=== PATIENT | male | born 1935 | race Caucasian/White ===

== ENCOUNTER 2017-02-21 19:39 | Inpatient (IN) ==
--- NOTE | 2017-02-22 01:28 | Internal Med History&Physical ---
Date of Encounter: 02/22/17 Time of Encounter: 01:26 Assessment and Plan (1) UTI (urinary tract infection) Current visit: No Status: Acute urine cx pend. Continue empiric rocephin for UTI therapy. Dtr in ED reported mental status baseline Qualifiers: Urinary tract infection type: acute cystitis Hematuria presence: without hematuria Qualified Code(s): N30.00 - Acute cystitis without hematuria (2) Afib Current visit: Yes Status: Acute increase metoprolol (decrease lisinopril) for better rate control. On ASA. Not on AC due to risk of fall Qualifiers: Atrial fibrillation type: chronic Qualified Code(s): I48.2 - Chronic atrial fibrillation (3) Acute kidney injury superimposed on CKD Current visit: Yes Status: Acute IVF Suspect pre-renal (4) HTN (hypertension), benign Current visit: Yes Status: Acute adjust metoprolol upwards, decrease dose of lisinopril Orthostat PT (5) DMII (diabetes mellitus, type 2) Current visit: Yes Status: Acute hold metformin, ISS for now Qualifiers: Diabetes mellitus complication status: without complication Diabetes mellitus rat exterminator insulin use: without senior care use Qualified Code(s): E11.9 - Type 2 diabetes mellitus without complications Internal Medicine - H&P: HPI Chief complaint: Suspect AMS ? Found sleeping outside his house on the ground History of present illness: Mr Khan is an 81 yo male who presents with AMS. Possible 2/2 UTI. He reports living alone at home and is extremely hard of hearing. He reports frequently sleeping on the ground outside his house. He reported another routine nap since yesterday evening and woke up today. His neigbor alerted his dtr who advised him to present for evaluation. He feel normal and w/o acute deficits. On review, he notes of a long-standing history of right upper extremity weakness due to history of right wrist fracture prior On review, a bruise was noted on his forehead- however, he had little recollection of how it happened Objectively, WBC 17.7, trop leak 0.07, Cr 1.76 (baseline 1-1.2), UA with pyuria. Urine cx pend. Received empiric UTI therapy in the ED. EKG reviewed personally with rate 104, AFib CT/CT head/brain wo con IMPRESSION: No acute intracranial abnormality. Past Med Surg Social Fam HX - Past Medical History Medical history: arthritis, atrial fibrillation, CHF, diabetes, hyperlipidemia, hypertension, other Psychiatric history: no psych history - Past Surgical History Surgical History: orthopedic, other, other - Social History Smoking Status: Former smoker Smokeless Tobacco Status: No Alcohol use: none Drug use: none - Family History Mother Hx Family Cancer: Yes (brain) Internal Medicine - H&P: Meds Furosemide [Lasix] 40 mg PO BID 03/03/16 [History] Lisinopril [Zestril] 40 mg PO DAILY 03/03/16 [History] Metoprolol [Lopressor] 50 mg PO BID 03/03/16 [History] Pravastatin Sodium [Pravachol] 40 mg PO HS 03/03/16 [History] metFORMIN [Glucophage] 500 mg PO BID 03/03/16 [History] Aspirin [Ecotrin] 325 mg PO DAILY 02/21/17 [History] Gabapentin [Neurontin] 300 mg PO TID 02/21/17 [History] Magnesium Oxide [Mag-Ox] 400 mg PO BID 02/21/17 [History] Potassium Chloride 20 meq PO DAILY 02/21/17 [History] 3 Allergy/AdvReac Type Severity Reaction Status Date / Time No Known Allergies Allergy Verified 03/03/16 14:13 All Systems PM: A 10-system review of systems was performed and is negative for pertinent findings except as documented above in the HPI. Review of systems: ROS 14 point review of systems reviewed as best as possible given presentation. Pertinent positive or negative as per HPI or otherwise reviewed as negative - Constitutional Vitals: Temp Pulse Resp BP Pulse Ox 98.1 F 111 16 143/90 98 02/21/17 22:01 02/21/17 22:01 02/21/17 22:01 02/21/17 22:01 02/21/17 22:01 Exam: General - AAO x 3 Psych - Appropriate affect/speech. No agitation Eyes - ZEHRA. Eye lids intact. No scleral icterus Neuro - decreased hearing otherwise no central neuro deficits with intact CN 2- 12 exam. Right upper extremity 4/5 power Heart - irregular. S1 and S2 present. No added HS/murmurs appreciated. No elevated JVD appreciated. Lung - Adequate air entry b/l, No crackles/wheezes appreciated GI - Soft, non-tender. No hepatosplenomegaly/ascites. BS+ - No CVA/suprapubic tenderness or palpable bladder distension Skin - Intact. No rash/petechiae/ecchymosis. Warm extremities MSK - Joints with normal ROM. No joint swellings
[2017-02-22] MEDS ORDERED: *HR* Dextrose 50 % in Water (Syg) 50 ML SYRINGE IVP PRN (01:30)
[2017-02-22] MEDS ORDERED: Naloxone 0.4 MG/ML INJ IVP PRN (01:30)
[2017-02-22] MEDS ORDERED: D5% in Water 1,000 ML IVC PRN (01:30)
[2017-02-22] MEDS ORDERED: Dextrose Gel 15 GM PO PRN ×2 (01:30)
[2017-02-22] MEDS: 0.9 % Sodium Chloride 1,000 ML IVC SCH (02:22)
[2017-02-22 03:28] LABS: Basophils % 0.1 %; Eosinophils % 0.2 %; Hematocrit 35.6 % (37.5-50.1); Hemoglobin 11.2 g/dL (12.9-16.9); Immature Granulocytes % 0.6 % (0-4); Lymphocytes # 1.1 K/mcL (0.6-4.6); Lymphocytes % 7.1 %; Mean Corpuscular HGB Conc 31.5 g/dL (31.6-35.5); Mean Corpuscular Hemoglobin 30.1 pg (28.0-33.3); Mean Corpuscular Volume 95.7 fL (83.0-100.0); Mean Platelet Volume 10.9 fL (9.4-12.4); Monocytes # 1.9 K/mcL (0.0-1.3); Monocytes % 11.7 %; Neutrophils # 12.7 K/mcL (1.6-8.9); Platelet Count 201 K/mcL (140-400); Red Blood Count 3.72 M/mcL (4.19-5.50); Red Cell Distribution Width 14.4 % (11.5-14.5); Segmented Neutrophils % 80.3 %
[2017-02-22 03:46] LABS: Albumin 3.3 g/dL (3.5-5.0); Albumin/Globulin Ratio 0.8 (1.1-2.2); Bilirubin,Direct 1.1 mg/dL (0.0-0.5); Bilirubin,Indirect 1.6 mg/dL (0.0-1.2); Bilirubin,Total 2.7 mg/dL (0.2-1.2); Globulin 4.2 g/dL (2.4-3.5); Magnesium 1.7 mg/dL (1.6-2.6); Potassium 4.6 mEq/L (3.5-4.5); Total Protein 7.5 g/dL (6.0-8.3)
[2017-02-22] MEDS: Magnesium Oxide 400 MG TABLET PO SCH ×2 (08:35→20:40)
[2017-02-22] MEDS: Gabapentin 300 MG CAPSULE PO SCH ×3 (08:35→20:40)
[2017-02-22] MEDS: Aspirin Enteric Coated 325 MG Tablet PO SCH (08:36)
[2017-02-22] MEDS: Lisinopril 20 MG TABLET PO SCH (08:36)
[2017-02-22] MEDS: Insulin LISPRO 300 UNITS/3 ML VIAL SQ SCH ×4 (08:37→21:55)
[2017-02-22] MEDS ORDERED: Acetaminophen 325 MG TABLET PO PRN (09:16)
--- NOTE | 2017-02-22 18:21 | Event Note ---
Date of Encounter: 02/22/17 Time of Encounter: 14:35 Pt was seen and assessed at 1435 today. He is alert, oriented, very hard of hearing. He is sitting up at bedside and states that he was lying down in his front yard which he does sometimes and is unsure how he got abrasions to his head, right elbow, bilateral feet. He reports right wrist pain and right knee pain, x-rays up in ordered. He also has an abrasion to his right forehead, head CT has been ordered. He is insistent that he did not fall and he was just Carlos is unsure how he received all the abrasions. He denies any pain, he denies wearing oxygen at home, he does not smoke, and he does not use any alcohol. He has multiple family members who are in the medical field and are requesting podiatry, trim his toenails and that he have a sleep study while he is here. Both of these will be done outpatient. Patient is currently being treated for urinary tract infection, there is trace of sinusitis to raise, moderate bacteria, many casts, culture is pending at this time. He will be treated with Rocephin until final culture and sensitivity are available. Patient's beta yolis was increased to 2 uncontrolled rate with A. fib, rate has slowed into the 80s, blood pressure has tolerated it well. We will continue his aspirin. He is not on anticoagulation due to increased risk of falls at home. Patient with mild AK I, being treated with gentle IV hydration will continue to monitor labs and avoid nephrotoxins. Pt denies headache, n/v/d, SOB, diaphoresis, abd pain, dizziness, chest pain, or presyncope. He reports right wrist and right knee pain and denies fall or known injury. Physical exam is unremarkable other than patient is hard of hearing and abrasion to right forehead, right elbow, right knee. S!S2 with RRR, no gallops, clicks, or murmurs. Lungs are clear, no wheezing, rales, ronchi, or respiratory distress. Abd is distended, soft, obese with BS present. Pt with mild peripheral edema to avery ankles. We will continue treating pt for UTI and wait on results of xrays and head CT. PT has recommended continued therapy in SNF, patient is agreeable. Continue fall precautions and maintain bed alarm. Payroll Supervisor consult pending.
[2017-02-23 04:16] LABS: Basophils % 0.1 %; Eosinophils # 0.2 K/mcL (0.0-0.6); Eosinophils % 1.4 %; Hematocrit 30.5 % (37.5-50.1); Hemoglobin 9.7 g/dL (12.9-16.9); Immature Granulocytes % 0.7 % (0-4); Lymphocytes # 1.2 K/mcL (0.6-4.6); Lymphocytes % 8.6 %; Mean Corpuscular HGB Conc 31.8 g/dL (31.6-35.5); Mean Corpuscular Hemoglobin 30.4 pg (28.0-33.3); Mean Corpuscular Volume 95.6 fL (83.0-100.0); Monocytes # 1.6 K/mcL (0.0-1.3); Monocytes % 12.2 %; Neutrophils # 10.3 K/mcL (1.6-8.9); Platelet Count 183 K/mcL (140-400); Red Blood Count 3.19 M/mcL (4.19-5.50); Red Cell Distribution Width 14.3 % (11.5-14.5)
[2017-02-23 04:28] LABS: Alanine Aminotransferase 11 Units/L (0-55); Albumin 2.7 g/dL (3.5-5.0); Albumin/Globulin Ratio 0.7 (1.1-2.2); Alkaline Phosphatase 100 Units/L (38-126); Aspartate Amino Transferase 40 Units/L (5-34); BUN/Creatinine Ratio 31 (6-26); Bilirubin,Direct 0.4 mg/dL (0.0-0.5); Bilirubin,Indirect 0.3 mg/dL (0.0-1.2); Bilirubin,Total 0.7 mg/dL (0.2-1.2); Blood Urea Nitrogen 34 mg/dL (8-26); Calcium 8.5 mg/dL (8.6-10.8); Carbon Dioxide 26 mEq/L (19-29); Chloride 106 mEq/L (98-109); Globulin 3.7 g/dL (2.4-3.5); Glucose 113 mg/dL (70-99); Magnesium 1.8 mg/dL (1.6-2.6); Osmolality,Calculated 294 (280-300); Potassium 4.4 mEq/L (3.5-4.5); Sodium 138 mEq/L (136-145); Total Protein 6.4 g/dL (6.0-8.3); eGFR For African Americans > 60 (> 60); eGFR For Non-African Americans > 60 (> 60)
[2017-02-23] MEDS: Lisinopril 20 MG TABLET PO SCH (08:53)
[2017-02-23] MEDS: Gabapentin 300 MG CAPSULE PO SCH ×3 (08:53→19:41)
[2017-02-23] MEDS: Magnesium Oxide 400 MG TABLET PO SCH ×2 (08:53→19:41)
[2017-02-23] MEDS: Aspirin Enteric Coated 325 MG Tablet PO SCH (08:53)
[2017-02-23] MEDS: Insulin LISPRO 300 UNITS/3 ML VIAL SQ SCH ×4 (08:55→23:33)
--- NOTE | 2017-02-23 09:51 | Internal Med Progress Note ---
Date of Encounter: 02/23/17 Time of Encounter: 08:40 - Assessment and plan (1) UTI (urinary tract infection) Current Visit: Yes Status: Acute Assessment and plan: Pt being treated for UTI, culture is still pending. + leukocyte esterase, blood. He is being treated with Rocephin 1gram daily, initial culture still pending. Qualifiers: Urinary tract infection type: acute cystitis Hematuria presence: without hematuria Qualified Code(s): N30.00 - Acute cystitis without hematuria (2) Rhabdomyolysis Current Visit: Yes Status: Acute Assessment and plan: Pt denies fall, however he has abrasions on elbow, forehead, and reports new pain to right elbow and right foot. He was found in his yard by a neighbor. Pt states that sometimes he sleeps in his yard and has for years. Pt with elevated CK, wrist and foot pain, non-tender to palpation. Urine collected on admission with casts and protein. Continue IVF and hydration. Qualifiers: Rhabdomyolysis type: non-traumatic Qualified Code(s): M62.82 - Rhabdomyolysis (3) Leukocytosis Current Visit: No Status: Acute Assessment and plan: Pt with mild leukocytosis, 13.4 today, improving. Pt is being treated for UTI, most likely source of infection. Continue IV antibiotics. Urine culture pending. Chest xray with left basilar atelectasis, otherwise no acute process. Continue to monitor labs and vital signs. Qualifiers: Leukocytosis type: unspecified Qualified Code(s): D72.829 - Elevated white blood cell count, unspecified (4) Acute kidney injury superimposed on CKD Current Visit: Yes Status: Acute Assessment and plan: Renal function has returned to WNL, Sr Cr 1.08 and GFR >60. Continue to monitor labs and avoid nephrotoxins. (5) HTN (hypertension), benign Current Visit: Yes Status: Acute Assessment and plan: Well controlled in inpt setting. Continue home medications. (6) DMII (diabetes mellitus, type 2) Current Visit: Yes Status: Acute Assessment and plan: Well controlled in inpt setting. A1c ordered for a.m. Last in June 6.8%. Continue SSI, accuchecks, and diabetic diet. Qualifiers: Diabetes mellitus complication status: without complication Diabetes mellitus terminologist insulin use: without terminologist use Qualified Code(s): E11.9 - Type 2 diabetes mellitus without complications (7) DVT prophylaxis Current Visit: Yes Status: Acute Assessment and plan: Activity up to chair, SCD's, and Heparin SQ - Time Spent With Patient less than 15 minutes - Subjective Interval history: Pr was seen and assessed at 0840. He is alert and awake, pleasant, [place]. He is agreeable to going to rehab and would like to go to [place]. - Constitutional Vitals: Temp Pulse Resp BP Pulse Ox 98.5 F 104 17 138/79 98 02/23/17 07:27 02/23/17 07:27 02/23/17 07:27 02/23/17 07:27 02/23/17 07:27 Internal Medicine: Result - Labs CBC & Chem 7: 02/23/17 04:05 02/23/17 04:05 Labs: Short CBC 02/23/17 Range/Units 04:05 WBC 13.4 H (4.3-11.1) K/mcL Hgb 9.7 L D (12.9-16.9) g/dL Hct 30.5 L (37.5-50.1) % Plt Count 183 (140-400) K/mcL Neutrophils # 10.3 H (1.6-8.9) K/mcL BMP 02/23/17 04:05 Sodium 138 Potassium 4.4 Chloride 106 Carbon Dioxide 26 BUN 34 H Creatinine 1.08 Glucose 113 H Calcium 8.5 L Cardiac Enzymes 02/22/17 Range/Units 13:38 Troponin I 0.03 (0-0.03) ng/mL Liver Function 02/23/17 Range/Units 04:05 Total Bilirubin 0.7 (0.2-1.2) mg/dL Direct Bilirubin 0.4 (0.0-0.5) mg/dL AST 40 H (5-34) Units/L ALT 11 (0-55) Units/L Alkaline Phosphatase 100 (38-126) Units/L Albumin 2.7 L (3.5-5.0) g/dL - Impressions Impressions Head CT 02/22/17 17:38 IMPRESSION: No acute intracranial abnormality. D/ / 02/23/2017 07:17:15 Murray Rosales MD / [facility] Interpreting Provider: Murray Rosales MD Hand X-Ray 02/22/17 17:40 IMPRESSION: No definite acute radiographic bony abnormality. D/ / Malorie Mendez Cha, MD / Malorie Mendez Cha, MD Interpreting Provider: Malorie Mendez Cha, MD Knee X-Ray 02/22/17 17:40 IMPRESSION: No acute bony abnormality. D/ / Malorie Mendez Cha, MD / Malorie Mendez Cha, MD Interpreting Provider: Malorie Mendez Cha, MD Consult Discharge Plan - Plan Referrals: Camron Allen MD [Primary Care Provider] -
[2017-02-23] MEDS: *HR* Heparin 5,000 UNIT/ML VIAL SQ SCH (17:13)
[2017-02-23] MEDS: 0.9 % Sodium Chloride 1,000 ML IVC SCH (19:42)
[2017-02-23 23:39] LABS: Bilirubin,Urine Negative (Negative); Blood,Urine Negative (Negative); Clarity,Urine Clear (Clear); Color,Urine Yellow (Yellow); Glucose,Urine (UA) Normal (Normal); Ketones,Urine Negative (Negative); Leukocyte Esterase,Urine Negative (Negative); Nitrite,Urine Negative (Negative); PH,Urine 5.5 pH Units (5.0-8.0); Protein,Urine Negative (Neg-Trace); Specific Gravity,Urine 1.024 (1.010-1.025); Urobilinogen,Urine Normal (Normal)
[2017-02-24 05:22] LABS: Basophils % 0.3 %; Eosinophils # 0.3 K/mcL (0.0-0.6); Eosinophils % 2.5 %; Hematocrit 30.2 % (37.5-50.1); Hemoglobin 9.3 g/dL (12.9-16.9); Immature Granulocytes % 0.6 % (0-4); Immature Platelets 5.6 % (1.1-6.1); Lymphocytes # 1.2 K/mcL (0.6-4.6); Lymphocytes % 10.8 %; Mean Corpuscular HGB Conc 30.8 g/dL (31.6-35.5); Mean Corpuscular Hemoglobin 29.7 pg (28.0-33.3); Mean Corpuscular Volume 96.5 fL (83.0-100.0); Mean Platelet Volume 10.8 fL (9.4-12.4); Monocytes # 1.4 K/mcL (0.0-1.3); Neutrophils # 8.4 K/mcL (1.6-8.9); Platelet Count 199 K/mcL (140-400); Red Blood Count 3.13 M/mcL (4.19-5.50); Red Cell Distribution Width 14.4 % (11.5-14.5); Segmented Neutrophils % 73.8 %
[2017-02-24] MEDS: *HR* Heparin 5,000 UNIT/ML VIAL SQ SCH ×2 (05:41→16:32)
[2017-02-24 07:04] LABS: Alanine Aminotransferase 14 Units/L (0-55); Albumin 2.7 g/dL (3.5-5.0); Albumin/Globulin Ratio 0.7 (1.1-2.2); Alkaline Phosphatase 104 Units/L (38-126); Aspartate Amino Transferase 32 Units/L (5-34); BUN/Creatinine Ratio 28 (6-26); Bilirubin,Direct 0.3 mg/dL (0.0-0.5); Bilirubin,Indirect 0.1 mg/dL (0.0-1.2); Bilirubin,Total 0.4 mg/dL (0.2-1.2); Blood Urea Nitrogen 30 mg/dL (8-26); Calcium 8.7 mg/dL (8.6-10.8); Carbon Dioxide 24 mEq/L (19-29); Chloride 109 mEq/L (98-109); Globulin 3.8 g/dL (2.4-3.5); Glucose 129 mg/dL (70-99); Magnesium 1.9 mg/dL (1.6-2.6); Osmolality,Calculated 298 (280-300); Potassium 4.5 mEq/L (3.5-4.5); Sodium 140 mEq/L (136-145); Total Protein 6.5 g/dL (6.0-8.3); eGFR For African Americans > 60 (> 60); eGFR For Non-African Americans > 60 (> 60)
[2017-02-24] MEDS: Insulin LISPRO 300 UNITS/3 ML VIAL SQ SCH ×4 (07:24→23:09)
--- NOTE | 2017-02-24 08:43 | Internal Med Progress Note ---
<Sanchez Vargas - Last Filed: 02/24/17 16:10> Date of Encounter: 02/24/17 Time of Encounter: 08:42 - Assessment and plan (1) Intractable pain Current Visit: Yes Status: Acute Assessment and plan: Patient complains of uncontrolled pain in his right upper extremity secondary to fall, imaging does not show any acute fracture. Plan: - Continue current pain control - Add tramadol 25 mg by mouth when necessary every 8 hours (2) History of fall Current Visit: No Status: Acute Assessment and plan: Patient has a history of falls. Patient's chart is recommended to use assistive devices while ambulating. - Given his current admission is highly recommend that he has physical therapy discharge - Physical therapy recommending ECF placement - Family agrees ECF placement (3) Leukocytosis Current Visit: No Status: Acute Assessment and plan: Patient presented with leukocytosis, reviewed with patient history demonstrates a chronic leukocytosis. Slight elevation likely due to presenting rhabdomyolysis. Plan: - We will continue to monitor with am labs, do not suspect due to infectious etiology Qualifiers: Leukocytosis type: unspecified Qualified Code(s): D72.829 - Elevated white blood cell count, unspecified (4) Acute kidney injury superimposed on CKD Current Visit: Yes Status: Acute Assessment and plan: Renal function has returned to WNL, Sr Cr 1.08 and GFR >60. Continue to monitor labs and avoid nephrotoxins. (5) Afib Current Visit: Yes Status: Acute Assessment and plan: Patient is a known history of HIV fibrillation, on anti-coagulation as he is a high fall risk as demonstrated by his falling at home resulting in right upper extremity injury and forehead lesion. - Currently rate controlled with Lopressor 100 mg twice a day -Continue cardiac monitoring - Continue aspirin Qualifiers: Atrial fibrillation type: chronic Qualified Code(s): I48.2 - Chronic atrial fibrillation (6) HTN (hypertension), benign Current Visit: Yes Status: Acute Assessment and plan: Well controlled in inpt setting. Continue home medications. (7) DMII (diabetes mellitus, type 2) Current Visit: Yes Status: Acute Assessment and plan: Well controlled in inpt setting. A1c ordered for a.m. Last in June 6.8%. Continue SSI, accuchecks, and diabetic diet. Qualifiers: Diabetes mellitus complication status: without complication Diabetes mellitus technician terminal and repeater insulin use: without technician terminal and repeater use Qualified Code(s): E11.9 - Type 2 diabetes mellitus without complications (8) Rhabdomyolysis Current Visit: Yes Status: Acute Assessment and plan: Rhabdomyolysis has resolved with inpatient intervention. - Continue to monitor CBC and CMP during inpatient stay. Qualifiers: Rhabdomyolysis type: non-traumatic Qualified Code(s): M62.82 - Rhabdomyolysis (9) DVT prophylaxis Current Visit: Yes Status: Acute Assessment and plan: Activity up to chair, SCD's, and Heparin SQ - Subjective Interval history: Mr. Khan 81-year-old Luis seen and evaluated the patient bedside this morning. He is alert awake interactive and complains of pain that is uncontrolled in his right upper extremity. When asked why he was sleeping on his porch she says that he used to do a lot of camping and sleeping outside his natural for him. He does mention that his daughter is picking up a ramp so that he can get into the house. When asked about the scrape on his forehead he said that he sat down on his driveway and rolled down his driveway. He denies any headaches, change in vision, lightheadedness, chest pain, palpitations, abdominal pain, nausea vomiting diarrhea constipation. When asked about the swelling in his legs he said that is the same as it always is. 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 Chest symmetric bilateral correlate respiratory effort Respiratory: Clear to auscultation bilaterally Cardiac: Irregularly irregular heart rate and rhythm, radial pulses were 2+ bilateral Abdomen: Obese, soft, nontender to palpation, positive bowel sounds Extremities: Patient has bilateral lower extremity edema 1+, venous stasis changes, tenderness to palpation of the right upper extremity Internal Medicine: Result - Labs CBC & Chem 7: 02/24/17 05:12 02/24/17 05:12 Labs: Short CBC 02/24/17 Range/Units 05:12 WBC 11.4 H (4.3-11.1) K/mcL Hgb 9.3 L (12.9-16.9) g/dL Hct 30.2 L (37.5-50.1) % Plt Count 199 (140-400) K/mcL Neutrophils # 8.4 (1.6-8.9) K/mcL BMP 02/24/17 05:12 Sodium 140 Potassium 4.5 Chloride 109 Carbon Dioxide 24 BUN 30 H Creatinine 1.09 Glucose 129 H Calcium 8.7 Cardiac Enzymes 02/23/17 Range/Units 00:00 Troponin I 0.02 (0-0.03) ng/mL Liver Function 02/24/17 Range/Units 05:12 Total Bilirubin 0.4 (0.2-1.2) mg/dL Direct Bilirubin 0.3 (0.0-0.5) mg/dL AST 32 (5-34) Units/L ALT 14 (0-55) Units/L Alkaline Phosphatase 104 (38-126) Units/L Albumin 2.7 L (3.5-5.0) g/dL Urine 02/23/17 Range/Units 23:30 Urine Color Yellow (Yellow) Urine Clarity Clear (Clear) Urine pH 5.5 (5.0-8.0) pH Units Ur Specific [place] 1.024 (1.010-1.025) Urine Protein Negative (Neg-Trace) mg/dL Urine Glucose (UA) Normal (Normal) mg/dL - Impressions Impressions Head CT 02/22/17 17:38 IMPRESSION: No acute intracranial abnormality. D/ / 02/23/2017 07:17:15 [facility] Inter[facility]ting Provider: Murray Rosales MD - VTE Documentation of Mechanical Device: Intermittent pneumatic compression device Consult Discharge Plan - Plan Referrals: Camron Allen MD [Primary Care Provider] - <Damian Travis - Last Filed: 02/24/17 17:22> Date of Encounter: 02/24/17 - Constitutional Vitals: Temp Pulse Resp BP Pulse Ox 98.4 F 97 18 134/83 97 02/24/17 15:02/24/17 15:02/24/17 15:02/24/17 15:02/24/17 15:09 Internal Medicine: Result - Labs CBC & Chem 7: 02/24/17 05:12 02/24/17 05:12 Labs: Short CBC 02/24/17 Range/Units 05:12 WBC 11.4 H (4.3-11.1) K/mcL Hgb 9.3 L (12.9-16.9) g/dL Hct 30.2 L (37.5-50.1) % Plt Count 199 (140-400) K/mcL Neutrophils # 8.4 (1.6-8.9) K/mcL BMP 02/24/17 05:12 Sodium 140 Potassium 4.5 Chloride 109 Carbon Dioxide 24 BUN 30 H Creatinine 1.09 Glucose 129 H Calcium 8.7 Cardiac Enzymes 02/23/17 Range/Units 00:00 Troponin I 0.02 (0-0.03) ng/mL Liver Function 02/24/17 Range/Units 05:12 Total Bilirubin 0.4 (0.2-1.2) mg/dL Direct Bilirubin 0.3 (0.0-0.5) mg/dL AST 32 (5-34) Units/L ALT 14 (0-55) Units/L Alkaline Phosphatase 104 (38-126) Units/L Albumin 2.7 L (3.5-5.0) g/dL Urine 02/23/17 Range/Units 23:30 Urine Color Yellow (Yellow) Urine Clarity Clear (Clear) Urine pH 5.5 (5.0-8.0) pH Units Ur Specific [place] 1.024 (1.010-1.025) Urine Protein Negative (Neg-Trace) mg/dL Urine Glucose (UA) Normal (Normal) mg/dL - Impressions Impressions Head CT 02/22/17 17:38 IMPRESSION: No acute intracranial abnormality. D/ / 02/23/2017 07:17:15 [facility] Inter[facility] Provider: Murray Rosales MD - Attending Attestation start tramadol, consider dilaudid IV fall precautions I examined this patient and my medical decision-making was reviewed with the Resident Physician. I agree with the documented findings, disposition and treatment plan as described except to the extent set forth below.
[2017-02-24] MEDS: Aspirin Enteric Coated 325 MG Tablet PO SCH (08:45)
[2017-02-24] MEDS: Lisinopril 20 MG TABLET PO SCH (08:45)
[2017-02-24] MEDS: Magnesium Oxide 400 MG TABLET PO SCH ×2 (08:45→21:14)
[2017-02-24] MEDS: Gabapentin 300 MG CAPSULE PO SCH ×3 (08:45→21:15)
[2017-02-24 09:03] LABS: Hemoglobin A1C 6.3 %
[2017-02-24] MEDS: Silvasorb 44.4 ML TUBE TP SCH (12:27)
[2017-02-24] MEDS ORDERED: traMADol 50 MG TABLET PO PRN (13:49)
[2017-02-25 05:18] LABS: Basophils % 0.1 %; Eosinophils # 0.3 K/mcL (0.0-0.6); Eosinophils % 3.1 %; Hematocrit 31.1 % (37.5-50.1); Hemoglobin 9.7 g/dL (12.9-16.9); Immature Granulocytes % 0.5 % (0-4); Lymphocytes # 1.2 K/mcL (0.6-4.6); Lymphocytes % 12.1 %; Mean Corpuscular HGB Conc 31.2 g/dL (31.6-35.5); Mean Corpuscular Hemoglobin 30.5 pg (28.0-33.3); Mean Corpuscular Volume 97.8 fL (83.0-100.0); Mean Platelet Volume 11.1 fL (9.4-12.4); Monocytes # 1.4 K/mcL (0.0-1.3); Monocytes % 14.5 %; Neutrophils # 6.9 K/mcL (1.6-8.9); Platelet Count 200 K/mcL (140-400); Red Blood Count 3.18 M/mcL (4.19-5.50); Red Cell Distribution Width 14.5 % (11.5-14.5); Segmented Neutrophils % 69.7 %
[2017-02-25 05:30] LABS: Alanine Aminotransferase 13 Units/L (0-55); Albumin 2.5 g/dL (3.5-5.0); Albumin/Globulin Ratio 0.6 (1.1-2.2); Alkaline Phosphatase 106 Units/L (38-126); Aspartate Amino Transferase 25 Units/L (5-34); BUN/Creatinine Ratio 39 (6-26); Bilirubin,Total 0.5 mg/dL (0.2-1.2); Blood Urea Nitrogen 27 mg/dL (8-26); Calcium 8.8 mg/dL (8.6-10.8); Carbon Dioxide 26 mEq/L (19-29); Chloride 107 mEq/L (98-109); Glucose 118 mg/dL (70-99); Osmolality,Calculated 294 (280-300); Potassium 4.5 mEq/L (3.5-4.5); Sodium 139 mEq/L (136-145); Total Protein 6.5 g/dL (6.0-8.3); eGFR For African Americans > 60 (> 60); eGFR For Non-African Americans > 60 (> 60)
[2017-02-25] MEDS: *HR* Heparin 5,000 UNIT/ML VIAL SQ SCH ×2 (07:24→17:33)
[2017-02-25] MEDS: Aspirin Enteric Coated 325 MG Tablet PO SCH (08:11)
[2017-02-25] MEDS: Lisinopril 20 MG TABLET PO SCH (08:12)
[2017-02-25] MEDS: Gabapentin 300 MG CAPSULE PO SCH ×3 (08:12→21:56)
[2017-02-25] MEDS: Magnesium Oxide 400 MG TABLET PO SCH ×2 (08:12→21:56)
[2017-02-25] MEDS: Insulin LISPRO 300 UNITS/3 ML VIAL SQ SCH ×3 (08:19→21:56)
--- NOTE | 2017-02-25 11:21 | Internal Med Progress Note ---
<Sanchez Vargas - Last Filed: 02/25/17 12:59> Date of Encounter: 02/25/17 Time of Encounter: 11:19 - Assessment and plan (1) Intractable pain Current Visit: Yes Status: Acute Assessment and plan: Patient complains of uncontrolled pain in his right upper extremity secondary to fall, imaging does not show any acute fracture. - more improved today Plan: - Continue current pain control - Continue tramadol 25 mg by mouth when necessary every 8 hours (2) History of fall Current Visit: No Status: Acute Assessment and plan: Patient has a history of falls. Patient's chart is recommended to use assistive devices while ambulating. - Given his current admission is highly recommend that he has physical therapy discharge - Physical therapy recommending ECF placement - Family agrees ECF placement (3) Leukocytosis Current Visit: No Status: Acute Assessment and plan: Patient presented with leukocytosis, reviewed with patient history demonstrates a chronic leukocytosis. Slight elevation likely due to presenting rhabdomyolysis. Plan: - We will continue to monitor with am labs, do not suspect due to infectious etiology Qualifiers: Leukocytosis type: unspecified Qualified Code(s): D72.829 - Elevated white blood cell count, unspecified (4) Acute kidney injury superimposed on CKD Current Visit: Yes Status: Acute Assessment and plan: Renal function has returned to WNL, Sr Cr 1.08 and GFR >60. Continue to monitor labs and avoid nephrotoxins. (5) Afib Current Visit: Yes Status: Acute Assessment and plan: Patient is a known history of HIV fibrillation, on anti-coagulation as he is a high fall risk as demonstrated by his falling at home resulting in right upper extremity injury and forehead lesion. - Currently rate controlled with Lopressor 100 mg twice a day -Continue cardiac monitoring - Continue aspirin Qualifiers: Atrial fibrillation type: chronic Qualified Code(s): I48.2 - Chronic atrial fibrillation (6) HTN (hypertension), benign Current Visit: Yes Status: Acute Assessment and plan: Well controlled in inpatient setting. Continue home medications. (7) DMII (diabetes mellitus, type 2) Current Visit: Yes Status: Acute Assessment and plan: Well controlled in inpt setting. A1c ordered for a.m. Last in June 6.8%. Continue SSI, accuchecks, and diabetic diet. Qualifiers: Diabetes mellitus complication status: without complication Diabetes mellitus rn long term care insulin use: without rn long term care use Qualified Code(s): E11.9 - Type 2 diabetes mellitus without complications (8) Rhabdomyolysis Current Visit: Yes Status: Acute Assessment and plan: Rhabdomyolysis has resolved with inpatient intervention. - Continue to monitor CBC and CMP during inpatient stay. Qualifiers: Rhabdomyolysis type: non-traumatic Qualified Code(s): M62.82 - Rhabdomyolysis (9) DVT prophylaxis Current Visit: Yes Status: Acute Assessment and plan: Activity up to chair, SCD's, and Heparin SQ - Subjective Interval history: Mr. Khan 81-year-old Luis seen and evaluated the patient bedside this morning. He is alert awake interactive and complains of pain that is more controlled in his right upper extremity. He denies any other pains, concern or complaints at this time. He is eating, drinking and voiding appropriately. - Constitutional Vitals: Temp Pulse Resp BP Pulse Ox 97.9 F 86 16 121/77 95 02/25/17 07:54 02/25/17 07:54 02/25/17 07:54 02/25/17 07:54 02/25/17 07:54 Exam: General alert awake oriented and interactive no acute distress HEENT normocephalic, healing scrape on his forehead, psoriasis plaque on his posterior occiput, neck supple trachea midline no palpable lymphadenopathy oral mucosa is moist. Chest symmetric bilateral correlate respiratory effort Respiratory: Clear to auscultation bilaterally Cardiac: Irregularly irregular heart rate and rhythm, radial pulses were 2+ bilateral Abdomen: Obese, soft, nontender to palpation, positive bowel sounds Extremities: Patient has bilateral lower extremity edema 1+, venous stasis changes, tenderness to palpation of the right upper extremity Internal Medicine: Result - Labs CBC & Chem 7: 02/25/17 04:39 02/25/17 04:39 Labs: Short CBC 02/25/17 Range/Units 04:39 WBC 9.9 (4.3-11.1) K/mcL Hgb 9.7 L (12.9-16.9) g/dL Hct 31.1 L (37.5-50.1) % Plt Count 200 (140-400) K/mcL Neutrophils # 6.9 (1.6-8.9) K/mcL BMP 02/25/17 04:39 Sodium 139 Potassium 4.5 Chloride 107 Carbon Dioxide 26 BUN 27 H Creatinine 0.70 L Glucose 118 H Calcium 8.8 Liver Function 02/25/17 Range/Units 04:39 Total Bilirubin 0.5 (0.2-1.2) mg/dL AST 25 (5-34) Units/L ALT 13 (0-55) Units/L Alkaline Phosphatase 106 (38-126) Units/L Albumin 2.5 L (3.5-5.0) g/dL - VTE Documentation of Mechanical Device: Intermittent pneumatic compression device Consult Discharge Plan - Plan Referrals: Camron Allen MD [Primary Care Provider] - <Damian Travis - Last Filed: 02/25/17 16:05> Date of Encounter: 02/25/17 - Constitutional Vitals: Temp Pulse Resp BP Pulse Ox 97.7 F 76 16 116/80 98 02/25/17 15:30 02/25/17 15:30 02/25/17 15:30 02/25/17 15:30 02/25/17 15:30 Internal Medicine: Result - Labs CBC & Chem 7: 02/25/17 04:39 02/25/17 04:39 Labs: Short CBC 02/25/17 Range/Units 04:39 WBC 9.9 (4.3-11.1) K/mcL Hgb 9.7 L (12.9-16.9) g/dL Hct 31.1 L (37.5-50.1) % Plt Count 200 (140-400) K/mcL Neutrophils # 6.9 (1.6-8.9) K/mcL BMP 02/25/17 04:39 Sodium 139 Potassium 4.5 Chloride 107 Carbon Dioxide 26 BUN 27 H Creatinine 0.70 L Glucose 118 H Calcium 8.8 Liver Function 02/25/17 Range/Units 04:39 Total Bilirubin 0.5 (0.2-1.2) mg/dL AST 25 (5-34) Units/L ALT 13 (0-55) Units/L Alkaline Phosphatase 106 (38-126) Units/L Albumin 2.5 L (3.5-5.0) g/dL - Attending Attestation may discharge in the morning if stable I examined this patient and my medical decision-making was reviewed with the Resident Physician. I agree with the documented findings, disposition and treatment plan as described except to the extent set forth below.
[2017-02-25] MEDS: Silvasorb 44.4 ML TUBE TP SCH (12:13)
--- NOTE | 2017-02-25 15:45 | Venous Imaging Report ---
LE Venous Duplex Patient Name:Raj Khan Order Number:[id number] Procedure Date:02/24/2017 Date:1935ge:81 yrs Gender:Male Location:[facility] Room #: 3B21 Technical Operations Specialist:Gabriella Lin RVT Referring MD:Sanchez Vargas DO pattern fitter:Camron Allen MD Reading MD:Sekou Mcdaniel MD , FACS Secondary Indications: Risk Factors Yes/No Anticoagulants Yes Impressions: Bilateral lower extremity: normal superficial and deep exam. Findings Venous Duplex Results: Right: Venous imaging of the lower extremity reveals full patency and normal vessel compressibility of the right distal iliac, right common femoral, right superficial femoral, right popliteal, right posterior tibial, right peroneal, right great saphenous and right lesser saphenous. Doppler signals in the evaluated veins were normal. Left: Venous imaging of the lower extremity reveals full patency and normal vessel compressibility of the left distal iliac, left common femoral, left superficial femoral, left popliteal, left posterior tibial, left peroneal, left great saphenous and left lesser saphenous. Doppler signals in the evaluated veins were normal. Prior Study: No prior study available for comparison. Updated by Sekou Mcdaniel MD, FACS on 02/25/2017 3:38:46 PM Sekou Mcdaniel MD electronically signed on 02/25/2017 3:39:04 PM with status of Final
[2017-02-25] MEDS: 0.9 % Sodium Chloride 1,000 ML IVC SCH (21:55)
[2017-02-26] MEDS: Insulin LISPRO 300 UNITS/3 ML VIAL SQ SCH ×5 (05:26→20:40)
[2017-02-26] MEDS: *HR* Heparin 5,000 UNIT/ML VIAL SQ SCH ×2 (05:27→17:57)
[2017-02-26] MEDS ORDERED: Furosemide 20 MG/2 ML VIAL IVP ONE (08:10)
[2017-02-26] MEDS: Aspirin Enteric Coated 325 MG Tablet PO SCH (08:55)
[2017-02-26] MEDS: Lisinopril 20 MG TABLET PO SCH (08:55)
[2017-02-26] MEDS: Magnesium Oxide 400 MG TABLET PO SCH ×2 (08:55→20:38)
[2017-02-26] MEDS: Gabapentin 300 MG CAPSULE PO SCH ×3 (08:56→20:38)
--- NOTE | 2017-02-26 13:05 | Internal Med Progress Note ---
<Sanchez Vargas - Last Filed: 02/26/17 13:02> Date of Encounter: 02/26/17 Time of Encounter: 08:00 - Assessment and plan (1) Intractable pain Current Visit: Yes Status: Acute Assessment and plan: Patient complains of uncontrolled pain in his right upper extremity secondary to fall, imaging does not show any acute fracture. - Significantly improved. Plan: - Continue current pain control - Continue tramadol 25 mg by mouth when necessary every 8 hours (2) History of fall Current Visit: No Status: Acute Assessment and plan: Patient has a history of falls. Patient's chart is recommended to use assistive devices while ambulating. - Given his current admission is highly recommend that he has physical therapy discharge - Physical therapy recommending ECF placement - Family agrees ECF placement (3) Leukocytosis Current Visit: No Status: Acute Assessment and plan: Patient presented with leukocytosis, reviewed with patient history demonstrates a chronic leukocytosis. -Resolved. Plan: - We will continue to monitor with am labs, do not suspect due to infectious etiology Qualifiers: Leukocytosis type: unspecified Qualified Code(s): D72.829 - Elevated white blood cell count, unspecified (4) Acute kidney injury superimposed on CKD Current Visit: Yes Status: Acute Assessment and plan: Renal function has returned to WNL, Sr Cr 0.70 and GFR >60. Continue to monitor labs and avoid nephrotoxins. (5) Afib Current Visit: Yes Status: Acute Assessment and plan: Patient is a known history of atrial fibrillation, on anti-coagulation as he is a high fall risk as demonstrated by his falling at home resulting in right upper extremity injury and forehead lesion. - Currently rate controlled with Lopressor 100 mg twice a day -Continue cardiac monitoring - Continue aspirin Qualifiers: Atrial fibrillation type: chronic Qualified Code(s): I48.2 - Chronic atrial fibrillation (6) HTN (hypertension), benign Current Visit: Yes Status: Acute Assessment and plan: Well controlled in inpatient setting. Continue home medications. (7) DMII (diabetes mellitus, type 2) Current Visit: Yes Status: Acute Assessment and plan: Well controlled in inpt setting. A1c ordered for a.m. Last in June 6.8%. Continue SSI, accuchecks, and diabetic diet. Qualifiers: Diabetes mellitus complication status: without complication Diabetes mellitus prison insulin use: without petroleum terminal plant operator use Qualified Code(s): E11.9 - Type 2 diabetes mellitus without complications (8) Rhabdomyolysis Current Visit: Yes Status: Acute Assessment and plan: Rhabdomyolysis has resolved with inpatient intervention. - Continue to monitor CBC and CMP during inpatient stay. Qualifiers: Rhabdomyolysis type: non-traumatic Qualified Code(s): M62.82 - Rhabdomyolysis (9) DVT prophylaxis Current Visit: Yes Status: Acute Assessment and plan: Activity up to chair, SCD's, and Heparin SQ - Subjective Interval history: Mr. Khan 81-year-old male has been seen and evaluated the patient bedside. He is alert awake interactive denies any discomforts or pains. He feels that he has improving and so that his right hand is feeling much better today. He denies any chest pains, palpitations, abdominal pains, shortness of breath, nausea vomiting diarrhea constipation. He feels that his lower extremity is slightly worse than yesterday. He is eating and passing gas. - Constitutional Vitals: Temp Pulse Resp BP Pulse Ox 98.0 F 95 16 111/72 93 02/26/17 10:58 02/26/17 10:58 02/26/17 10:58 02/26/17 10:58 02/26/17 10:58 Exam: General alert awake oriented and interactive no acute distress HEENT normocephalic, healing scrape on his forehead, psoriasis plaque on his posterior occiput, neck supple trachea midline no palpable lymphadenopathy oral mucosa is moist. Chest symmetric bilateral correlate respiratory effort Respiratory: Clear to auscultation bilaterally Cardiac: Irregularly irregular heart rate and rhythm, radial pulses were 2+ bilateral Abdomen: Obese, soft, nontender to palpation, positive bowel sounds Extremities: Patient has bilateral lower extremity edema 1+, venous stasis changes, mild tenderness to palpation of the right upper extremity Internal Medicine: Result - Labs CBC & Chem 7: 02/25/17 04:39 02/25/17 04:39 - VTE Documentation of Mechanical Device: Intermittent pneumatic compression device Consult Discharge Plan - Plan Referrals: Camron Allen MD [Primary Care Provider] - <Dioni Arevalo - Last Filed: 02/26/17 18:05> Date of Encounter: 02/26/17 - Assessment and plan (1) Rhabdomyolysis Current Visit: Yes Status: Acute Qualifiers: Rhabdomyolysis type: non-traumatic Qualified Code(s): M62.82 - Rhabdomyolysis (2) Intractable pain Current Visit: Yes Status: Acute (3) DMII (diabetes mellitus, type 2) Current Visit: Yes Status: Acute Qualifiers: Diabetes mellitus complication status: without complication Diabetes mellitus prison insulin use: without petroleum terminal plant operator use Qualified Code(s): E11.9 - Type 2 diabetes mellitus without complications (4) Afib Current Visit: Yes Status: Acute Qualifiers: Atrial fibrillation type: chronic Qualified Code(s): I48.2 - Chronic atrial fibrillation (5) HTN (hypertension), benign Current Visit: Yes Status: Acute - Constitutional Vitals: Temp Pulse Resp BP Pulse Ox 98.2 F 78 16 165/99 95 02/26/17 16:12 02/26/17 16:12 02/26/17 16:12 02/26/17 16:12 02/26/17 16:12 Internal Medicine: Result - Labs CBC & Chem 7: 02/25/17 04:39 02/25/17 04:39 - Attending Attestation I examined this patient and my medical decision-making was reviewed with the Resident Physician on 02/26/17. I agree with the documented findings, disposition and treatment plan as described except to the extent set forth below. Mr. Khan is currently admitted for recurrent falls and BENJAMÍN. He is currently moderate risk due to potential for worsening clinical status. He is to be discharged to SNF tomorrow. Mr. Khan is readiing and says he feels OK. No new issues overnight. Has some pain in shoulder but meds help. No fever or chills. No CP or SOB. Exam Alert. Comfortable Mucus membranes dry Heart irreg Lungs clear Abd soft I/P 1. Falls 2. BENJAMÍN Further diagnoses and plan as above.
[2017-02-26] MEDS: Silvasorb 44.4 ML TUBE TP SCH (20:39)
[2017-02-27] MEDS: *HR* Heparin 5,000 UNIT/ML VIAL SQ SCH (05:14)
[2017-02-27] MEDS: Gabapentin 300 MG CAPSULE PO SCH (08:34)
[2017-02-27] MEDS: Magnesium Oxide 400 MG TABLET PO SCH (08:34)
[2017-02-27] MEDS: Aspirin Enteric Coated 325 MG Tablet PO SCH (08:34)
[2017-02-27] MEDS: Lisinopril 20 MG TABLET PO SCH (08:34)
[2017-02-27] MEDS: Insulin LISPRO 300 UNITS/3 ML VIAL SQ SCH ×2 (08:35→12:04)
[2017-02-27 11:09] VITALS: BP 133/90
--- NOTE | 2017-02-27 13:31 | Discharge Summary ---
<Sanchez Vargas Bunny - Last Filed: 02/27/17 13:41> Date of Encounter: 02/27/17 Time of Encounter: 13:29 - Discharge Diagnosis (1) Intractable pain Priority: Primary Status: Acute (2) History of fall Priority: Secondary Status: Acute (3) Leukocytosis Priority: Primary Status: Acute Qualifiers: Leukocytosis type: unspecified Qualified Code(s): D72.829 - Elevated white blood cell count, unspecified (4) Acute kidney injury superimposed on CKD Priority: Primary Status: Acute (5) Afib Priority: Secondary Status: Acute Qualifiers: Atrial fibrillation type: chronic Qualified Code(s): I48.2 - Chronic atrial fibrillation (6) HTN (hypertension), benign Priority: Secondary Status: Acute (7) DMII (diabetes mellitus, type 2) Priority: Secondary Status: Acute Qualifiers: Diabetes mellitus complication status: without complication Diabetes mellitus fpc insulin use: without adjunct faculty for medical terminology use Qualified Code(s): E11.9 - Type 2 diabetes mellitus without complications (8) Rhabdomyolysis Priority: Primary Status: Acute Qualifiers: Rhabdomyolysis type: non-traumatic Qualified Code(s): M62.82 - Rhabdomyolysis (9) DVT prophylaxis Priority: Secondary Status: Acute - Discharge Medications Prescriptions: Tramadol HCl [Ultram] 50 mg PO TID PRN #9 tab PRN Reason: Pain Home Medications: Furosemide [Lasix] 40 mg PO BID 03/03/16 [History] Lisinopril [Zestril] 40 mg PO DAILY 03/03/16 [History] Metoprolol [Lopressor] 50 mg PO BID 03/03/16 [History] metFORMIN [Glucophage] 500 mg PO BID 03/03/16 [History] Aspirin [Ecotrin] 325 mg PO DAILY 02/21/17 [History] Gabapentin [Neurontin] 300 mg PO TID 02/21/17 [History] Magnesium Oxide [Mag-Ox] 400 mg PO BID 02/21/17 [History] Potassium Chloride 20 meq PO DAILY 02/21/17 [History] Tramadol HCl [Ultram] 50 mg PO TID PRN #9 tab 02/27/17 [Rx] Allergies/Adverse Reactions: 3 Allergy/AdvReac Type Severity Reaction Status Date / Time No Known Allergies Allergy Verified 03/03/16 14:13 Procedures/tests Complete & Pending: Procedures Performed prior 72 hours Category Date Time Status Venous Doppler [EV venous imaging LE BI] Stat Y 02/24/17 13:50 Completed Date of admission: 02/24/17 08:32 Primary care physician: Camron Allen MD Consults: 02/22/17 01:32 Consult to Physical Therapy [CONS] Routine Comment: Evaluate, develop and implement POC Reason for Consult: ambulate assess for placement need 02/22/17 12:22 Consult to Occupational Therapy [CONS] Routine Comment: Evaluate, develop and implement POC Reason for Consult: fall 02/22/17 18:41 Consult to Analog Ic Design Engineer [CONS] Routine Reason for SW Consult: discharge planning 02/22/17 18:49 Consult to Wound Care [CONS] Routine Reason for Consult: wounds to feet. Pt Diabetic Call Completed: No Discharging clinician: Sanchez Vargas Anticipated date of discharge: 02/27/17 - Patient Status Disposition: Transfer Inpatient Rehab Fac Condition: Good Functional capacity at discharge: uses cane/walker Overall status at discharge: patient is progressing back to baseline - Discharge Instructions Instructions: Atrial Fibrillation (DC), Rhabdomyolysis (DC) Follow Up With: Camron Allen MD [Primary Care Provider] - Additional Instructions: Follow-up Dr. primary care provider in the next 3-5 days. - Participate in physical therapy - Diet and Activity Activity: as per physical therapy, increase activity as tolerated Diet: diabetic diet, low fat, low cholesterol Interval History: Mr. Khan 81-year-old male with known history of arthritis, H fibrillation, heart failure, type 2 diabetes, hyperlipidemia, hypertension and falls was brought to the emergency department after he reportedly had been sleeping on the ground outside his house. Upon evaluation he had a creatinine kinase of 1739, elevated bilirubin, acute on chronic kidney disease, leukocytosis. Physical exam findings he had scrapes on his forehead and pain in his right wrist for which he had imaging did not show any acute fractures. He is admitted to general medical floor and started on IV fluids and his electrolytes were monitored throughout his inpatient stay. While receiving IV fluids the patient clinically improved with resolution of his acute kidney injury, elevated CK and leukocytosis. He was evaluated by physical therapy and occupational therapy and ECF was recommended. He had difficulty controlling his pain with his right hand for which is likely a strain and he received pain control prior to discharge. He was seen and evaluated on 02/27/2017 and deemed stable for discharge to an ECF for further physical therapy. Hospital course: Mr. Khan is a 81 year old male - Time Spent with Patient Total time spent providing and/or coordinating discharge services: - Constitutional Vitals: Temp Pulse Resp BP Pulse Ox 97.7 F 88 15 133/90 92 02/27/17 11:06 02/27/17 11:06 02/27/17 11:06 02/27/17 11:06 02/27/17 11:06 Exam: General alert awake oriented and interactive no acute distress HEENT normocephalic, healing scrape on his forehead, psoriasis plaque on his posterior occiput, neck supple trachea midline no palpable lymphadenopathy oral mucosa is moist. Chest symmetric bilateral correlate respiratory effort Respiratory: Clear to auscultation bilaterally Cardiac: Irregularly irregular heart rate and rhythm, radial pulses were 2+ bilateral Abdomen: Obese, soft, nontender to palpation, positive bowel sounds Extremities: Patient has bilateral lower extremity edema 1+, venous stasis changes, mild tenderness to palpation of the right upper extremity - VTE Documentation of Mechanical Device: Intermittent pneumatic compression device <Dioni Arevalo - Last Filed: 02/27/17 18:00> Date of Encounter: 02/27/17 - Discharge Diagnosis (1) Rhabdomyolysis Status: Acute Qualifiers: Rhabdomyolysis type: non-traumatic Qualified Code(s): M62.82 - Rhabdomyolysis (2) Intractable pain Status: Acute (3) DMII (diabetes mellitus, type 2) Status: Acute Qualifiers: Diabetes mellitus complication status: without complication Diabetes mellitus adjunct faculty for medical terminology insulin use: without fpc use Qualified Code(s): E11.9 - Type 2 diabetes mellitus without complications (4) Afib Status: Acute Qualifiers: Atrial fibrillation type: chronic Qualified Code(s): I48.2 - Chronic atrial fibrillation (5) HTN (hypertension), benign Status: Acute Date of admission: 02/24/17 08:32 Primary care physician: Camron Allen MD Consults: 02/22/17 01:32 Consult to Physical Therapy [CONS] Routine Comment: Evaluate, develop and implement POC Reason for Consult: ambulate assess for placement need 02/22/17 12:22 Consult to Occupational Therapy [CONS] Routine Comment: Evaluate, develop and implement POC Reason for Consult: fall 02/22/17 18:41 Consult to Analog Ic Design Engineer [CONS] Routine Reason for SW Consult: discharge planning 02/22/17 18:49 Consult to Wound Care [CONS] Routine Reason for Consult: wounds to feet. Pt Diabetic Call Completed: No Hospital course: Mr. Khan is a 81 year old male - Time Spent with Patient Total time spent providing and/or coordinating discharge services: 39min - Constitutional Vitals: Temp Pulse Resp BP Pulse Ox 97.7 F 88 15 133/90 92 02/27/17 11:06 02/27/17 11:06 02/27/17 11:06 02/27/17 11:06 02/27/17 11:06 - Attending Attestation I examined this patient and my medical decision-making was reviewed with the Resident Physician on 02/27/17. I agree with the documented findings, disposition and treatment plan as described except to the extent set forth below. Mr Khan has been admitted for recurrent falls with associated pain. He is afebrile with stable vitals. He is ready to go to [facility] today. Exam Alert. Comfortable Heart reg No wheeze Abd soft No edema Plan D/C to [facility] today.
--- NOTE | 2017-02-27 13:41 | Physician Discharge Referral ---
ExtendedCare Referral Info Transfer To: ECF Provider in Charge after Transfer: PCP Institutional Level of Care: Skilled - Diagnosis (1) Intractable pain Priority: Primary Status: Acute (2) History of fall Priority: Primary Status: Acute (3) Leukocytosis Priority: Primary Status: Acute (4) Acute kidney injury superimposed on CKD Priority: Primary Status: Acute (5) Afib Priority: Primary Status: Acute (6) HTN (hypertension), benign Priority: Secondary Status: Acute (7) DMII (diabetes mellitus, type 2) Priority: Secondary Status: Acute (8) Rhabdomyolysis Priority: Primary Status: Acute (9) DVT prophylaxis Priority: Secondary Status: Acute - Transfer Medications Prescriptions: Tramadol HCl [Ultram] 50 mg PO TID PRN #9 tab PRN Reason: Pain Home Medications: Furosemide [Lasix] 40 mg PO BID 03/03/16 [History] Lisinopril [Zestril] 40 mg PO DAILY 03/03/16 [History] Metoprolol [Lopressor] 50 mg PO BID 03/03/16 [History] metFORMIN [Glucophage] 500 mg PO BID 03/03/16 [History] Aspirin [Ecotrin] 325 mg PO DAILY 02/21/17 [History] Gabapentin [Neurontin] 300 mg PO TID 02/21/17 [History] Magnesium Oxide [Mag-Ox] 400 mg PO BID 02/21/17 [History] Potassium Chloride 20 meq PO DAILY 02/21/17 [History] Tramadol HCl [Ultram] 50 mg PO TID PRN #9 tab 02/27/17 [Rx] Allergies/Adverse Reactions: 3 Allergy/AdvReac Type Severity Reaction Status Date / Time No Known Allergies Allergy Verified 03/03/16 14:13 - Respiratory Orders Smoking Cessation: Smoking cessation has been advised. For more information, call the [place] Tobacco Quit Line at 8-666-RGSN-NOW. - Ancillary Orders May use pressure relief devices daily prn, May consult with Dentist, Access Services Representative, Service Assistant PRN - Advance Directives Living Will: No Power of Soup Mixer: No Code Status: Full Code - Mobility Orders Ambulate - Rehabiliation Orders Rehab Potential: Good Rehab Orders: ROM Exercises, Evaluation for Physical Therapy, Evaluation for Occupational Therapy - Treatments Skin tear care topically daily PRN per policy, Fleet enema rectally every other day PRN cleansing purposes - Diet Orders Regular, Cardiac CERTIFICATION: I certify that the transfer of the above named patient to an Extended Care Facility is necessary for the continuing treatment of the diagnosis listed. The above information is true and accurate reflection of patient's current condition. Confidential - Redisclosure prohibited without a patient's written consent.
== END 2017-02-27 15:05 | DRG 690 ==
LOC: 3BNU → SUATTDRO 21:18
PROVIDERS: ADMIT Nurse Practitioner Family; ATTEND Internal Medicine

== ENCOUNTER 2018-10-04 21:04 | Inpatient (IN) ==
[2018-10-04] MEDS ORDERED: 0.9 % Sodium Chloride 1,000 ML IVC ONE (21:07)
--- NOTE | 2018-10-04 21:16 | Emergency Department Note ---
Disposition Clinical Impression: Acute sepsis Altered mental status Qualifiers: Altered mental status type: delirium Qualified Code(s): R41.0 - Disorientation, unspecified Catheter-associated urinary tract infection Qualifiers: Indwelling urinary catheter type: indwelling urethral catheter Encounter type: initial encounter Qualified Code(s): T83.511A - Infection and inflammatory reaction due to indwelling urethral catheter, initial encounter; N39.0 - Urinary tract infection, site not specified Disposition: Admitted As Inpatient Condition: Fair Referrals: Camron Allen MD [Primary Care Provider] - Forms: ED Satisfaction Letter Time of Disposition: 23:30 Fever HPI - General Stated Complaint: MELO Time Seen by Provider: 10/04/18 21:07 Source: family, EMS Mode of arrival: EMS Limitations: altered mental status Nursing Notes Reviewed: Yes Vital Signs Reviewed: Yes - History of Present Illness HPI Narrative: 83-year-old male with past medical history of multiple CVAs at [facility], CODE STATUS DNR CCA, family at bedside reports that they visited with him tonight at 1730 and he was doing fine, but then when they returned at 2030 he felt warm and had a temperature. He was just released from [facility] yesterday, he had been admitted to this facility on September 14. He was admitted for pneumonia during that visit. Patient is normally much more awake and alert, but family reports that when he gets a fever he becomes altered. EMS reported that when they arrived the patient had an oxygen saturation of 86% on room air, which improved to 100% with a facemask. Patient was given a rectal suppository of [facility] and then transferred to this facility for further workup. Patient has a new decubitus ulcer stage II on the right side of his gluteal cleft, 2 cm x 2 cm. Family states patient normally does not tolerate BiPAP. - Related Data Home Medications Medication Instructions Recorded Confirmed Ferrous Sulfate 325 mg PO BID 03/27/18 10/04/18 Bumetanide [Bumex] 1 mg PO DAILY 09/07/18 10/04/18 Ascorbate Calcium [Vitamin C] 500 mg PO DAILY 09/08/18 10/04/18 Metoprolol Tartrate [Lopressor] 75 mg PO BID 09/08/18 10/04/18 Acetaminophen [Tylenol] 650 mg PO Q4H PRN 10/04/18 10/04/18 Apixaban [Eliquis] 5 mg PO BID 10/04/18 10/04/18 Atorvastatin [Lipitor] 40 mg PO HS 10/04/18 10/04/18 Docusate [Colace] 100 mg PO BID PRN 10/04/18 10/04/18 Insulin LISPRO [HumaLOG] 5 units SQ TIDAC 10/04/18 10/04/18 Ipratropium Neb [Atrovent Neb] 0.5 mg IH Q4H PRN 10/04/18 10/04/18 Levalbuterol HCl [Xopenex Neb] 1.25 mg IH Q4H PRN 10/04/18 10/04/18 Multivitamin [Daily Multiple 1 each PO DAILY 10/04/18 10/04/18 Vitamin] Nitroglycerin [Nitrostat] 0.4 mg SL AD PRN 10/04/18 10/04/18 Polyethylene Glycol 3350 [MiraLAX] 17 gm PO DAILY PRN 10/04/18 10/04/18 traZODone [TraZODone] 50 mg PO HS PRN 10/04/18 10/04/18 Allergies Allergy/AdvReac Type Severity Reaction Status Date / Time No Known Allergies Allergy Verified 08/31/18 14:26 Limitations: ROS unobtainable due to patients medical condition Fever PMH - Past Medical History Medical history: Reports: arthritis, atrial fibrillation, CHF, diabetes, hyperlipidemia, hypertension Surgical history: Reports: cataract, hip replacement, knee replacement, other Psychiatric history: Reports: no psych history - Social History Smoking Status: Never smoker Alcohol use: Reports: none Drug use: Reports: none Physical Exam General: Not alert or oriented. Moans when touched. Well developed, well nourished. Obese male. Head: atraumatic, normocephalic. ENT: No conjunctival injection, no scleral icterus. mucous membranes tacky. Neuro: GCS 9, opens eyes to voice, incomprehensible sounds, withdraws to pain. Pulm: Decreased lung sounds in all [place], no wheezes appreciated. Cardio: Irregular heart rate. Abd: Soft, non-distended. Normoactive bowel sounds. No guarding. Non rigid. Extremities: Radial pulses 2+ avery, dorsalis pedis/posterior tibialis 2+ avery. No LE edema. No cyanosis, clubbing. Skin: Warm to touch, stage 2 decubitus ulcer on right side of gluteal cleft, 2cm x 2cm. Course Course Narrative: Ddx includes urosepsis, PNA. Suspect admission. Vital Signs Temperature 99.1 F 10/04/18 21:06 Pulse Rate 65 10/04/18 21:06 Respiratory Rate 26 10/04/18 21:06 Blood Pressure 137/104 10/04/18 21:06 O2 Sat by Pulse Oximetry 99 10/04/18 21:06 Temperature 99.1 F 10/04/18 21:06 Pulse Rate 120 10/04/18 21:24 Respiratory Rate 40 10/04/18 22:17 Blood Pressure 131/95 10/04/18 21:24 O2 Sat by Pulse Oximetry 99 10/04/18 22:17 Oxygen Delivery Oxygen Delivery Nasal Cannula Fever - MDM Narrative Medical decision making narrative: Pts UA was concerning for UTI and with pre-existing catheter, this is a catheter-associated UTI. Vitals were concerning for sepsis, so he was given fluids, antibiotics, placed on biPAP. He was admitted to hospitalist, Dr. Trinh, who agreed to accept him to their service. Imaging and lab results were shared with family at bedside. Family was given an opportunity to ask questions at bedside and all of their concerns were addressed. Family verbalized u nderstanding and agreement with plan of care. Pt remained stable while in the department. - Medical Records Medical records reviewed: Yes I reviewed the patient's medical records. - Lab Data Lab results reviewed: Yes I reviewed the patient's lab results. Result diagrams: 10/04/18 21:19 10/04/18 21:19 Lab Results 10/04/18 10/04/18 10/04/18 Range/Units 21:19 21:19 21:19 WBC 19.1 H (4.3-11.1) K/mcL RBC 3.22 L (4.19-5.50) M/mcL Hgb 9.5 L (12.9-16.9) g/dL Hct 30.6 L (37.5-50.1) % MCV 95.0 (83.0-100.0) fL MCH 29.5 (28.0-33.3) pg MCHC 31.0 L (31.6-35.5) g/dL RDW 15.5 H (11.5-14.5) % Plt Count 460 H D (140-400) K/mcL MPV 10.6 (9.4-12.4) fL Immature Gran % 1.6 (0-4) % Seg Neutrophils % 79.2 % Lymphocytes % 9.7 % Monocytes % 8.7 % Eosinophils % 0.5 % Basophils % 0.3 % Neutrophils # 15.2 H (1.6-8.9) K/mcL Lymphocytes # 1.9 (0.6-4.6) K/mcL Monocytes # 1.7 H (0.0-1.3) K/mcL Eosinophils # 0.1 (0.0-0.6) K/mcL Basophils # 0.1 (0.0-0.2) K/mcL PT 24.8 H (9.4-12.1) Seconds INR 2.2 APTT 37.4 H (26.0-36.0) Seconds Sample Site ABG pH (7.32-7.45) pH Units ABG pCO2 (35-45) mmHg ABG pO2 (85-104) mmHg ABG HCO3 (21-27) mEq/L ABG Total CO2 (20-26) mEq/L ABG O2 Saturation (95-98) % ABG Base Excess (-2 to 3) mEq/L Mg Test O2 Delivery Device Inspired O2 (1-15=lpm [id number]=%) Sodium 140 (136-145) mEq/L Potassium 4.2 (3.5-5.1) mEq/L Chloride 102 (98-107) mEq/L Carbon Dioxide 31 H (23-29) mEq/L BUN 30 H (8-23) mg/dL Creatinine 1.09 (0.70-1.30) mg/dL Est GFR ( Amer) > 60 (> 60) Est GFR (Non-Af Amer) > 60 (> 60) BUN/Creatinine Ratio 28 H (6-26) Glucose 108 H (70-105) mg/dL Calculated Osmolality 297 (280-300) Lactic Acid (0.5-2.2) mmol/L Calcium 8.2 L (8.6-10.3) mg/dL Phosphorus 2.9 (2.7-4.5) mg/dL Magnesium 1.7 (1.6-2.6) mg/dL Total Bilirubin 0.5 (0.3-1.0) mg/dL Direct Bilirubin 0.3 H (0.0-0.2) mg/dL Indirect Bilirubin 0.2 (0.0-1.2) mg/dL AST 62 H (13-39) Units/L ALT 36 (7-52) Units/L Alkaline Phosphatase 351 H (34-104) Units/L Troponin I 0.04 H* (< 0.04) ng/mL Serum Total Protein 6.7 (6.4-8.9) g/dL Albumin 2.6 L (3.5-5.7) g/dL Globulin 4.1 H (2.4-3.5) g/dL Albumin/Globulin Ratio 0.6 L (1.1-2.2) Urine Color (Yellow) Urine Clarity (Clear) Urine pH (5.0-8.0) pH Units Ur Specific [place] (1.010-1.025) Urine Protein (Neg-Trace) mg/dL Urine Glucose (UA) (Normal) mg/dL Urine Ketones (Negative) mg/dL Urine Blood (Negative) Urine Nitrite (Negative) Urine Bilirubin (Negative) Urine Urobilinogen (Normal) mg/dL Ur Leukocyte Esterase (Negative) Urine Microscopic RBC (0-3) per hpf Urine Microscopic WBC (0-3) per hpf Ur Squamous Epith Cells (None-Few) per lpf Urine Bacteria (None-Few) per hpf Hyaline Casts (None-Few) per lpf Ur Culture Indicated? (NO) 10/04/18 10/04/18 10/04/18 Range/Units 21:19 21:55 22:53 WBC (4.3-11.1) K/mcL RBC (4.19-5.50) M/mcL Hgb (12.9-16.9) g/dL Hct (37.5-50.1) % MCV (83.0-100.0) fL MCH (28.0-33.3) pg MCHC (31.6-35.5) g/dL RDW (11.5-14.5) % Plt Count (140-400) K/mcL MPV (9.4-12.4) fL Immature Gran % (0-4) % Seg Neutrophils % % Lymphocytes % % Monocytes % % Eosinophils % % Basophils % % Neutrophils # (1.6-8.9) K/mcL Lymphocytes # (0.6-4.6) K/mcL Monocytes # (0.0-1.3) K/mcL Eosinophils # (0.0-0.6) K/mcL Basophils # (0.0-0.2) K/mcL PT (9.4-12.1) Seconds INR APTT (26.0-36.0) Seconds Sample Site L Radial ABG pH 7.43 (7.32-7.45) pH Units ABG pCO2 55 H (35-45) mmHg ABG pO2 63 L (85-104) mmHg ABG HCO3 37 H (21-27) mEq/L ABG Total CO2 38 H (20-26) mEq/L ABG O2 Saturation 92 L (95-98) % ABG Base Excess 11 H (-2 to 3) mEq/L Mg Test N/A O2 Delivery Device Cannula Inspired O2 2.0 (1-15=lpm [id number]=%) Sodium (136-145) mEq/L Potassium (3.5-5.1) mEq/L Chloride (98-107) mEq/L Carbon Dioxide (23-29) mEq/L BUN (8-23) mg/dL Creatinine (0.70-1.30) mg/dL Est GFR ( Amer) (> 60) Est GFR (Non-Af Amer) (> 60) BUN/Creatinine Ratio (6-26) Glucose (70-105) mg/dL Calculated Osmolality (280-300) Lactic Acid 1.4 (0.5-2.2) mmol/L Calcium (8.6-10.3) mg/dL Phosphorus (2.7-4.5) mg/dL Magnesium (1.6-2.6) mg/dL Total Bilirubin (0.3-1.0) mg/dL Direct Bilirubin (0.0-0.2) mg/dL Indirect Bilirubin (0.0-1.2) mg/dL AST (13-39) Units/L ALT (7-52) Units/L Alkaline Phosphatase (34-104) Units/L Troponin I (< 0.04) ng/mL Serum Total Protein (6.4-8.9) g/dL Albumin (3.5-5.7) g/dL Globulin (2.4-3.5) g/dL Albumin/Globulin Ratio (1.1-2.2) Urine Color Yellow (Yellow) Urine Clarity Turbid A (Clear) Urine pH 5.0 (5.0-8.0) pH Units Ur Specific [place] 1.026 H (1.010-1.025) Urine Protein 30 H (Neg-Trace) mg/dL Urine Glucose (UA) Normal (Normal) mg/dL Urine Ketones Negative (Negative) mg/dL Urine Blood Large H (Negative) Urine Nitrite Negative (Negative) Urine Bilirubin Negative (Negative) Urine Urobilinogen Normal (Normal) mg/dL Ur Leukocyte Esterase Large H (Negative) Urine Microscopic RBC 50-100 H (0-3) per hpf Urine Microscopic WBC 50-100 H (0-3) per hpf Ur Squamous Epith Cells Many H (None-Few) per lpf Urine Bacteria Few (None-Few) per hpf Hyaline Casts Moderate H (None-Few) per lpf Ur Culture Indicated? NO. A (NO) - Radiology Data Radiology results reviewed: Yes I reviewed the patient's radiology results. Chest X-Ray 10/04/18 21:07 IMPRESSION: Stable portable study. D/ / Malorie Mendez Cha, MD / Malorie Mendez Cha, MD Interpreting Provider: Malorie Mendez Cha, MD - EKG Data EKG attestation: Yes I reviewed and interpreted this EKG. EKG results narrative: HR 142, rhythm tachycardia, axis left. QRS 160 and prolonged, QTc 549 and prolonged. Study largely unchanged from previous 09/14/18. No evidence of ST elevation or depression.
--- NOTE | 2018-10-04 21:25 | Emergency Department Note ---
Disposition Clinical Impression: Acute sepsis Altered mental status Qualifiers: Altered mental status type: delirium Qualified Code(s): R41.0 - Disorientation, unspecified Disposition: Still a Patient Referrals: Camron Allen MD [Primary Care Provider] - General Adult HPI - General Chief complaint: ED Shortness of Breath/Dyspnea Stated complaint: MELO Time Seen by Provider: 10/04/18 21:07 Source: family, EMS Mode of arrival: EMS Limitations: altered mental status Nursing Notes Reviewed: Yes Vital Signs Reviewed: Yes - History of Present Illness HPI Narrative: ED attending attestation note: I examined this patient and my medical decision-making was reviewed with the emergency medicine resident Betty Ortiz. I agree with the documented findings, disposition and treatment plan as described except to the extent set forth below. Briefly: A 3-year-old male recently status post CVA was released from [place] and sent patient half-way facility patient developed a fever for the past day and a half altered mental status today he was hypoxic 86% on room air went up to 99 2000 on nonrebreather facemask. Patient is altered and obtunded he is able to still to maintain his airway and open eyes, withdraws to pain. GCS 9. Patient appears to be septic sepsis protocol is initiated with the sepsis set orders placed. Patient had a twelve-lead EKG wide complex tachycardia at 142 bpm patient's had wide-complex QRSs in the past. No signs of acute ischemic change otherwise. Providing one hour of critical care service for this patient. Admission disposition pending Pain Scale: 0 - Related Data Home Medications Medication Instructions Recorded Confirmed Ferrous Sulfate 325 mg PO BID 03/27/18 09/08/18 Bumetanide [Bumex] 1 mg PO DAILY 09/07/18 09/08/18 Gabapentin [Neurontin] 300 mg PO TID 09/07/18 09/08/18 metFORMIN [Glucophage] 500 mg PO BID 09/07/18 09/08/18 Ascorbate Calcium [Vitamin C] 500 mg PO DAILY 09/08/18 09/08/18 Aspirin 81 mg PO DAILY 09/08/18 09/08/18 Cyanocobalamin (Vitamin B-12) 1,000 mcg PO DAILY 09/08/18 09/08/18 [Vitamin B-12] Ketoconazole Shampoo [Nizoral 120 ml TP DAILY PRN 09/08/18 09/08/18 Shampoo] Metoprolol Tartrate [Lopressor] 50 mg PO BID 09/08/18 09/08/18 Nystatin POWDER [Nystop] 1 appl TP BID 09/08/18 09/08/18 Nystatin POWDER [Nystop] 1 appl TP TID 09/08/18 09/08/18 Previous Rx's Medication Instructions Recorded Isosorbide MONOnitrate (24 HR) 60 mg PO DAILY #30 tab.er.24h 02/26/18 [Imdur] Fluconazole [Diflucan] 150 mg PO QWEEK tablet 09/04/18 Insulin DETEMIR [Levemir] 10 unit SQ BID [id number] 09/04/18 Insulin LISPRO [HumaLOG] 0 units SQ HS vial 09/04/18 Insulin LISPRO [HumaLOG] 0 units SQ TIDAC vial 09/04/18 Allergies Allergy/AdvReac Type Severity Reaction Status Date / Time No Known Allergies Allergy Verified 08/31/18 14:26 Past Medical History - Past Medical History Medical history: Reports: arthritis, atrial fibrillation, CHF, diabetes, hyperlipidemia, hypertension Surgical history: Reports: cataract, hip replacement, knee replacement, other Psychiatric history: Reports: no psych history - Social History Smoking Status: Never smoker Smokeless Tobacco Status: No Alcohol use: Reports: none Drug use: Reports: none Physical Exam - General Limitations: altered mental status General appearance: lethargic Course Vital Signs Temperature 99.1 F 10/04/18 21:06 Pulse Rate 65 10/04/18 21:06 Respiratory Rate 26 10/04/18 21:06 Blood Pressure 137/104 10/04/18 21:06 O2 Sat by Pulse Oximetry 99 10/04/18 21:06 Temperature 99.1 F 10/04/18 21:06 Pulse Rate 65 10/04/18 21:06 Respiratory Rate 26 10/04/18 21:06 Blood Pressure 137/104 10/04/18 21:06 O2 Sat by Pulse Oximetry 99 10/04/18 21:06 Oxygen Delivery Oxygen Delivery Nasal Cannula
[2018-10-04 21:35] LABS: Basophils # 0.1 K/mcL (0.0-0.2); Basophils % 0.3 %; Eosinophils # 0.1 K/mcL (0.0-0.6); Eosinophils % 0.5 %; Hematocrit 30.6 % (37.5-50.1); Hemoglobin 9.5 g/dL (12.9-16.9); Immature Granulocytes % 1.6 % (0-4); Lymphocytes # 1.9 K/mcL (0.6-4.6); Lymphocytes % 9.7 %; Mean Corpuscular Hemoglobin 29.5 pg (28.0-33.3); Mean Platelet Volume 10.6 fL (9.4-12.4); Monocytes # 1.7 K/mcL (0.0-1.3); Monocytes % 8.7 %; Neutrophils # 15.2 K/mcL (1.6-8.9); Platelet Count 460 K/mcL (140-400); Red Blood Count 3.22 M/mcL (4.19-5.50); Red Cell Distribution Width 15.5 % (11.5-14.5); Segmented Neutrophils % 79.2 %
[2018-10-04 21:43] LABS: INR 2.2; Prothrombin Time 24.8 Seconds (9.4-12.1)
[2018-10-04 21:45] LABS: Activated Partial Thrombo Time 37.4 Seconds (26.0-36.0)
[2018-10-04 21:59] LABS: ABG Base Excess 11 mEq/L (-2 to 3); ABG HCO3 37 mEq/L (21-27); ABG Oxygen Saturation 92 % (95-98); ABG PCO2 55 mmHg (35-45); ABG PH 7.43 pH Units (7.32-7.45); ABG PO2 63 mmHg (85-104); ABG TCO2 38 mEq/L (20-26)
[2018-10-04 22:08] LABS: Alanine Aminotransferase 36 Units/L (7-52); Albumin 2.6 g/dL (3.5-5.7); Albumin/Globulin Ratio 0.6 (1.1-2.2); Alkaline Phosphatase 351 Units/L (34-104); Aspartate Amino Transferase 62 Units/L (13-39); BUN/Creatinine Ratio 28 (6-26); Bilirubin,Direct 0.3 mg/dL (0.0-0.2); Bilirubin,Indirect 0.2 mg/dL (0.0-1.2); Bilirubin,Total 0.5 mg/dL (0.3-1.0); Blood Urea Nitrogen 30 mg/dL (8-23); Calcium 8.2 mg/dL (8.6-10.3); Carbon Dioxide 31 mEq/L (23-29); Chloride 102 mEq/L (98-107); Globulin 4.1 g/dL (2.4-3.5); Glucose 108 mg/dL (70-105); Magnesium 1.7 mg/dL (1.6-2.6); Osmolality,Calculated 297 (280-300); Phosphorous 2.9 mg/dL (2.7-4.5); Potassium 4.2 mEq/L (3.5-5.1); Sodium 140 mEq/L (136-145); Total Protein 6.7 g/dL (6.4-8.9); Troponin I 0.04 ng/mL (< 0.04); eGFR For Non-African Americans > 60 (> 60)
[2018-10-04 23:04] LABS: Bilirubin,Urine Negative (Negative); Blood,Urine Large (Negative); Clarity,Urine Turbid (Clear); Color,Urine Yellow (Yellow); Glucose,Urine (UA) Normal (Normal); Ketones,Urine Negative (Negative); Leukocyte Esterase,Urine Large (Negative); Nitrite,Urine Negative (Negative); Protein,Urine 30 mg/dL (Neg-Trace); Specific Gravity,Urine 1.026 (1.010-1.025); Urobilinogen,Urine Normal (Normal)
[2018-10-04 23:07] LABS: Bacteria,Urine Few per hpf (None-Few); Hyaline Casts,Urine Moderate per lpf (None-Few); RBC,Urine 50-100 per hpf (0-3); Squamous Epithelial Cell,Urine Many per lpf (None-Few); WBC,Urine 50-100 per hpf (0-3)
[2018-10-04] MEDS ORDERED: Cefepime HCl 2,000 MG in 0.9 % Sodium Chloride Mini Bag 100 ML IVPB STA (23:28)
[2018-10-05] MEDS ORDERED: Naloxone 0.4 MG/ML INJ IVP PRN (02:41)
[2018-10-05] MEDS ORDERED: Acetaminophen IV 1,000 MG/100 ML INFUS..BTL IVPB ONE (02:52)
[2018-10-05] MEDS ORDERED: traZODone 50 MG TABLET PO PRN (02:59)
[2018-10-05] MEDS ORDERED: Nitroglycerin 0.4 MG TAB.SUBL SL PRN (02:59)
[2018-10-05] MEDS ORDERED: Dextrose Gel 15 GM/37.5 ML TUBE PO PRN ×2 (03:01)
[2018-10-05] MEDS ORDERED: D5% in Water 1,000 ML IVC PRN (03:01)
[2018-10-05] MEDS ORDERED: *HR* Dextrose 50 % in Water (Syg) 50 ML SYRINGE IVP PRN (03:01)
[2018-10-05] MEDS ORDERED: Ipratropium Neb 0.5 MG NEBULIZER IH PRN (04:00)
[2018-10-05] MEDS ORDERED: Levalbuterol Neb 1.25 MG/3 ML IH PRN (04:00)
--- NOTE | 2018-10-05 05:02 | Internal Med History&Physical ---
Date of Encounter: 10/06/18 Time of Encounter: 04:25 Internal Medicine - H&P: HPI Chief complaint: Altered mental status History of present illness: Mr. Khan is a 83 year old male with a past medical history of COPD, heart failure, each of fibrillation, diabetes, hyperlipidemia, hypertension and a recent CVA recently treated at [facility] and released to long-term facility yesterday who presents with one-day history of altered mental status and fever. History is obtained from the family at bedside as patient is unable to provide history. At baseline patient appears to be alert oriented 1, is at times difficult to arouse. Per family members, patient developed a fever of 102.4 at his care home. Patient was also noted to be hypoxemic with an O2 saturation of 86% on room air. Patient is typically not on oxygen but has been on and off since he has been in the hospital. On arrival patient was noted to be afebrile, hemodynamically stable, though tachycardic in the 115's to 120s. Labs notable for a leukocytosis of 19.1, normal lactic acid and a mildly elevated troponin of 0.04. Patient had Garcia in place from previous hospitalization at [place]. Garcia was removed and straight catheter urine sample was obtained which is strongly suggestive of urinary tract infection. Fluid bolus was given and patient was started on cefepime for possible UTI. On my assessment patient was noted to have intermittent episodes of apnea whereby the patient appears to struggle to breathe. Per family, patient has had this intermittently but reports that it seems to be worse lately. O2 saturations were noted to drop during these apneic episodes but returned to normal upon normal respiration. No other reports of productive cough, chest pain, nausea, vomiting or diarrhea. Past Med Surg Social Fam HX - Past Medical History Medical history: arthritis, atrial fibrillation, CHF, diabetes, hyperlipidemia, hypertension Additional medical history: irregular heartbeat, [place] Psychiatric history: no psych history - Past Surgical History Surgical History: cataract, hip replacement, knee replacement, other Additional surgical history: ablation. left and right knee replacement. hip replacement - Social History Smoking Status: Never smoker Smokeless Tobacco Status: No Alcohol use: none Drug use: none - Family History Mother Living Status: Age at : 72 Cause of : Cardiac Arrest Hx Family Cancer: Yes (Brain CA) Father Living Status: Age at : 82 Cause of : Natural Causes Hx Family Neuromuscular Disorders: Yes (Parkinson's) Internal Medicine - H&P: Meds Ferrous Sulfate 325 mg PO BID 03/27/18 [History] Bumetanide [Bumex] 1 mg PO DAILY 09/07/18 [History] Ascorbate Calcium [Vitamin C] 500 mg PO DAILY 09/08/18 [History] Metoprolol Tartrate [Lopressor] 75 mg PO BID 09/08/18 [History] Acetaminophen [Tylenol] 650 mg PO Q4H PRN 10/04/18 [History] Apixaban [Eliquis] 5 mg PO BID 10/04/18 [History] Atorvastatin [Lipitor] 40 mg PO HS 10/04/18 [History] Docusate [Colace] 100 mg PO BID PRN 10/04/18 [History] Insulin LISPRO [HumaLOG] 5 units SQ TIDAC 10/04/18 [History] Ipratropium Neb [Atrovent Neb] 0.5 mg IH Q4H PRN 10/04/18 [History] Levalbuterol HCl [Xopenex Neb] 1.25 mg IH Q4H PRN 10/04/18 [History] Multivitamin [Daily Multiple Vitamin] 1 each PO DAILY 10/04/18 [History] Nitroglycerin [Nitrostat] 0.4 mg SL AD PRN 10/04/18 [History] Polyethylene Glycol 3350 [MiraLAX] 17 gm PO DAILY PRN 10/04/18 [History] traZODone [TraZODone] 50 mg PO HS PRN 10/04/18 [History] Allergy/AdvReac Type Severity Reaction Status Date / Time No Known Allergies Allergy Verified 08/31/18 14:26 All Systems PM: A 10-system review of systems was performed and is negative for pertinent findings except as documented above in the HPI. - Constitutional Constitutional: no chills, no fever(s), no night sweats - EENT Eyes: no change in vision, no discharge, no pain, no photophobia Ears: no ear discharge, no ear pain, no tinnitus Nose, mouth and throat: no dysphagia, no nasal discharge, no neck pain, no sore throat - Cardiovascular Cardiovascular ROS IM: no chest pain, no diaphoresis, no dyspnea, no lightheadedness, no palpitations, no syncope - Respiratory Respiratory: no cough, no dyspnea, no wheezing, no excessive phlegm production - Gastrointestinal Gastrointestinal: no abdominal pain, no diarrhea, no hematemesis, no hematochezia, no melena, no nausea, no vomiting - Musculoskeletal Musculoskeletal ROS IM: no numbness, no tingling - Integumentary Integumentary IM: no rash, no unusual bruising - Neurological Neurological ROS: no confusion, no convulsions, no focal weakness, no numbness, no tingling, no tremor(s) - Hematologic/Lymphatic Hematologic/Lymphatic: no easy bruising - Constitutional Vitals: Temp Pulse Resp BP Pulse Ox 99.4 F 98 24 138/89 95 10/05/18 04:21 10/05/18 04:21 10/05/18 04:21 10/05/18 04:21 10/05/18 04:21 Exam: General: Alert and oriented 1 opening his eyes briefly to verbal stimulation Skin:Normal color, no rash, no lesions. HEENT:EOM, pupils equal, round and reactive. Cardiovascular:Normal S1 & S2, no rubs, murmurs or gallops. No JVD. Pulse regular. Lungs:Normal breath sounds, no wheezes or crackles. Abdomen:Soft, non-tender, no rigidity. Extremities:No deformity, no edema or tenderness, no joint swelling or clubbing. Neurological: Patient lethargic waking up to both verbal and physical stimulation. Appears to be moving all 4 extremities. Pulses:Carotid and radial pulses normal +2. Rest of the physical exam is non contributory Internal Med - H&P Results - Labs CBC & Chem 7: 10/05/18 07:03 10/05/18 07:03 Labs: Short CBC 10/04/18 Range/Units 21:19 WBC 19.1 H (4.3-11.1) K/mcL Hgb 9.5 L (12.9-16.9) g/dL Hct 30.6 L (37.5-50.1) % Plt Count 460 H D (140-400) K/mcL Neutrophils # 15.2 H (1.6-8.9) K/mcL BMP 10/04/18 21:19 Sodium 140 Potassium 4.2 Chloride 102 Carbon Dioxide 31 H BUN 30 H Creatinine 1.09 Glucose 108 H Calcium 8.2 L Cardiac Enzymes 10/04/18 Range/Units 21:19 Troponin I 0.04 H* (< 0.04) ng/mL Liver Function 10/04/18 Range/Units 21:19 Total Bilirubin 0.5 (0.3-1.0) mg/dL Direct Bilirubin 0.3 H (0.0-0.2) mg/dL AST 62 H (13-39) Units/L ALT 36 (7-52) Units/L Alkaline Phosphatase 351 H (34-104) Units/L Albumin 2.6 L (3.5-5.7) g/dL Urine 10/04/18 Range/Units 22:53 Urine Color Yellow (Yellow) Urine Clarity Turbid A (Clear) Urine pH 5.0 (5.0-8.0) pH Units Ur Specific [place] 1.026 H (1.010-1.025) Urine Protein 30 H (Neg-Trace) mg/dL Urine Glucose (UA) Normal (Normal) mg/dL - ABG Interpretation ABG results: 10/04/18 21:55 ABG pH 7.43 ABG pCO2 55 H ABG pO2 63 L ABG HCO3 37 H ABG Total CO2 38 H ABG O2 Saturation 92 L ABG Base Excess 11 H - Impressions ITS Impressions Chest X-Ray 10/04/18 21:07 IMPRESSION: Stable portable study. D/ / Malorie Mendez Cha, MD / Malorie Mendez Cha, MD Interpreting Provider: Malorie Mendez Cha, MD - Assessment and Plan (1) Altered mental status Current Visit: Yes Status: Acute Assessment and plan: Altered mental status likely secondary to UTI associated with sepsis. -Continue antibiotics. -Follow-up blood cultures Qualifiers: Altered mental status type: unspecified Qualified Code(s): R41.82 - Altered mental status, unspecified (2) Acute respiratory failure with hypoxia Current Visit: Yes Status: Acute Assessment and plan: Patient reported to have desaturated to the mid 80s on room air at nursing facility. Was noted to be tachypneic on arrival. Was placed on nonrebreather with improvement in oxygenation. Chest x-ray shows no acute abnormality. No reports of increased productive cough. Low suspicion for pneumonia or COPD exacerbation at this time. Furthermore does not appear to be volume overloaded. A trial of BiPAP was attempted in the ED but patient did not tolerate. Patient does have a history of COPD and ABG was obtained in the ED which showed a pH of 7.43, PCO2 55, PO2 63 and bicarbonate of 37. Patient was noted to desaturate with apneic episodes on my assessment and suspect this to be the etiology of his desaturations at this time. Per family members, patient has had apnea for some time now and previous attempts to work him up for HAILEE. Currently 99% on 2 L. -We will attempt a trial of BiPAP for aid with apnea. -Continue home breathing treatments. -Resume home diuretics (3) Acute sepsis Current Visit: Yes Status: Acute Assessment and plan: Patient presents with 3 of 4 sirs criteria with urinary tract infection is likely source. Normal lactic acid. She received fluid bolus in the ED -Continue with fluid support. Monitor for signs of fluid overload given patient's history of heart failure -Continue antibiotics -Follow-up blood cultures (4) Afib Current Visit: No Status: Chronic Assessment and plan: Patient presents with atrial fibrillation with RVR with heart rate fluctuating between 130s and 170s. Likely in the setting of sepsis of urologic origin. -We will start patient on Cardizem drip and monitor on telemetry -Continue with anticoagulation with Apixiban Qualifiers: Atrial fibrillation type: chronic Qualified Code(s): I48.2 - Chronic atrial fibrillation (5) DMII (diabetes mellitus, type 2) Current Visit: No Status: Chronic Assessment and plan: Sliding scale insulin. Blood glucose checks. Qualifiers: Diabetes mellitus penitentiary insulin use: with ginner use Diabetes mellitus complication status: with hyperglycemia Qualified Code(s): E11.65 - Type 2 diabetes mellitus with hyperglycemia; Z79.4 - movement education specialist (current) use of insulin (6) Anemia Current Visit: No Status: Acute Assessment and plan: Chronic and at baseline. We will monitor Qualifiers: Anemia type: iron deficiency Qualified Code(s): D50.9 - Iron deficiency anemia, unspecified (7) COPD exacerbation Current Visit: No Status: Acute Assessment and plan: No evidence of an acute exacerbation. We will resume home inhalers (8) Elevated troponin Current Visit: Yes Status: Acute - Summary of Assessment and Plan Summary of Assessment and Plan: Elevated troponin of 0.04. Last troponin was 0.06 on September 14. EKG shows no new ischemic changes. Possibly demand ischemia in the setting of patient's sepsis and intermittent apneic episodes. -Telemetry -Trend troponin - Time Spent With Patient Total time spent is greater than 50% in coordination of care (as documented) at patient's floor/unit and/or counseling patient:
[2018-10-05] MEDS ORDERED: 0.9 % Sodium Chloride 1,000 ML IVC SCH (05:15)
[2018-10-05 07:30] LABS: Basophils # 0.1 K/mcL (0.0-0.2); Basophils % 0.2 %; Eosinophils # 0.1 K/mcL (0.0-0.6); Eosinophils % 0.3 %; Hematocrit 29.7 % (37.5-50.1); Immature Granulocytes % 1.8 % (0-4); Lymphocytes # 1.3 K/mcL (0.6-4.6); Lymphocytes % 6.2 %; Mean Corpuscular HGB Conc 30.3 g/dL (31.6-35.5); Mean Corpuscular Hemoglobin 29.1 pg (28.0-33.3); Mean Corpuscular Volume 96.1 fL (83.0-100.0); Mean Platelet Volume 10.5 fL (9.4-12.4); Monocytes # 1.7 K/mcL (0.0-1.3); Monocytes % 8.1 %; Neutrophils # 17.8 K/mcL (1.6-8.9); Platelet Count 423 K/mcL (140-400); Red Blood Count 3.09 M/mcL (4.19-5.50); Red Cell Distribution Width 15.8 % (11.5-14.5); Segmented Neutrophils % 83.4 %
[2018-10-05 07:40] LABS: INR 2.3; Prothrombin Time 26.3 Seconds (9.4-12.1)
[2018-10-05 07:43] LABS: Activated Partial Thrombo Time 39.6 Seconds (26.0-36.0)
[2018-10-05 07:51] LABS: Alanine Aminotransferase 31 Units/L (7-52); Albumin 2.7 g/dL (3.5-5.7); Albumin/Globulin Ratio 0.7 (1.1-2.2); Alkaline Phosphatase 312 Units/L (34-104); Aspartate Amino Transferase 42 Units/L (13-39); BUN/Creatinine Ratio 29 (6-26); Bilirubin,Total 0.8 mg/dL (0.3-1.0); Blood Urea Nitrogen 31 mg/dL (8-23); Calcium 8.6 mg/dL (8.6-10.3); Carbon Dioxide 30 mEq/L (23-29); Chloride 101 mEq/L (98-107); Globulin 3.8 g/dL (2.4-3.5); Glucose 169 mg/dL (70-105); Magnesium 1.8 mg/dL (1.6-2.6); Osmolality,Calculated 300 (280-300); Potassium 4.6 mEq/L (3.5-5.1); Sodium 140 mEq/L (136-145); Total Protein 6.5 g/dL (6.4-8.9); eGFR For Non-African Americans > 60 (> 60)
[2018-10-05] MEDS: Bumetanide 1 MG TABLET PO SCH (10:09)
[2018-10-05] MEDS: Apixaban 5 MG TABLET PO SCH ×2 (10:09→20:53)
[2018-10-05] MEDS: Insulin LISPRO 300 UNITS/3 ML VIAL SQ SCH ×3 (10:10→16:39)
[2018-10-05] MEDS ORDERED: Cefepime HCl 2,000 MG in 0.9 % Sodium Chloride Mini Bag 100 ML IVPB SCH (12:00)
[2018-10-05] MEDS: 0.9 % Sodium Chloride 1,000 ML IVC SCH (20:53)
--- NOTE | 2018-10-05 23:30 | Electrocardiograph Report ---
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
[2018-10-06] MEDS: Cefepime HCl 2,000 MG in 0.9 % Sodium Chloride Mini Bag 100 ML IVPB SCH ×2 (03:04→14:26)
[2018-10-06] MEDS: Apixaban 5 MG TABLET PO SCH ×2 (07:48→21:40)
[2018-10-06] MEDS: Bumetanide 1 MG TABLET PO SCH (07:48)
[2018-10-06] MEDS: Insulin LISPRO 300 UNITS/3 ML VIAL SQ SCH ×3 (07:48→16:40)
[2018-10-06 10:40] LABS: Basophils % 0.2 %; Eosinophils # 0.2 K/mcL (0.0-0.6); Eosinophils % 0.9 %; Hematocrit 24.9 % (37.5-50.1); Hemoglobin 7.8 g/dL (12.9-16.9); Immature Granulocytes % 1.2 % (0-4); Lymphocytes # 1.3 K/mcL (0.6-4.6); Lymphocytes % 7.6 %; Mean Corpuscular HGB Conc 31.3 g/dL (31.6-35.5); Mean Corpuscular Hemoglobin 29.8 pg (28.0-33.3); Mean Platelet Volume 10.6 fL (9.4-12.4); Monocytes # 1.3 K/mcL (0.0-1.3); Monocytes % 7.6 %; Neutrophils # 14.5 K/mcL (1.6-8.9); Platelet Count 361 K/mcL (140-400); Red Blood Count 2.62 M/mcL (4.19-5.50); Red Cell Distribution Width 15.5 % (11.5-14.5); Segmented Neutrophils % 82.5 %
[2018-10-06 10:47] LABS: BUN/Creatinine Ratio 32 (6-26); Blood Urea Nitrogen 32 mg/dL (8-23); Calcium 8.2 mg/dL (8.6-10.3); Carbon Dioxide 27 mEq/L (23-29); Chloride 102 mEq/L (98-107); Glucose 219 mg/dL (70-105); Osmolality,Calculated 298 (280-300); Potassium 4.6 mEq/L (3.5-5.1); Sodium 137 mEq/L (136-145); eGFR For Non-African Americans > 60 (> 60)
[2018-10-06] MEDS: 0.9 % Sodium Chloride 1,000 ML IVC SCH (21:26)
--- NOTE | 2018-10-06 21:40 | Internal Med Progress Note ---
Hospitalist Progress Note - Encounter Date of Encounter: 10/06/18 Time of Encounter: 19:00 - Subjective Interval History: SUBJECTIVE: The patient seems to be doing progressively better. He is more alert. He knows his name. Otherwise, he is disoriented. He eats small amounts of food and drink small amounts of fluid, when fed. No distress is seen. OBJECTIVE: Skin: Free of rash and discoloration. ENMT: Oral/pharyngeal mucosa is normal in appearance. Eyes: Sclera is white. There is no discharge from eyes. Respiratory: Normal breath sounds. I cannot hear any rhonchi or wheezes. CV: Heart is irregularly irregular with no audible murmur. GI: Abdomen is soft and not tender. There is no palpable mass or visceromegaly. : The patient has inserted for a factor (about a week ago). Neuro: There is no focal deficits. ADDITIONAL DATA: His blood work from yesterday revealed hemoglobin of 9.0 (9.5 on the day before) with a WBC of 21.3 thousand (19.1 thousand on the day before) and normal platelet count. It showed a creatinine of 1.07 with normal electrolytes. Urine culture is pending. ASSESSMENT AND PLAN: Altered mental status, likely secondary to UTI/sepsis. To continue cefepime. To continue IV fluids at 50 cc/h. Atrial fibrillation. Rate controlled. I will switch him from IV Cardizem drip to oral Lopressor. He is on Eliquis. Type 2 diabetes mellitus. Under fair control. To continue when necessary Humalog. Chronic hypoxic respiratory failure. Likely secondary to COPD. To continue supplemental oxygen. He gets when necessary Xopenex. Inserted Garcia catheter. Likely secondary to BPH. I will give him Flomax. Will get a voiding trial in a couple days. - Exam Vitals: Temp Pulse Resp BP Pulse Ox 98.1 F 96 17 115/79 100 10/06/18 20:20 10/06/18 20:20 10/06/18 20:20 10/06/18 20:20 10/06/18 20:20 Exam: xx - Assessment and Plan (1) Altered mental status Current Visit: Yes Status: Acute (2) Acute sepsis Current Visit: Yes Status: Acute (3) UTI (urinary tract infection) Current Visit: Yes Status: Acute (4) Afib Current Visit: No Status: Chronic (5) DMII (diabetes mellitus, type 2) Current Visit: No Status: Chronic (6) COPD (chronic obstructive pulmonary disease) Current Visit: Yes Status: Acute (7) Chronic respiratory failure with hypoxia Current Visit: Yes Status: Acute (8) Anemia Current Visit: No Status: Acute - Time Spent with Patient Total time spent is greater than 50% in coordination of care (as documented) at patient's floor/unit and/or counseling patient: 25 - 35 minutes Plan of Care Discussed with: patient Internal Medicine: Result - Labs CBC & Chem 7: 10/06/18 10:12 10/06/18 10:12 Labs: Short CBC 10/06/18 Range/Units 10:12 WBC 17.6 H (4.3-11.1) K/mcL Hgb 7.8 L (12.9-16.9) g/dL Hct 24.9 L (37.5-50.1) % Plt Count 361 (140-400) K/mcL Neutrophils # 14.5 H (1.6-8.9) K/mcL BMP 10/06/18 10:12 Sodium 137 Potassium 4.6 Chloride 102 Carbon Dioxide 27 BUN 32 H Creatinine 1.00 Glucose 219 H Calcium 8.2 L - ABG Interpretation ABG results: ABG ABG pH 7.43 pH Units (7.32-7.45) 10/04/18 21:55 ABG pCO2 55 mmHg (35-45) H 10/04/18 21:55 ABG pO2 63 mmHg (85-104) L 10/04/18 21:55 ABG O2 Saturation 92 % (95-98) L 10/04/18 21:55 PT/INR, D-dimer PT 26.3 Seconds (9.4-12.1) H 10/05/18 07:03 Consult Discharge Plan - Plan Referrals: Camron Allen MD [Primary Care Provider] - (1) Altered mental status Qualifiers: Altered mental status type: unspecified Qualified Code(s): R41.82 - Altered mental status, unspecified (4) Afib Qualifiers: Atrial fibrillation type: chronic Qualified Code(s): I48.2 - Chronic atrial fibrillation (5) DMII (diabetes mellitus, type 2) Qualifiers: Diabetes mellitus snf insulin use: with snf use Diabetes mellitus complication status: with hyperglycemia Qualified Code(s): E11.65 - Type 2 diabetes mellitus with hyperglycemia; Z79.4 - snf (current) use of insulin (8) Anemia Qualifiers: Anemia type: iron deficiency Qualified Code(s): D50.9 - Iron deficiency anemia, unspecified
[2018-10-07] MEDS: Cefepime HCl 2,000 MG in 0.9 % Sodium Chloride Mini Bag 100 ML IVPB SCH ×2 (01:42→12:59)
[2018-10-07 08:12] LABS: BUN/Creatinine Ratio 35 (6-26); Blood Urea Nitrogen 29 mg/dL (8-23); Calcium 8.5 mg/dL (8.6-10.3); Carbon Dioxide 30 mEq/L (23-29); Chloride 101 mEq/L (98-107); Glucose 142 mg/dL (70-105); Osmolality,Calculated 296 (280-300); Potassium 4.2 mEq/L (3.5-5.1); Sodium 139 mEq/L (136-145); eGFR For Non-African Americans > 60 (> 60)
[2018-10-07 08:13] LABS: Basophils % 0.1 %; Eosinophils # 0.2 K/mcL (0.0-0.6); Eosinophils % 1.1 %; Hematocrit 25.3 % (37.5-50.1); Hemoglobin 7.8 g/dL (12.9-16.9); Lymphocytes # 1.1 K/mcL (0.6-4.6); Lymphocytes % 8.1 %; Mean Corpuscular HGB Conc 30.8 g/dL (31.6-35.5); Mean Corpuscular Hemoglobin 29.7 pg (28.0-33.3); Mean Corpuscular Volume 96.2 fL (83.0-100.0); Mean Platelet Volume 10.6 fL (9.4-12.4); Monocytes % 7.5 %; Neutrophils # 11.1 K/mcL (1.6-8.9); Platelet Count 370 K/mcL (140-400); Red Blood Count 2.63 M/mcL (4.19-5.50); Red Cell Distribution Width 15.4 % (11.5-14.5); Segmented Neutrophils % 82.2 %
[2018-10-07] MEDS: Bumetanide 1 MG TABLET PO SCH (10:08)
[2018-10-07] MEDS: Apixaban 5 MG TABLET PO SCH ×2 (10:08→20:58)
[2018-10-07] MEDS: Insulin LISPRO 300 UNITS/3 ML VIAL SQ SCH ×3 (10:09→17:55)
--- NOTE | 2018-10-07 21:24 | Internal Med Progress Note ---
Hospitalist Progress Note - Encounter Date of Encounter: 10/07/18 Time of Encounter: 19:00 - Subjective Interval History: SUBJECTIVE: The patient knows his name. He knows the name of her close family member visiting him today. He is very weak. He eats small amounts of food and drink small amounts of fluid, when fed. No distress is seen. OBJECTIVE: Skin: Free of rash and discoloration. ENMT: Oral/pharyngeal mucosa is normal in appearance. Eyes: Sclera is white. There is no discharge from eyes. Respiratory: Normal breath sounds. I cannot hear any rhonchi or wheezes. CV: Heart is irregularly irregular with no audible murmur. GI: Abdomen is soft and not tender. There is no palpable mass or visceromegaly. : The patient has inserted for a factor (about a week ago). Neuro: There is no focal deficits. ADDITIONAL DATA: His blood work from yesterday revealed hemoglobin of only 7.8; 9.0 on the day before. With WBC of 17.6 thousand; 21.3 thousand on the day before. With normal BMP; glucose of 177. Urine culture is pending. Blood cultures are pending. ASSESSMENT AND PLAN: Altered mental status, likely secondary to UTI/sepsis. To continue cefepime. To continue IV fluids at 50 cc/h to help his hydration. Anemia. We cannot see any blood coming from his mouth or rectum. I will repeat his CBC in the morning. Atrial fibrillation. Rate controlled. I switched him from IV Cardizem to oral Lopressor. He is on Eliquis. Type 2 diabetes mellitus. Under fair control. To continue when necessary Humalog. Chronic hypoxic respiratory failure. Likely secondary to COPD. To continue supplemental oxygen. He gets when necessary Xopenex. Inserted Garcia catheter. Likely secondary to BPH. I will give him Flomax. He will have a voiding trial in a few days. - Exam Vitals: Temp Pulse Resp BP Pulse Ox 99.5 F 107 18 120/79 99 10/07/18 19:13 10/07/18 19:13 10/07/18 19:13 10/07/18 19:13 10/07/18 19:13 Exam: xx - Assessment and Plan (1) Altered mental status Current Visit: Yes Status: Acute (2) Acute sepsis Current Visit: Yes Status: Acute (3) UTI (urinary tract infection) Current Visit: Yes Status: Acute (4) Anemia Current Visit: No Status: Acute (5) Afib Current Visit: No Status: Chronic (6) DMII (diabetes mellitus, type 2) Current Visit: No Status: Chronic (7) COPD (chronic obstructive pulmonary disease) Current Visit: Yes Status: Acute (8) Chronic respiratory failure with hypoxia Current Visit: Yes Status: Acute - Time Spent with Patient Total time spent is greater than 50% in coordination of care (as documented) at patient's floor/unit and/or counseling patient: Internal Medicine: Result - Labs CBC & Chem 7: 10/07/18 07:16 10/07/18 07:16 Labs: Short CBC 10/07/18 Range/Units 07:16 WBC 13.5 H (4.3-11.1) K/mcL Hgb 7.8 L (12.9-16.9) g/dL Hct 25.3 L (37.5-50.1) % Plt Count 370 (140-400) K/mcL Neutrophils # 11.1 H (1.6-8.9) K/mcL BMP 10/07/18 07:16 Sodium 139 Potassium 4.2 Chloride 101 Carbon Dioxide 30 H BUN 29 H Creatinine 0.82 Glucose 142 H Calcium 8.5 L - ABG Interpretation ABG results: ABG ABG pH 7.43 pH Units (7.32-7.45) 10/04/18 21:55 ABG pCO2 55 mmHg (35-45) H 10/04/18 21:55 ABG pO2 63 mmHg (85-104) L 10/04/18 21:55 ABG O2 Saturation 92 % (95-98) L 10/04/18 21:55 PT/INR, D-dimer PT 26.3 Seconds (9.4-12.1) H 10/05/18 07:03 Consult Discharge Plan - Plan Referrals: Camron Allen MD [Primary Care Provider] - (1) Altered mental status Qualifiers: Altered mental status type: unspecified Qualified Code(s): R41.82 - Altered mental status, unspecified (4) Anemia Qualifiers: Anemia type: iron deficiency Qualified Code(s): D50.9 - Iron deficiency anemia, unspecified (5) Afib Qualifiers: Atrial fibrillation type: chronic Qualified Code(s): I48.2 - Chronic atrial fibrillation (6) DMII (diabetes mellitus, type 2) Qualifiers: Diabetes mellitus manager terminal insulin use: with retirement use Diabetes mellitus complication status: with hyperglycemia Qualified Code(s): E11.65 - Type 2 diabetes mellitus with hyperglycemia; Z79.4 - care home (current) use of insulin
[2018-10-07 21:46] LABS: Bilirubin,Urine Negative (Negative); Blood,Urine Trace (Negative); Clarity,Urine Clear (Clear); Color,Urine Yellow (Yellow); Glucose,Urine (UA) Normal (Normal); Ketones,Urine Trace mg/dL (Negative); Leukocyte Esterase,Urine Moderate (Negative); Nitrite,Urine Negative (Negative); PH,Urine 5.5 pH Units (5.0-8.0); Protein,Urine 30 mg/dL (Neg-Trace); Specific Gravity,Urine 1.025 (1.010-1.025); Urobilinogen,Urine Normal (Normal)
[2018-10-07 21:50] LABS: Bacteria,Urine None Seen per hpf (None-Few); Hyaline Casts,Urine None Seen per lpf (None-Few); Squamous Epithelial Cell,Urine Many per lpf (None-Few); WBC,Urine 15-30 per hpf (0-3)
[2018-10-07] MEDS: 0.9 % Sodium Chloride 1,000 ML IVC SCH (23:18)
[2018-10-07] MEDS ORDERED: Acetaminophen IV 500 MG/50 ML INFUS..BTL IVPB ONE (23:24)
[2018-10-08] MEDS: Cefepime HCl 2,000 MG in 0.9 % Sodium Chloride Mini Bag 100 ML IVPB SCH ×2 (01:23→17:47)
[2018-10-08 09:03] LABS: Basophils # 0.1 K/mcL (0.0-0.2); Basophils % 0.3 %; Eosinophils # 0.2 K/mcL (0.0-0.6); Eosinophils % 1.2 %; Hematocrit 25.2 % (37.5-50.1); Hemoglobin 7.9 g/dL (12.9-16.9); Immature Granulocytes % 1.5 % (0-4); Lymphocytes # 1.9 K/mcL (0.6-4.6); Lymphocytes % 12.5 %; Mean Corpuscular HGB Conc 31.3 g/dL (31.6-35.5); Mean Corpuscular Hemoglobin 29.6 pg (28.0-33.3); Mean Corpuscular Volume 94.4 fL (83.0-100.0); Monocytes # 1.5 K/mcL (0.0-1.3); Neutrophils # 11.3 K/mcL (1.6-8.9); Platelet Count 332 K/mcL (140-400); Red Blood Count 2.67 M/mcL (4.19-5.50); Red Cell Distribution Width 15.3 % (11.5-14.5); Segmented Neutrophils % 74.5 %
[2018-10-08] MEDS: Apixaban 5 MG TABLET PO SCH ×2 (11:05→20:45)
[2018-10-08] MEDS: Bumetanide 1 MG TABLET PO SCH (11:05)
[2018-10-08] MEDS ORDERED: Bisacodyl 10 MG RECTAL SUPPOSITORY RC PRN (13:28)
--- NOTE | 2018-10-08 16:29 | Internal Med Progress Note ---
Hospitalist Progress Note - Encounter Date of Encounter: 10/08/18 Time of Encounter: 16:28 - Subjective Interval History: SUBJECTIVE: He is more confused today. He cannot tell us his name. He does not follow simple commands. No distress is seen. OBJECTIVE: Skin: Free of rash and discoloration. ENMT: Oral/pharyngeal mucosa is normal in appearance. Eyes: Sclera is white. There is no discharge from eyes. Respiratory: Normal breath sounds. I cannot hear any rhonchi or wheezes. CV: Heart is irregularly irregular with no audible murmur. GI: Abdomen is soft and not tender. There is no palpable mass or visceromegaly. : The patient has inserted for a factor (about a week ago). Neuro: There is no focal deficits. ADDITIONAL DATA: Hemoglobin is 7.9; 7.8 yesterday. He had hemoglobin of 9.5 at admission. With WBC of 15.2 thousand; 13.5 thousand yesterday and 17.6 thousand 2 days ago. He had WBC of 19.1 thousand at admission. His BMP was checked yesterday. He had normal electrolytes. Creatinine was 0.82. He is here today from yesterday showed less leukocyte esterase and less urine WBCs. Urine culture is pending. Blood cultures are negative. ASSESSMENT AND PLAN: Altered mental status, likely secondary to UTI/sepsis. To continue cefepime. I will stop his IV fluids, as he maintains a good level of hydration at this time. Anemia. There is no evidence for significant GI bleeding currently. I would transfuse him with 1 unit of red blood cells. I will repeat his CBC in the morning. We may need to stop Eliquis for a couple days Atrial fibrillation. Rate controlled. I switched him from IV Cardizem to oral Lopressor. I will keep his Eliquis from home, due to decreasing hemoglobin. Type 2 diabetes mellitus. Under fair control. To continue when necessary Humalog. Chronic hypoxic respiratory failure. Likely secondary to COPD. To continue supplemental oxygen. He gets when necessary Xopenex. Inserted Garcia catheter. Likely secondary to BPH. He is on Flomax. Will discontinue Garcia catheter, offering him voiding trial. Possible constipation. He has not had any bowel movements since admission to the hospital. He will get a rectal bisacodyl. - Exam Vitals: Temp Pulse Resp BP Pulse Ox 98.2 F 99 24 99/79 99 10/08/18 04:33 10/08/18 07:11 10/08/18 07:11 10/08/18 07:11 10/08/18 07:11 Exam: xx - Assessment and Plan (1) Altered mental status Current Visit: Yes Status: Acute (2) Acute sepsis Current Visit: Yes Status: Acute (3) UTI (urinary tract infection) Current Visit: Yes Status: Acute (4) Anemia Current Visit: No Status: Acute (5) Afib Current Visit: No Status: Chronic (6) DMII (diabetes mellitus, type 2) Current Visit: No Status: Chronic (7) COPD (chronic obstructive pulmonary disease) Current Visit: Yes Status: Acute (8) Chronic respiratory failure with hypoxia Current Visit: Yes Status: Acute - Time Spent with Patient Total time spent is greater than 50% in coordination of care (as documented) at patient's floor/unit and/or counseling patient: 25 - 35 minutes Plan of Care Discussed with: patient Internal Medicine: Result - Labs CBC & Chem 7: 10/08/18 08:33 10/07/18 07:16 Labs: Short CBC 10/08/18 Range/Units 08:33 WBC 15.2 H (4.3-11.1) K/mcL Hgb 7.9 L (12.9-16.9) g/dL Hct 25.2 L (37.5-50.1) % Plt Count 332 (140-400) K/mcL Neutrophils # 11.3 H (1.6-8.9) K/mcL Urine 10/07/18 Range/Units 21:35 Urine Color Yellow (Yellow) Urine Clarity Clear (Clear) Urine pH 5.5 (5.0-8.0) pH Units Ur Specific [place] 1.025 (1.010-1.025) Urine Protein 30 H (Neg-Trace) mg/dL Urine Glucose (UA) Normal (Normal) mg/dL - ABG Interpretation ABG results: ABG ABG pH 7.43 pH Units (7.32-7.45) 10/04/18 21:55 ABG pCO2 55 mmHg (35-45) H 10/04/18 21:55 ABG pO2 63 mmHg (85-104) L 10/04/18 21:55 ABG O2 Saturation 92 % (95-98) L 10/04/18 21:55 PT/INR, D-dimer PT 26.3 Seconds (9.4-12.1) H 10/05/18 07:03 Consult Discharge Plan - Plan Referrals: Camron Allen MD [Primary Care Provider] - (1) Altered mental status Qualifiers: Altered mental status type: unspecified Qualified Code(s): R41.82 - Altered mental status, unspecified (4) Anemia Qualifiers: Anemia type: iron deficiency Qualified Code(s): D50.9 - Iron deficiency anemia, unspecified (5) Afib Qualifiers: Atrial fibrillation type: chronic Qualified Code(s): I48.2 - Chronic atrial fibrillation (6) DMII (diabetes mellitus, type 2) Qualifiers: Diabetes mellitus mcc insulin use: with mcc use Diabetes mellitus complication status: with hyperglycemia Qualified Code(s): E11.65 - Type 2 diabetes mellitus with hyperglycemia; Z79.4 - shelter (current) use of insulin
[2018-10-08] MEDS: Insulin LISPRO 300 UNITS/3 ML VIAL SQ SCH ×3 (17:57→17:58)
[2018-10-08] MEDS ORDERED: 0.9 % Sodium Chloride 250 ML ONE (20:05)
[2018-10-09] MEDS: Cefepime HCl 2,000 MG in 0.9 % Sodium Chloride Mini Bag 100 ML IVPB SCH ×2 (03:49→14:43)
[2018-10-09 06:49] LABS: Basophils % 0.3 %; Eosinophils # 0.1 K/mcL (0.0-0.6); Hematocrit 27.9 % (37.5-50.1); Hemoglobin 8.6 g/dL (12.9-16.9); Immature Granulocytes % 1.6 % (0-4); Lymphocytes # 1.4 K/mcL (0.6-4.6); Lymphocytes % 9.6 %; Mean Corpuscular HGB Conc 30.8 g/dL (31.6-35.5); Mean Corpuscular Hemoglobin 29.9 pg (28.0-33.3); Mean Corpuscular Volume 96.9 fL (83.0-100.0); Mean Platelet Volume 10.7 fL (9.4-12.4); Monocytes # 1.5 K/mcL (0.0-1.3); Neutrophils # 11.2 K/mcL (1.6-8.9); Platelet Count 381 K/mcL (140-400); Red Blood Count 2.88 M/mcL (4.19-5.50); Red Cell Distribution Width 15.2 % (11.5-14.5); Segmented Neutrophils % 77.5 %
[2018-10-09 07:08] LABS: BUN/Creatinine Ratio 41 (6-26); Blood Urea Nitrogen 35 mg/dL (8-23); Calcium 8.6 mg/dL (8.6-10.3); Carbon Dioxide 32 mEq/L (23-29); Chloride 98 mEq/L (98-107); Glucose 142 mg/dL (70-105); Osmolality,Calculated 292 (280-300); Potassium 4.7 mEq/L (3.5-5.1); Sodium 136 mEq/L (136-145); eGFR For Non-African Americans > 60 (> 60)
[2018-10-09] MEDS: Insulin LISPRO 300 UNITS/3 ML VIAL SQ SCH ×3 (10:19→18:46)
[2018-10-09] MEDS: Bumetanide 1 MG TABLET PO SCH (10:29)
[2018-10-09] MEDS ORDERED: traMADol 50 MG TABLET PO PRN (13:04)
[2018-10-09] MEDS ORDERED: *HR* LORazepam 2 MG/ML VIAL IVP STA (15:22)
[2018-10-09] MEDS ORDERED: *HR* LORazepam 2 MG/ML VIAL ONE (15:23)
[2018-10-09] MEDS ORDERED: *HR* LORazepam 2 MG/ML VIAL IVP ONE (15:34)
[2018-10-09] MEDS ORDERED: *HR* FentaNYL (PF) 100 MCG/2 ML VIAL IVP STA (15:43)
--- NOTE | 2018-10-09 15:53 | Infectious Disease Consult ---
Infectious Disease-Consult - Encounter Date/Time Date of Encounter: 10/09/18 Time of Encounter: 15:47 - Data of Consult Patient: new to practice Reason for consult: "AMS LIKLEY DUE TO UTI. LEUKOCYTOSIS" Consult date: 10/09/18 Requesting Physician: Zhao Russell Primary Care Provider: Camron Allen MD - HPI HPI: Patient is an 83-year-old gentleman who presented to [facility] on 10/04/2018 fever and altered mental status. We are consult on 10/09/2018 for UTI with altered mental status and leukocytosis. Patient is unable to give me any history due to his mentation and no family around. Most of the information was taken from medical records and from nursing and hospitalist at bedside. Patient is an 83 year old male with a past medical history of COPD, heart failure, each of fibrillation, diabetes, hyperlipidemia, hypertension and a recent CVA recently treated at [facility] and released to residential facility one day prior to admission who presents with one-day history of altered mental status and fever. Apparently patient a month ago was fully functional and was driving and he had a stroke ansd since then he has been having confusion and AMS and waxes and wanes. Since admission, Patient has been afebrile with a MAXIMUM TEMPERATURE of 99.7 Fahrenheit, tachycardic and intermittent tachypnea. Presenting WBC was 19,000 with 79% neutrophils, BUN 30, creatinine and lactic acid 1.4 a urinalysis was obtained which revealed large leukocyte esterase and RBCs 19114, WBC 15647 but many epithelial cells so no culture was obtained. Blood cultures 2 were also obtained on 10/04/2018 both of which were negative. Chest x-ray was obtained which read right basilar atelectasis versus scarring. Patient was started on cefepime. Since then WBC decreased from 21,000-14,000. He has normal differential no bands. A repeat urinalysis obtained on 10/07/2018 revealed moderate leukocyte esterase and pyuria 15 2:30 and many epithelial cells so also no culture was indicated. Currently patient lethargic. He's rigid and does not open eyes or follows commands. vital signs show tachycardia and hypertenion but not sure if they are accurate since patient is spasming his extremities and not holding still. Patient's pupils are equal and PE is only remarkable for lethargy and spas ticity. He just received two doses of ativan and was about to get one does of pain med. On further questions, patient apparently was eating earlier. nursing states someone has to feed him but denies chocking or coughing with food. - ROS Review of Systems: unable to obtain due to mentation - Results CBC & Chem 7: 10/10/18 06:05 10/09/18 20:36 - Exam Vitals: Temp Pulse Resp BP Pulse Ox 98.5 F 80 16 138/96 95 10/09/18 06:52 10/09/18 11:00 10/09/18 11:00 10/09/18 11:00 10/09/18 11:00 Exam: HEAD: Normocephalic atraumatic EYES: PERRLA, EOMI, no conjunctival hemorrhage, sclera anicteric ENT: Mucous membranes moist, no oral thrush NECK: Supple. No meningeal signs. No masses LUNGS: Chest expanding symmetrically. Lungs sounds audible both lung quiroga. No wheezing, no rhonchi CV: RRR, S1S2, tachycardic ABDOMEN: Soft, nontender, nondistended. Hypoactive bowel sounds. No guarding EXTREMITY: Adequate perfusion. No joint effusion. Normal capillary refill SKIN: Normal color. No rash. NEURO: Did not awake, does not answer questions or follow commands, has rigidity in all 4 extremities PSYCH: Was very agitated, just received Ativan 2 Ferrous Sulfate 325 mg PO BID 03/27/18 [History] Bumetanide [Bumex] 1 mg PO DAILY 09/07/18 [History] Ascorbate Calcium [Vitamin C] 500 mg PO DAILY 09/08/18 [History] Metoprolol Tartrate [Lopressor] 75 mg PO BID 09/08/18 [History] Acetaminophen [Tylenol] 650 mg PO Q4H PRN 10/04/18 [History] Apixaban [Eliquis] 5 mg PO BID 10/04/18 [History] Atorvastatin [Lipitor] 40 mg PO HS 10/04/18 [History] Docusate [Colace] 100 mg PO BID PRN 10/04/18 [History] Insulin LISPRO [HumaLOG] 5 units SQ TIDAC 10/04/18 [History] Ipratropium Neb [Atrovent Neb] 0.5 mg IH Q4H PRN 10/04/18 [History] Levalbuterol HCl [Xopenex Neb] 1.25 mg IH Q4H PRN 10/04/18 [History] Multivitamin [Daily Multiple Vitamin] 1 each PO DAILY 10/04/18 [History] Nitroglycerin [Nitrostat] 0.4 mg SL AD PRN 10/04/18 [History] Polyethylene Glycol 3350 [MiraLAX] 17 gm PO DAILY PRN 10/04/18 [History] traZODone [TraZODone] 50 mg PO HS PRN 10/04/18 [History] Allergy/AdvReac Type Severity Reaction Status Date / Time No Known Allergies Allergy Verified 08/31/18 14:26 - Assessment and Plan (1) Altered mental status Current Visit: Yes Status: Acute etiology not clear hospitalist tells me that patient is waxing and waning over the last few days ROS and PE is limited and does not provide any further info consider neurology eval and CT head once stable aspiration pneumonia? CXR yesterday negative currently patient on cefepime if patietn spikes fever, becomes hemodynamically unstable or shows signs of sepsis I would broaden the antibiotics and get CT chest and abdoemn/pelvis and repeat cultures Qualifiers: Altered mental status type: unspecified Qualified Code(s): R41.82 - Altered mental status, unspecified SNOMED Code(s): 682521755 (2) Decubitus ulcer, stage 2 Current Visit: Yes Status: Acute Qualifiers: Pressure injury location: unspecified location Qualified Code(s): L89.92 - Pressure ulcer of unspecified site, stage 2 SNOMED Code(s): 710300998 (3) CVA (cerebral vascular accident) Current Visit: No Status: Acute Qualifiers: CVA mechanism: unspecified Qualified Code(s): I63.9 - Cerebral infarction, unspecified SNOMED Code(s): 391262522 (4) DMII (diabetes mellitus, type 2) Current Visit: No Status: Chronic Qualifiers: Diabetes mellitus 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 use: with marine oil terminal superintendent use Diabetes mellitus complication status: with hyperglycemia Qualified Code(s): E11.65 - Type 2 diabetes mellitus with hyperglycemia; Z79.4 - superintendent container terminal (current) use of insulin SNOMED Code(s): 49926001 (5) Tachycardia Current Visit: Yes Status: Acute SNOMED Code(s): 1401717 (6) UTI (urinary tract infection) Current Visit: Yes Status: Acute Causative organism not clear Repeat urinalysis improved significantly on cefepime We will continue cefepime for now Qualifiers: Urinary tract infection type: site unspecified Hematuria presence: without hematuria Qualified Code(s): N39.0 - Urinary tract infection, site not specified SNOMED Code(s): 55418259 Past Med Surg Social Fam HX - Past Medical History Medical history: arthritis, atrial fibrillation, CHF, diabetes, hyperlipidemia, hypertension Additional medical history: irregular heartbeat, [place] Psychiatric history: no psych history - Past Surgical History Surgical History: cataract, hip replacement, knee replacement, other Additional surgical history: ablation. left and right knee replacement. hip replacement - Social History Smoking Status: Never smoker Smokeless Tobacco Status: No Alcohol use: none Drug use: none - Family History Mother Living Status: Age at : 72 Cause of : Cardiac Arrest Hx Family Cancer: Yes (Brain CA) Father Living Status: Age at : 82 Cause of : Natural Causes Hx Family Neuromuscular Disorders: Yes (Parkinson's) Consult Discharge Plan - Plan Referrals: Camron Allen MD [Primary Care Provider] -
[2018-10-09] MEDS ORDERED: *HR* Metoprolol 5 MG/5 ML VIAL IVP ONE ×4 (16:12→21:26)
[2018-10-09] MEDS ORDERED: Isovue-370 500 ML BOTTLE IVP ONE (16:32)
[2018-10-09 20:58] LABS: Hematocrit 29.7 % (37.5-50.1); Hemoglobin 9.2 g/dL (12.9-16.9)
[2018-10-09] MEDS: Apixaban 5 MG TABLET PO SCH (21:17)
[2018-10-09 21:18] LABS: ABG Base Excess 8 mEq/L (-2 to 3); ABG HCO3 32 mEq/L (21-27); ABG Oxygen Saturation 98 % (95-98); ABG PCO2 42 mmHg (35-45); ABG PH 7.49 pH Units (7.32-7.45); ABG PO2 90 mmHg (85-104); ABG TCO2 33 mEq/L (20-26)
--- NOTE | 2018-10-09 22:26 | Internal Med Progress Note ---
Hospitalist Progress Note - Encounter Date of Encounter: 10/09/18 Time of Encounter: 19:00 - Subjective Interval History: SUBJECTIVE: It was today afternoon, when this patient suddenly became unresponsive, showing some respiratory and pain distress. Associated with flexion and extension in his elbows and some jitteriness on 4 extremities. The upper extremities seem to be tender to palpation. He was tachypneic. Together with tachycardia; atrial fibrillation with ventricular rate around 120-130. Associated with good oxygen saturation and good blood pressure. We gave him 1.5 mg of IV Ativan, followed by 25 mg of IV fentanyl. We gave him 2.5 mg of IV Lopressor. After about 1 hour, he continued to have some jitteriness in the upper extremities. We switched him to oxygen mask at 50% FiO2. We got a ventricular rate around 100-110; with good blood pressure. I talked to Dr. Jimenez, neurology. He advised me to order EEG and CT of brain. We decided to start him on Keppra. OBJECTIVE: Skin: Free of rash and discoloration. ENMT: Oral/pharyngeal mucosa is normal in appearance. Eyes: Sclera is white. There is no discharge from eyes. Respiratory: Normal breath sounds. I cannot hear any rhonchi or wheezes. CV: Heart is irregularly irregular with no audible murmur. GI: Abdomen is soft and not tender. There is no palpable mass or visceromegaly. : The patient has inserted for a factor (about a week ago). Neuro: There is no focal deficits. See above. ADDITIONAL DATA: Hemoglobin is 9.2; 7.9 yesterday. With a WBC of 14.4 thousand and platelet count of 381,000. BMP is normal except of slightly elevated BUN. Blood cultures are negative. Urine culture is pending. ASSESSMENT AND PLAN: Possible atypical seizure. EEG and CT of the brain have been ordered. We will keep him on IV Keppra. Neurology consult has been requested. Admitted with altered mental status, likely secondary to UTI/sepsis. On IV cefepime. I requested Anemia. There is no evidence for significant GI bleeding currently. I would transfuse him with 1 unit of red blood cells. I will repeat his CBC in the morning. We may need to stop Eliquis for a couple days Atrial fibrillation. Rate controlled. I switched him from IV Cardizem to oral Lopressor. I will keep his Eliquis from home, due to decreasing hemoglobin. Type 2 diabetes mellitus. Under fair control. To continue when necessary Humalog. Chronic hypoxic respiratory failure. Likely secondary to COPD. To continue supplemental oxygen. He gets when necessary Xopenex. Inserted Garcia catheter. Likely secondary to BPH. He is on Flomax. Will discontinue Garcia catheter, offering him voiding trial. Possible constipation. He has not had any bowel movements since admission to the hospital. He will get a rectal bisacodyl. - Exam Vitals: Temp Pulse Resp BP Pulse Ox 100.9 F H 110 30 125/101 100 10/09/18 21:39 10/09/18 22:00 10/09/18 22:00 10/09/18 22:00 10/09/18 22:00 Exam: xx - Assessment and Plan (1) Seizure Current Visit: Yes Status: Suspected (2) Altered mental status Current Visit: Yes Status: Acute (3) Acute sepsis Current Visit: Yes Status: Acute (4) UTI (urinary tract infection) Current Visit: Yes Status: Acute (5) Anemia Current Visit: No Status: Acute (6) Afib Current Visit: No Status: Chronic (7) DMII (diabetes mellitus, type 2) Current Visit: No Status: Chronic (8) COPD (chronic obstructive pulmonary disease) Current Visit: Yes Status: Acute (9) Chronic respiratory failure with hypoxia Current Visit: Yes Status: Acute - Time Spent with Patient Total time spent is greater than 50% in coordination of care (as documented) at patient's floor/unit and/or counseling patient: 25 - 35 minutes Plan of Care Discussed with: patient Internal Medicine: Result - Labs CBC & Chem 7: 10/09/18 20:39 10/09/18 05:44 Labs: Short CBC 10/09/18 10/09/18 Range/Units 05:44 20:39 WBC 14.4 H (4.3-11.1) K/mcL Hgb 8.6 L 9.2 L (12.9-16.9) g/dL Hct 27.9 L 29.7 L (37.5-50.1) % Plt Count 381 (140-400) K/mcL Neutrophils # 11.2 H (1.6-8.9) K/mcL BMP 10/09/18 05:44 Sodium 136 Potassium 4.7 Chloride 98 Carbon Dioxide 32 H BUN 35 H Creatinine 0.85 Glucose 142 H Calcium 8.6 - ABG Interpretation ABG results: ABG ABG pH 7.49 pH Units (7.32-7.45) H 10/09/18 21:14 ABG pCO2 42 mmHg (35-45) 10/09/18 21:14 ABG pO2 90 mmHg (85-104) 10/09/18 21:14 ABG O2 Saturation 98 % (95-98) 10/09/18 21:14 PT/INR, D-dimer PT 26.3 Seconds (9.4-12.1) H 10/05/18 07:03 - Impressions Impressions Head CT 10/09/18 16:32 IMPRESSION: Stable left frontal, posterior parietal, and posterior occipital subacute-remote infarcts. Stable global atrophy with no acute intracranial hemorrhage or global mass effect. D/ / 10/09/2018 18:53:21 Neeraj Rojas MD / [facility] Interpreting Provider: Neeraj Rojas MD Chest CT 10/09/18 18:33 IMPRESSION: Extensive respiratory motion artifact degrades exam. Right basilar atelectasis. No definite evidence of pneumonia. Cardiomegaly without pulmonary edema. D/ /09/2018 19:06:22 Josue Bravo MD / [facility] Interpreting Provider: Josue Bravo MD Consult Discharge Plan - Plan Referrals: Camron Allen MD [Primary Care Provider] - (2) Altered mental status Qualifiers: Altered mental status type: unspecified Qualified Code(s): R41.82 - Altered mental status, unspecified (5) Anemia Qualifiers: Anemia type: iron deficiency Qualified Code(s): D50.9 - Iron deficiency anemia, unspecified (6) Afib Qualifiers: Atrial fibrillation type: chronic Qualified Code(s): I48.2 - Chronic atrial fibrillation (7) DMII (diabetes mellitus, type 2) Qualifiers: Diabetes mellitus nursing home insulin use: with 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
[2018-10-09] MEDS ORDERED: Vancomycin 1,750 MG in 0.9 % Sodium Chloride 250 ML IVPB SCH (23:00)
--- NOTE | 2018-10-10 01:00 | Pulmonology Consult Note ---
Date of Encounter: 10/10/18 Time of Encounter: 00:05 Assessment and Plan (1) Altered mental status Current Visit: Yes Status: Acute Qualifiers: Altered mental status type: unspecified Qualified Code(s): R41.82 - Altered mental status, unspecified (2) Acute respiratory failure with hypoxia Current Visit: Yes Status: Acute (3) Decubitus ulcer, stage 2 Current Visit: Yes Status: Acute (4) Leukocytosis Current Visit: No Status: Acute Qualifiers: Qualified Code(s): D72.829 - Elevated white blood cell count, unspecified (5) Anemia Current Visit: No Status: Acute Qualifiers: Anemia type: iron deficiency Qualified Code(s): D50.9 - Iron deficiency anemia, unspecified (6) Afib Current Visit: No Status: Chronic Qualifiers: Atrial fibrillation type: chronic Qualified Code(s): I48.2 - Chronic atrial fibrillation (7) CVA (cerebral vascular accident) Current Visit: No Status: Acute Qualifiers: CVA mechanism: unspecified Qualified Code(s): I63.9 - Cerebral infarction, unspecified (8) DVT prophylaxis Current Visit: Yes Status: Acute History of Present Illness Consult date: 10/10/18 Past Med Surg Social Fam HX - Past Medical History Medical history: arthritis, atrial fibrillation, CHF, diabetes, hyperlipidemia, hypertension Additional medical history: irregular heartbeat, [place] Psychiatric history: no psych history - Past Surgical History Surgical History: cataract, hip replacement, knee replacement, other Additional surgical history: ablation. left and right knee replacement. hip replacement - Social History Smoking Status: Never smoker Smokeless Tobacco Status: No Alcohol use: none Drug use: none - Family History Mother Living Status: Age at : 72 Cause of : Cardiac Arrest Hx Family Cancer: Yes (Brain CA) Father Living Status: Age at : 82 Cause of : Natural Causes Hx Family Neuromuscular Disorders: Yes (Parkinson's) Medications and Allergies Ferrous Sulfate 325 mg PO BID 03/27/18 [History] Bumetanide [Bumex] 1 mg PO DAILY 09/07/18 [History] Ascorbate Calcium [Vitamin C] 500 mg PO DAILY 09/08/18 [History] Metoprolol Tartrate [Lopressor] 75 mg PO BID 09/08/18 [History] Acetaminophen [Tylenol] 650 mg PO Q4H PRN 10/04/18 [History] Apixaban [Eliquis] 5 mg PO BID 10/04/18 [History] Atorvastatin [Lipitor] 40 mg PO HS 10/04/18 [History] Docusate [Colace] 100 mg PO BID PRN 10/04/18 [History] Insulin LISPRO [HumaLOG] 5 units SQ TIDAC 10/04/18 [History] Ipratropium Neb [Atrovent Neb] 0.5 mg IH Q4H PRN 10/04/18 [History] Levalbuterol HCl [Xopenex Neb] 1.25 mg IH Q4H PRN 10/04/18 [History] Multivitamin [Daily Multiple Vitamin] 1 each PO DAILY 10/04/18 [History] Nitroglycerin [Nitrostat] 0.4 mg SL AD PRN 10/04/18 [History] Polyethylene Glycol 3350 [MiraLAX] 17 gm PO DAILY PRN 10/04/18 [History] traZODone [TraZODone] 50 mg PO HS PRN 10/04/18 [History] Allergy/AdvReac Type Severity Reaction Status Date / Time No Known Allergies Allergy Verified 08/31/18 14:26 ROS unobtainable: due to mental status All Systems: The remainder of the systems were reviewed and are negative Physical Examination Vital Signs: Vital Signs, Last 4 Hours Temp Pulse Resp BP Pulse Ox 10/10/18 00:27 29 100 10/10/18 00:00 104 27 111/86 100 10/09/18 23:30 113 10/09/18 23:22 100.1 F H 10/09/18 23:07 110 34 116/79 100 10/09/18 22:00 110 30 125/101 100 10/09/18 21:39 100.9 F H 105 36 119/105 100 General: appears uncomfortable, groaning HEENT: NCAT,PERRL, sclera anicteric, dry mucus membranes Cardio: Tachycardia, irregular rhythm, no murmurs, +S1/S2 Pulm: CTAB; no wheezing, rhonchi, rales; tachypnea and increased respiratory effort Abdomen: soft, nontender, no bowel sounds; no rigidity, guarding, distention Extremities: Trace BLE edema, no cyanosis or clubbing Neuro: Unable to assess mental status, nonverbal, not following commands, moves all extremities spontaneously, upper extremity tremors MSK: unable to test strength, left knee replacement scar Skin: no visible rashes, protective dressing over sacral decubitus ulcer Psych: unable to assess due to mental status Results - Laboratory Findings CBC and BMP: 10/09/18 20:39 10/09/18 05:44 ABG ABG pH 7.49 pH Units (7.32-7.45) H 10/09/18 21:14 ABG pCO2 42 mmHg (35-45) 10/09/18 21:14 ABG pO2 90 mmHg (85-104) 10/09/18 21:14 ABG O2 Saturation 98 % (95-98) 10/09/18 21:14 PT/INR, D-dimer PT 26.3 Seconds (9.4-12.1) H 10/05/18 07:03 Abnormal lab findings: Abnormal lab results WBC 14.4 K/mcL (4.3-11.1) H 10/09/18 05:44 RBC 2.88 M/mcL (4.19-5.50) L 10/09/18 05:44 Hgb 9.2 g/dL (12.9-16.9) L 10/09/18 20:39 Hct 29.7 % (37.5-50.1) L 10/09/18 20:39 MCHC 30.8 g/dL (31.6-35.5) L 10/09/18 05:44 RDW 15.2 % (11.5-14.5) H 10/09/18 05:44 Plt Count 423 K/mcL (140-400) H 10/05/18 07:03 11.2 K/mcL (1.6-8.9) H 10/09/18 05:44 1.5 K/mcL (0.0-1.3) H 10/09/18 05:44 PT 26.3 Seconds (9.4-12.1) H 10/05/18 07:03 APTT 39.6 Seconds (26.0-36.0) H 10/05/18 07:03 ABG pH 7.49 pH Units (7.32-7.45) H 10/09/18 21:14 ABG pCO2 55 mmHg (35-45) H 10/04/18 21:55 ABG pO2 63 mmHg (85-104) L 10/04/18 21:55 ABG HCO3 32 mEq/L (21-27) H 10/09/18 21:14 ABG Total CO2 33 mEq/L (20-26) H 10/09/18 21:14 ABG O2 Saturation 92 % (95-98) L 10/04/18 21:55 ABG Base Excess 8 mEq/L (-2 to 3) H 10/09/18 21:14 Carbon Dioxide 32 mEq/L (23-29) H 10/09/18 05:44 BUN 35 mg/dL (8-23) H 10/09/18 05:44 41 (6-26) H 10/09/18 05:44 Glucose 142 mg/dL (70-105) H 10/09/18 05:44 POC Glucose 150 mg/dL (70-99) H 10/09/18 21:10 Calcium 8.5 mg/dL (8.6-10.3) L 10/07/18 07:16 0.3 mg/dL (0.0-0.2) H 10/04/18 21:19 AST 42 Units/L (13-39) H 10/05/18 07:03 312 Units/L (34-104) H 10/05/18 07:03 0.04 ng/mL (< 0.04) H* 10/04/18 21:19 2.7 g/dL (3.5-5.7) L 10/05/18 07:03 3.8 g/dL (2.4-3.5) H 10/05/18 07:03 0.7 (1.1-2.2) L 10/05/18 07:03 Turbid (Clear) A 10/04/18 22:53 Ur Specific [place] 1.026 (1.010-1.025) H 10/04/18 22:53 30 mg/dL (Neg-Trace) H 10/07/18 21:35 Trace mg/dL (Negative) H 10/07/18 21:35 Trace (Negative) H 10/07/18 21:35 Ur Leukocyte Esterase Moderate (Negative) H 10/07/18 21:35 3-5 per hpf (0-3) H 10/07/18 21:35 15-30 per hpf (0-3) H 10/07/18 21:35 Ur Squamous Epith Cells Many per lpf (None-Few) H 10/07/18 21:35 Hyaline Casts Moderate per lpf (None-Few) H 10/04/18 22:53 Ur Culture Indicated? NO. (NO) A 10/07/18 21:35 Crossmatch See Detail 10/08/18 13:52 - Microbiology Findings Microbiology Findings: Microbiology, Last 48 Hours 10/09/18 22:41 Blood Culture - Preliminary Peripheral Venipuncture Culture is incubating and being continuously m onitored for growth. Final report to follow. 10/09/18 22:43 Blood Culture - Preliminary Peripheral Venipuncture Culture is incubating and being continuously monitored for growth. Final report to follow. 10/04/18 21:19 Blood Culture - Final Peripheral Venipuncture No growth. Final report. 10/04/18 21:26 Blood Culture - Final Peripheral Venipuncture No growth. Final report. - Clinical Findings Intake & Output: Intake & Output 10/09/18 10/09/18 10/10/18 15:59 23:59 07:59 Intake Total 480 / 785 205 / 785 605 / 605 Output Total 0 / 300 300 / 300 Balance 480 / 485 -95 / 485 605 / 605 Consult Discharge Plan - Plan Referrals: Camron Allen MD [Primary Care Provider] -
[2018-10-10] MEDS: Cefepime HCl 2,000 MG in 0.9 % Sodium Chloride Mini Bag 100 ML IVPB SCH ×3 (01:08→21:02)
[2018-10-10 01:46] LABS: Adenovirus Not Detected (Not Detect); Bordetella Pertussis Not Detected (Not Detect); Chlamydophila pneumoniae Not Detected (Not Detect); Coronavirus 229E Not Detected (Not Detect); Coronavirus HKU1 Not Detected (Not Detect); Coronavirus NL63 Not Detected (Not Detect); Coronavirus OC43 Not Detected (Not Detect); Human Metapneumovirus Not Detected (Not Detect); Human Rhinovirus/Enterovirus Not Detected (Not Detect); Influenza A Subtype 2009 H1 Not Detected (Not Detect); Influenza A Untypeable Not Detected (Not Detect); Influenza B Not Detected (Not Detect); Mycoplasma pneumoniae Not Detected (Not Detect); Parainfluenza Virus 1 Not Detected (Not Detect); Parainfluenza Virus 2 Not Detected (Not Detect); Parainfluenza Virus 3 Not Detected (Not Detect); Parainfluenza Virus 4 Not Detected (Not Detect); Respiratory Syncytial Virus Not Detected (Not Detect)
[2018-10-10 01:55] LABS: BUN/Creatinine Ratio 39 (6-26); Blood Urea Nitrogen 38 mg/dL (8-23); Calcium 8.6 mg/dL (8.6-10.3); Carbon Dioxide 30 mEq/L (23-29); Chloride 97 mEq/L (98-107); Glucose 145 mg/dL (70-105); Osmolality,Calculated 292 (280-300); Potassium 4.9 mEq/L (3.5-5.1); Sodium 135 mEq/L (136-145); eGFR For Non-African Americans > 60 (> 60)
[2018-10-10 06:18] LABS: Basophils # 0.1 K/mcL (0.0-0.2); Basophils % 0.3 %; Eosinophils # 0.1 K/mcL (0.0-0.6); Eosinophils % 0.4 %; Hematocrit 28.2 % (37.5-50.1); Hemoglobin 8.5 g/dL (12.9-16.9); Immature Granulocytes % 1.5 % (0-4); Lymphocytes # 1.6 K/mcL (0.6-4.6); Lymphocytes % 8.3 %; Mean Corpuscular HGB Conc 30.1 g/dL (31.6-35.5); Mean Corpuscular Hemoglobin 29.3 pg (28.0-33.3); Mean Corpuscular Volume 97.2 fL (83.0-100.0); Mean Platelet Volume 10.3 fL (9.4-12.4); Monocytes % 10.5 %; Neutrophils # 15.1 K/mcL (1.6-8.9); Platelet Count 382 K/mcL (140-400); Red Cell Distribution Width 15.5 % (11.5-14.5)
[2018-10-10 06:38] LABS: Alanine Aminotransferase 23 Units/L (7-52); Albumin 2.6 g/dL (3.5-5.7); Albumin/Globulin Ratio 0.7 (1.1-2.2); Alkaline Phosphatase 197 Units/L (34-104); Amylase 16 Units/L (29-103); Aspartate Amino Transferase 30 Units/L (13-39); Bilirubin,Direct 0.1 mg/dL (0.0-0.2); Bilirubin,Indirect 0.6 mg/dL (0.0-1.2); Bilirubin,Total 0.7 mg/dL (0.3-1.0); Globulin 3.7 g/dL (2.4-3.5); Lipase 4 Units/L (11-82); Total Protein 6.3 g/dL (6.4-8.9)
[2018-10-10] MEDS: 0.9 % Sodium Chloride 1,000 ML IVC SCH (07:14)
[2018-10-10] MEDS: Insulin LISPRO 300 UNITS/3 ML VIAL SQ SCH ×3 (07:20→16:42)
--- NOTE | 2018-10-10 07:21 | Event Note ---
Date of Encounter: 10/09/18 Time of Encounter: 19:00 Was paged by nursing as the patient had elevated heart rate in the 40 and was hypersensitive to pain. Nursing reported that he had seizure like activity during the afternoon and was given ativan, fentanyl and keppra. Per family whenever he received ativan he becomes unresponsive. He appeared uncomfortable. Stat lactic acid was ordered which was within normal limits. Due to concern for requiring intubation given his mental status changes he was transferred to ICU. In the ICU he received flumazenil.
--- NOTE | 2018-10-10 07:42 | EEG/EMG/Oth Biometrics Report ---
EEG Procedure Report Date of procedure: 10/09/18 Procedure Note: This is a STAT 21 channel digital EEG performed utilizing 10- 20 international electrode placement system. FINDINGS: Patient has a predominant waking background frequency that is average voltage 6/8 Hertz THETA activity in the posterior region, LARGE amplitude symmetrical over the both hemispheres reactive to eyes opening and closing record continued to show alpha activity intermixed with some theta off and on, mixed activity recorded, predominantly no evidence of any spike wave discharges or any lateralizing abnormalities, Photic stimulation did not produce any convulsive response. Intermittent EMG artifacts were noted. Stage II sleep was not achieved. Impression: Mild to moderate generalized slowing. No epileptiform discharges noted during this study though this is a nonspecific finding usually seen in patient with generalized cerebral dysfunction, could also be seen in the postictal state clinical correlation is recommended
--- NOTE | 2018-10-10 08:42 | Pulmonology Consult Note ---
<Gibran Sorensen - Last Filed: 10/10/18 17:57> Date of Encounter: 10/10/18 Time of Encounter: 08:41 Assessment and Plan (1) CVA (cerebral vascular accident) Current Visit: Yes Status: Acute Patient has recent history of CVA treated at [place] He also has remote history of previous CVAs He was admitted this hospitalization for altered mental status Altered mental status was suspected to be secondary to sepsis from UTI She has been treated for sepsis without improvement in altered mental status Neurology via the patient and ordered MRI today MRI showed involving subacute hemorrhagic stroke Repeat CT scheduled in the morning to monitor evolution Family discussing CODE STATUS and goals of care Other recommendations per neurology Qualifiers: CVA mechanism: unspecified Qualified Code(s): I63.9 - Cerebral infarction, unspecified (2) Altered mental status Current Visit: Yes Status: Acute Altered mental status related to sepsis and/or CVA Qualifiers: Altered mental status type: unspecified Qualified Code(s): R41.82 - Altered mental status, unspecified (3) UTI (urinary tract infection) Current Visit: Yes Status: Acute Treating with cefepime and vancomycin Qualifiers: Urinary tract infection type: site unspecified Hematuria presence: without hematuria Qualified Code(s): N39.0 - Urinary tract infection, site not specified (4) Decubitus ulcer, stage 2 Current Visit: Yes Status: Acute No signs of infection Infectious disease following Dressings per nursing protocol Qualifiers: Pressure injury location: unspecified location Qualified Code(s): L89.92 - Pressure ulcer of unspecified site, stage 2 (5) DMII (diabetes mellitus, type 2) Current Visit: No Status: Chronic Sliding scale insulin Qualifiers: Diabetes mellitus long term care social worker insulin use: with long term care social worker use Diabetes mellitus complication status: with hyperglycemia Qualified Code(s): E11.65 - Type 2 diabetes mellitus with hyperglycemia; Z79.4 - ocean transportation intermediary (current) use of insulin (6) COPD (chronic obstructive pulmonary disease) Current Visit: No Status: Chronic History of COPD Xopenex and Solu-Medrol as needed Qualifiers: COPD type: unspecified COPD Qualified Code(s): J44.9 - Chronic obstructive pulmonary disease, unspecified History of Present Illness Consult date: 10/10/18 Requesting physician: Zhao Russell Reason for consult: other (Encephalopathy secondary to suspected sepsis) Chief complaint: Altered mental status History of present illness: Patient is an 83-year-old male with a past medical history of COPD, heart failure, diabetes, atrial fibrillation and recent CVA for which she was treated at [facility] recently released to senior care facility. He presented to the [facility] with altered mental status and fever, this was attributed to sepsis secondary to UTI. During hospital course patient was noted to have seizure-like activity, neurology was consulted. Patient apparently began to have worsening encephalopathy and respiratory status leading to transfer to ICU. Past Med Surg Social Fam HX - Past Medical History Medical history: arthritis, atrial fibrillation, CHF, diabetes, hyperlipidemia, hypertension Additional medical history: irregular heartbeat, [place] Psychiatric history: no psych history - Past Surgical History Surgical History: cataract, hip replacement, knee replacement, other Additional surgical history: ablation. left and right knee replacement. hip replacement - Social History Smoking Status: Never smoker Smokeless Tobacco Status: No Alcohol use: none Drug use: none - Family History Mother Living Status: Age at : 72 Cause of : Cardiac Arrest Hx Family Cancer: Yes (Brain CA) Father Living Status: Age at : 82 Cause of : Natural Causes Hx Family Neuromuscular Disorders: Yes (Parkinson's) Medications and Allergies Ferrous Sulfate 325 mg PO BID 03/27/18 [History] Bumetanide [Bumex] 1 mg PO DAILY 09/07/18 [History] Ascorbate Calcium [Vitamin C] 500 mg PO DAILY 09/08/18 [History] Metoprolol Tartrate [Lopressor] 75 mg PO BID 09/08/18 [History] Acetaminophen [Tylenol] 650 mg PO Q4H PRN 10/04/18 [History] Apixaban [Eliquis] 5 mg PO BID 10/04/18 [History] Atorvastatin [Lipitor] 40 mg PO HS 10/04/18 [History] Docusate [Colace] 100 mg PO BID PRN 10/04/18 [History] Insulin LISPRO [HumaLOG] 5 units SQ TIDAC 10/04/18 [History] Ipratropium Neb [Atrovent Neb] 0.5 mg IH Q4H PRN 10/04/18 [History] Levalbuterol HCl [Xopenex Neb] 1.25 mg IH Q4H PRN 10/04/18 [History] Multivitamin [Daily Multiple Vitamin] 1 each PO DAILY 10/04/18 [History] Nitroglycerin [Nitrostat] 0.4 mg SL AD PRN 10/04/18 [History] Polyethylene Glycol 3350 [MiraLAX] 17 gm PO DAILY PRN 10/04/18 [History] traZODone [TraZODone] 50 mg PO HS PRN 10/04/18 [History] Allergy/AdvReac Type Severity Reaction Status Date / Time No Known Allergies Allergy Verified 08/31/18 14:26 ROS unobtainable: due to mental status All Systems: The remainder of the systems were reviewed and are negative Physical Examination Vital Signs: Vital Signs, Last 4 Hours Temp Pulse Resp BP Pulse Ox 10/10/18 08:00 92 26 116/75 98 10/10/18 07:55 97.9 F 10/10/18 07:22 98 10/10/18 07:00 113 24 105/86 100 10/10/18 06:06 95 30 140/80 100 10/10/18 05:00 104 30 118/77 100 General appearance: agitated, appears uncomfortable Eyes: nonicteric Effort: mildly labored Inspection: normal Auscultation: bilateral: diminished breath sounds Cardiovascular: other (Tachycardic rate and irregularly irregular rhythm) Gastrointestinal: absent bowel sounds, soft, non-distended Integumentary: normal Extremities: no cyanosis Musculoskeletal: no deformities unable to assess due to mental status Results - Laboratory Findings CBC and BMP: 10/10/18 06:05 10/10/18 06:05 ABG ABG pH 7.49 pH Units (7.32-7.45) H 10/09/18 21:14 ABG pCO2 42 mmHg (35-45) 10/09/18 21:14 ABG pO2 90 mmHg (85-104) 10/09/18 21:14 ABG O2 Saturation 98 % (95-98) 10/09/18 21:14 PT/INR, D-dimer PT 26.3 Seconds (9.4-12.1) H 10/05/18 07:03 Abnormal lab findings: Abnormal lab results WBC 19.1 K/mcL (4.3-11.1) H 10/10/18 06:05 RBC 2.90 M/mcL (4.19-5.50) L 10/10/18 06:05 Hgb 8.5 g/dL (12.9-16.9) L 10/10/18 06:05 Hct 28.2 % (37.5-50.1) L 10/10/18 06:05 MCHC 30.1 g/dL (31.6-35.5) L 10/10/18 06:05 RDW 15.5 % (11.5-14.5) H 10/10/18 06:05 Plt Count 423 K/mcL (140-400) H 10/05/18 07:03 15.1 K/mcL (1.6-8.9) H 10/10/18 06:05 2.0 K/mcL (0.0-1.3) H 10/10/18 06:05 ESR 116 mm/hr (0-10) H 10/10/18 06:05 PT 26.3 Seconds (9.4-12.1) H 10/05/18 07:03 APTT 39.6 Seconds (26.0-36.0) H 10/05/18 07:03 ABG pH 7.49 pH Units (7.32-7.45) H 10/09/18 21:14 ABG pCO2 55 mmHg (35-45) H 10/04/18 21:55 ABG pO2 63 mmHg (85-104) L 10/04/18 21:55 ABG HCO3 32 mEq/L (21-27) H 10/09/18 21:14 ABG Total CO2 33 mEq/L (20-26) H 10/09/18 21:14 ABG O2 Saturation 92 % (95-98) L 10/04/18 21:55 ABG Base Excess 8 mEq/L (-2 to 3) H 10/09/18 21:14 Sodium 135 mEq/L (136-145) L 10/09/18 20:36 Chloride 97 mEq/L (98-107) L 10/09/18 20:36 Carbon Dioxide 30 mEq/L (23-29) H 10/09/18 20:36 BUN 38 mg/dL (8-23) H 10/09/18 20:36 39 (6-26) H 10/09/18 20:36 Glucose 145 mg/dL (70-105) H 10/09/18 20:36 POC Glucose 139 mg/dL (70-99) H 10/10/18 07:18 Calcium 8.5 mg/dL (8.6-10.3) L 10/07/18 07:16 0.3 mg/dL (0.0-0.2) H 10/04/18 21:19 AST 42 Units/L (13-39) H 10/05/18 07:03 197 Units/L (34-104) H 10/10/18 06:05 0.04 ng/mL (< 0.04) H* 10/04/18 21:19 6.3 g/dL (6.4-8.9) L 10/10/18 06:05 2.6 g/dL (3.5-5.7) L 10/10/18 06:05 3.7 g/dL (2.4-3.5) H 10/10/18 06:05 0.7 (1.1-2.2) L 10/10/18 06:05 Amylase 16 Units/L (29-103) L 10/10/18 06:05 4 Units/L (11-82) L 10/10/18 06:05 Turbid (Clear) A 10/04/18 22:53 Ur Specific Ewing 1.026 (1.010-1.025) H 10/04/18 22:53 30 mg/dL (Neg-Trace) H 10/07/18 21:35 Trace mg/dL (Negative) H 10/07/18 21:35 Trace (Negative) H 10/07/18 21:35 Ur Leukocyte Esterase Moderate (Negative) H 10/07/18 21:35 3-5 per hpf (0-3) H 10/07/18 21:35 15-30 per hpf (0-3) H 10/07/18 21:35 Ur Squamous Epith Cells Many per lpf (None-Few) H 10/07/18 21:35 Hyaline Casts Moderate per lpf (None-Few) H 10/04/18 22:53 Ur Culture Indicated? NO. (NO) A 10/07/18 21:35 Crossmatch See Detail 10/08/18 13:52 - Microbiology Findings Microbiology Findings: Microbiology, Last 48 Hours 10/09/18 23:00 Urine Culture - Preliminary Urine,Catheterized (Straight) Culture is incubating. 10/09/18 22:41 Blood Culture - Preliminary Peripheral Venipuncture Culture is incubating and being continuously monitored for growth. Final report to follow. 10/09/18 22:43 Blood Culture - Preliminary Peripheral Venipuncture Culture is incubating and being continuously monitored for growth. Final report to follow. 10/04/18 21:19 Blood Culture - Final Peripheral Venipuncture No growth. Final report. 10/04/18 21:26 Blood Culture - Final Peripheral Venipuncture No growth. Final report. - Clinical Findings Intake & Output: Intake & Output 10/09/18 10/10/18 10/10/18 23:59 07:59 15:59 Intake Total 205 / 785 705 / 705 Output Total 300 / 300 Balance -95 / 485 705 / 705 Weight 108.6 kg Consult Discharge Plan - Plan Referrals: Camron Allen MD [Primary Care Provider] - <Mello Cortez - Last Filed: 10/11/18 07:02> Date of Encounter: 10/11/18 All Systems: The remainder of the systems were reviewed and are negative Physical Examination Vital Signs: Vital Signs, Last 4 Hours Temp Pulse Resp BP Pulse Ox 10/10/18 15:00 130 24 145/111 90 10/10/18 13:00 112 28 117/74 99 10/10/18 12:00 111 26 142/71 97 10/10/18 11:58 98.0 F Results - Laboratory Findings CBC and BMP: 10/11/18 03:54 10/11/18 03:54 ABG ABG pH 7.43 pH Units (7.32-7.45) 10/10/18 11:21 ABG pCO2 52 mmHg (35-45) H 10/10/18 11:21 ABG pO2 245 mmHg (85-104) H 10/10/18 11:21 ABG O2 Saturation 100 % (95-98) H 10/10/18 11:21 PT/INR, D-dimer PT 26.3 Seconds (9.4-12.1) H 10/05/18 07:03 Abnormal lab findings: Abnormal lab results WBC 19.1 K/mcL (4.3-11.1) H 10/10/18 06:05 RBC 2.90 M/mcL (4.19-5.50) L 10/10/18 06:05 Hgb 8.5 g/dL (12.9-16.9) L 10/10/18 06:05 Hct 28.2 % (37.5-50.1) L 10/10/18 06:05 MCHC 30.1 g/dL (31.6-35.5) L 10/10/18 06:05 RDW 15.5 % (11.5-14.5) H 10/10/18 06:05 Plt Count 423 K/mcL (140-400) H 10/05/18 07:03 15.1 K/mcL (1.6-8.9) H 10/10/18 06:05 2.0 K/mcL (0.0-1.3) H 10/10/18 06:05 ESR 116 mm/hr (0-10) H 10/10/18 06:05 PT 26.3 Seconds (9.4-12.1) H 10/05/18 07:03 APTT 39.6 Seconds (26.0-36.0) H 10/05/18 07:03 ABG pH 7.49 pH Units (7.32-7.45) H 10/09/18 21:14 ABG pCO2 52 mmHg (35-45) H 10/10/18 11:21 ABG pO2 245 mmHg (85-104) H 10/10/18 11:21 ABG HCO3 34 mEq/L (21-27) H 10/10/18 11:21 ABG Total CO2 36 mEq/L (20-26) H 10/10/18 11:21 ABG O2 Saturation 100 % (95-98) H 10/10/18 11:21 ABG Base Excess 9 mEq/L (-2 to 3) H 10/10/18 11:21 Sodium 135 mEq/L (136-145) L 10/09/18 20:36 Chloride 97 mEq/L (98-107) L 10/09/18 20:36 Carbon Dioxide 30 mEq/L (23-29) H 10/09/18 20:36 BUN 36 mg/dL (8-23) H 10/10/18 06:05 39 (6-26) H 10/10/18 06:05 Glucose 141 mg/dL (70-105) H 10/10/18 06:05 POC Glucose 122 mg/dL (70-99) H 10/10/18 11:37 Calcium 8.5 mg/dL (8.6-10.3) L 10/07/18 07:16 0.3 mg/dL (0.0-0.2) H 10/04/18 21:19 AST 42 Units/L (13-39) H 10/05/18 07:03 197 Units/L (34-104) H 10/10/18 06:05 0.04 ng/mL (< 0.04) H* 10/04/18 21:19 186 mg/L (Less than 10) H 10/10/18 06:05 6.3 g/dL (6.4-8.9) L 10/10/18 06:05 2.6 g/dL (3.5-5.7) L 10/10/18 06:05 3.7 g/dL (2.4-3.5) H 10/10/18 06:05 0.7 (1.1-2.2) L 10/10/18 06:05 Amylase 16 Units/L (29-103) L 10/10/18 06:05 4 Units/L (11-82) L 10/10/18 06:05 Turbid (Clear) A 10/04/18 22:53 Ur Specific Ewing 1.026 (1.010-1.025) H 10/04/18 22:53 30 mg/dL (Neg-Trace) H 10/07/18 21:35 Trace mg/dL (Negative) H 10/07/18 21:35 Trace (Negative) H 10/07/18 21:35 Ur Leukocyte Esterase Moderate (Negative) H 10/07/18 21:35 3-5 per hpf (0-3) H 10/07/18 21:35 15-30 per hpf (0-3) H 10/07/18 21:35 Ur Squamous Epith Cells Many per lpf (None-Few) H 10/07/18 21:35 Hyaline Casts Moderate per lpf (None-Few) H 10/04/18 22:53 Ur Culture Indicated? NO. (NO) A 10/07/18 21:35 Crossmatch See Detail 10/08/18 13:52 - Microbiology Findings Microbiology Findings: Microbiology, Last 48 Hours 10/09/18 23:00 Urine Culture - Preliminary Urine,Catheterized (Straight) Culture is incubating. 10/09/18 22:41 Blood Culture - Preliminary Peripheral Venipuncture Culture is incubating and being continuously monitored for growth. Final report to follow. 10/09/18 22:43 Blood Culture - Preliminary Peripheral Venipuncture Culture is incubating and being continuously monitored for growth. Final report to follow. 10/04/18 21:19 Blood Culture - Final Peripheral Venipuncture No growth. Final report. 10/04/18 21:26 Blood Culture - Final Peripheral Venipuncture No growth. Final report. - Clinical Findings Intake & Output: Intake & Output 10/09/18 10/10/18 10/10/18 23:59 07:59 15:59 Intake Total 205 / 785 705 / 2175 1470 / 2175 Output Total 300 / 300 Balance -95 / 485 705 / 2175 1470 / 2175 Weight 108.6 kg - Attending Attestation I examined this patient and my medical decision-making was reviewed with the Resident Physician. I agree with the documented findings, disposition and treatment plan as described except to the extent set forth below. Patient seen and examined. Labs, radiology, chart personally reviewed. Agree with resident's history and physical, assessment, plan with following comments: TENNIS DIRECTOR: Patient does not follows commands, I discussed with the neurology team and is very concerning his MRI finding and if family on to be aggressive then patient needs to be transferred to a facility with neuro ICU. Neurology is following Pulmonary: Acceptable oxygenation and ventilation at this time however his respiratory status could deteriorate mainly due to his mental status change as well as central reason and will keep close eye on him and we will treat him with noninvasive ventilation first and if no improvement shortly then he needs to be intubated and family increase or short-term intubation. Cardiovascular: stable and need to monitor blood pressure with systolic blood pressure around 160 mmHg because of the bleeding. GI: Nutrition per dietary and GI prophylaxis per routine. Heme: DVT prophylaxis per routine ID: Continue antibiotics and plan to de-escalation. Infectious disease is following Renal; urine out put and renal funtion reviewed Endorcine: blood glucose is monitored Lines: all lines checked and no evidence of infections Skin: skin care to prevent pressure ulcers per nursing routine care Overall this is very concerning and his condition could deteriorate
[2018-10-10] MEDS: Apixaban 5 MG TABLET PO SCH (09:06)
[2018-10-10] MEDS: Bumetanide 1 MG TABLET PO SCH (09:06)
[2018-10-10 09:25] LABS: C-Reactive Protein 186 mg/L (Less than 10)
[2018-10-10] MEDS ORDERED: Isovue-370 500 ML BOTTLE IVP ONE (09:37)
--- NOTE | 2018-10-10 09:51 | Neurology - Consult Note ---
<Myra Jimenez I - Last Filed: 10/10/18 15:12> Date of Encounter: 10/10/18 Assessment and Plan (1) Altered mental status Current Visit: Yes Status: Acute I have personally performed a face to face diagnostic evaluation, including HPI, EXAM, which is included in the Assesment and plan, which was discussed with Will Rader CNP, I agree with the above outlined documentation. 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 Also recommend MRI of the brain to look for any intracranial abnormality espec ially for any acute infarct or any abnormality in the temporal lobes. We will follow the patient with you Myra Jimenez MD. NeurologyI Qualifiers: Altered mental status type: unspecified Qualified Code(s): R41.82 - Altered mental status, unspecified (2) Seizure Current Visit: Yes Status: Suspected History of Present Illness HPI: Mr. Khan is a 83 year old male Medications and Allergies Ferrous Sulfate 325 mg PO BID 03/27/18 [History] Bumetanide [Bumex] 1 mg PO DAILY 09/07/18 [History] Ascorbate Calcium [Vitamin C] 500 mg PO DAILY 09/08/18 [History] Metoprolol Tartrate [Lopressor] 75 mg PO BID 09/08/18 [History] Acetaminophen [Tylenol] 650 mg PO Q4H PRN 10/04/18 [History] Apixaban [Eliquis] 5 mg PO BID 10/04/18 [History] Atorvastatin [Lipitor] 40 mg PO HS 10/04/18 [History] Docusate [Colace] 100 mg PO BID PRN 10/04/18 [History] Insulin LISPRO [HumaLOG] 5 units SQ TIDAC 10/04/18 [History] Ipratropium Neb [Atrovent Neb] 0.5 mg IH Q4H PRN 10/04/18 [History] Levalbuterol HCl [Xopenex Neb] 1.25 mg IH Q4H PRN 10/04/18 [History] Multivitamin [Daily Multiple Vitamin] 1 each PO DAILY 10/04/18 [History] Nitroglycerin [Nitrostat] 0.4 mg SL AD PRN 10/04/18 [History] Polyethylene Glycol 3350 [MiraLAX] 17 gm PO DAILY PRN 10/04/18 [History] traZODone [TraZODone] 50 mg PO HS PRN 10/04/18 [History] Allergy/AdvReac Type Severity Reaction Status Date / Time No Known Allergies Allergy Verified 08/31/18 14:26 All Systems: The remainder of the systems were reviewed and are negative Physical Examination - Vital Signs Vital Signs: Initial Vital Signs Temp Pulse Resp BP Pulse Ox 99.1 F 65 26 137/104 99 10/04/18 21:06 10/04/18 21:06 10/04/18 21:06 10/04/18 21:06 10/04/18 21:06 Results - Laboratory Findings CBC and BMP: 10/10/18 06:05 10/10/18 06:05 Abnormal lab findings: Abnormal lab results WBC 19.1 K/mcL (4.3-11.1) H 10/10/18 06:05 RBC 2.90 M/mcL (4.19-5.50) L 10/10/18 06:05 Hgb 8.5 g/dL (12.9-16.9) L 10/10/18 06:05 Hct 28.2 % (37.5-50.1) L 10/10/18 06:05 MCHC 30.1 g/dL (31.6-35.5) L 10/10/18 06:05 RDW 15.5 % (11.5-14.5) H 10/10/18 06:05 Plt Count 423 K/mcL (140-400) H 10/05/18 07:03 15.1 K/mcL (1.6-8.9) H 10/10/18 06:05 2.0 K/mcL (0.0-1.3) H 10/10/18 06:05 ESR 116 mm/hr (0-10) H 10/10/18 06:05 PT 26.3 Seconds (9.4-12.1) H 10/05/18 07:03 APTT 39.6 Seconds (26.0-36.0) H 10/05/18 07:03 ABG pH 7.49 pH Units (7.32-7.45) H 10/09/18 21:14 ABG pCO2 52 mmHg (35-45) H 10/10/18 11:21 ABG pO2 245 mmHg (85-104) H 10/10/18 11:21 ABG HCO3 34 mEq/L (21-27) H 10/10/18 11:21 ABG Total CO2 36 mEq/L (20-26) H 10/10/18 11:21 ABG O2 Saturation 100 % (95-98) H 10/10/18 11:21 ABG Base Excess 9 mEq/L (-2 to 3) H 10/10/18 11:21 Sodium 135 mEq/L (136-145) L 10/09/18 20:36 Chloride 97 mEq/L (98-107) L 10/09/18 20:36 Carbon Dioxide 30 mEq/L (23-29) H 10/09/18 20:36 BUN 36 mg/dL (8-23) H 10/10/18 06:05 39 (6-26) H 10/10/18 06:05 Glucose 141 mg/dL (70-105) H 10/10/18 06:05 POC Glucose 122 mg/dL (70-99) H 10/10/18 11:37 Calcium 8.5 mg/dL (8.6-10.3) L 10/07/18 07:16 0.3 mg/dL (0.0-0.2) H 10/04/18 21:19 AST 42 Units/L (13-39) H 10/05/18 07:03 197 Units/L (34-104) H 10/10/18 06:05 0.04 ng/mL (< 0.04) H* 10/04/18 21:19 186 mg/L (Less than 10) H 10/10/18 06:05 6.3 g/dL (6.4-8.9) L 10/10/18 06:05 2.6 g/dL (3.5-5.7) L 10/10/18 06:05 3.7 g/dL (2.4-3.5) H 10/10/18 06:05 0.7 (1.1-2.2) L 10/10/18 06:05 Amylase 16 Units/L (29-103) L 10/10/18 06:05 4 Units/L (11-82) L 10/10/18 06:05 Turbid (Clear) A 10/04/18 22:53 Ur Specific [place] 1.026 (1.010-1.025) H 10/04/18 22:53 30 mg/dL (Neg-Trace) H 10/07/18 21:35 Trace mg/dL (Negative) H 10/07/18 21:35 Trace (Negative) H 10/07/18 21:35 Ur Leukocyte Esterase Moderate (Negative) H 10/07/18 21:35 3-5 per hpf (0-3) H 10/07/18 21:35 15-30 per hpf (0-3) H 10/07/18 21:35 Ur Squamous Epith Cells Many per lpf (None-Few) H 10/07/18 21:35 Hyaline Casts Moderate per lpf (None-Few) H 10/04/18 22:53 Ur Culture Indicated? NO. (NO) A 10/07/18 21:35 Crossmatch See Detail 10/08/18 13:52 Consult Discharge Plan - Plan Referrals: Camron Allen MD [Primary Care Provider] - <Will Rader J - Last Filed: 10/10/18 15:24> Date of Encounter: 10/10/18 Time of Encounter: 09:46 Assessment and Plan (1) Altered mental status Current Visit: Yes Status: Acute Encephalopathy of unclear etiology. 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 Condition worsening yesterday. Has UTI and sepsis. Afebrile overnight but MAXIMUM TEMPERATURE 101.4 since admission, mildly tachycardic but BP stable. Leukocytosis persists with WBC of 19. Urinalysis with moderate leukocyte esterase and pyuria. However also has many squamous epithelial cells. Urine culture 10/09-pending; 10/04 blood culture x2 -no growth to date, 10/09 repeat blood culture x2 -pending. RIP negative EEG-reveals mild-moderate generalized slowing. No epileptiform discharges. ROS and neurological exam is limited 2/2 encephalopathic state. Having pain to b/L arms and legs with palpation, moves all 4 extremities to passive observation and will provide resistance when engaged. Swelling noted to bilateral trapezius and there is tenderness as well. Rigidity 4 extremities and found in neck as well. PLAN: Treat underlying cause of sepsis CT abdomen and pelvis to rule out infection-pending Continue medical and supportive care ID following, recommendations appreciated Millinery Salesperson following, recommendations appreciated Agree with ABX, Will add acyclovir prophylactically MR brain to evaluate for neurovascular etiology; especially given recent CVA hx. Qualifiers: Altered mental status type: unspecified Qualified Code(s): R41.82 - Altered mental status, unspecified (2) Seizure Current Visit: Yes Status: Suspected Noted yesterday to have abnormal flexion and extension of bilateral arms as well as shaking 4 extremities. Concerning for seizures. Has had recent CVA. EEG showed mild-moderate slowing but no epileptiform discharges. Patient started on IV levetiracetam, continue at this time. MRI brain pending. Continue with seizure precautions History of Present Illness Chief complaint: Concern for seizures and altered mental state HPI: Mr. Khan is a 83 year old male with a PMH of COPD, heart failure, HLD, DM, atrial fibrillation, HTN and recent CVA for which he was treated at [facility] and released to a senior living facility 1 day prior to admission at [facility]. Since admission he has been diagnosed with sepsis secondary to UTI. He presented to [facility] with altered mental status and fever and has been having waxing and waning mental state. Yesterday the Hospitalist noticed that the patient was having abnormal flexion and extension of bilateral upper extremities and some shaking in all 4 extremities which was concerning for seizures. Neurology was consulted for altered mental state and evaluation for seizures. Patient unable to provide history due to altered mental state. Information obtained from family and chart review. At the time of my evaluation this morning the patient continues to be encephalopathic. He is still having pain to palpation in all 4 extremities. Family at bedside and denies witnessing any seizure-like activity this morning. CT imaging of the head obtained showing stable left frontal, posterior parietal, and posterior occipital subacute remote infarcts. There is stable global atrophy with no acute intracranial hemorrhage or global mass effect seen. Continues to have leukocytosis with WBC of 19.1, anemia with H GB/H CT-8.5/28.2, lactic acid 1.1, BUN 38, CO2 30, alkaline phosphatase 197, CRP 186. Urinalysis with trace blood, moderate leukocyte esterase and pyuria. RIP negative. Past Med Surg Social Fam HX - Past Medical History Medical history: arthritis, atrial fibrillation, CHF, diabetes, hyperlipidemia, hypertension Additional medical history: irregular heartbeat, [place] Psychiatric history: no psych history - Past Surgical History Surgical History: cataract, hip replacement, knee replacement, other Additional surgical history: ablation. left and right knee replacement. hip replacement - Social History Smoking Status: Never smoker Smokeless Tobacco Status: No Alcohol use: none Drug use: none - Family History Mother Living Status: Age at : 72 Cause of : Cardiac Arrest Hx Family Cancer: Yes (Brain CA) Father Living Status: Age at : 82 Cause of : Natural Causes Hx Family Neuromuscular Disorders: Yes (Parkinson's) ROS unobtainable: due to mental status All Systems: The remainder of the systems were reviewed and are negative Physical Examination - Vital Signs Vital Signs: Initial Vital Signs Temp Pulse Resp BP Pulse Ox 99.1 F 65 26 137/104 99 10/04/18 21:06 10/04/18 21:06 10/04/18 21:06 10/04/18 21:06 10/04/18 21:06 - Exam Exam: Examination: General Examination: *CONSTITUTIONAL: Disoriented, and encephalopathic, appears to be in mild distress *GENERAL APPEARANCE OF PATIENT ill appearing elderly male *EYES: pupils equal, round, reactive to light and accommodation, conjunctiva clear *CARDIOVASCULAR RRR, S1, S2, no peripheral edema, distal temperature normal, dorsalis pedis pulses normal. See vital signs *PULMONARY scattered rhonchi throughout, patient is tachypneic Musculoskeletal: *GAIT AND STATION deferred due to altered mental state *ASSESSMENT OF MUSCLE STRENGTH IN THE UPPER AND LOWER EXTREMITIES bilateral deltoid, bicep, tricep, principal biostatistician strength, hip flexors ,anterior tibialis, dorsoflexion of the foot; moves all 4 extremity is against resistance *MUSCLE TONE IN THE UPPER AND LOWER EXTREMITIES rigid 4 extremities, rigidity noted and neck and bilateral trapezius with trapezius swelling Neurological: *ORIENTATION-patient is encephalopathic *CN II optic fundi were normal *CN III,IV, PERRLA *SENSORY EXAMINATION moves all 4 extremities to painful stimuli *CEREBELLAR TESTING deferred due to altered mental state *PAIN LEVEL unable to determine pain level however, there is tenderness to palpation of all 4 extremities Results - Laboratory Findings CBC and BMP: 10/10/18 06:05 10/10/18 06:05 Abnormal lab findings: Abnormal lab results WBC 19.1 K/mcL (4.3-11.1) H 10/10/18 06:05 RBC 2.90 M/mcL (4.19-5.50) L 10/10/18 06:05 Hgb 8.5 g/dL (12.9-16.9) L 10/10/18 06:05 Hct 28.2 % (37.5-50.1) L 10/10/18 06:05 MCHC 30.1 g/dL (31.6-35.5) L 10/10/18 06:05 RDW 15.5 % (11.5-14.5) H 10/10/18 06:05 Plt Count 423 K/mcL (140-400) H 10/05/18 07:03 15.1 K/mcL (1.6-8.9) H 10/10/18 06:05 2.0 K/mcL (0.0-1.3) H 10/10/18 06:05 ESR 116 mm/hr (0-10) H 10/10/18 06:05 PT 26.3 Seconds (9.4-12.1) H 10/05/18 07:03 APTT 39.6 Seconds (26.0-36.0) H 10/05/18 07:03 ABG pH 7.49 pH Units (7.32-7.45) H 10/09/18 21:14 ABG pCO2 55 mmHg (35-45) H 10/04/18 21:55 ABG pO2 63 mmHg (85-104) L 10/04/18 21:55 ABG HCO3 32 mEq/L (21-27) H 10/09/18 21:14 ABG Total CO2 33 mEq/L (20-26) H 10/09/18 21:14 ABG O2 Saturation 92 % (95-98) L 10/04/18 21:55 ABG Base Excess 8 mEq/L (-2 to 3) H 10/09/18 21:14 Sodium 135 mEq/L (136-145) L 10/09/18 20:36 Chloride 97 mEq/L (98-107) L 10/09/18 20:36 Carbon Dioxide 30 mEq/L (23-29) H 10/09/18 20:36 BUN 38 mg/dL (8-23) H 10/09/18 20:36 39 (6-26) H 10/09/18 20:36 Glucose 145 mg/dL (70-105) H 10/09/18 20:36 POC Glucose 139 mg/dL (70-99) H 10/10/18 07:18 Calcium 8.5 mg/dL (8.6-10.3) L 10/07/18 07:16 0.3 mg/dL (0.0-0.2) H 10/04/18 21:19 AST 42 Units/L (13-39) H 10/05/18 07:03 197 Units/L (34-104) H 10/10/18 06:05 0.04 ng/mL (< 0.04) H* 10/04/18 21:19 186 mg/L (Less than 10) H 10/10/18 06:05 6.3 g/dL (6.4-8.9) L 10/10/18 06:05 2.6 g/dL (3.5-5.7) L 10/10/18 06:05 3.7 g/dL (2.4-3.5) H 10/10/18 06:05 0.7 (1.1-2.2) L 10/10/18 06:05 Amylase 16 Units/L (29-103) L 10/10/18 06:05 4 Units/L (11-82) L 10/10/18 06:05 Turbid (Clear) A 10/04/18 22:53 Ur Specific [place] 1.026 (1.010-1.025) H 10/04/18 22:53 30 mg/dL (Neg-Trace) H 10/07/18 21:35 Trace mg/dL (Negative) H 10/07/18 21:35 Trace (Negative) H 10/07/18 21:35 Ur Leukocyte Esterase Moderate (Negative) H 10/07/18 21:35 3-5 per hpf (0-3) H 10/07/18 21:35 15-30 per hpf (0-3) H 10/07/18 21:35 Ur Squamous Epith Cells Many per lpf (None-Few) H 10/07/18 21:35 Hyaline Casts Moderate per lpf (None-Few) H 10/04/18 22:53 Ur Culture Indicated? NO. (NO) A 10/07/18 21:35 Crossmatch See Detail 10/08/18 13:52 - Diagnostic Findings Additional findings: CT/CT head/brain wo con IMPRESSION: Stable left frontal, posterior parietal, and posterior occipital subacute-remote infarcts. Stable global atrophy with no acute intracranial hemorrhage or global mass effect. This is a STAT 21 channel digital EEG performed utilizing 10- 20 international electrode placement system. FINDINGS: Patient has a predominant waking background frequency that is average voltage 6/8 Hertz THETA activity in the posterior region, LARGE amplitude symmetrical over the both hemispheres reactive to eyes opening and closing record continued to show alpha activity intermixed with some theta off and on, mixed activity recorded, predominantly no evidence of any spike wave dis charges or any lateralizing abnormalities, Photic stimulation did not produce any convulsive response. Intermittent EMG artifacts were noted. Stage II sleep was not achieved. Impression: Mild to moderate generalized slowing. No epileptiform discharges noted during this study though this is a nonspecific finding usually seen in patient with generalized cerebral dysfunction, could also be seen in the postictal state clinical correlation is recommended
[2018-10-10] MEDS ORDERED: MethylPREDNISolone 40 MG/ML VIAL IVP ONE (10:49)
--- NOTE | 2018-10-10 10:55 | Infectious Disease Progress No ---
ID Progress Note Date of Encounter: 10/10/18 Time of Encounter: 09:15 - Subjective Subjective: Patient seen and examined with family at the bedside. Overnight events noted. Patient is minimally responsive to verbal and painful stimuli. Does not offer review of systems information. Case discussed with the primary team. Awaiting neurology recommendations. - Objective CBC & Chem 7: 10/12/18 03:35 10/12/18 03:35 - Exam Vitals: Temp Pulse Resp BP Pulse Ox 97.9 F 102 26 142/88 100 10/10/18 07:55 10/10/18 10:00 10/10/18 10:00 10/10/18 10:00 10/10/18 10:00 Exam: Head: Atraumatic, normal inspection, normocephalic. Eye: PERRLA, no scleral icterus noted. ENT: Mucous membranes moist. No odontogenic infection noted. Neck: Normal inspection. Rigidity noted to the cervical spine. Respiratory: Clear to auscultation. No rales, respiratory distress, rhonchi, or wheezes noted. Cardiovascular: Regular rate, tachycardic, S1 and S2 audible. No murmurs, rubs, or gallops. GI: Soft, nondistended, normal bowel sounds. Extremities: No joint swelling, pedal edema, or tenderness noted. Scabbed lesion noted to the right upper extremity without surrounding erythema, warmth, drainage, or fluctuance noted. Neurological: Obtunded. Opens eyes to verbal stimuli. Does not follow commands or attempt to verbalize. Grimaces with palpation of the bilateral upper and bilateral lower extremities. Skin: Dry, intact, warm. Normal color. No rashes. - Assessment and Plan (1) Sepsis Current Visit: Yes Status: Acute The patient developed sepsis-like picture with fever, tachycardia, and tachypnea overnight. He remains encephalopathic. Etiology: Unclear. UTI versus MANAGER CARDIOVASCULAR infection versus other. White blood cell count 19,000 today. Blood cultures drawn 10/04/18 are no growth to date 2 sets. Repeat blood cultures drawn 10/09/18 are pending 2 sets. ESR elevated at 116. CRP is pending. LFTs are normal except for alkaline phosphatase is elevated at 197. Amylase and lipase are normal. Respiratory infectious panel is negative. Urine culture is pending. CT of the head negative for acute abnormality. CT of the chest showed cardiomegaly without overt edema and right basilar atelectasis. EEG showed mild to moderate slowing, but no epileptiform activity. Qualifiers: Sepsis type: sepsis due to unspecified organism Qualified Code(s): A41.9 - Sepsis, unspecified organism SNOMED Code(s): 33640003 (2) Altered mental status Current Visit: Yes Status: Acute etiology: Unclear. Sepsis versus other. Waxing and waning over the last few days per family report. Review of systems Limited due to patient's mental status. Neurology consult. Awaiting recommendations. CT of the head was negative. Aspiration is on the differential given the patient's altered mental status, but CT chest was negative. Qualifiers: Altered mental status type: unspecified Qualified Code(s): R41.82 - Altered mental status, unspecified SNOMED Code(s): 766700265 (3) UTI (urinary tract infection) Current Visit: Yes Status: Ruled-out Causative organism: Unclear. Urinalysis positive, but possibly contaminated so culture was not sent. Urine culture pending at this time. Currently on vancomycin and cefepime. Qualifiers: Urinary tract infection type: site unspecified Hematuria presence: without hematuria Qualified Code(s): N39.0 - Urinary tract infection, site not specified SNOMED Code(s): 19842615 (4) CVA (cerebral vascular accident) Current Visit: No Status: Acute Qualifiers: CVA mechanism: other Qualified Code(s): I63.89 - Other cerebral infarction SNOMED Code(s): 755547646 (5) Decubitus ulcer, stage 2 Current Visit: Yes Status: Acute Clinically does not appear infected. Dressing changes and offloading per nursing protocol. Qualifiers: Pressure injury location: unspecified location Qualified Code(s): L89.92 - Pressure ulcer of unspecified site, stage 2 SNOMED Code(s): 861912760 (6) DMII (diabetes mellitus, type 2) Current Visit: No Status: Chronic Recommend aggressive glucose monitoring and control to promote wound healing and prevent reinfection. Qualifiers: Diabetes mellitus parts inspector insulin use: with fdc use Diabetes mellitus complication status: with hyperglycemia Qualified Code(s): E11.65 - Type 2 diabetes mellitus with hyperglycemia; Z79.4 - forge tender (current) use of insulin SNOMED Code(s): 72601636 - Recommendations Recommendations: Await urine culture Await blood cultures to finalize. Await repeat blood cultures. Check CK level. Get CT of the abdomen and pelvis. Consider LP - please send fluid for cell count with differential, glucose, protein, HSV, VZV, and culture. Continue cefepime 2 Grams IV, but increase frequency to Q8H. Continue Vancomycin IV. Pharmacy to dose. Goal trough ~15. Continue acyclovir 8mg/kg Iv Q8H. Duration of treatment depends on the clinical picture. Monitor renal function and for drug toxicity and dose-adjust antibiotics. Consult Discharge Plan - Plan Referrals: Camron Allen MD [Primary Care Provider] - - Attending Attestation I have personally performed a face to face evaluation on this patient. I have reviewed and agree with the care plan. History and Exam by me shows: Assessment and plan: 1.Altered mental status 2.Decubitus ulcer stage II 3.CVA 4.Diabetes mellitus type 2 5.Intermittent fevers over the last 6 months Recommendations Await urine culture Await blood cultures to finalize. Await repeat blood cultures. Check CK level. Get CT of the abdomen and pelvis. Consider LP - please send fluid for cell count with differential, glucose, protein, HSV, VZV, and culture. Continue cefepime 2 Grams IV, but increase frequency to Q8H. Continue Vancomycin IV. Pharmacy to dose. Goal trough ~15. Continue acyclovir 8mg/kg Iv Q8H. Duration of treatment depends on the clinical picture. Monitor renal function and for drug toxicity and dose-adjust antibiotics.
[2018-10-10] MEDS ORDERED: Levalbuterol Neb 1.25 MG/3 ML ONE (11:07)
[2018-10-10] MEDS: Levalbuterol Neb 1.25 MG/3 ML IH SCH ×4 (11:18→23:06)
[2018-10-10 11:35] LABS: ABG Base Excess 9 mEq/L (-2 to 3); ABG HCO3 34 mEq/L (21-27); ABG Oxygen Saturation 100 % (95-98); ABG PCO2 52 mmHg (35-45); ABG PH 7.43 pH Units (7.32-7.45); ABG PO2 245 mmHg (85-104); ABG TCO2 36 mEq/L (20-26)
[2018-10-10] MEDS ORDERED: Acyclovir 750 MG in D5% in Water 250 ML IVPB SCH (12:00)
[2018-10-10 12:10] LABS: BUN/Creatinine Ratio 39 (6-26); Blood Urea Nitrogen 36 mg/dL (8-23); Calcium 8.7 mg/dL (8.6-10.3); Carbon Dioxide 28 mEq/L (23-29); Chloride 99 mEq/L (98-107); Glucose 141 mg/dL (70-105); Osmolality,Calculated 295 (280-300); Sodium 137 mEq/L (136-145); eGFR For Non-African Americans > 60 (> 60)
[2018-10-10] MEDS ORDERED: *HR* LORazepam 2 MG/ML VIAL IVP PRN (12:48)
[2018-10-10] MEDS ORDERED: *HR* FentaNYL (PF) 100 MCG/2 ML VIAL IVP ONE (12:49)
--- NOTE | 2018-10-10 13:54 | Electrocardiograph Report ---
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
[2018-10-10] MEDS ORDERED: *HR* Metoprolol 5 MG/5 ML VIAL IVP ONE ×2 (15:05→15:07)
[2018-10-10] MEDS ORDERED: *HR* Labetalol 20 MG/4 ML SYRINGE IVP PRN (15:29)
[2018-10-10] MEDS ORDERED: Acyclovir 500 MG in D5% in Water 100 ML IVPB SCH (16:00)
[2018-10-10] MEDS: *HR* Metoprolol 5 MG/5 ML VIAL IVP SCH ×2 (20:58→23:56)
[2018-10-10 22:38] LABS: ABG Base Excess 6 mEq/L (-2 to 3); ABG HCO3 32 mEq/L (21-27); ABG Oxygen Saturation 100 % (95-98); ABG PCO2 57 mmHg (35-45); ABG PH 7.36 pH Units (7.32-7.45); ABG PO2 200 mmHg (85-104); ABG TCO2 34 mEq/L (20-26); Blood Gas Modality BiLevel; Blood Gas PEEP 6 cm H2O; Blood Gas VT 400 cc
--- NOTE | 2018-10-11 00:05 | Event Note ---
Date of Encounter: 10/10/18 Time of Encounter: 23:15 Spoke with Tre Khan, patient's son and POA, over the phone ([phone]) regarding patient's tenuous respiratory status and potential need for intubation. POA gave consent for "short-term" endotracheal intubation if necessary. POA is aware of patient's hemorrhagic stroke which was confirmed by MRI this morning. POA verbalizes understanding that our facility is limited in abilities to intervene for hemorrhagic stroke. POA does not want to transfer patient to a center with Neuro ICU, which would have more options available for intervention and management. POA requests that questions pertaining to goals of care and overall plan be directed to him.
--- NOTE | 2018-10-11 00:54 | Internal Med Progress Note ---
Hospitalist Progress Note - Encounter Date of Encounter: 10/10/18 Time of Encounter: 19:00 - Subjective Interval History: SUBJECTIVE: The patient remains unresponsive. He is in ICU. No respiratory or pain distress is seen. OBJECTIVE: Skin: Free of rash and discoloration. ENMT: Oral/pharyngeal mucosa is normal in appearance. Eyes: Sclera is white. There is no discharge from eyes. Respiratory: Normal breath sounds. I cannot hear any rhonchi or wheezes. CV: Heart is irregularly irregular with no audible murmur. GI: Abdomen is soft and not tender. There is no palpable mass or visceromegaly. Neuro: See assessment by the neurologist. ADDITIONAL DATA: Hemoglobin is 8.5 with WBC of 19.1 thousand and normal platelet count. BMP is normal. Blood cultures are negative. Urine culture is pending. MRI of head/brain without contrast shows evolving subacute hemorrhagic left frontal and left occipital lobe infarcts with areas of acute/early subacute infarction along the margins. There are chronic infarcts in the left parietal lobe. 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 Admitted with altered mental status, likely secondary to UTI/sepsis. IV vanc omycin and IV Zovirax have been added to IV cefepime by infectious diseases. Anemia. There is no evidence for active/significant GI bleeding currently. Atrial fibrillation. Rate controlled. The patient is not taking oral medications. We will start him on IV Cardizem drip, if needed. Type 2 diabetes mellitus. Under fair control. To continue when necessary Humalog. Chronic hypoxic respiratory failure. Likely secondary to COPD. To continue supplemental oxygen. He gets when necessary Xopenex. Possible constipation. He has not had any bowel movements since admission to the hospital. He will get a rectal bisacodyl. xxx. The patients family met me, the neurologist and the infectious diseases specialist in ICU. They do not want transfer to tertiary center. The patient is allowed to use BiPAP, if needed. Otherwise, no intubation or electric shocks. - Exam Vitals: Temp Pulse Resp BP Pulse Ox 97.1 F L 86 23 131/77 100 10/10/18 23:59 10/11/18 00:00 10/11/18 00:00 10/11/18 00:00 10/11/18 00:00 Exam: xx - Assessment and Plan (1) CVA (cerebral vascular accident) Current Visit: Yes Status: Acute (2) Afib Current Visit: No Status: Chronic (3) Anemia Current Visit: No Status: Acute (4) Leukocytosis Current Visit: No Status: Acute (5) Acute respiratory failure with hypoxia Current Visit: Yes Status: Acute (6) Decubitus ulcer, stage 2 Current Visit: Yes Status: Acute - Time Spent with Patient Total time spent is greater than 50% in coordination of care (as documented) at patient's floor/unit and/or counseling patient: 25 - 35 minutes Plan of Care Discussed with: family Internal Medicine: Result - Labs CBC & Chem 7: 10/10/18 06:05 10/10/18 06:05 Labs: Short CBC 10/10/18 Range/Units 06:05 WBC 19.1 H (4.3-11.1) K/mcL Hgb 8.5 L (12.9-16.9) g/dL Hct 28.2 L (37.5-50.1) % Plt Count 382 (140-400) K/mcL Neutrophils # 15.1 H (1.6-8.9) K/mcL BMP 10/09/18 10/10/18 20:36 06:05 Sodium 135 L 137 Potassium 4.9 5.0 Chloride 97 L 99 Carbon Dioxide 30 H 28 BUN 38 H 36 H Creatinine 0.98 0.93 Glucose 145 H 141 H Calcium 8.6 8.7 Liver Function 10/10/18 Range/Units 06:05 Total Bilirubin 0.7 (0.3-1.0) mg/dL Direct Bilirubin 0.1 (0.0-0.2) mg/dL AST 30 (13-39) Units/L ALT 23 (7-52) Units/L Alkaline Phosphatase 197 H (34-104) Units/L Albumin 2.6 L (3.5-5.7) g/dL - ABG Interpretation ABG results: ABG ABG pH 7.36 pH Units (7.32-7.45) 10/10/18 22:34 ABG pCO2 57 mmHg (35-45) H 10/10/18 22:34 ABG pO2 200 mmHg (85-104) H 10/10/18 22:34 ABG O2 Saturation 100 % (95-98) H 10/10/18 22:34 PT/INR, D-dimer PT 26.3 Seconds (9.4-12.1) H 10/05/18 07:03 - Impressions Impressions Abdomen/Pelvis CT 10/10/18 09:37 IMPRESSION: 1. Gallstones and mild gallbladder distention. Consider right upper quadrant ultrasound if there is acute right upper quadrant pain. 2. The appendix is within normal limits. 3. Small urinary bladder calcifications. 4. Gastric fundal wall thickening versus nondistention. Consider gastritis. 5. Nonspecific presacral edema, new since the prior exam. 6. Moderate amount of rectal stool. D/ / 10/10/2018 14:46:02 Gibran Henley MD / zack Interpreting Provider: Gibran Henley MD Brain MRI 10/10/18 09:41 IMPRESSION: 1. Evolving subacute hemorrhagic left frontal and left occipital lobe infarcts with areas of acute/early subacute infarction along the margins. There are also 2 punctate acute infarcts in the deep white matter of the left frontoparietal region. 2. Chronic infarcts in the left parietal lobe. 3. Moderate chronic microvascular white matter ischemic disease noted both supra and infratentorially. D/ / 10/10/2018 14:28:43 Robbie Nguyễn MD / alfredo Interpreting Provider: Robbie Nguyễn MD Consult Discharge Plan - Plan Referrals: Camron Allen MD [Primary Care Provider] - (1) CVA (cerebral vascular accident) Qualifiers: CVA mechanism: unspecified Qualified Code(s): I63.9 - Cerebral infarction, unspecified (2) Afib Qualifiers: Atrial fibrillation type: chronic Qualified Code(s): I48.2 - Chronic atrial fibrillation (3) Anemia Qualifiers: Anemia type: iron deficiency Qualified Code(s): D50.9 - Iron deficiency anemia, unspecified (4) Leukocytosis Qualifiers: Qualified Code(s): D72.829 - Elevated white blood cell count, unspecified (6) Decubitus ulcer, stage 2 Qualifiers: Pressure injury location: unspecified location Qualified Code(s): L89.92 - Pressure ulcer of unspecified site, stage 2
[2018-10-11] MEDS: Levalbuterol Neb 1.25 MG/3 ML IH SCH ×6 (03:55→23:33)
[2018-10-11 04:10] LABS: Basophils % 0.1 %; Hemoglobin 8.6 g/dL (12.9-16.9); Immature Granulocytes % 1.2 % (0-4); Lymphocytes # 0.6 K/mcL (0.6-4.6); Lymphocytes % 2.8 %; Mean Corpuscular HGB Conc 29.7 g/dL (31.6-35.5); Mean Corpuscular Hemoglobin 29.3 pg (28.0-33.3); Mean Corpuscular Volume 98.6 fL (83.0-100.0); Mean Platelet Volume 10.4 fL (9.4-12.4); Monocytes # 0.9 K/mcL (0.0-1.3); Monocytes % 4.2 %; Neutrophils # 20.3 K/mcL (1.6-8.9); Platelet Count 373 K/mcL (140-400); Red Blood Count 2.94 M/mcL (4.19-5.50); Red Cell Distribution Width 15.5 % (11.5-14.5); Segmented Neutrophils % 91.7 %
[2018-10-11 04:24] LABS: BUN/Creatinine Ratio 43 (6-26); Blood Urea Nitrogen 38 mg/dL (8-23); Calcium 9.2 mg/dL (8.6-10.3); Carbon Dioxide 31 mEq/L (23-29); Chloride 100 mEq/L (98-107); Glucose 198 mg/dL (70-105); Osmolality,Calculated 303 (280-300); Sodium 139 mEq/L (136-145); eGFR For Non-African Americans > 60 (> 60)
[2018-10-11] MEDS: *HR* Labetalol 20 MG/4 ML SYRINGE IVP PRN ×3 (04:28→16:03)
[2018-10-11] MEDS: Cefepime HCl 2,000 MG in 0.9 % Sodium Chloride Mini Bag 100 ML IVPB SCH ×3 (04:32→21:19)
[2018-10-11] MEDS: *HR* Metoprolol 5 MG/5 ML VIAL IVP SCH ×4 (06:36→23:20)
[2018-10-11] MEDS: Bumetanide 1 MG TABLET PO SCH (06:58)
[2018-10-11] MEDS: Insulin LISPRO 300 UNITS/3 ML VIAL SQ SCH ×3 (08:09→15:15)
--- NOTE | 2018-10-11 09:11 | Pulmonology Progress Note ---
<Gibran Sorensen - Last Filed: 10/11/18 15:12> Date of Encounter: 10/11/18 Time of Encounter: 09:11 Assessment and Plan (1) CVA (cerebral vascular accident) Current Visit: Yes Status: Acute Patient has recent history of CVA treated at [facility] He also has remote history of previous CVAs He was admitted this hospitalization for altered mental status Altered mental status was suspected to be secondary to sepsis from UTI He has been treated for sepsis without improvement in altered mental status Neurology evaluated the patient and ordered MRI 10/10 MRI showed evolving subacute hemorrhagic stroke Repeat CT 10/11 showed consistent infarct without acute bleed Family discussing CODE STATUS and goals of care with palliative Other recommendations per neurology Qualifiers: CVA mechanism: unspecified Qualified Code(s): I63.9 - Cerebral infarction, unspecified (2) Altered mental status Current Visit: Yes Status: Acute Altered mental status related to sepsis and/or CVA Qualifiers: Altered mental status type: unspecified Qualified Code(s): R41.82 - Altered mental status, unspecified (3) UTI (urinary tract infection) Current Visit: Yes Status: Ruled-out Treating with cefepime and vancomycin Qualifiers: Urinary tract infection type: site unspecified Hematuria presence: without hematuria Qualified Code(s): N39.0 - Urinary tract infection, site not specified (4) Decubitus ulcer, stage 2 Current Visit: Yes Status: Acute No signs of infection Infectious disease following Dressings per nursing protocol Qualifiers: Pressure injury location: unspecified location Qualified Code(s): L89.92 - Pressure ulcer of unspecified site, stage 2 (5) DMII (diabetes mellitus, type 2) Current Visit: No Status: Chronic Sliding scale insulin Qualifiers: Diabetes mellitus emt intermediate insulin use: with emt intermediate use Diabetes mellitus complication status: with hyperglycemia Qualified Code(s): E11.65 - Type 2 diabetes mellitus with hyperglycemia; Z79.4 - manager intermediate (current) use of insulin (6) COPD (chronic obstructive pulmonary disease) Current Visit: No Status: Chronic History of COPD Xopenex and Solu-Medrol as needed Qualifiers: COPD type: unspecified COPD Qualified Code(s): J44.9 - Chronic obstructive pulmonary disease, unspecified Subjective Principal diagnosis: Altered mental status Interval history: No acute events overnight. Patient was found to have subacute hemorrhagic stroke yesterday. Repeat CBC this morning showed some ischemic evolution, no acute bleeding. Several discussions have been had with family, neurology, palliative, critical care team. Current plan per family is to continue to monitor for improvement. Objective PUL Vital signs: Last Vital Signs Temp 97.6 F 10/11/18 07:10 Pulse 102 10/11/18 09:00 Resp 12 10/11/18 09:00 BP 158/70 10/11/18 09:00 Pulse Ox 100 10/11/18 09:00 General appearance: appears uncomfortable Eyes: nonicteric Effort: mildly labored Auscultation: bilateral: wheezes, rhonchi Cardiovascular: irregular rhythm Gastrointestinal: absent bowel sounds, soft, non-distended Integumentary: normal Extremities: no cyanosis, no edema Musculoskeletal: no deformities pupils equal and round (Pupils pinpoint), other (Patient without purposeful movement or following commands, pinpoint pupils) Results - Laboratory Findings CBC and BMP: 10/11/18 03:54 10/11/18 03:54 ABG ABG pH 7.36 pH Units (7.32-7.45) 10/10/18 22:34 ABG pCO2 57 mmHg (35-45) H 10/10/18 22:34 ABG pO2 200 mmHg (85-104) H 10/10/18 22:34 ABG O2 Saturation 100 % (95-98) H 10/10/18 22:34 PT/INR, D-dimer PT 26.3 Seconds (9.4-12.1) H 10/05/18 07:03 Abnormal lab findings: Abnormal lab results WBC 22.1 K/mcL (4.3-11.1) H 10/11/18 03:54 RBC 2.94 M/mcL (4.19-5.50) L 10/11/18 03:54 Hgb 8.6 g/dL (12.9-16.9) L 10/11/18 03:54 Hct 29.0 % (37.5-50.1) L 10/11/18 03:54 MCHC 29.7 g/dL (31.6-35.5) L 10/11/18 03:54 RDW 15.5 % (11.5-14.5) H 10/11/18 03:54 Plt Count 423 K/mcL (140-400) H 10/05/18 07:03 20.3 K/mcL (1.6-8.9) H 10/11/18 03:54 2.0 K/mcL (0.0-1.3) H 10/10/18 06:05 ESR 116 mm/hr (0-10) H 10/10/18 06:05 PT 26.3 Seconds (9.4-12.1) H 10/05/18 07:03 APTT 39.6 Seconds (26.0-36.0) H 10/05/18 07:03 ABG pH 7.49 pH Units (7.32-7.45) H 10/09/18 21:14 ABG pCO2 57 mmHg (35-45) H 10/10/18 22:34 ABG pO2 200 mmHg (85-104) H 10/10/18 22:34 ABG HCO3 32 mEq/L (21-27) H 10/10/18 22:34 ABG Total CO2 34 mEq/L (20-26) H 10/10/18 22:34 ABG O2 Saturation 100 % (95-98) H 10/10/18 22:34 ABG Base Excess 6 mEq/L (-2 to 3) H 10/10/18 22:34 Sodium 135 mEq/L (136-145) L 10/09/18 20:36 Chloride 97 mEq/L (98-107) L 10/09/18 20:36 Carbon Dioxide 31 mEq/L (23-29) H 10/11/18 03:54 BUN 38 mg/dL (8-23) H 10/11/18 03:54 43 (6-26) H 10/11/18 03:54 Glucose 198 mg/dL (70-105) H 10/11/18 03:54 POC Glucose 184 mg/dL (70-99) H 10/11/18 07:14 303 (280-300) H 10/11/18 03:54 Calcium 8.5 mg/dL (8.6-10.3) L 10/07/18 07:16 0.3 mg/dL (0.0-0.2) H 10/04/18 21:19 AST 42 Units/L (13-39) H 10/05/18 07:03 197 Units/L (34-104) H 10/10/18 06:05 0.04 ng/mL (< 0.04) H* 10/04/18 21:19 186 mg/L (Less than 10) H 10/10/18 06:05 6.3 g/dL (6.4-8.9) L 10/10/18 06:05 2.6 g/dL (3.5-5.7) L 10/10/18 06:05 3.7 g/dL (2.4-3.5) H 10/10/18 06:05 0.7 (1.1-2.2) L 10/10/18 06:05 Amylase 16 Units/L (29-103) L 10/10/18 06:05 4 Units/L (11-82) L 10/10/18 06:05 Turbid (Clear) A 10/04/18 22:53 Ur Specific Zeigler 1.026 (1.010-1.025) H 10/04/18 22:53 30 mg/dL (Neg-Trace) H 10/07/18 21:35 Trace mg/dL (Negative) H 10/07/18 21:35 Trace (Negative) H 10/07/18 21:35 Ur Leukocyte Esterase Moderate (Negative) H 10/07/18 21:35 3-5 per hpf (0-3) H 10/07/18 21:35 15-30 per hpf (0-3) H 10/07/18 21:35 Ur Squamous Epith Cells Many per lpf (None-Few) H 10/07/18 21:35 Hyaline Casts Moderate per lpf (None-Few) H 10/04/18 22:53 Ur Culture Indicated? NO. (NO) A 10/07/18 21:35 Crossmatch See Detail 10/08/18 13:52 - Microbiology Findings Microbiology Findings: Microbiology, Last 48 Hours 10/09/18 23:00 Urine Culture - Final Urine,Catheterized (Straight) No growth. 10/09/18 22:41 Blood Culture - Preliminary Peripheral Venipuncture Culture is incubating and being continuously monitored for growth. Final report to follow. 10/09/18 22:43 Blood Culture - Preliminary Peripheral Venipuncture Culture is incubating and being continuously monitored for growth. Final report to follow. 10/04/18 21:19 Blood Culture - Final Peripheral Venipuncture No growth. Final report. 10/04/18 21:26 Blood Culture - Final Peripheral Venipuncture No growth. Final report. - Clinical Findings Intake & Output: Intake & Output 10/10/18 10/11/18 10/11/18 23:59 07:59 15:59 Intake Total 705 / 2880 100 / 205 105 / 205 Balance 705 / 2880 100 / 205 105 / 205 Weight 109.9 kg Consult Discharge Plan - Plan Referrals: Camron Allen MD [Primary Care Provider] - <Mello Cortez - Last Filed: 10/13/18 16:59> Date of Encounter: 10/13/18 Objective PUL Vital signs: Last Vital Signs Temp 97.6 F 10/11/18 07:10 Pulse 102 10/11/18 09:00 Resp 12 10/11/18 09:00 BP 158/70 10/11/18 09:00 Pulse Ox 100 10/11/18 09:00 Results - Laboratory Findings CBC and BMP: 10/13/18 01:43 10/13/18 01:43 ABG ABG pH 7.36 pH Units (7.32-7.45) 10/10/18 22:34 ABG pCO2 57 mmHg (35-45) H 10/10/18 22:34 ABG pO2 200 mmHg (85-104) H 10/10/18 22:34 ABG O2 Saturation 100 % (95-98) H 10/10/18 22:34 PT/INR, D-dimer PT 26.3 Seconds (9.4-12.1) H 10/05/18 07:03 Abnormal lab findings: Abnormal lab results WBC 22.1 K/mcL (4.3-11.1) H 10/11/18 03:54 RBC 2.94 M/mcL (4.19-5.50) L 10/11/18 03:54 Hgb 8.6 g/dL (12.9-16.9) L 10/11/18 03:54 Hct 29.0 % (37.5-50.1) L 10/11/18 03:54 MCHC 29.7 g/dL (31.6-35.5) L 10/11/18 03:54 RDW 15.5 % (11.5-14.5) H 10/11/18 03:54 Plt Count 423 K/mcL (140-400) H 10/05/18 07:03 20.3 K/mcL (1.6-8.9) H 10/11/18 03:54 2.0 K/mcL (0.0-1.3) H 10/10/18 06:05 ESR 116 mm/hr (0-10) H 10/10/18 06:05 PT 26.3 Seconds (9.4-12.1) H 10/05/18 07:03 APTT 39.6 Seconds (26.0-36.0) H 10/05/18 07:03 ABG pH 7.49 pH Units (7.32-7.45) H 10/09/18 21:14 ABG pCO2 57 mmHg (35-45) H 10/10/18 22:34 ABG pO2 200 mmHg (85-104) H 10/10/18 22:34 ABG HCO3 32 mEq/L (21-27) H 10/10/18 22:34 ABG Total CO2 34 mEq/L (20-26) H 10/10/18 22:34 ABG O2 Saturation 100 % (95-98) H 10/10/18 22:34 ABG Base Excess 6 mEq/L (-2 to 3) H 10/10/18 22:34 Sodium 135 mEq/L (136-145) L 10/09/18 20:36 Chloride 97 mEq/L (98-107) L 10/09/18 20:36 Carbon Dioxide 31 mEq/L (23-29) H 10/11/18 03:54 BUN 38 mg/dL (8-23) H 10/11/18 03:54 43 (6-26) H 10/11/18 03:54 Glucose 198 mg/dL (70-105) H 10/11/18 03:54 POC Glucose 184 mg/dL (70-99) H 10/11/18 07:14 303 (280-300) H 10/11/18 03:54 Calcium 8.5 mg/dL (8.6-10.3) L 10/07/18 07:16 0.3 mg/dL (0.0-0.2) H 10/04/18 21:19 AST 42 Units/L (13-39) H 10/05/18 07:03 197 Units/L (34-104) H 10/10/18 06:05 0.04 ng/mL (< 0.04) H* 10/04/18 21:19 186 mg/L (Less than 10) H 10/10/18 06:05 6.3 g/dL (6.4-8.9) L 10/10/18 06:05 2.6 g/dL (3.5-5.7) L 10/10/18 06:05 3.7 g/dL (2.4-3.5) H 10/10/18 06:05 0.7 (1.1-2.2) L 10/10/18 06:05 Amylase 16 Units/L (29-103) L 10/10/18 06:05 4 Units/L (11-82) L 10/10/18 06:05 0.41 ng/mL (0.00-0.15) H 10/11/18 03:54 Turbid (Clear) A 10/04/18 22:53 Ur Specific Zeigler 1.026 (1.010-1.025) H 10/04/18 22:53 30 mg/dL (Neg-Trace) H 10/07/18 21:35 Trace mg/dL (Negative) H 10/07/18 21:35 Trace (Negative) H 10/07/18 21:35 Ur Leukocyte Esterase Moderate (Negative) H 10/07/18 21:35 3-5 per hpf (0-3) H 10/07/18 21:35 15-30 per hpf (0-3) H 10/07/18 21:35 Ur Squamous Epith Cells Many per lpf (None-Few) H 10/07/18 21:35 Hyaline Casts Moderate per lpf (None-Few) H 10/04/18 22:53 Ur Culture Indicated? NO. (NO) A 10/07/18 21:35 Crossmatch See Detail 10/08/18 13:52 - Microbiology Findings Microbiology Findings: Microbiology, Last 48 Hours 10/09/18 23:00 Urine Culture - Final Urine,Catheterized (Straight) No growth. 10/09/18 22:41 Blood Culture - Preliminary Peripheral Venipuncture Culture is incubating and being continuously mon itored for growth. Final report to follow. 10/09/18 22:43 Blood Culture - Preliminary Peripheral Venipuncture Culture is incubating and being continuously monitored for growth. Final report to follow. 10/04/18 21:19 Blood Culture - Final Peripheral Venipuncture No growth. Final report. 10/04/18 21:26 Blood Culture - Final Peripheral Venipuncture No growth. Final report. - Clinical Findings Intake & Output: Intake & Output 10/10/18 10/11/18 10/11/18 23:59 07:59 15:59 Intake Total 705 / 2880 100 / 205 105 / 205 Balance 705 / 2880 100 / 205 105 / 205 Weight 109.9 kg - Attending Attestation I examined this patient and my medical decision-making was reviewed with the Resident Physician. I agree with the documented findings, disposition and treatment plan as described except to the extent set forth below. Patient seen and examined. Labs, radiology, chart personally reviewed. Agree with resident's history and physical, assessment, plan with following comments: MEDIA RECONCILIATION SPECIALIST: Patient doesn't follows commands, neurology is seeing patient and frequent neuro check Pulmonary: Acceptable oxygenation and ventilation, however there is risk of aspiration and needs close monitoring. Family stated that if he needs intubation and then it will be acceptable for short-term. Cardiovascular: Keep SBP less than 160 mmHg GI: Nutrition per dietary and GI prophylaxis per routine Heme: DVT prophylaxis per routine ID: Continue antibiotics and plan to de-escalation per ID, I think it can be de- escalated Renal; urine out put and renal funtion reviewed Endorcine: blood glucose is monitored Lines: all lines checked and no evidence of infections Skin: skin care to prevent pressure ulcers per nursing routine care Overall prognosis is poor and will continue monitoring him in ICU for next 24 hours or longer if needed.
--- NOTE | 2018-10-11 09:42 | Neurology Progress Note ---
<Will Rader - Last Filed: 10/11/18 09:39> Date of Encounter: 10/11/18 Time of Encounter: 09:40 Assessment and Plan (1) Altered mental status Current Visit: Yes Status: Acute Neurology seeing in follow-up for altered mental state. 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 MR imaging also revealed 2 punctate acute infarcts in the deep white matter of the left frontal parietal regions. Repeat CT imaging today showed continued evolution of left frontal lobe infarct without acute hemorrhagic products. Clinically, patient's condition has continued to deteriorate overnight and he is now on AVAPS BiPAP 50% FiO2. Neurological exam is complicated by patient's condition but no obvious new deficits were found today. The patient is DNR [facility] and his condition has been discussed with his medical power of corporate attorney and family. They do not wish to pursue aggressive measures. At this time we will continue to monitor. Continue to avoid antiplatelets. Anticoagulation was discontinued yesterday. Continue frequent neurological assessments Monitor BP closely with goal SBP between 140-160 Continue PRN labetalol 10 mg IV push for SBP greater than 160 Neurology will continue to follow Qualifiers: Altered mental status type: unspecified Qualified Code(s): R41.82 - Altered mental status, unspecified (2) CVA (cerebral vascular accident) Current Visit: Yes Status: Acute MR/MR head/brain wo con IMPRESSION: 1. Evolving subacute hemorrhagic left frontal and left occipital lobe infarcts with areas of acute/early subacute infarction along the margins. There are also 2 punctate acute infarcts in the deep white matter of the left frontoparietal region. 2. Chronic infarcts in the left parietal lobe. 3. Moderate chronic microvascular white matter ischemic disease noted both supra and infratentorially. CVA with hemorrhagic conversion-treat as stated above Qualifiers: CVA mechanism: unspecified Qualified Code(s): I63.9 - Cerebral infarction, unspecified (3) Seizure Current Visit: Yes Status: Suspected Noted yesterday to have abnormal flexion and extension of bilateral arms as well as shaking 4 extremities. EEG showed mild-moderate slowing but no epileptiform discharges. On levetiracetam, continue Continue with seizure precautions Subjective Principal diagnosis: Altered mental state, seizures, hemorrhagic conversion of CVA Interval history: Patient seen in follow-up for altered mental state, evaluation of seizures and hemorrhagic conversion of CVA. No family at the time of my assessment this morning. He continues to be encephalopathic, he is unable to communicate or follow commands. Overnight he developed hypoxia and is now on BiPAP 50% AVAPS. Clinically, his condition appears to be deteriorating. Objective - Constitutional Vitals: Temp Pulse Resp BP Pulse Ox 97.6 F 102 12 158/70 100 10/11/18 07:10 10/11/18 09:00 10/11/18 09:00 10/11/18 09:00 10/11/18 09:00 Exam: Examination: General Examination: *CONSTITUTIONAL: encephalopathic, appears to be in mild distress *GENERAL APPEARANCE OF PATIENT ill appearing elderly male *EYES: pupils equal, round, reactive to light and accommodation, conjunctiva clear *CARDIOVASCULAR RRR, S1, S2, no peripheral edema, distal temperature normal, dorsalis pedis pulses normal. See vital signs *PULMONARY scattered rhonchi throughout, patient is tachypneic Musculoskeletal: *GAIT AND STATION deferred due to altered mental state *ASSESSMENT OF MUSCLE STRENGTH IN THE UPPER AND LOWER EXTREMITIES bilateral deltoid, bicep, tricep, bacon stringer strength, hip flexors ,anterior tibialis, dorsoflexion of the foot; moves all 4 extremities passively *MUSCLE TONE IN THE UPPER AND LOWER EXTREMITIES rigid 4 extremities, rigidity noted and neck and bilateral trapezius with trapezius swelling Neurological: *ORIENTATION-patient is encephalopathic *CN II optic fundi were normal *CN III,IV, PERRLA *SENSORY EXAMINATION moves all 4 extremities to painful stimuli *CEREBELLAR TESTING deferred due to altered mental state *PAIN LEVEL unable to determine pain level however, there is tenderness to palpation of all 4 extremities Results - Laboratory Findings CBC and BMP: 10/11/18 03:54 10/11/18 03:54 Abnormal lab findings: Abnormal lab results WBC 22.1 K/mcL (4.3-11.1) H 10/11/18 03:54 RBC 2.94 M/mcL (4.19-5.50) L 10/11/18 03:54 Hgb 8.6 g/dL (12.9-16.9) L 10/11/18 03:54 Hct 29.0 % (37.5-50.1) L 10/11/18 03:54 MCHC 29.7 g/dL (31.6-35.5) L 10/11/18 03:54 RDW 15.5 % (11.5-14.5) H 10/11/18 03:54 Plt Count 423 K/mcL (140-400) H 10/05/18 07:03 20.3 K/mcL (1.6-8.9) H 10/11/18 03:54 2.0 K/mcL (0.0-1.3) H 10/10/18 06:05 ESR 116 mm/hr (0-10) H 10/10/18 06:05 PT 26.3 Seconds (9.4-12.1) H 10/05/18 07:03 APTT 39.6 Seconds (26.0-36.0) H 10/05/18 07:03 ABG pH 7.49 pH Units (7.32-7.45) H 10/09/18 21:14 ABG pCO2 57 mmHg (35-45) H 10/10/18 22:34 ABG pO2 200 mmHg (85-104) H 10/10/18 22:34 ABG HCO3 32 mEq/L (21-27) H 10/10/18 22:34 ABG Total CO2 34 mEq/L (20-26) H 10/10/18 22:34 ABG O2 Saturation 100 % (95-98) H 10/10/18 22:34 ABG Base Excess 6 mEq/L (-2 to 3) H 10/10/18 22:34 Sodium 135 mEq/L (136-145) L 10/09/18 20:36 Chloride 97 mEq/L (98-107) L 10/09/18 20:36 Carbon Dioxide 31 mEq/L (23-29) H 10/11/18 03:54 BUN 38 mg/dL (8-23) H 10/11/18 03:54 43 (6-26) H 10/11/18 03:54 Glucose 198 mg/dL (70-105) H 10/11/18 03:54 POC Glucose 184 mg/dL (70-99) H 10/11/18 07:14 303 (280-300) H 10/11/18 03:54 Calcium 8.5 mg/dL (8.6-10.3) L 10/07/18 07:16 0.3 mg/dL (0.0-0.2) H 10/04/18 21:19 AST 42 Units/L (13-39) H 10/05/18 07:03 197 Units/L (34-104) H 10/10/18 06:05 0.04 ng/mL (< 0.04) H* 10/04/18 21:19 186 mg/L (Less than 10) H 10/10/18 06:05 6.3 g/dL (6.4-8.9) L 10/10/18 06:05 2.6 g/dL (3.5-5.7) L 10/10/18 06:05 3.7 g/dL (2.4-3.5) H 10/10/18 06:05 0.7 (1.1-2.2) L 10/10/18 06:05 Amylase 16 Units/L (29-103) L 10/10/18 06:05 4 Units/L (11-82) L 10/10/18 06:05 0.41 ng/mL (0.00-0.15) H 10/11/18 03:54 Turbid (Clear) A 10/04/18 22:53 Ur Specific [place] 1.026 (1.010-1.025) H 10/04/18 22:53 30 mg/dL (Neg-Trace) H 10/07/18 21:35 Trace mg/dL (Negative) H 10/07/18 21:35 Trace (Negative) H 10/07/18 21:35 Ur Leukocyte Esterase Moderate (Negative) H 10/07/18 21:35 3-5 per hpf (0-3) H 10/07/18 21:35 15-30 per hpf (0-3) H 10/07/18 21:35 Ur Squamous Epith Cells Many per lpf (None-Few) H 10/07/18 21:35 Hyaline Casts Moderate per lpf (None-Few) H 10/04/18 22:53 Ur Culture Indicated? NO. (NO) A 10/07/18 21:35 Crossmatch See Detail 10/08/18 13:52 Consult Discharge Plan - Plan Referrals: Camron Allen MD [Primary Care Provider] - <Myra Jimenez I - Last Filed: 10/11/18 15:43> Date of Encounter: 10/11/18 Assessment and Plan (1) CVA (cerebral vascular accident) Current Visit: Yes Status: Acute I have personally performed a face to face diagnostic evaluation, including HPI, EXAM, which is included in the Assesment and plan, which was discussed with Will Rader CNP, I agree with the above outlined documentation. Clinically patient seems to be stable, Considering his overall conditions and is likely a combination of underlying infection metabolic changes as well as with this subacute hemorrhagic large infarct that is making his condition complicated. With his history of atrial fibrillation certainly he is at risk for an other risk came make event but at this time we need to stop all anticoagulation as well as antiplatelet therapy because of this hemorrhagic conversion Continue to monitor patient his prognosis remains guarded Myra Jimenez MD. NeurologyI Qualifiers: CVA mechanism: unspecified Qualified Code(s): I63.9 - Cerebral infarction, unspecified (2) Altered mental status Current Visit: Yes Status: Acute Qualifiers: Altered mental status type: unspecified Qualified Code(s): R41.82 - Altered mental status, unspecified (3) Seizure Current Visit: Yes Status: Suspected Objective - Constitutional Vitals: Temp Pulse Resp BP Pulse Ox 96.4 F L 94 30 155/127 100 10/11/18 11:12 10/11/18 15:00 10/11/18 15:00 10/11/18 15:00 10/11/18 15:00 Results - Laboratory Findings CBC and BMP: 10/11/18 03:54 10/11/18 03:54 Abnormal lab findings: Abnormal lab results WBC 22.1 K/mcL (4.3-11.1) H 10/11/18 03:54 RBC 2.94 M/mcL (4.19-5.50) L 10/11/18 03:54 Hgb 8.6 g/dL (12.9-16.9) L 10/11/18 03:54 Hct 29.0 % (37.5-50.1) L 10/11/18 03:54 MCHC 29.7 g/dL (31.6-35.5) L 10/11/18 03:54 RDW 15.5 % (11.5-14.5) H 10/11/18 03:54 Plt Count 423 K/mcL (140-400) H 10/05/18 07:03 20.3 K/mcL (1.6-8.9) H 10/11/18 03:54 2.0 K/mcL (0.0-1.3) H 10/10/18 06:05 ESR 116 mm/hr (0-10) H 10/10/18 06:05 PT 26.3 Seconds (9.4-12.1) H 10/05/18 07:03 APTT 39.6 Seconds (26.0-36.0) H 10/05/18 07:03 ABG pH 7.49 pH Units (7.32-7.45) H 10/09/18 21:14 ABG pCO2 57 mmHg (35-45) H 10/10/18 22:34 ABG pO2 200 mmHg (85-104) H 10/10/18 22:34 ABG HCO3 32 mEq/L (21-27) H 10/10/18 22:34 ABG Total CO2 34 mEq/L (20-26) H 10/10/18 22:34 ABG O2 Saturation 100 % (95-98) H 10/10/18 22:34 ABG Base Excess 6 mEq/L (-2 to 3) H 10/10/18 22:34 Sodium 135 mEq/L (136-145) L 10/09/18 20:36 Chloride 97 mEq/L (98-107) L 10/09/18 20:36 Carbon Dioxide 31 mEq/L (23-29) H 10/11/18 03:54 BUN 38 mg/dL (8-23) H 10/11/18 03:54 43 (6-26) H 10/11/18 03:54 Glucose 198 mg/dL (70-105) H 10/11/18 03:54 POC Glucose 184 mg/dL (70-99) H 10/11/18 07:14 303 (280-300) H 10/11/18 03:54 Calcium 8.5 mg/dL (8.6-10.3) L 10/07/18 07:16 0.3 mg/dL (0.0-0.2) H 10/04/18 21:19 AST 42 Units/L (13-39) H 10/05/18 07:03 197 Units/L (34-104) H 10/10/18 06:05 242 Units/L (30-223) H 10/10/18 06:05 0.04 ng/mL (< 0.04) H* 10/04/18 21:19 186 mg/L (Less than 10) H 10/10/18 06:05 6.3 g/dL (6.4-8.9) L 10/10/18 06:05 2.6 g/dL (3.5-5.7) L 10/10/18 06:05 3.7 g/dL (2.4-3.5) H 10/10/18 06:05 0.7 (1.1-2.2) L 10/10/18 06:05 Amylase 16 Units/L (29-103) L 10/10/18 06:05 4 Units/L (11-82) L 10/10/18 06:05 0.41 ng/mL (0.00-0.15) H 10/11/18 03:54 Turbid (Clear) A 10/04/18 22:53 Ur Specific [place] 1.026 (1.010-1.025) H 10/04/18 22:53 30 mg/dL (Neg-Trace) H 10/07/18 21:35 Trace mg/dL (Negative) H 10/07/18 21:35 Trace (Negative) H 10/07/18 21:35 Ur Leukocyte Esterase Moderate (Negative) H 10/07/18 21:35 3-5 per hpf (0-3) H 10/07/18 21:35 15-30 per hpf (0-3) H 10/07/18 21:35 Ur Squamous Epith Cells Many per lpf (None-Few) H 10/07/18 21:35 Hyaline Casts Moderate per lpf (None-Few) H 10/04/18 22:53 Ur Culture Indicated? NO. (NO) A 10/07/18 21:35 Crossmatch See Detail 10/08/18 13:52
[2018-10-11 10:23] LABS: Creatine Kinase 242 Units/L (30-223)
--- NOTE | 2018-10-11 12:40 | Infectious Disease Progress No ---
ID Progress Note Date of Encounter: 10/11/18 Time of Encounter: 09:05 - Subjective Subjective: Patient seen and examined with nursing. No family at the bedside. Overnight events noted. Patient remains minimally responsive to verbal and painful stimuli. Does not offer review of systems information. Case discussed with the primary team. Awaiting neurology recommendations and final decisions regarding GOC from the family. - Objective CBC & Chem 7: 10/12/18 03:35 10/12/18 03:35 - Exam Vitals: Temp Pulse Resp BP Pulse Ox 96.4 F L 98 15 122/103 100 10/11/18 11:12 10/11/18 12:00 10/11/18 12:07 10/11/18 12:00 10/11/18 12:07 Exam: Head: Atraumatic, normal inspection, normocephalic. Eye: PERRLA, no scleral icterus noted. ENT: Mucous membranes dry. No odontogenic infection noted. Neck: Normal inspection. Rigidity noted to the cervical spine. Respiratory: Clear to auscultation. No rales, respiratory distress, rhonchi, or wheezes noted. Tachypnea noted. on AVAPS BIPAP with FiO2 50%. Cardiovascular: Regular rate, tachycardic, S1 and S2 audible. No murmurs, rubs, or gallops. GI: Soft, nondistended, normal bowel sounds. Extremities: No joint swelling, pedal edema, or tenderness noted. Scabbed lesion noted to the right upper extremity without surrounding erythema, warmth, drainage, or fluctuance noted. Neurological: Obtunded. Does not open eyes today. Allows passive opening of the eyelids without resistance. Does not follow commands or attempt to verbalize. No response to painful stimuli. Skin: Dry, intact, warm. Normal color. No rashes. - Assessment and Plan (1) Sepsis Current Visit: Yes Status: Acute The patient developed sepsis-like picture with fever, tachycardia, and tachypnea overnight. He remains encephalopathic. Etiology: Unclear. Given the results of his MRI, I think his symptoms are more likely related to the hemorrhage CVA than an infectious etiology, although he is at risk for aspirating, but I think this is the least of his problems at this time. WBC worse today, but afebrile overnight. Continues to have tachycardia and Blood cultures drawn 10/04/18 are no growth to date 2 sets. Repeat blood cultures drawn 10/09/18 are pending 2 sets. Qualifiers: Sepsis type: sepsis due to unspecified organism Qualified Code(s): A41.9 - Sepsis, unspecified organism SNOMED Code(s): 11930668 (2) Altered mental status Current Visit: Yes Status: Acute etiology: Likely secondary to hemorrhage CVA. Review of systems Limited due to patient's mental status. Neurology consult. Appreciate recommendations. CT of the head was negative initially, but MRI 10/10/18 showed hemorrhage stroke. Aspiration is on the differential given the patient's altered mental status, but CT chest was negative. Qualifiers: Altered mental status type: unspecified Qualified Code(s): R41.82 - Altered mental status, unspecified SNOMED Code(s): 653495642 (3) UTI (urinary tract infection) Current Visit: Yes Status: Ruled-out Causative organism: Unclear. Urinalysis positive, but possibly contaminated so culture was not sent. Urine culture negative. Currently on vancomycin and cefepime. Qualifiers: Urinary tract infection type: site unspecified Hematuria presence: without hematuria Qualified Code(s): N39.0 - Urinary tract infection, site not s pecified SNOMED Code(s): 93575035 (4) CVA (cerebral vascular accident) Current Visit: No Status: Acute Known history of CVA a couple of months ago. She will CT of the head was negative. MRI of the brain 10/10/18 showed evolving subacute hemorrhagic left frontal and left occipital lobe infarcts with areas of acute/early subacute infarction along the margins. There are also 2 punctate acute infarcts in the deep white matter of the left frontoparietal region. Chronic infarcts in the left parietal lobe were noted. Moderate chronic microvascular white matter ischemic disease noted the supra and infratentorially. Neurology consulted and following. Repeat CT of the head 10/11/18 showed continued evolution of the recent left frontal lobe infarct without acute hemorrhagic products. The patient's family declined transfer to tertiary care center for evaluation by neurosurgery. As per the neurology team. Qualifiers: CVA mechanism: other Qualified Code(s): I63.89 - Other cerebral infarction SNOMED Code(s): 505344038 (5) Decubitus ulcer, stage 2 Current Visit: Yes Status: Acute Clinically does not appear infected. Dressing changes and offloading per nursing protocol. CT abdomen and pelvis did not show any abscess, gas, or osteomyelitis associated with the ulcer. Qualifiers: Pressure injury location: unspecified location Qualified Code(s): L89.92 - Pressure ulcer of unspecified site, stage 2 SNOMED Code(s): 731083058 (6) DMII (diabetes mellitus, type 2) Current Visit: No Status: Chronic Recommend aggressive glucose monitoring and control to promote wound healing and prevent reinfection. Qualifiers: Diabetes mellitus round boner insulin use: with round boner use Diabetes mellitus complication status: with hyperglycemia Qualified Code(s): E11.65 - Type 2 diabetes mellitus with hyperglycemia; Z79.4 - photoengraving helper (current) use of insulin SNOMED Code(s): 38312349 (7) Acute respiratory failure with hypoxia Current Visit: Yes Status: Acute Likely secondary to acute encephalopathy and possible aspiration. CT chest negative for PNA or pneumonitis. Currently AVAPS Bipap. Management per the pulmonary team. SNOMED Code(s): 10927179, 639822256 - Recommendations Recommendations: Await blood cultures to finalize. Continue cefepime 2 Grams IV, but increase frequency to Q8H. Continue Vancomycin IV. Pharmacy to dose. Goal trough ~15. Duration of treatment depends on the clinical picture. Monitor renal function and for drug toxicity and dose-adjust antibiotics. BIPAP/respiratory management per the pulmonary team. CVA management per the neurology team. GOC planning per the palliative care team. Consult Discharge Plan - Plan Referrals: Camron Allen MD [Primary Care Provider] - - Attending Attestation I have personally performed a face to face evaluation on this patient. I have reviewed and agree with the care plan. History and Exam by me shows: Assessment and plan: 1.Altered mental status 2.Decubitus ulcer stage II 3.CVA 4.Diabetes mellitus type 2 5.Intermittent fevers over the last 6 months Recommendations: MRI findings reviewed. Discussed with the neurology team. Daughter at bedside. Discussed the case answered her questions and addressed her concerns She wanted to put the patient on "prophylactic" antibiotics so he does not have recurrent fevers Still no obvious source of infection. Continue the current antibiotics until further workup has finalized
--- NOTE | 2018-10-11 16:50 | Event Note ---
Date of Encounter: 10/11/18 Time of Encounter: 16:50 Power of real estate attorney documentation found confirming that ty Khan is most current power of real estate attorney.
--- NOTE | 2018-10-11 17:11 | Palliative - Consult Note ---
Date of Encounter: 10/11/18 Time of Encounter: 10:00 - Assessment and Plan (1) Goals of care, counseling/discussion Current Visit: Yes Status: Acute Assessment and plan: 35 minutes Goals of care discussion with patient's daughter Glenna, she presented herself as the most current patient's POA, but she stated that patient has 5 children, and decisions will be made by the majority of children at least 3 out 5. Unfortunately the other children could not be present today as their mother had an injury and is now admitted in different hospital. Discussed current medical condition, trajectory of illness, overall poor prognos is, and treatment options. Glenna states that family have decided, that patient's altered mental status is more likely to be due to to sedation, and mind medication, then to be due to the stroke. They would like all sedating medication including Ativan and narcotics to be discontinued. So that patient's mental status can be evaluated off medication. Also she would like to discontinue fingersticks as she does not believe the patient needs that so often. Discussed CODE STATUS, patient is currently DNR CC arrest, family wants it to be continued as such. She states that they will be okay with short-term intubation up to 3 days, and then will discontinue intubation at that point if the patient does not improve. Palliative care will continue to follow. (2) Palliative care encounter Current Visit: Yes Status: Acute (3) CVA (cerebral vascular accident) Current Visit: Yes Status: Acute Assessment and plan: Neurology following. Qualifiers: CVA mechanism: unspecified Qualified Code(s): I63.9 - Cerebral infarction, unspecified (4) Altered mental status Current Visit: Yes Status: Acute Assessment and plan: likely multifactorial, CVA and sepsis. Qualifiers: Altered mental status type: unspecified Qualified Code(s): R41.82 - Altered mental status, unspecified (5) Acute respiratory failure with hypoxia Current Visit: Yes Status: Acute Assessment and plan: Per primary team Palliative-CN HPI - Data of Consult Patient: new to practice Consult date: 10/11/18 Requesting Physician: Zhao Russell Primary Care Provider: Camron Allen MD - Consult Narrative Palliative Care/Comfort Measures: Palliative care Reason for consult: Goals of care History of present illness: Mr. Khan is a 83 year old male with a past medical history of COPD, heart failure, each of fibrillation, diabetes, hyperlipidemia, hypertension and a recent CVA recently treated at [facility] and released to snf facility yesterday who presents with one-day history of altered mental status and fever. On arrival he was afebrile, but was having intermittent periods of apnea. He was admitted for sepsis secondary to UTI and respiratory failure, and put on BiPAP. During hospital course patient was noted to have seizure-like activity, neurology was consulted. Patient apparently began to have worsening encephalopathy and respiratory status leading to transfer to ICU. 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 Brain MRI showed subacute hemorrhagic stroke, 2 new punctate acute infarct, and several chronic infarct. Patient is a follow but he continued to deteriorate, and he seems to be less and less able to protect his airways. Palliative care consult for goals of care discussion At the time of exam patient was agitated, but not opening eyes all having any purposeful movement. He was recently given a dose of Ativan so he could go to repeat CT scan. Patient not opening eyes or following commands. CC: Zaho Russell - Time Spent with Patient Time: Total time spent is greater than 50% in coordination of care (as documented) at patient's floor/unit and/or counseling patient: Past Med Surg Social Fam HX - Past Medical History Medical history: arthritis, atrial fibrillation, CHF, diabetes, hyperlipidemia, hypertension Additional medical history: irregular heartbeat, [place] Psychiatric history: no psych history - Past Surgical History Surgical History: cataract, hip replacement, knee replacement, other Additional surgical history: ablation. left and right knee replacement. hip replacement - Social History Smoking Status: Never smoker Smokeless Tobacco Status: No Alcohol use: none Drug use: none - Family History Mother Living Status: Age at : 72 Cause of : Cardiac Arrest Hx Family Cancer: Yes (Brain CA) Father Living Status: Age at : 82 Cause of : Natural Causes Hx Family Neuromuscular Disorders: Yes (Parkinson's) Medications and Allergies Ferrous Sulfate 325 mg PO BID 03/27/18 [History] Bumetanide [Bumex] 1 mg PO DAILY 09/07/18 [History] Ascorbate Calcium [Vitamin C] 500 mg PO DAILY 09/08/18 [History] Metoprolol Tartrate [Lopressor] 75 mg PO BID 09/08/18 [History] Acetaminophen [Tylenol] 650 mg PO Q4H PRN 10/04/18 [History] Apixaban [Eliquis] 5 mg PO BID 10/04/18 [History] Atorvastatin [Lipitor] 40 mg PO HS 10/04/18 [History] Docusate [Colace] 100 mg PO BID PRN 10/04/18 [History] Insulin LISPRO [HumaLOG] 5 units SQ TIDAC 10/04/18 [History] Ipratropium Neb [Atrovent Neb] 0.5 mg IH Q4H PRN 10/04/18 [History] Levalbuterol HCl [Xopenex Neb] 1.25 mg IH Q4H PRN 10/04/18 [History] Multivitamin [Daily Multiple Vitamin] 1 each PO DAILY 10/04/18 [History] Nitroglycerin [Nitrostat] 0.4 mg SL AD PRN 10/04/18 [History] Polyethylene Glycol 3350 [MiraLAX] 17 gm PO DAILY PRN 10/04/18 [History] traZODone [TraZODone] 50 mg PO HS PRN 10/04/18 [History] Allergy/AdvReac Type Severity Reaction Status Date / Time No Known Allergies Allergy Verified 08/31/18 14:26 ROS unobtainable: due to mental status Palliative Care-Exam - Constitutional Vitals: Temp Pulse Resp BP Pulse Ox 97.1 F L 99 26 132/87 100 10/11/18 15:52 10/11/18 17:00 10/11/18 17:00 10/11/18 17:00 10/11/18 17:00 Exam: General appearance: appears uncomfortable Eyes: nonicteric Effort: mildly labored Auscultation: bilateral: wheezes, rhonchi Cardiovascular: irregular rhythm Gastrointestinal: absent bowel sounds, soft, non-distended Integumentary: normal Extremities: no cyanosis, no edema Musculoskeletal: no deformities pupils equal and round, reactive to light. Patient without purposeful movement or following commands Internal Medicine - CN: Reslt - Labs CBC & Chem 7: 10/11/18 03:54 10/11/18 03:54 Labs: Short CBC 10/11/18 Range/Units 03:54 WBC 22.1 H (4.3-11.1) K/mcL Hgb 8.6 L (12.9-16.9) g/dL Hct 29.0 L (37.5-50.1) % Plt Count 373 (140-400) K/mcL Neutrophils # 20.3 H (1.6-8.9) K/mcL BMP 10/10/18 10/11/18 06:05 03:54 Sodium 137 139 Potassium 5.0 5.0 Chloride 99 100 Carbon Dioxide 28 31 H BUN 36 H 38 H Creatinine 0.93 0.89 Glucose 141 H 198 H Calcium 8.7 9.2 Liver Function 10/10/18 Range/Units 06:05 Total Bilirubin 0.7 (0.3-1.0) mg/dL Direct Bilirubin 0.1 (0.0-0.2) mg/dL AST 30 (13-39) Units/L ALT 23 (7-52) Units/L Alkaline Phosphatase 197 H (34-104) Units/L Albumin 2.6 L (3.5-5.7) g/dL - ABG Interpretation ABG results: ABG ABG pH 7.36 pH Units (7.32-7.45) 10/10/18 22:34 ABG pCO2 57 mmHg (35-45) H 10/10/18 22:34 ABG pO2 200 mmHg (85-104) H 10/10/18 22:34 ABG O2 Saturation 100 % (95-98) H 10/10/18 22:34 PT/INR, D-dimer PT 26.3 Seconds (9.4-12.1) H 10/05/18 07:03 - Impressions Impressions Abdomen/Pelvis CT 10/10/18 09:37 IMPRESSION: 1. Gallstones and mild gallbladder distention. Consider right upper quadrant ultrasound if there is acute right upper quadrant pain. 2. The appendix is within normal limits. 3. Small urinary bladder calcifications. 4. Gastric fundal wall thickening versus nondistention. Consider gastritis. 5. Nonspecific presacral edema, new since the prior exam. 6. Moderate amount of rectal stool. D/ / 10/10/2018 14:46:02 Gibran Henley MD / zack Interpreting Provider: Gibran Henley MD Head CT 10/11/18 07:59 IMPRESSION: Continued evolution of the recent left frontal lobe infarct without acute hemorrhagic products. Similar-appearing left posterior parietooccipital infarct. D/ / Keith Moreno / Keith Moreno Interpreting Provider: Keith Moreno Consult Discharge Plan - Plan Referrals: Camron Allen MD [Primary Care Provider] - Palliative Quality Palliative Quality: Screen for Code Status: Yes, Screen for Goals of Care: Yes, Screen for Pain: Yes, If Pain Regimen Started, Initiate Bowel Regimen: NA, Screen for Nausea/Vomitting: Yes Code Status: 10/05/18 02:41 Resuscitation Status: Active [RES] Routine Comment: Resuscitation Status: DNR-Comfort Care-Arrest Palliative Scale - Palliative Performance Scale How ambulatory is this patient?: Totally bed bound What is patient's level of activity and evidence of disease?: Unable to do most activity, Extensive disease How much self-care assistance does patient require?: Total care How much oral intake does the patient have?: Mouth care only What is this patient's level of consciousness?: Full or drowsy with or without confusion Palliative Performance Score: 30 %
[2018-10-12] MEDS: Levalbuterol Neb 1.25 MG/3 ML IH SCH ×5 (03:46→20:00)
[2018-10-12 04:21] LABS: Basophils % 0.1 %; Eosinophils % 0.2 %; Hematocrit 26.3 % (37.5-50.1); Hemoglobin 7.8 g/dL (12.9-16.9); Immature Granulocytes % 1.1 % (0-4); Lymphocytes # 1.4 K/mcL (0.6-4.6); Lymphocytes % 7.2 %; Mean Corpuscular HGB Conc 29.7 g/dL (31.6-35.5); Mean Corpuscular Hemoglobin 29.1 pg (28.0-33.3); Mean Corpuscular Volume 98.1 fL (83.0-100.0); Mean Platelet Volume 10.3 fL (9.4-12.4); Monocytes # 1.4 K/mcL (0.0-1.3); Monocytes % 6.9 %; Neutrophils # 16.9 K/mcL (1.6-8.9); Platelet Count 399 K/mcL (140-400); Red Blood Count 2.68 M/mcL (4.19-5.50); Red Cell Distribution Width 15.7 % (11.5-14.5); Segmented Neutrophils % 84.5 %
[2018-10-12 04:40] LABS: BUN/Creatinine Ratio 47 (6-26); Blood Urea Nitrogen 43 mg/dL (8-23); Calcium 8.8 mg/dL (8.6-10.3); Carbon Dioxide 29 mEq/L (23-29); Chloride 104 mEq/L (98-107); Glucose 147 mg/dL (70-105); Osmolality,Calculated 308 (280-300); Potassium 4.4 mEq/L (3.5-5.1); Sodium 142 mEq/L (136-145); eGFR For Non-African Americans > 60 (> 60)
[2018-10-12] MEDS: *HR* Metoprolol 5 MG/5 ML VIAL IVP SCH ×3 (04:44→17:43)
[2018-10-12] MEDS: Cefepime HCl 2,000 MG in 0.9 % Sodium Chloride Mini Bag 100 ML IVPB SCH (04:45)
[2018-10-12] MEDS ORDERED: Aminoglycoside Consult 1 EACH MC ONE (07:28)
--- NOTE | 2018-10-12 07:35 | Pulmonology Progress Note ---
<Clyde Hale - Last Filed: 10/12/18 09:42> Date of Encounter: 10/12/18 Time of Encounter: 07:35 Assessment and Plan (1) CVA (cerebral vascular accident) Current Visit: Yes Status: Acute Patient was recently diagnosed with a CVA. CT scan that was obtained on 10/11/18 showed continued evolution of the recent left frontal lobe infarct without acute hemorrhagic products. His minor stating that the patient's family did not want any further intervention done for the patient's stroke even though that there was a component of it that was previously viewed as hemorrhagic. They did an a previous note states that they were comfortable with the patient being intubated for up to possibly 3 days. Patient is a DNR CCA. Positive care has been consult and this following the patient in regards to goals of care. Qualifiers: CVA mechanism: unspecified Qualified Code(s): I63.9 - Cerebral infarction, unspecified (2) Altered mental status Current Visit: Yes Status: Acute Patient altered mentation is likely secondary to the patient's CVA. Qualifiers: Altered mental status type: unspecified Qualified Code(s): R41.82 - Altered mental status, unspecified (3) COPD (chronic obstructive pulmonary disease) Current Visit: No Status: Chronic Patient has a DuoNeb and Xopenex breathing treatments ordered. Qualifiers: COPD type: unspecified COPD Qualified Code(s): J44.9 - Chronic obstructive pulmonary disease, unspecified (4) Decubitus ulcer, stage 2 Current Visit: Yes Status: Acute Dressed per ICU nursing protocol. Qualifiers: Pressure injury location: unspecified location Qualified Code(s): L89.92 - Pressure ulcer of unspecified site, stage 2 (5) DMII (diabetes mellitus, type 2) Current Visit: No Status: Chronic Patient is on low-dose corrective sliding scale insulin. We will continue to monitor the patient's glucose level and patient will be treated accordingly. 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 Patient is currently on cefepime and vancomycin. Qualifiers: Urinary tract infection type: site unspecified Hematuria presence: without hematuria Qualified Code(s): N39.0 - Urinary tract infection, site not specified (7) DVT prophylaxis Current Visit: Yes Status: Acute EPCD's Ordered for DVT prophylaxis. Subjective Principal diagnosis: Altered mental status Interval history: No acute events are reported overnight. Patient is still altered and unable to provide any additional history at this time. Objective PUL Vital signs: Last Vital Signs Temp 97.8 F 10/12/18 03:48 Pulse 105 10/12/18 06:00 Resp 21 10/12/18 07:28 BP 117/70 10/12/18 06:00 Pulse Ox 100 10/12/18 07:28 General appearance: lethargic Eyes: nonicteric ENT: oropharynx moist Neck: supple Effort: mildly labored Auscultation: bilateral: other (Course breath sounds bilaterally) Cardiovascular: regular rate and rhythm Gastrointestinal: hypoactive bowel sounds, soft, non-tender, non-distended Extremities: pink and warm, edema (Mild) Musculoskeletal: no deformities unable to assess due to mental status other (Laboratory assess due to patient's mental status ) Results - Laboratory Findings CBC and BMP: 10/12/18 03:35 10/12/18 03:35 ABG ABG pH 7.36 pH Units (7.32-7.45) 10/10/18 22:34 ABG pCO2 57 mmHg (35-45) H 10/10/18 22:34 ABG pO2 200 mmHg (85-104) H 10/10/18 22:34 ABG O2 Saturation 100 % (95-98) H 10/10/18 22:34 PT/INR, D-dimer PT 26.3 Seconds (9.4-12.1) H 10/05/18 07:03 Abnormal lab findings: Abnormal lab results WBC 20.0 K/mcL (4.3-11.1) H 10/12/18 03:35 RBC 2.68 M/mcL (4.19-5.50) L 10/12/18 03:35 Hgb 7.8 g/dL (12.9-16.9) L 10/12/18 03:35 Hct 26.3 % (37.5-50.1) L 10/12/18 03:35 MCHC 29.7 g/dL (31.6-35.5) L 10/12/18 03:35 RDW 15.7 % (11.5-14.5) H 10/12/18 03:35 Plt Count 423 K/mcL (140-400) H 10/05/18 07:03 16.9 K/mcL (1.6-8.9) H 10/12/18 03:35 1.4 K/mcL (0.0-1.3) H 10/12/18 03:35 ESR 116 mm/hr (0-10) H 10/10/18 06:05 PT 26.3 Seconds (9.4-12.1) H 10/05/18 07:03 APTT 39.6 Seconds (26.0-36.0) H 10/05/18 07:03 ABG pH 7.49 pH Units (7.32-7.45) H 10/09/18 21:14 ABG pCO2 57 mmHg (35-45) H 10/10/18 22:34 ABG pO2 200 mmHg (85-104) H 10/10/18 22:34 ABG HCO3 32 mEq/L (21-27) H 10/10/18 22:34 ABG Total CO2 34 mEq/L (20-26) H 10/10/18 22:34 ABG O2 Saturation 100 % (95-98) H 10/10/18 22:34 ABG Base Excess 6 mEq/L (-2 to 3) H 10/10/18 22:34 Sodium 135 mEq/L (136-145) L 10/09/18 20:36 Chloride 97 mEq/L (98-107) L 10/09/18 20:36 Carbon Dioxide 31 mEq/L (23-29) H 10/11/18 03:54 BUN 43 mg/dL (8-23) H 10/12/18 03:35 47 (6-26) H 10/12/18 03:35 Glucose 147 mg/dL (70-105) H 10/12/18 03:35 POC Glucose 184 mg/dL (70-99) H 10/11/18 07:14 308 (280-300) H 10/12/18 03:35 Calcium 8.5 mg/dL (8.6-10.3) L 10/07/18 07:16 0.3 mg/dL (0.0-0.2) H 10/04/18 21:19 AST 42 Units/L (13-39) H 10/05/18 07:03 197 Units/L (34-104) H 10/10/18 06:05 242 Units/L (30-223) H 10/10/18 06:05 0.04 ng/mL (< 0.04) H* 10/04/18 21:19 186 mg/L (Less than 10) H 10/10/18 06:05 6.3 g/dL (6.4-8.9) L 10/10/18 06:05 2.6 g/dL (3.5-5.7) L 10/10/18 06:05 3.7 g/dL (2.4-3.5) H 10/10/18 06:05 0.7 (1.1-2.2) L 10/10/18 06:05 Amylase 16 Units/L (29-103) L 10/10/18 06:05 4 Units/L (11-82) L 10/10/18 06:05 0.41 ng/mL (0.00-0.15) H 10/11/18 03:54 Turbid (Clear) A 10/04/18 22:53 Ur Specific [place] 1.026 (1.010-1.025) H 10/04/18 22:53 30 mg/dL (Neg-Trace) H 10/07/18 21:35 Trace mg/dL (Negative) H 10/07/18 21:35 Trace (Negative) H 10/07/18 21:35 Ur Leukocyte Esterase Moderate (Negative) H 10/07/18 21:35 3-5 per hpf (0-3) H 10/07/18 21:35 15-30 per hpf (0-3) H 10/07/18 21:35 Ur Squamous Epith Cells Many per lpf (None-Few) H 10/07/18 21:35 Hyaline Casts Moderate per lpf (None-Few) H 10/04/18 22:53 Ur Culture Indicated? NO. (NO) A 10/07/18 21:35 Vancomycin Trough 20 mcg/mL (5-10) H 10/11/18 22:10 Crossmatch See Detail 10/08/18 13:52 - Microbiology Findings Microbiology Findings: Microbiology, Last 48 Hours 10/09/18 23:00 Urine Culture - Final Urine,Catheterized (Straight) No growth. - Clinical Findings Intake & Output: Intake & Output 10/11/18 10/11/18 10/12/18 15:59 23:59 07:59 Intake Total 205 / 510 205 / 510 350 / 350 Balance 205 / 510 205 / 510 350 / 350 Weight 106.7 kg Consult Discharge Plan - Plan Referrals: Camron Allen MD [Primary Care Provider] - <Mello Cortez - Last Filed: 10/12/18 22:17> Date of Encounter: 10/12/18 Objective PUL Vital signs: Last Vital Signs Temp 98.3 F 10/12/18 16:38 Pulse 105 10/12/18 16:38 Resp 18 10/12/18 16:38 BP 107/70 10/12/18 16:38 Pulse Ox 93 10/12/18 16:38 Results - Laboratory Findings CBC and BMP: 10/12/18 03:35 10/12/18 03:35 ABG ABG pH 7.36 pH Units (7.32-7.45) 10/10/18 22:34 ABG pCO2 57 mmHg (35-45) H 10/10/18 22:34 ABG pO2 200 mmHg (85-104) H 10/10/18 22:34 ABG O2 Saturation 100 % (95-98) H 10/10/18 22:34 PT/INR, D-dimer PT 26.3 Seconds (9.4-12.1) H 10/05/18 07:03 Abnormal lab findings: Abnormal lab results WBC 20.0 K/mcL (4.3-11.1) H 10/12/18 03:35 RBC 2.68 M/mcL (4.19-5.50) L 10/12/18 03:35 Hgb 7.8 g/dL (12.9-16.9) L 10/12/18 03:35 Hct 26.3 % (37.5-50.1) L 10/12/18 03:35 MCHC 29.7 g/dL (31.6-35.5) L 10/12/18 03:35 RDW 15.7 % (11.5-14.5) H 10/12/18 03:35 Plt Count 423 K/mcL (140-400) H 10/05/18 07:03 16.9 K/mcL (1.6-8.9) H 10/12/18 03:35 1.4 K/mcL (0.0-1.3) H 10/12/18 03:35 ESR 116 mm/hr (0-10) H 10/10/18 06:05 PT 26.3 Seconds (9.4-12.1) H 10/05/18 07:03 APTT 39.6 Seconds (26.0-36.0) H 10/05/18 07:03 ABG pH 7.49 pH Units (7.32-7.45) H 10/09/18 21:14 ABG pCO2 57 mmHg (35-45) H 10/10/18 22:34 ABG pO2 200 mmHg (85-104) H 10/10/18 22:34 ABG HCO3 32 mEq/L (21-27) H 10/10/18 22:34 ABG Total CO2 34 mEq/L (20-26) H 10/10/18 22:34 ABG O2 Saturation 100 % (95-98) H 10/10/18 22:34 ABG Base Excess 6 mEq/L (-2 to 3) H 10/10/18 22:34 Sodium 135 mEq/L (136-145) L 10/09/18 20:36 Chloride 97 mEq/L (98-107) L 10/09/18 20:36 Carbon Dioxide 31 mEq/L (23-29) H 10/11/18 03:54 BUN 43 mg/dL (8-23) H 10/12/18 03:35 47 (6-26) H 10/12/18 03:35 Glucose 147 mg/dL (70-105) H 10/12/18 03:35 POC Glucose 184 mg/dL (70-99) H 10/11/18 07:14 308 (280-300) H 10/12/18 03:35 Calcium 8.5 mg/dL (8.6-10.3) L 10/07/18 07:16 0.3 mg/dL (0.0-0.2) H 10/04/18 21:19 AST 42 Units/L (13-39) H 10/05/18 07:03 197 Units/L (34-104) H 10/10/18 06:05 242 Units/L (30-223) H 10/10/18 06:05 0.04 ng/mL (< 0.04) H* 10/04/18 21:19 186 mg/L (Less than 10) H 10/10/18 06:05 6.3 g/dL (6.4-8.9) L 10/10/18 06:05 2.6 g/dL (3.5-5.7) L 10/10/18 06:05 3.7 g/dL (2.4-3.5) H 10/10/18 06:05 0.7 (1.1-2.2) L 10/10/18 06:05 Amylase 16 Units/L (29-103) L 10/10/18 06:05 4 Units/L (11-82) L 10/10/18 06:05 0.41 ng/mL (0.00-0.15) H 10/11/18 03:54 Turbid (Clear) A 10/04/18 22:53 Ur Specific [place] 1.026 (1.010-1.025) H 10/04/18 22:53 30 mg/dL (Neg-Trace) H 10/07/18 21:35 Trace mg/dL (Negative) H 10/07/18 21:35 Trace (Negative) H 10/07/18 21:35 Ur Leukocyte Esterase Moderate (Negative) H 10/07/18 21:35 3-5 per hpf (0-3) H 10/07/18 21:35 15-30 per hpf (0-3) H 10/07/18 21:35 Ur Squamous Epith Cells Many per lpf (None-Few) H 10/07/18 21:35 Hyaline Casts Moderate per lpf (None-Few) H 10/04/18 22:53 Ur Culture Indicated? NO. (NO) A 10/07/18 21:35 Vancomycin Trough 20 mcg/mL (5-10) H 10/11/18 22:10 Crossmatch See Detail 10/08/18 13:52 - Microbiology Findings Microbiology Findings: Microbiology, Last 48 Hours 10/09/18 23:00 Urine Culture - Final Urine,Catheterized (Straight) No growth. - Clinical Findings Intake & Output: Intake & Output 10/12/18 10/12/18 10/12/18 07:59 15:59 23:59 Intake Total 350 / 490 140 / 490 Balance 350 / 490 140 / 490 Weight 106.7 kg - Attending Attestation I examined this patient and my medical decision-making was reviewed with the Resident Physician. I agree with the documented findings, disposition and treatment plan as described except to the extent set forth below. Patient seen and examined. Labs, radiology, chart personally reviewed. 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 There is a possibility his condition could worsen and will need rehab. Pulmonary: Acceptable oxygenation and ventilation at this time and family agreed for short term intubation if needed, but he is protecting his airway and NIV if needed. Cardiovascular: stable and patient will be transferred to the floor. Keep SBP less than 160 mmHg GI: Nutrition per dietary and GI prophylaxis per routine Heme: DVT prophylaxis per routine ID: Infectious disease Renal; urine out put and renal funtion reviewed Endorcine: blood glucose is monitored Lines: all lines checked and no evidence of infections Skin: skin care to prevent pressure ulcers per nursing routine care
[2018-10-12] MEDS ORDERED: Naloxone 0.4 MG/ML INJ IVP PRN (08:04)
[2018-10-12] MEDS ORDERED: *HR* Labetalol 20 MG/4 ML SYRINGE IVP PRN (08:04)
[2018-10-12] MEDS ORDERED: *HR* Dextrose 50 % in Water (Syg) 50 ML SYRINGE IVP PRN (08:04)
[2018-10-12] MEDS ORDERED: D5% in Water 1,000 ML IVC PRN (08:04)
[2018-10-12] MEDS ORDERED: *HR* LORazepam 2 MG/ML VIAL IVP PRN (08:04)
[2018-10-12] MEDS ORDERED: Ipratropium Neb 0.5 MG NEBULIZER IH PRN (08:04)
[2018-10-12] MEDS ORDERED: Nitroglycerin 0.4 MG TAB.SUBL SL PRN (08:04)
[2018-10-12] MEDS ORDERED: Bisacodyl 10 MG RECTAL SUPPOSITORY RC PRN (08:04)
[2018-10-12] MEDS ORDERED: Dextrose Gel 15 GM/37.5 ML TUBE PO PRN ×2 (08:04)
--- NOTE | 2018-10-12 08:49 | Neurology Progress Note ---
<Will Rader J - Last Filed: 10/12/18 13:38> Date of Encounter: 10/12/18 Time of Encounter: 08:47 Assessment and Plan (1) CVA (cerebral vascular accident) Current Visit: Yes Status: Acute Patient seen in follow-up for altered mental state. Condition most likely multifactorial with combination of underlying sepsis, metabolic derangements and subacute hemorrhagic infarct. Clinically, he appears to have improved overnight. He is alert today and able to tell me his name. However, he is still unable to follow commands. He still appears to be encephalopathic and neurological exam is complicated as such. However, he does move all 4 extremities passively. Unfortunately, given history of atrial fibrillation the patient is a high risk f or recurrent strokes. With recent hemorrhagic conversion we continue to recommend avoiding antiplatelets and stopping anticoagulation medications. Continue to closely monitor neurologic status. Neurology will continue to follow. Qualifiers: CVA mechanism: unspecified Qualified Code(s): I63.9 - Cerebral infarction, unspecified (2) Altered mental status Current Visit: Yes Status: Acute Qualifiers: Altered mental status type: unspecified Qualified Code(s): R41.82 - Altered mental status, unspecified (3) Seizure Current Visit: Yes Status: Suspected Subjective Principal diagnosis: Altered mental status Interval history: Patient seen in follow-up for altered mental state, evaluation of seizures and hemorrhagic conversion of CVA. Overnight he appears to have some improvement. He appears alert today. No new neuro deficits overnight, no new concerns from family Objective - Constitutional Vitals: Temp Pulse Resp BP Pulse Ox 97.6 F 91 18 128/81 100 10/12/18 08:08 10/12/18 08:08 10/12/18 08:08 10/12/18 08:08 10/12/18 08:08 Exam: Examination: General Examination: *CONSTITUTIONAL: encephalopathic *GENERAL APPEARANCE OF PATIENT ill appearing elderly male *EYES: pupils equal, round, reactive to light and accommodation, co njunctiva clear *CARDIOVASCULAR RRR, S1, S2, no peripheral edema Musculoskeletal: *GAIT AND STATION deferred due to altered mental state *ASSESSMENT OF MUSCLE STRENGTH IN THE UPPER AND LOWER EXTREMITIES bilateral deltoid, bicep, tricep, decator operator strength, hip flexors ,anterior tibialis, dorsoflexion of the foot; moves all 4 extremities passively *MUSCLE TONE IN THE UPPER AND LOWER EXTREMITIES rigid 4 extremities, rigidity noted and neck and bilateral trapezius with trapezius swelling Neurological: *ORIENTATION-continues to be encephalopathic but is alert and oriented to self *SENSORY EXAMINATION moves all 4 extremities passively *CEREBELLAR TESTING deferred due to altered mental state *PAIN LEVEL pain appears to have improved today Results - Laboratory Findings CBC and BMP: 10/12/18 03:35 10/12/18 03:35 Abnormal lab findings: Abnormal lab results WBC 20.0 K/mcL (4.3-11.1) H 10/12/18 03:35 RBC 2.68 M/mcL (4.19-5.50) L 10/12/18 03:35 Hgb 7.8 g/dL (12.9-16.9) L 10/12/18 03:35 Hct 26.3 % (37.5-50.1) L 10/12/18 03:35 MCHC 29.7 g/dL (31.6-35.5) L 10/12/18 03:35 RDW 15.7 % (11.5-14.5) H 10/12/18 03:35 Plt Count 423 K/mcL (140-400) H 10/05/18 07:03 16.9 K/mcL (1.6-8.9) H 10/12/18 03:35 1.4 K/mcL (0.0-1.3) H 10/12/18 03:35 ESR 116 mm/hr (0-10) H 10/10/18 06:05 PT 26.3 Seconds (9.4-12.1) H 10/05/18 07:03 APTT 39.6 Seconds (26.0-36.0) H 10/05/18 07:03 ABG pH 7.49 pH Units (7.32-7.45) H 10/09/18 21:14 ABG pCO2 57 mmHg (35-45) H 10/10/18 22:34 ABG pO2 200 mmHg (85-104) H 10/10/18 22:34 ABG HCO3 32 mEq/L (21-27) H 10/10/18 22:34 ABG Total CO2 34 mEq/L (20-26) H 10/10/18 22:34 ABG O2 Saturation 100 % (95-98) H 10/10/18 22:34 ABG Base Excess 6 mEq/L (-2 to 3) H 10/10/18 22:34 Sodium 135 mEq/L (136-145) L 10/09/18 20:36 Chloride 97 mEq/L (98-107) L 10/09/18 20:36 Carbon Dioxide 31 mEq/L (23-29) H 10/11/18 03:54 BUN 43 mg/dL (8-23) H 10/12/18 03:35 47 (6-26) H 10/12/18 03:35 Glucose 147 mg/dL (70-105) H 10/12/18 03:35 POC Glucose 184 mg/dL (70-99) H 10/11/18 07:14 308 (280-300) H 10/12/18 03:35 Calcium 8.5 mg/dL (8.6-10.3) L 10/07/18 07:16 0.3 mg/dL (0.0-0.2) H 10/04/18 21:19 AST 42 Units/L (13-39) H 10/05/18 07:03 197 Units/L (34-104) H 10/10/18 06:05 242 Units/L (30-223) H 10/10/18 06:05 0.04 ng/mL (< 0.04) H* 10/04/18 21:19 186 mg/L (Less than 10) H 10/10/18 06:05 6.3 g/dL (6.4-8.9) L 10/10/18 06:05 2.6 g/dL (3.5-5.7) L 10/10/18 06:05 3.7 g/dL (2.4-3.5) H 10/10/18 06:05 0.7 (1.1-2.2) L 10/10/18 06:05 Amylase 16 Units/L (29-103) L 10/10/18 06:05 4 Units/L (11-82) L 10/10/18 06:05 0.41 ng/mL (0.00-0.15) H 10/11/18 03:54 Turbid (Clear) A 10/04/18 22:53 Ur Specific Capulin 1.026 (1.010-1.025) H 10/04/18 22:53 30 mg/dL (Neg-Trace) H 10/07/18 21:35 Trace mg/dL (Negative) H 10/07/18 21:35 Trace (Negative) H 10/07/18 21:35 Ur Leukocyte Esterase Moderate (Negative) H 10/07/18 21:35 3-5 per hpf (0-3) H 10/07/18 21:35 15-30 per hpf (0-3) H 10/07/18 21:35 Ur Squamous Epith Cells Many per lpf (None-Few) H 10/07/18 21:35 Hyaline Casts Moderate per lpf (None-Few) H 10/04/18 22:53 Ur Culture Indicated? NO. (NO) A 10/07/18 21:35 Vancomycin Trough 20 mcg/mL (5-10) H 10/11/18 22:10 Crossmatch See Detail 10/08/18 13:52 Consult Discharge Plan - Plan Referrals: Camron Allen MD [Primary Care Provider] - <Myra Jimenez I - Last Filed: 10/12/18 14:03> Date of Encounter: 10/12/18 Assessment and Plan (1) CVA (cerebral vascular accident) Current Visit: Yes Status: Acute I have personally performed a face to face diagnostic evaluation, including HPI, EXAM, which is included in the Assesment and plan, which was discussed with Will Rader CNP, I agree with the above outlined documentation. Overall he seems to improve , at the moment suggest continued to be off anticoagulation and antiplatelet therapy repeat CT scan did not show any new abnormality, concerning atrial fibrillation remains at risk for ischemic infarct, usually takes about a month to completely resolved hemorrhagic changes we could repeat imaging studies at that time and if no evidence of any bleed that case he may be tried back on anticoagulation but certainly risk of hemorrhagic complications continues. Patient may benefit from short-term rehabilitation providing his other conditions remains a stable, from neurology standpoint is doing well Myra Jimenez MD. NeurologyI Qualifiers: CVA mechanism: unspecified Qualified Code(s): I63.9 - Cerebral infarction, unspecified (2) Altered mental status Current Visit: Yes Status: Acute Qualifiers: Altered mental status type: unspecified Qualified Code(s): R41.82 - Altered mental status, unspecified (3) Seizure Current Visit: Yes Status: Suspected Objective - Constitutional Vitals: Temp Pulse Resp BP Pulse Ox 98.0 F 114 16 149/97 97 10/12/18 11:46 10/12/18 11:46 10/12/18 12:09 10/12/18 11:46 10/12/18 12:09 Results - Laboratory Findings CBC and BMP: 10/12/18 03:35 10/12/18 03:35 Abnormal lab findings: Abnormal lab results WBC 20.0 K/mcL (4.3-11.1) H 10/12/18 03:35 RBC 2.68 M/mcL (4.19-5.50) L 10/12/18 03:35 Hgb 7.8 g/dL (12.9-16.9) L 10/12/18 03:35 Hct 26.3 % (37.5-50.1) L 10/12/18 03:35 MCHC 29.7 g/dL (31.6-35.5) L 10/12/18 03:35 RDW 15.7 % (11.5-14.5) H 10/12/18 03:35 Plt Count 423 K/mcL (140-400) H 10/05/18 07:03 16.9 K/mcL (1.6-8.9) H 10/12/18 03:35 1.4 K/mcL (0.0-1.3) H 10/12/18 03:35 ESR 116 mm/hr (0-10) H 10/10/18 06:05 PT 26.3 Seconds (9.4-12.1) H 10/05/18 07:03 APTT 39.6 Seconds (26.0-36.0) H 10/05/18 07:03 ABG pH 7.49 pH Units (7.32-7.45) H 10/09/18 21:14 ABG pCO2 57 mmHg (35-45) H 10/10/18 22:34 ABG pO2 200 mmHg (85-104) H 10/10/18 22:34 ABG HCO3 32 mEq/L (21-27) H 10/10/18 22:34 ABG Total CO2 34 mEq/L (20-26) H 10/10/18 22:34 ABG O2 Saturation 100 % (95-98) H 10/10/18 22:34 ABG Base Excess 6 mEq/L (-2 to 3) H 10/10/18 22:34 Sodium 135 mEq/L (136-145) L 10/09/18 20:36 Chloride 97 mEq/L (98-107) L 10/09/18 20:36 Carbon Dioxide 31 mEq/L (23-29) H 10/11/18 03:54 BUN 43 mg/dL (8-23) H 10/12/18 03:35 47 (6-26) H 10/12/18 03:35 Glucose 147 mg/dL (70-105) H 10/12/18 03:35 POC Glucose 184 mg/dL (70-99) H 10/11/18 07:14 308 (280-300) H 10/12/18 03:35 Calcium 8.5 mg/dL (8.6-10.3) L 10/07/18 07:16 0.3 mg/dL (0.0-0.2) H 10/04/18 21:19 AST 42 Units/L (13-39) H 10/05/18 07:03 197 Units/L (34-104) H 10/10/18 06:05 242 Units/L (30-223) H 10/10/18 06:05 0.04 ng/mL (< 0.04) H* 10/04/18 21:19 186 mg/L (Less than 10) H 10/10/18 06:05 6.3 g/dL (6.4-8.9) L 10/10/18 06:05 2.6 g/dL (3.5-5.7) L 10/10/18 06:05 3.7 g/dL (2.4-3.5) H 10/10/18 06:05 0.7 (1.1-2.2) L 10/10/18 06:05 Amylase 16 Units/L (29-103) L 10/10/18 06:05 4 Units/L (11-82) L 10/10/18 06:05 0.41 ng/mL (0.00-0.15) H 10/11/18 03:54 Turbid (Clear) A 10/04/18 22:53 Ur Specific Capulin 1.026 (1.010-1.025) H 10/04/18 22:53 30 mg/dL (Neg-Trace) H 10/07/18 21:35 Trace mg/dL (Negative) H 10/07/18 21:35 Trace (Negative) H 10/07/18 21:35 Ur Leukocyte Esterase Moderate (Negative) H 10/07/18 21:35 3-5 per hpf (0-3) H 10/07/18 21:35 15-30 per hpf (0-3) H 10/07/18 21:35 Ur Squamous Epith Cells Many per lpf (None-Few) H 10/07/18 21:35 Hyaline Casts Moderate per lpf (None-Few) H 10/04/18 22:53 Ur Culture Indicated? NO. (NO) A 10/07/18 21:35 Vancomycin Trough 20 mcg/mL (5-10) H 10/11/18 22:10 Crossmatch See Detail 10/08/18 13:52
[2018-10-12] MEDS: Bumetanide 1 MG TABLET PO SCH (09:44)
--- NOTE | 2018-10-12 10:32 | Infectious Disease Progress No ---
ID Progress Note Date of Encounter: 10/12/18 Time of Encounter: 09:20 - Subjective Subjective: Patient seen and examined. No family at the bedside. No acute events noted overnight. Patient more alert and participates in the exam today. Very hard of hearing, some nausea, she actually understands. He is able to tell me his name and follows some commands. Review of systems Limited. No new issues per nursing. - Objective CBC & Chem 7: 10/12/18 03:35 10/12/18 03:35 - Exam Vitals: Temp Pulse Resp BP Pulse Ox 97.6 F 91 18 128/81 100 10/12/18 08:08 10/12/18 08:08 10/12/18 08:08 10/12/18 08:08 10/12/18 08:08 Exam: Head: Atraumatic, normal inspection, normocephalic. Eye: PERRLA, no scleral icterus noted. ENT: Mucous membranes moist. No odontogenic infection noted. Neck: Normal inspection. Soft, supple. No meningismus. Respiratory: Clear to auscultation. No rales, respiratory distress, rhonchi, or wheezes noted. Cardiovascular: Regular rate, tachycardic, S1 and S2 audible. No murmurs, rubs, or gallops. GI: Soft, nondistended, normal bowel sounds. Extremities: No joint swelling, pedal edema, or tenderness noted. Scabbed lesio n noted to the right upper extremity without surrounding erythema, warmth, drainage, or fluctuance noted. Neurological: Opens eyes. Follows commands. Very hard of hearing. Oriented to self. Skin: Dry, intact, warm. Normal color. No rashes. - Assessment and Plan (1) Sepsis Current Visit: Yes Status: Acute The patient developed sepsis-like picture with fever, tachycardia, and tachypnea. Etiology: Unclear. Pneumonia versus reactive to CVA versus other. WBC improves today. Afebrile overnight. Continues to have tachycardia. Blood cultures drawn 10/04/18 are no growth to date 2 sets. Repeat blood cultures drawn 10/09/18 are no growth to date 2 sets. Pro-calcitonin mildly elevated at 0.41. Respiratory infectious panel is negative. Urine culture negative. Qualifiers: Sepsis type: sepsis due to unspecified organism Qualified Code(s): A41.9 - Sepsis, unspecified organism SNOMED Code(s): 52882960 (2) Altered mental status Current Visit: Yes Status: Acute etiology: Likely secondary to hemorrhagic CVA. Neurology consult. Appreciate recommendations. CT of the head was negative initially, but MRI 10/10/18 showed hemorrhage stroke. Aspiration is on the differential given the patient's altered mental status, but CT chest was negative. Improved. Qualifiers: Altered mental status type: unspecified Qualified Code(s): R41.82 - Altered mental status, unspecified SNOMED Code(s): 976123793 (3) UTI (urinary tract infection) Current Visit: Yes Status: Ruled-out Causative organism: Unclear. Urinalysis positive, but possibly contaminated so culture was not sent. Urine culture negative. Currently on vancomycin and cefepime. Qualifiers: Urinary tract infection type: site unspecified Hematuria presence: without hematuria Qualified Code(s): N39.0 - Urinary tract infection, site not specified SNOMED Code(s): 88533962 (4) CVA (cerebral vascular accident) Current Visit: No Status: Acute Known history of CVA a couple of months ago. She will CT of the head was negative. MRI of the brain 10/10/18 showed evolving subacute hemorrhagic left frontal and left occipital lobe infarcts with areas of acute/early subacute infarction along the margins. There are also 2 punctate acute infarcts in the deep white matter of the left frontoparietal region. Chronic infarcts in the left parietal lobe were noted. Moderate chronic microvascular white matter ischemic disease noted the supra and infratentorially. Neurology consulted and following. Repeat CT of the head 10/11/18 showed continued evolution of the recent left frontal lobe infarct without acute hemorrhagic products. The patient's family declined transfer to tertiary care center for evaluation by neurosurgery. As per the neurology team. Qualifiers: CVA mechanism: other Qualified Code(s): I63.89 - Other cerebral infarction SNOMED Code(s): 516951220 (5) Decubitus ulcer, stage 2 Current Visit: Yes Status: Acute Clinically does not appear infected. Dressing changes and offloading per nursing protocol. CT abdomen and pelvis did not show any abscess, gas, or osteomyelitis associated with the ulcer. Qualifiers: Pressure injury location: unspecified location Qualified Code(s): L89.92 - Pressure ulcer of unspecified site, stage 2 SNOMED Code(s): 292947859 (6) DMII (diabetes mellitus, type 2) Current Visit: No Status: Chronic Recommend aggressive glucose monitoring and control to promote wound healing and prevent reinfection. 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 CT chest negative for PNA or pneumonitis. Improved. Currently on room air. Management per the pulmonary team. SNOMED Code(s): 70670470, 009031852 - Recommendations Recommendations: Await blood cultures to finalize. Discontinue cefepime. Start Zosyn 3.375 grams IV Q8H. Discontinue Vanc. Duration of treatment depends on the clinical picture. Monitor renal function and for drug toxicity and dose-adjust antibiotics. CVA management per the neurology team. GOC planning per the palliative care team. Consult Discharge Plan - Plan Referrals: Camron Allen MD [Primary Care Provider] -
[2018-10-12] MEDS: Insulin LISPRO 300 UNITS/3 ML VIAL SQ SCH ×2 (12:15→17:36)
[2018-10-12] MEDS: traMADol 50 MG TABLET PO PRN (12:21)
[2018-10-12] MEDS ORDERED: Cefepime HCl 2,000 MG in Water for inj. (sterile) 20 ML 20 ML IVPB SCH (13:00)
[2018-10-12] MEDS ORDERED: Cefepime HCl 2,000 MG in Water for inj. (sterile) 20 ML 20 ML IVP SCH (13:00)
[2018-10-12] MEDS ORDERED: Cefepime HCl 2,000 MG in 0.9 % Sodium Chloride Mini Bag 100 ML IVPB SCH (13:00)
--- NOTE | 2018-10-12 13:47 | Event Note ---
Date of Encounter: 10/12/18 Time of Encounter: 09:00 Patient this morning was sitting i bed, alert, no acute distress. Answers simple question by yes or no, and uses more words not always appropriately. No family at the bedside. Patient shows a substantial improvement from yesterday. Family's goals o care are clearly to cntinue on current level of care, with DNRCCA. No symptoms being managed by palliative, will sign off. Leonie reconsult prn.
[2018-10-12] MEDS: Piperacillin/Tazobactam 3.375 GM in 0.9 % Sodium Chloride Mini Bag 100 ML IVPB SCH (17:43)
[2018-10-13] MEDS: Levalbuterol Neb 1.25 MG/3 ML IH SCH ×6 (00:29→20:06)
[2018-10-13] MEDS: Piperacillin/Tazobactam 3.375 GM in 0.9 % Sodium Chloride Mini Bag 100 ML IVPB SCH ×3 (01:42→16:48)
[2018-10-13] MEDS: *HR* Metoprolol 5 MG/5 ML VIAL IVP SCH ×5 (01:42→17:30)
[2018-10-13 02:52] LABS: Basophils % 0.2 %; Eosinophils # 0.1 K/mcL (0.0-0.6); Eosinophils % 0.9 %; Hematocrit 24.8 % (37.5-50.1); Hemoglobin 7.5 g/dL (12.9-16.9); Immature Granulocytes % 1.1 % (0-4); Lymphocytes # 1.3 K/mcL (0.6-4.6); Lymphocytes % 9.1 %; Mean Corpuscular HGB Conc 30.2 g/dL (31.6-35.5); Mean Corpuscular Hemoglobin 29.2 pg (28.0-33.3); Mean Corpuscular Volume 96.5 fL (83.0-100.0); Mean Platelet Volume 10.3 fL (9.4-12.4); Monocytes # 1.2 K/mcL (0.0-1.3); Platelet Count 390 K/mcL (140-400); Red Blood Count 2.57 M/mcL (4.19-5.50); Segmented Neutrophils % 79.7 %
[2018-10-13 03:09] LABS: BUN/Creatinine Ratio 45 (6-26); Blood Urea Nitrogen 40 mg/dL (8-23); Calcium 8.8 mg/dL (8.6-10.3); Carbon Dioxide 31 mEq/L (23-29); Chloride 106 mEq/L (98-107); Glucose 130 mg/dL (70-105); Osmolality,Calculated 306 (280-300); Potassium 3.9 mEq/L (3.5-5.1); Sodium 142 mEq/L (136-145); eGFR For Non-African Americans > 60 (> 60)
[2018-10-13] MEDS: Bumetanide 1 MG TABLET PO SCH ×2 (07:57→08:47)
[2018-10-13] MEDS: Insulin LISPRO 300 UNITS/3 ML VIAL SQ SCH ×3 (08:46→22:25)
--- NOTE | 2018-10-13 09:02 | Neurology Progress Note ---
<Will Rader - Last Filed: 10/13/18 08:59> Date of Encounter: 10/13/18 Time of Encounter: 08:59 Assessment and Plan (1) CVA (cerebral vascular accident) Current Visit: Yes Status: Acute Patient seen in follow-up for altered mental state. Condition multifactorial with underlying sepsis, metabolic derangements in subacute hemorrhagic infarct. Clinically, he remained stable overnight. Neuro exam is complicated by encephalopathic state however, no new obvious deficits found. Again, due to history of atrial fibrillation the patient is at high risk for recurrent CVA. However, she is given hemorrhagic conversion to continue to recommend avoiding platelets. Avoid anticoagulation. No need for additional neuroimaging at this time. However, she does neurologic/mental status decline would recommend repeat CT imaging. PT/OT-patient would likely benefit from short-term rehabilitation Follow up with neurology in 2-3 weeks of discharge Repeat CT imaging of the head in about month to assess if hemorrhagic changes have resolved At that time we will again risk vs benefit of oral AC Please call neurology if any further needs or questions arise Qualifiers: CVA mechanism: unspecified Qualified Code(s): I63.9 - Cerebral infarction, unspecified (2) Altered mental status Current Visit: Yes Status: Acute Qualifiers: Altered mental status type: unspecified Qualified Code(s): R41.82 - Altered mental status, unspecified (3) Seizure Current Visit: Yes Status: Suspected Subjective Principal diagnosis: Altered mental status Interval history: Patient seen in follow-up for altered mental state, evaluation of seizures and hemorrhagic conversion of CVA. Clinically, the patient is stable. He is somewhat lethargic this morning but arousable to gentle tactile and loud verbal stimulus as he is hard of hearing. He continues to be encephalopathic and under exam is complicated as such. However, no new obvious deficits noticed and no new concerns reported by family. Objective - Constitutional Vitals: Temp Pulse Resp BP Pulse Ox 98.7 F 104 25 128/73 97 10/13/18 07:23 10/13/18 07:23 10/13/18 07:29 10/13/18 07:23 10/13/18 07:29 Exam: Examination: General Examination: *CONSTITUTIONAL: encephalopathic, lethargic but responds to gentle tactile and verbal stimulus *GENERAL APPEARANCE OF PATIENT ill appearing elderly male *EYES: pupils equal, round, reactive to light and accommodation, conjunctiva clear *CARDIOVASCULAR RRR, S1, S2, no peripheral edema Musculoskeletal: *GAIT AND STATION deferred due to altered mental state *ASSESSMENT OF MUSCLE STRENGTH IN THE UPPER AND LOWER EXTREMITIES bilateral deltoid, bicep, tricep, cylinder worker strength, hip flexors ,anterior tibialis, dorsoflexion of the foot; moves all 4 extremities passively Neurological: *ORIENTATION-continues to be encephalopathic but is alert and oriented to self *SENSORY EXAMINATION moves all 4 extremities passively *CEREBELLAR TESTING deferred due to altered mental state Results - Laboratory Findings CBC and BMP: 10/13/18 01:43 10/13/18 01:43 Abnormal lab findings: Abnormal lab results WBC 13.8 K/mcL (4.3-11.1) H 10/13/18 01:43 RBC 2.57 M/mcL (4.19-5.50) L 10/13/18 01:43 Hgb 7.5 g/dL (12.9-16.9) L 10/13/18 01:43 Hct 24.8 % (37.5-50.1) L 10/13/18 01:43 MCHC 30.2 g/dL (31.6-35.5) L 10/13/18 01:43 RDW 16.0 % (11.5-14.5) H 10/13/18 01:43 Plt Count 423 K/mcL (140-400) H 10/05/18 07:03 11.0 K/mcL (1.6-8.9) H 10/13/18 01:43 1.4 K/mcL (0.0-1.3) H 10/12/18 03:35 ESR 116 mm/hr (0-10) H 10/10/18 06:05 PT 26.3 Seconds (9.4-12.1) H 10/05/18 07:03 APTT 39.6 Seconds (26.0-36.0) H 10/05/18 07:03 ABG pH 7.49 pH Units (7.32-7.45) H 10/09/18 21:14 ABG pCO2 57 mmHg (35-45) H 10/10/18 22:34 ABG pO2 200 mmHg (85-104) H 10/10/18 22:34 ABG HCO3 32 mEq/L (21-27) H 10/10/18 22:34 ABG Total CO2 34 mEq/L (20-26) H 10/10/18 22:34 ABG O2 Saturation 100 % (95-98) H 10/10/18 22:34 ABG Base Excess 6 mEq/L (-2 to 3) H 10/10/18 22:34 Sodium 135 mEq/L (136-145) L 10/09/18 20:36 Chloride 97 mEq/L (98-107) L 10/09/18 20:36 Carbon Dioxide 31 mEq/L (23-29) H 10/13/18 01:43 BUN 40 mg/dL (8-23) H 10/13/18 01:43 45 (6-26) H 10/13/18 01:43 Glucose 130 mg/dL (70-105) H 10/13/18 01:43 POC Glucose 147 mg/dL (70-99) H 10/12/18 08:13 306 (280-300) H 10/13/18 01:43 Calcium 8.5 mg/dL (8.6-10.3) L 10/07/18 07:16 0.3 mg/dL (0.0-0.2) H 10/04/18 21:19 AST 42 Units/L (13-39) H 10/05/18 07:03 197 Units/L (34-104) H 10/10/18 06:05 242 Units/L (30-223) H 10/10/18 06:05 0.04 ng/mL (< 0.04) H* 10/04/18 21:19 186 mg/L (Less than 10) H 10/10/18 06:05 6.3 g/dL (6.4-8.9) L 10/10/18 06:05 2.6 g/dL (3.5-5.7) L 10/10/18 06:05 3.7 g/dL (2.4-3.5) H 10/10/18 06:05 0.7 (1.1-2.2) L 10/10/18 06:05 Amylase 16 Units/L (29-103) L 10/10/18 06:05 4 Units/L (11-82) L 10/10/18 06:05 0.41 ng/mL (0.00-0.15) H 10/11/18 03:54 Turbid (Clear) A 10/04/18 22:53 Ur Specific [place] 1.026 (1.010-1.025) H 10/04/18 22:53 30 mg/dL (Neg-Trace) H 10/07/18 21:35 Trace mg/dL (Negative) H 10/07/18 21:35 Trace (Negative) H 10/07/18 21:35 Ur Leukocyte Esterase Moderate (Negative) H 10/07/18 21:35 3-5 per hpf (0-3) H 10/07/18 21:35 15-30 per hpf (0-3) H 10/07/18 21:35 Ur Squamous Epith Cells Many per lpf (None-Few) H 10/07/18 21:35 Hyaline Casts Moderate per lpf (None-Few) H 10/04/18 22:53 Ur Culture Indicated? NO. (NO) A 10/07/18 21:35 Vancomycin Trough 20 mcg/mL (5-10) H 10/11/18 22:10 Crossmatch See Detail 10/08/18 13:52 Consult Discharge Plan - Plan Referrals: Camron Allen MD [Primary Care Provider] - <Myra Jimenez I - Last Filed: 10/13/18 09:56> Date of Encounter: 10/13/18 Assessment and Plan (1) CVA (cerebral vascular accident) Current Visit: Yes Status: Acute I have personally performed a face to face diagnostic evaluation, including HPI, EXAM, which is included in the Assesment and plan, which was discussed with Will Rader CNP, I agree with the above outlined documentation. Overall he is a stable , as far as prognosis is concern is remains guarded considering multiple other medical conditions making it recovery suggest conservative treatment, as outlined above Myra Jimenez MD. NeurologyI Qualifiers: CVA mechanism: unspecified Qualified Code(s): I63.9 - Cerebral infarction, unspecified (2) Altered mental status Current Visit: Yes Status: Acute Qualifiers: Altered mental status type: unspecified Qualified Code(s): R41.82 - Altered mental status, unspecified (3) Seizure Current Visit: Yes Status: Suspected Objective - Constitutional Vitals: Temp Pulse Resp BP Pulse Ox 98.7 F 104 25 128/73 97 10/13/18 07:23 10/13/18 07:23 10/13/18 07:29 10/13/18 07:23 10/13/18 07:29 Results - Laboratory Findings CBC and BMP: 10/13/18 01:43 10/13/18 01:43 Abnormal lab findings: Abnormal lab results WBC 13.8 K/mcL (4.3-11.1) H 10/13/18 01:43 RBC 2.57 M/mcL (4.19-5.50) L 10/13/18 01:43 Hgb 7.5 g/dL (12.9-16.9) L 10/13/18 01:43 Hct 24.8 % (37.5-50.1) L 10/13/18 01:43 MCHC 30.2 g/dL (31.6-35.5) L 10/13/18 01:43 RDW 16.0 % (11.5-14.5) H 10/13/18 01:43 Plt Count 423 K/mcL (140-400) H 10/05/18 07:03 11.0 K/mcL (1.6-8.9) H 10/13/18 01:43 1.4 K/mcL (0.0-1.3) H 10/12/18 03:35 ESR 116 mm/hr (0-10) H 10/10/18 06:05 PT 26.3 Seconds (9.4-12.1) H 10/05/18 07:03 APTT 39.6 Seconds (26.0-36.0) H 10/05/18 07:03 ABG pH 7.49 pH Units (7.32-7.45) H 10/09/18 21:14 ABG pCO2 57 mmHg (35-45) H 10/10/18 22:34 ABG pO2 200 mmHg (85-104) H 10/10/18 22:34 ABG HCO3 32 mEq/L (21-27) H 10/10/18 22:34 ABG Total CO2 34 mEq/L (20-26) H 10/10/18 22:34 ABG O2 Saturation 100 % (95-98) H 10/10/18 22:34 ABG Base Excess 6 mEq/L (-2 to 3) H 10/10/18 22:34 Sodium 135 mEq/L (136-145) L 10/09/18 20:36 Chloride 97 mEq/L (98-107) L 10/09/18 20:36 Carbon Dioxide 31 mEq/L (23-29) H 10/13/18 01:43 BUN 40 mg/dL (8-23) H 10/13/18 01:43 45 (6-26) H 10/13/18 01:43 Glucose 130 mg/dL (70-105) H 10/13/18 01:43 POC Glucose 147 mg/dL (70-99) H 10/12/18 08:13 306 (280-300) H 10/13/18 01:43 Calcium 8.5 mg/dL (8.6-10.3) L 10/07/18 07:16 0.3 mg/dL (0.0-0.2) H 10/04/18 21:19 AST 42 Units/L (13-39) H 10/05/18 07:03 197 Units/L (34-104) H 10/10/18 06:05 242 Units/L (30-223) H 10/10/18 06:05 0.04 ng/mL (< 0.04) H* 10/04/18 21:19 186 mg/L (Less than 10) H 10/10/18 06:05 6.3 g/dL (6.4-8.9) L 10/10/18 06:05 2.6 g/dL (3.5-5.7) L 10/10/18 06:05 3.7 g/dL (2.4-3.5) H 10/10/18 06:05 0.7 (1.1-2.2) L 10/10/18 06:05 Amylase 16 Units/L (29-103) L 10/10/18 06:05 4 Units/L (11-82) L 10/10/18 06:05 0.41 ng/mL (0.00-0.15) H 10/11/18 03:54 Turbid (Clear) A 10/04/18 22:53 Ur Specific [place] 1.026 (1.010-1.025) H 10/04/18 22:53 30 mg/dL (Neg-Trace) H 10/07/18 21:35 Trace mg/dL (Negative) H 10/07/18 21:35 Trace (Negative) H 10/07/18 21:35 Ur Leukocyte Esterase Moderate (Negative) H 10/07/18 21:35 3-5 per hpf (0-3) H 10/07/18 21:35 15-30 per hpf (0-3) H 10/07/18 21:35 Ur Squamous Epith Cells Many per lpf (None-Few) H 10/07/18 21:35 Hyaline Casts Moderate per lpf (None-Few) H 10/04/18 22:53 Ur Culture Indicated? NO. (NO) A 10/07/18 21:35 Vancomycin Trough 20 mcg/mL (5-10) H 10/11/18 22:10 Crossmatch See Detail 10/08/18 13:52
--- NOTE | 2018-10-13 10:51 | Infectious Disease Progress No ---
ID Progress Note Date of Encounter: 10/13/18 Time of Encounter: 10:00 - Subjective Subjective: Patient seen and examined with family at the bedside. States patient was alert and oriented this morning and during 2 ensures, but is now somewhat unresponsive. He states this seems to be a trend for him and he typically wakes up again for about an hour and a half to 2 hours in the evening. Review of systems unobtainable from the patient. He does open his eyes to loud verbal stimuli, but does not verbalize or follow commands. He does not appear to be in any acute distress. - Objective CBC & Chem 7: 10/13/18 01:43 10/13/18 01:43 - Exam Vitals: Temp Pulse Resp BP Pulse Ox 98.7 F 104 25 128/73 97 10/13/18 07:23 10/13/18 07:23 10/13/18 07:29 10/13/18 07:23 10/13/18 07:29 Exam: Head: Atraumatic, normal inspection, normocephalic. Eye: PERRLA, no scleral icterus noted. ENT: Mucous membranes moist. No odontogenic infection noted. Neck: Normal inspection. Soft, supple. No meningismus. Respiratory: Clear to auscultation. No rales, respiratory distress, rhonchi, or wheezes noted. Cardiovascular: Regular rate, tachycardic, S1 and S2 audible. No murmurs, rubs, or gallops. GI: Soft, nondistended, normal bowel sounds. Extremities: No joint swelling, pedal edema, or tenderness noted. Scabbed lesion noted to the right upper extremity without surrounding erythema, warmth, drainage, or fluctuance noted. Neurological: Opens eyes to loud verbal stimuli. Does not follow commands or verbalize. Skin: Dry, intact, warm. Normal color. No rashes. - Assessment and Plan (1) Sepsis Current Visit: Yes Status: Acute The patient developed sepsis-like picture with fever, tachycardia, and tachypnea. Etiology: Unclear. Pneumonia versus reactive to CVA versus other. WBC improves today. Afebrile overnight. Continues to have tachycardia. Blood cultures drawn 10/04/18 are negative 2 sets. Repeat blood cultures drawn 10/09/18 are negative 2 sets. Pro-calcitonin mildly elevated at 0.41. Respiratory infectious panel is negative. Urine culture negative. CT of the chest, abdomen, and pelvis nonrevealing for infectious etiology. Qualifiers: Sepsis type: sepsis due to unspecified organism Qualified Code(s): A41.9 - Sepsis, unspecified organism SNOMED Code(s): 94653578 (2) Altered mental status Current Visit: Yes Status: Acute etiology: Unclear. Sepsis versus other. Waxing and waning per family report. Review of systems Limited due to patient's mental status. Neurology consulted. Appreciate recommendations. CT of the head was negative initially, but MRI 10/10/18 showed hemorrhage stroke. Aspiration is on the differential given the patient's altered mental status, but CT chest was negative. Improved. Qualifiers: Altered mental status type: unspecified Qualified Code(s): R41.82 - Altered mental status, unspecified SNOMED Code(s): 337779422 (3) UTI (urinary tract infection) Current Visit: Yes Status: Suspected Ruled out. Urine culture negative. Qualifiers: Urinary tract infection type: site unspecified Hematuria presence: without hematuria Qualified Code(s): N39.0 - Urinary tract infection, site not specified SNOMED Code(s): 03658902 (4) CVA (cerebral vascular accident) Current Visit: No Status: Acute Known history of CVA a couple of months ago. Initial CT of the head was negative. MRI of the brain 10/10/18 showed evolving subacute hemorrhagic left frontal and left occipital lobe infarcts with areas of acute/early subacute infarction along the margins. There are also 2 punctate acute infarcts in the deep white matter of the left frontoparietal region. Chronic infarcts in the left parietal lobe were noted. Moderate chronic microvascular white matter ischemic disease noted the supra and infratentorially. Neurology consulted and following. Repeat CT of the head 10/11/18 showed continued evolution of the recent left frontal lobe infarct without acute hemorrhagic products. The patient's family declined transfer to tertiary care center for evaluation by neurosurgery. As per the neurology team. Qualifiers: CVA mechanism: other Qualified Code(s): I63.89 - Other cerebral infarction SNOMED Code(s): 987047982 (5) Decubitus ulcer, stage 2 Current Visit: Yes Status: Chronic Clinically does not appear infected. Dressing changes and offloading per nursing protocol. Qualifiers: Pressure injury location: unspecified location Qualified Code(s): L89.92 - Pressure ulcer of unspecified site, stage 2 SNOMED Code(s): 279275734 (6) DMII (diabetes mellitus, type 2) Current Visit: No Status: Chronic Recommend aggressive glucose monitoring and control to promote wound healing and prevent reinfection. Qualifiers: Diabetes mellitus senior care insulin use: with roasterman use Diabetes mellitus complication status: with hyperglycemia Qualified Code(s): E11.65 - Type 2 diabetes mellitus with hyperglycemia; Z79.4 - intermediate frame tender (current) use of insulin SNOMED Code(s): 58309374 (7) Acute respiratory failure with hypoxia Current Visit: Yes Status: Acute Likely secondary to acute encephalopathy and possible aspiration. CT chest negative for PNA or pneumonitis. Improved. Currently on room air. Management per the pulmonary team. SNOMED Code(s): 43854212, 892108782 - Recommendations Recommendations: Await blood cultures to finalize. Repeat LFTS. Consider GI to evaluate given the patient's CT findings that showed some gallbladder distention and lack of other source of sepsis. Continue Zosyn 3.375 grams IV Q8H. Duration of treatment depends on the clinical picture. Monitor renal function and for drug toxicity and dose-adjust antibiotics. CVA management per the neurology team. Consult Discharge Plan - Plan Referrals: Camron Allen MD [Primary Care Provider] - - Attending Attestation I have personally performed a face to face evaluation on this patient. I have reviewed and agree with the care plan. History and Exam by me shows: Patient seen and examined. Clinically unchanged. Apparently has been waxing and waning. Assessment and plan: Sepsis Altered mental status UTI CVA Intracranial bleed Recommendations: Await blood cultures to finalize. Repeat LFTS. Consider GI to evaluate given the patient's CT findings that showed some gal lbladder distention and lack of other source of sepsis. Continue Zosyn 3.375 grams IV Q8H. Duration of treatment depends on the clinical picture. Monitor renal function and for drug toxicity and dose-adjust antibiotics. CVA management per the neurology team.
--- NOTE | 2018-10-13 11:32 | Internal Med Progress Note ---
Hospitalist Progress Note - Encounter Date of Encounter: 10/13/18 Time of Encounter: 11:29 - Subjective Interval History: I have seen and evaluated the patient at bedside. Patient arousable to sternal rub, protecting his airways, not following commands. as per the nurse and the patient son in law at bedside, patient mental status continues to wax and wane. yesterday the patient was awake and following simple commands but today he is somnolent - Exam Vitals: Temp Pulse Resp BP Pulse Ox 98.6 F 111 25 116/69 97 10/13/18 11:25 10/13/18 11:25 10/13/18 11:27 10/13/18 11:10/13/18 11:27 Exam: Vitals: Reviewed. General: somnolent, not following commands Cardiovascular: Tachycardic, irregularly irregular, normal S1 & S2, no rubs, murmurs or gallops. Lungs: CTA b/l, no wheezes or crackles. Abdomen: Obese, soft, non-tender, no rigidity. Extremities: trace edema in the lower ext b/l. Neurological: unable to perform due to AMS Rest of the physical exam is non contributory - Assessment and Plan (1) Afib Current Visit: No Status: Chronic Assessment and Plan: rate sub-optimally controlled. metoprolol increased to 7.5 mg IV every 6 hours as scheduled. not on anticoagulation due to recent hemorrhagic stroke (2) Anemia Current Visit: No Status: Chronic Assessment and Plan: Continue ferrous sulfate. will monitor H&H and transfuse per protocol (3) Leukocytosis Current Visit: No Status: Acute Assessment and Plan: possible secondary to UTI. patient on broad spectrum IV antibiotics (4) CVA (cerebral vascular accident) Current Visit: Yes Status: Acute Assessment and Plan: MR/MR head/brain wo con IMPRESSION: 1. Evolving subacute hemorrhagic left frontal and left occipital lobe infarcts with areas of acute/early subacute infarction along the margins. There are also 2 punctate acute infarcts in the deep white matter of the left frontoparietal region. 2. Chronic infarcts in the left parietal lobe. 3. Moderate chronic microvascular white matter ischemic disease noted both supra and infratentorially. Plan patient mental status continues to wax and wane Patient not on antiplatelet due to hemorrhagic stroke Continue metoprolol 5 mg IV every 6 hours as scheduled. Goal SBP less than 140. On atorvastatin 40 mg by mouth at bedtime. family refused on repeating head ct today (5) Acute respiratory failure with hypoxia Current Visit: Yes Status: Acute Assessment and Plan: Patient noticed respiratory distress. Continue oxygen by nasal cannula, titrate for O2 sat duration more than 92%. On bronchodilators is scheduled. Due to patient change in mental status when compared to yesterday, repeat ABG (6) Decubitus ulcer, stage 2 Current Visit: Yes Status: Chronic Assessment and Plan: wound care consult (7) Seizure Current Visit: Yes Status: Suspected Assessment and Plan: On Keppra 500 mg IV twice a day. (8) DMII (diabetes mellitus, type 2) Current Visit: No Status: Chronic Assessment and Plan: Patient is nothing by mouth. Accu-Cheks every 6 hours plus lispro low-dose sliding scale. (9) Encephalopathy acute Current Visit: Yes Status: Acute Assessment and Plan: Multifactorial possible metabolic in the setting of possible UTI, versus multiple recent CVA. (10) UTI (urinary tract infection) Current Visit: Yes Status: Suspected Assessment and Plan: Patient is on piperacillin/tazobactam 3.375 mg IV every 8 hours. DVT Prophylaxis: Intermittent pneumatic compression for DVT prophylaxis. No chemical DVT prophylaxis due to hemorrhagic stroke. - Summary of Assessment and Plan Summary of Assessment and Plan: Patient to remain in the hospital due to acute encephalopathy. - Time Spent with Patient Total time spent is greater than 50% in coordination of care (as documented) at patient's floor/unit and/or counseling patient: Greater than 35 minutes (45) Plan of Care Discussed with: nurse - Is Patient Candidate for Palliative Care Consider palliative consult if one or more criteria present:: Patient or family with unrealistic goals and expectations Internal Medicine: Result - Labs CBC & Chem 7: 10/13/18 01:43 10/13/18 01:43 Labs: Short CBC 10/13/18 Range/Units 01:43 WBC 13.8 H (4.3-11.1) K/mcL Hgb 7.5 L (12.9-16.9) g/dL Hct 24.8 L (37.5-50.1) % Plt Count 390 (140-400) K/mcL Neutrophils # 11.0 H (1.6-8.9) K/mcL BMP 10/13/18 01:43 Sodium 142 Potassium 3.9 Chloride 106 Carbon Dioxide 31 H BUN 40 H Creatinine 0.88 Glucose 130 H Calcium 8.8 - ABG Interpretation ABG results: ABG ABG pH 7.36 pH Units (7.32-7.45) 10/10/18 22:34 ABG pCO2 57 mmHg (35-45) H 10/10/18 22:34 ABG pO2 200 mmHg (85-104) H 10/10/18 22:34 ABG O2 Saturation 100 % (95-98) H 10/10/18 22:34 PT/INR, D-dimer PT 26.3 Seconds (9.4-12.1) H 10/05/18 07:03 Consult Discharge Plan - Plan Referrals: Camron Allen MD [Primary Care Provider] - (1) Afib Qualifiers: Atrial fibrillation type: chronic Qualified Code(s): I48.2 - Chronic atrial fibrillation (2) Anemia Qualifiers: Anemia type: iron deficiency Qualified Code(s): D50.9 - Iron deficiency anemia, unspecified (3) Leukocytosis Qualifiers: Leukocytosis type: unspecified Qualified Code(s): D72.829 - Elevated white blood cell count, unspecified (4) CVA (cerebral vascular accident) Qualifiers: CVA mechanism: unspecified Qualified Code(s): I63.9 - Cerebral infarction, unspecified (6) Decubitus ulcer, stage 2 Qualifiers: Pressure injury location: unspecified location Qualified Code(s): L89.92 - Pressure ulcer of unspecified site, stage 2 (8) DMII (diabetes mellitus, type 2) Qualifiers: Diabetes mellitus extermination supervisor insulin use: with usp use Diabetes mellitus complication status: with hyperglycemia Qualified Code(s): E11.65 - Type 2 diabetes mellitus with hyperglycemia; Z79.4 - termite helper (current) use of insulin (10) UTI (urinary tract infection) Qualifiers: Urinary tract infection type: site unspecified Hematuria presence: without hematuria Qualified Code(s): N39.0 - Urinary tract infection, site not specified
[2018-10-13 14:44] LABS: ABG Base Excess 8 mEq/L (-2 to 3); ABG HCO3 33 mEq/L (21-27); ABG Oxygen Saturation 91 % (95-98); ABG PCO2 45 mmHg (35-45); ABG PH 7.47 pH Units (7.32-7.45); ABG PO2 57 mmHg (85-104); ABG TCO2 34 mEq/L (20-26)
[2018-10-14] MEDS: Insulin LISPRO 300 UNITS/3 ML VIAL SQ SCH ×3 (00:01→13:17)
[2018-10-14] MEDS: *HR* Metoprolol 5 MG/5 ML VIAL IVP SCH ×3 (00:04→13:08)
[2018-10-14] MEDS: Piperacillin/Tazobactam 3.375 GM in 0.9 % Sodium Chloride Mini Bag 100 ML IVPB SCH ×3 (00:04→16:17)
[2018-10-14] MEDS: Levalbuterol Neb 1.25 MG/3 ML IH SCH ×6 (00:28→19:48)
[2018-10-14] MEDS: Bumetanide 1 MG TABLET PO SCH ×2 (08:11→09:29)
[2018-10-14] MEDS: traMADol 50 MG TABLET PO PRN (14:31)
--- NOTE | 2018-10-14 14:32 | Internal Med Progress Note ---
Hospitalist Progress Note - Encounter Date of Encounter: 10/14/18 Time of Encounter: 14:29 - Subjective Interval History: I have seen and evaluated the patient at bedside. Today he is more awake, non verbal, in no apparent distress. - Exam Vitals: Temp Pulse Resp BP Pulse Ox 98.6 F 98 19 126/80 99 10/14/18 12:18 10/14/18 12:18 10/14/18 12:18 10/14/18 12:18 10/14/18 12:18 Exam: Vitals: Reviewed. General: Awake, not oriented to time or place. In no apparent distress Cardiovascular: irregularly irregular, normal S1 & S2, no rubs, murmurs or gallops. Lungs: CTA b/l, no wheezes or crackles. Abdomen: Obese, soft, non-tender, no rigidity. Extremities: trace edema in the lower ext b/l. Neurological: Patient not following commands. Rest of the physical exam is non contributory - Assessment and Plan (1) Afib Current Visit: No Status: Chronic Assessment and Plan: Rate controlled on metoprolol 7.5mg/IV Q6HRs. will start oral bb. not on anticoagulation due to recent hemorrhagic cva. (2) Anemia Current Visit: No Status: Chronic Assessment and Plan: labs pending for today. will monitor and transfuse per protocol. (3) Leukocytosis Current Visit: No Status: Acute Assessment and Plan: patient being treated for a possible UTI. afebrile for >78 hours, h emodynamically stable. (4) CVA (cerebral vascular accident) Current Visit: Yes Status: Acute Assessment and Plan: MR/MR head/brain wo con IMPRESSION: 1. Evolving subacute hemorrhagic left frontal and left occipital lobe infarcts with areas of acute/early subacute infarction along the margins. There are also 2 punctate acute infarcts in the deep white matter of the left frontoparietal region. 2. Chronic infarcts in the left parietal lobe. 3. Moderate chronic microvascular white matter ischemic disease noted both supra and infratentorially. repeat 10/14/18 CT/CT head/brain wo con IMPRESSION: 1. Evolving subacute left frontal and occipital infarct. Plan Today patient is awake Not on antiplatelet due to hemorrhagic stroke Continue metoprolol 7.5 mg IV every 6 hours as scheduled. Goal SBP less than 140. will start oral bb, patient tolerating oral diet On atorvastatin 40 mg by mouth at bedtime. (5) Acute respiratory failure with hypoxia Current Visit: Yes Status: Acute Assessment and Plan: patient in no respiratory distress. on bronchodilators Q4RT PRN. O2 by nasal cannula titrate for O2Sat >92% (6) Decubitus ulcer, stage 2 Current Visit: Yes Status: Chronic Assessment and Plan: care per wound care (7) Seizure Current Visit: Yes Status: Suspected Assessment and Plan: Continue Keppra 500 mg IV twice a day. (8) DMII (diabetes mellitus, type 2) Current Visit: No Status: Chronic Assessment and Plan: patient's family has refused accu-checks and insulin coverage. (9) Encephalopathy acute Current Visit: Yes Status: Resolved Assessment and Plan: patient more awake today. will continue to monitor (10) UTI (urinary tract infection) Current Visit: Yes Status: Suspected Assessment and Plan: patient being covered empirically with piperacillin/tazobactam 3.375mg IV Q8HRs. blood culture and urine culture: no growth final report DVT Prophylaxis: intermittent pneumatic compression for dvt prophylaxis no chemical dvt prophylaxis due to hemorrhagic stroke - Summary of Assessment and Plan Summary of Assessment and Plan: patient to remain in the hospital due to acute cva, encephalopathic. potential placement on Tuesday or Tuesday - Time Spent with Patient Total time spent is greater than 50% in coordination of care (as documented) at patient's floor/unit and/or counseling patient: Greater than 35 minutes (40) Plan of Care Discussed with: nurse (and the patient's family) Internal Medicine: Result - Labs CBC & Chem 7: 10/13/18 01:43 10/13/18 01:43 - ABG Interpretation ABG results: ABG ABG pH 7.47 pH Units (7.32-7.45) H 10/13/18 14:40 ABG pCO2 45 mmHg (35-45) 10/13/18 14:40 ABG pO2 57 mmHg (85-104) L 10/13/18 14:40 ABG O2 Saturation 91 % (95-98) L 10/13/18 14:40 PT/INR, D-dimer PT 26.3 Seconds (9.4-12.1) H 10/05/18 07:03 - Impressions Impressions Head CT 10/13/18 18:45 IMPRESSION: 1. Evolving subacute left frontal and occipital infarct. D/ / Mickey Matias MD / Mickey Matias MD Interpreting Provider: Mickey Matias MD Consult Discharge Plan - Plan Referrals: Camron Allen MD [Primary Care Provider] - (1) Afib Qualifiers: Atrial fibrillation type: chronic Qualified Code(s): I48.2 - Chronic atrial fibrillation (2) Anemia Qualifiers: Anemia type: iron deficiency Qualified Code(s): D50.9 - Iron deficiency anemia, unspecified (3) Leukocytosis Qualifiers: Leukocytosis type: unspecified Qualified Code(s): D72.829 - Elevated white blood cell count, unspecified (4) CVA (cerebral vascular accident) Qualifiers: CVA mechanism: unspecified Qualified Code(s): I63.9 - Cerebral infarction, unspecified (6) Decubitus ulcer, stage 2 Qualifiers: Pressure injury location: unspecified location Qualified Code(s): L89.92 - Pressure ulcer of unspecified site, stage 2 (8) DMII (diabetes mellitus, type 2) Qualifiers: Diabetes mellitus [facility] insulin use: with terminal computer operator use Diabetes mellitus complication status: with hyperglycemia Qualified Code(s): E11.65 - Type 2 diabetes mellitus with hyperglycemia; Z79.4 - 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
[2018-10-14 14:38] LABS: BUN/Creatinine Ratio 33 (6-26); Blood Urea Nitrogen 34 mg/dL (8-23); Calcium 8.6 mg/dL (8.6-10.3); Carbon Dioxide 30 mEq/L (23-29); Chloride 105 mEq/L (98-107); Glucose 234 mg/dL (70-105); Magnesium 1.9 mg/dL (1.6-2.6); Osmolality,Calculated 311 (280-300); Phosphorous 2.5 mg/dL (2.7-4.5); Sodium 143 mEq/L (136-145); eGFR For Non-African Americans > 60 (> 60)
[2018-10-14] MEDS ORDERED: *HR* Metoprolol 5 MG/5 ML VIAL IVP PRN (14:40)
[2018-10-14 14:53] LABS: Basophils % 0.2 %; Eosinophils # 0.1 K/mcL (0.0-0.6); Hemoglobin 8.3 g/dL (12.9-16.9); Immature Granulocytes % 1.4 % (0-4); Lymphocytes # 1.3 K/mcL (0.6-4.6); Lymphocytes % 8.9 %; Mean Corpuscular HGB Conc 29.6 g/dL (31.6-35.5); Mean Corpuscular Hemoglobin 29.1 pg (28.0-33.3); Mean Corpuscular Volume 98.2 fL (83.0-100.0); Mean Platelet Volume 10.2 fL (9.4-12.4); Monocytes # 0.9 K/mcL (0.0-1.3); Monocytes % 6.1 %; Neutrophils # 12.1 K/mcL (1.6-8.9); Platelet Count 387 K/mcL (140-400); Red Blood Count 2.85 M/mcL (4.19-5.50); Segmented Neutrophils % 82.4 %
[2018-10-15] MEDS: Levalbuterol Neb 1.25 MG/3 ML IH SCH ×6 (00:29→19:43)
[2018-10-15] MEDS: Piperacillin/Tazobactam 3.375 GM in 0.9 % Sodium Chloride Mini Bag 100 ML IVPB SCH ×3 (01:17→16:35)
[2018-10-15] MEDS: Bumetanide 1 MG TABLET PO SCH (09:10)
[2018-10-15] MEDS: traMADol 50 MG TABLET PO PRN ×3 (09:11→20:18)
[2018-10-15 11:07] LABS: BUN/Creatinine Ratio 32 (6-26); Blood Urea Nitrogen 31 mg/dL (8-23); Calcium 8.4 mg/dL (8.6-10.3); Carbon Dioxide 30 mEq/L (23-29); Chloride 104 mEq/L (98-107); Glucose 187 mg/dL (70-105); Magnesium 1.7 mg/dL (1.6-2.6); Osmolality,Calculated 305 (280-300); Phosphorous 2.7 mg/dL (2.7-4.5); Potassium 3.6 mEq/L (3.5-5.1); Sodium 142 mEq/L (136-145); eGFR For Non-African Americans > 60 (> 60)
[2018-10-15 12:54] LABS: Basophils # 0.1 K/mcL (0.0-0.2); Basophils % 0.2 %; Eosinophils # 0.2 K/mcL (0.0-0.6); Eosinophils % 1.1 %; Hematocrit 28.9 % (37.5-50.1); Hemoglobin 8.4 g/dL (12.9-16.9); Immature Granulocytes % 0.8 % (0-4); Lymphocytes # 1.3 K/mcL (0.6-4.6); Lymphocytes % 6.2 %; Mean Corpuscular HGB Conc 29.1 g/dL (31.6-35.5); Mean Corpuscular Hemoglobin 29.2 pg (28.0-33.3); Mean Corpuscular Volume 100.3 fL (83.0-100.0); Mean Platelet Volume 10.4 fL (9.4-12.4); Monocytes # 1.5 K/mcL (0.0-1.3); Monocytes % 7.3 %; Neutrophils # 17.7 K/mcL (1.6-8.9); Platelet Count 375 K/mcL (140-400); Red Blood Count 2.88 M/mcL (4.19-5.50); Red Cell Distribution Width 16.4 % (11.5-14.5); Segmented Neutrophils % 84.4 %
--- NOTE | 2018-10-15 13:36 | Internal Med Progress Note ---
Hospitalist Progress Note - Encounter Date of Encounter: 10/15/18 Time of Encounter: 13:33 - Subjective Interval History: I have seen and evaluated the patient at bedside. patient is awake, in no distress, does not follow commands, per nurse the patient eat 100% of his breakfast with assistance of his family. - Exam Vitals: Temp Pulse Resp BP Pulse Ox 97.8 F 92 16 107/71 97 10/15/18 11:24 10/15/18 11:24 10/15/18 11:24 10/15/18 11:24 10/15/18 11:24 Exam: Vitals: Reviewed. General: Awake. not following commands. In no apparent distress Cardiovascular: irregularly irregular, normal S1 & S2, no rubs, murmurs or gallops. Lungs: CTA b/l, no wheezes or crackles. Abdomen: Obese, soft, non-tender, no rigidity. NABS in all 4 quadrants Extremities: trace edema in the lower ext b/l. Neurological: Patient not following commands. Rest of the physical exam is non contributory - Assessment and Plan (1) Afib Current Visit: No Status: Chronic Assessment and Plan: rate controlled on metoprolol 50mg/PO BID. on metoprolol 7.5mg/IV Q6HR PRN for sustained HR >120. not on anticoagulation or aspirin due to hemorrhagic stroke. (2) Anemia Current Visit: No Status: Chronic Assessment and Plan: H&H is stable. will monitor and transfuse per protocol. Continue ferrous sulfate 325 by mouth twice a day. (3) Leukocytosis Current Visit: No Status: Acute Assessment and Plan: worsening WBC today. patient afebrile, hemodinamically stable. no signs of active infection will repeat a chest x-ray as patient high risk for aspiration on broad spectrum IV antibiotics cultures negative: final report (4) CVA (cerebral vascular accident) Current Visit: Yes Status: Acute Assessment and Plan: patient awake, not following commands. no aspirin or plavix due to hemorrhagic stroke (5) Acute respiratory failure with hypoxia Current Visit: Yes Status: Resolved Assessment and Plan: patient in no respiratory distress. chest clear to auscultation. continue O2 by nasal cannula. bronchodilators Q4RT PRN (6) Decubitus ulcer, stage 2 Current Visit: Yes Status: Chronic Assessment and Plan: wound care (7) Seizure Current Visit: Yes Status: Suspected Assessment and Plan: Continue Keppra 500 mg IV twice a day. (8) DMII (diabetes mellitus, type 2) Current Visit: No Status: Chronic Assessment and Plan: on a carb controlled diet. blood sugar controlled. family refused accu-checks and insulin coverage (9) Encephalopathy acute Current Visit: Yes Status: Resolved (10) UTI (urinary tract infection) Current Visit: Yes Status: Suspected Assessment and Plan: urine culture no growth. patient has received about 10 days of broad spectrum IV antibiotics will discuss with ID about a stop day for antibiotics coverage. (11) DVT (deep venous thrombosis) Current Visit: Yes Status: Acute Assessment and Plan: as per patient's daughter the patient was diagnosed with DVT at [facility] during his last admission. no anticoagulation due to acute hemorrhagic stroke DVT Prophylaxis: dc intermittent pneumatic compression for dvt prophylaxis as patient was recently diagnosed with dvt no chemical prophylaxis due to recent hemorrhagic stroke - Summary of Assessment and Plan Summary of Assessment and Plan: patient to remain in the hospital due to hemorrhagic cva, potential discharge tomorrow. - Time Spent with Patient Total time spent is greater than 50% in coordination of care (as documented) at patient's floor/unit and/or counseling patient: Greater than 35 minutes (40) Plan of Care Discussed with: nurse Internal Medicine: Result - Labs CBC & Chem 7: 10/15/18 04:00 10/15/18 10:39 Labs: Short CBC 10/14/18 10/15/18 Range/Units 07:26 04:00 WBC 14.7 H 20.9 H (4.3-11.1) K/mcL Hgb 8.3 L 8.4 L (12.9-16.9) g/dL Hct 28.0 L 28.9 L (37.5-50.1) % Plt Count 387 375 (140-400) K/mcL Neutrophils # 12.1 H 17.7 H (1.6-8.9) K/mcL BMP 10/14/18 10/15/18 07:26 10:39 Sodium 143 142 Potassium 4.0 3.6 Chloride 105 104 Carbon Dioxide 30 H 30 H BUN 34 H 31 H Creatinine 1.02 0.98 Glucose 234 H 187 H Calcium 8.6 8.4 L - ABG Interpretation ABG results: ABG ABG pH 7.47 pH Units (7.32-7.45) H 10/13/18 14:40 ABG pCO2 45 mmHg (35-45) 10/13/18 14:40 ABG pO2 57 mmHg (85-104) L 10/13/18 14:40 ABG O2 Saturation 91 % (95-98) L 10/13/18 14:40 PT/INR, D-dimer PT 26.3 Seconds (9.4-12.1) H 10/05/18 07:03 Consult Discharge Plan - Plan Referrals: Camron Allen MD [Primary Care Provider] - (1) Afib Qualifiers: Atrial fibrillation type: chronic Qualified Code(s): I48.2 - Chronic atrial fibrillation (2) Anemia Qualifiers: Anemia type: iron deficiency Qualified Code(s): D50.9 - Iron deficiency anemia, unspecified (3) Leukocytosis Qualifiers: Leukocytosis type: unspecified Qualified Code(s): D72.829 - Elevated white blood cell count, unspecified (4) CVA (cerebral vascular accident) Qualifiers: CVA mechanism: unspecified Qualified Code(s): I63.9 - Cerebral infarction, unspecified (6) Decubitus ulcer, stage 2 Qualifiers: Pressure injury location: unspecified location Qualified Code(s): L89.92 - Pressure ulcer of unspecified site, stage 2 (8) DMII (diabetes mellitus, type 2) Qualifiers: Diabetes mellitus qa test analyst insulin use: with detention use Diabetes mellitus complication status: with hyperglycemia Qualified Code(s): E11.65 - Type 2 diabetes mellitus with hyperglycemia; Z79.4 - skilled nursing (current) use of insulin (10) UTI (urinary tract infection) Qualifiers: Urinary tract infection type: site unspecified Hematuria presence: without hematuria Qualified Code(s): N39.0 - Urinary tract infection, site not specified (11) DVT (deep venous thrombosis) Qualifiers: DVT location: lower extremity Affected thrombotic vein of extremity: unspecified vein of extremity Chronicity: unspecified Laterality: unspecified laterality Qualified Code(s): I82.409 - Acute embolism and thrombosis of unspecified deep veins of unspecified lower extremity
[2018-10-16] MEDS: Levalbuterol Neb 1.25 MG/3 ML IH SCH ×6 (00:13→20:00)
[2018-10-16 08:30] LABS: Basophils % 0.2 %; Eosinophils # 0.3 K/mcL (0.0-0.6); Eosinophils % 1.6 %; Hemoglobin 8.6 g/dL (12.9-16.9); Immature Granulocytes % 0.9 % (0-4); Lymphocytes # 1.4 K/mcL (0.6-4.6); Lymphocytes % 8.1 %; Mean Corpuscular HGB Conc 29.7 g/dL (31.6-35.5); Mean Corpuscular Hemoglobin 29.3 pg (28.0-33.3); Mean Corpuscular Volume 98.6 fL (83.0-100.0); Mean Platelet Volume 10.1 fL (9.4-12.4); Monocytes # 1.7 K/mcL (0.0-1.3); Monocytes % 9.9 %; Neutrophils # 13.6 K/mcL (1.6-8.9); Platelet Count 346 K/mcL (140-400); Red Blood Count 2.94 M/mcL (4.19-5.50); Red Cell Distribution Width 16.5 % (11.5-14.5); Segmented Neutrophils % 79.3 %
[2018-10-16 08:48] LABS: BUN/Creatinine Ratio 34 (6-26); Blood Urea Nitrogen 33 mg/dL (8-23); Calcium 8.6 mg/dL (8.6-10.3); Carbon Dioxide 32 mEq/L (23-29); Chloride 103 mEq/L (98-107); Glucose 132 mg/dL (70-105); Magnesium 1.8 mg/dL (1.6-2.6); Osmolality,Calculated 303 (280-300); Phosphorous 2.9 mg/dL (2.7-4.5); Potassium 3.9 mEq/L (3.5-5.1); Sodium 142 mEq/L (136-145); eGFR For Non-African Americans > 60 (> 60)
[2018-10-16] MEDS: Piperacillin/Tazobactam 3.375 GM in 0.9 % Sodium Chloride Mini Bag 100 ML IVPB SCH ×3 (09:10→16:59)
--- NOTE | 2018-10-16 09:57 | Infectious Disease Progress No ---
ID Progress Note Date of Encounter: 10/16/18 Time of Encounter: 09:56 - Subjective Subjective: Patient seen and examined. We can note reviewed. Events noted. Patient awakens to loud verbal stimuli this morning. Follow some commands. Very hard of hearing, so review of systems Limited. Denies pain or shortness of breath. Family is at bedside. Tachycardic over the weekend. Redeveloped leukocytosis. - Objective CBC & Chem 7: 10/17/18 08:28 10/17/18 08:28 - Exam Vitals: Temp Pulse Resp BP Pulse Ox 98.2 F 105 23 123/82 100 10/16/18 06:58 10/16/18 06:58 10/16/18 07:55 10/16/18 06:58 10/16/18 07:55 Exam: Head: Atraumatic, normal inspection, normocephalic. Eye: PERRLA, no scleral icterus noted. ENT: Mucous membranes moist. No odontogenic infection noted. Neck: Normal inspection. Soft, supple. No meningismus. Respiratory: Clear to auscultation. No rales, respiratory distress, rhonchi, or wheezes noted. Cardiovascular: Regular rate, tachycardic, S1 and S2 audible. No murmurs, rubs, or gallops. GI: Soft, nondistended, normal bowel sounds. Extremities: No joint swelling, pedal edema, or tenderness noted. Neurological: Opens eyes to loud verbal stimuli. Follows some commands, but does not speak other than to say his name. Skin: Dry, intact, warm. Normal color. No rashes. - Assessment and Plan (1) Sepsis Current Visit: Yes Status: Acute The patient developed sepsis-like picture with fever, tachycardia, and tachypnea. Etiology: Unclear. Pneumonia versus reactive to CVA versus other. WBC back up to 20 today. Afebrile. Continues to have tachycardia. Blood cultures drawn 10/04/18 are negative 2 sets. Repeat blood cultures drawn 10/09/18 are negative 2 sets. Pro-calcitonin mildly elevated at 0.41. Respiratory infectious panel is negative. Urine culture negative. CT of the chest, abdomen, and pelvis nonrevealing for infectious etiology. Qualifiers: Sepsis type: sepsis due to unspecified organism Qualified Code(s): A41.9 - Sepsis, unspecified organism SNOMED Code(s): 10258382 (2) Altered mental status Current Visit: Yes Status: Acute etiology: Unclear. Sepsis versus other. Waxing and waning per family report. Review of systems Limited due to patient's mental status. Neurology consulted. Appreciate recommendations. CT of the head was negative initially, but MRI 10/10/18 showed hemorrhage stroke. Aspiration is on the differential given the patient's altered mental status, but CT chest was negative. Improved. This may be the patient's baseline given his recent CVA and history of dementia. Qualifiers: Altered mental status type: unspecified Qualified Code(s): R41.82 - Altered mental status, unspecified SNOMED Code(s): 335168778 (3) UTI (urinary tract infection) Current Visit: Yes Status: Ruled-out Ruled out. Urine culture negative. Qualifiers: Urinary tract infection type: site unspecified Hematuria presence: without hematuria Qualified Code(s): N39.0 - Urinary tract infection, site not specified SNOMED Code(s): 04461794 (4) CVA (cerebral vascular accident) Current Visit: No Status: Acute Known history of CVA a couple of months ago. Initial CT of the head was negative. MRI of the brain 10/10/18 showed evolving subacute hemorrhagic left frontal and left occipital lobe infarcts with areas of acute/early subacute infarction along the margins. There are also 2 punctate acute infarcts in the deep white matter of the left frontoparietal region. Chronic infarcts in the left parietal lobe were noted. Moderate chronic microvascular white matter ischemic disease noted the supra and infratentorially. Neurology consulted and following. Repeat CT of the head 10/11/18 showed continued evolution of the recent left frontal lobe infarct without acute hemorrhagic products. The patient's family declined transfer to tertiary care center for evaluation by neurosurgery. Repeat CT of the head 10/15/18 showed evolving subacute left frontal and occipital infarcts. As per the neurology team. Qualifiers: CVA mechanism: other Qualified Code(s): I63.89 - Other cerebral infarction SNOMED Code(s): 239047795 (5) Decubitus ulcer, stage 2 Current Visit: Yes Status: Chronic Clinically does not appear infected. Dressing changes and offloading per nursing protocol. Qualifiers: Pressure injury location: unspecified location Qualified Code(s): L89.92 - Pressure ulcer of unspecified site, stage 2 SNOMED Code(s): 067591557 (6) DMII (diabetes mellitus, type 2) Current Visit: No Status: Chronic Recommend aggressive glucose monitoring and control to promote wound healing and prevent reinfection. Qualifiers: Diabetes mellitus custodial insulin use: with long term care phlebotomist use Diabetes mellitus complication status: with hyperglycemia Qualified Code(s): E11.65 - Type 2 diabetes mellitus with hyperglycemia; Z79.4 - halfway (current) use of insulin SNOMED Code(s): 76581818 (7) Acute respiratory failure with hypoxia Current Visit: Yes Status: Resolved Likely secondary to acute encephalopathy and possible aspiration. CT chest negative for PNA or pneumonitis. Improved. Currently on room air. Management per the pulmonary team. SNOMED Code(s): 07819893, 404742208 (8) Abnormal chest x-ray Current Visit: Yes Status: Acute CXR showed atelectasis vs. aspiration vs. PNA. Could be the source of the patient's sepsis. Given the patient's waxing and waning AMS, concern for aspiration. 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 Currently on Zosyn. SNOMED Code(s): 335302917, 182319653 - Recommendations Recommendations: Repeat LFTS. Repeat procalcitonin. Check peripheral smear. Consider Hem/Onc to re-evaluate. Consider GI to evaluate given the patient's CT findings that showed some gallbladder distention and lack of other source of sepsis. Continue Zosyn 3.375 grams IV Q8H. Duration of treatment depends on the clinical picture. Monitor renal function and for drug toxicity and dose-adjust antibiotics. CVA management per the neurology team. Consult Discharge Plan - Plan Referrals: Camron Allen MD [Primary Care Provider] - ([facility]) Prescriptions: Amoxicillin/Clavulanate [Augmentin] 875 mg PO BIDWM 7 Days #14 tablet Bisacodyl [Dulcolax] 10 mg RC DAILY PRN 30 Days #30 supp.rect PRN Reason: Constipation Tamsulosin [Flomax] 0.4 mg PO DAILY 30 Days #30 capsule - Attending Attestation I have personally performed a face to face evaluation on this patient. I have reviewed and agree with the care plan. History and Exam by me shows: Assessment and plan: 1.Sepsis - etiology not clear. All work up was really not revealing; is fever due to infectious etiology or non infectious? malignancy? autoimmune? etc?; family never allowed us to do an LP. Gallbladder was mildly enlarged on the CT could this be the culprit? 2.Altered mental status - waxing and waning; etiology does not appear infectious 3.CVA -MRI of the brain 10/10/18 showed evolving subacute hemorrhagic left frontal and left occipital lobe infarcts with areas of acute/early subacute infarction along the margins. There are also 2 punctate acute infarcts in the deep white matter of the left frontoparietal region. Chronic infarcts in the left parietal lobe were noted. Moderate chronic microvascular white matter ischemic disease noted the supra and infratentorially. 4.Intracranial bleed Recommendations: Repeat LFTS. Repeat procalcitonin. Check peripheral smear. Consider Hem/Onc to re-evaluate. Consider GI to evaluate given the patient's CT findings that showed some gallbladder distention and lack of other source of sepsis. Continue Zosyn 3.375 grams IV Q8H. Duration of treatment depends on the clinical picture. Monitor renal function and for drug toxicity and dose-adjust antibiotics. CVA management per the neurology team.
[2018-10-16 10:14] LABS: Alanine Aminotransferase 20 Units/L (7-52); Albumin 2.8 g/dL (3.5-5.7); Albumin/Globulin Ratio 0.8 (1.1-2.2); Alkaline Phosphatase 149 Units/L (34-104); Aspartate Amino Transferase 17 Units/L (13-39); Bilirubin,Direct 0.1 mg/dL (0.0-0.2); Bilirubin,Indirect 0.4 mg/dL (0.0-1.2); Bilirubin,Total 0.5 mg/dL (0.3-1.0); Globulin 3.3 g/dL (2.4-3.5); Total Protein 6.1 g/dL (6.4-8.9)
[2018-10-16] MEDS: Bumetanide 1 MG TABLET PO SCH (10:24)
--- NOTE | 2018-10-16 12:51 | Discharge Summary ---
Orders not resulted at time of discharge: Pending orders 10/16/18 11:58 Procalcitonin Routine Date of Encounter: 10/16/18 Time of Encounter: 12:49 - Discharge Diagnosis (1) Afib Priority: Secondary Status: Chronic Qualifiers: Atrial fibrillation type: chronic Qualified Code(s): I48.2 - Chronic atrial fibrillation (2) Anemia Priority: Secondary Status: Chronic Qualifiers: Anemia type: iron deficiency Qualified Code(s): D50.9 - Iron deficiency anemia, unspecified (3) Leukocytosis Priority: Secondary Status: Acute Qualifiers: Leukocytosis type: unspecified Qualified Code(s): D72.829 - Elevated white blood cell count, unspecified (4) CVA (cerebral vascular accident) Priority: Primary Status: Acute Qualifiers: CVA mechanism: unspecified Qualified Code(s): I63.9 - Cerebral infarction, unspecified (5) Acute respiratory failure with hypoxia Priority: Secondary Status: Resolved (6) Decubitus ulcer, stage 2 Priority: Secondary Status: Chronic Qualifiers: Pressure injury location: unspecified location Qualified Code(s): L89.92 - Pressure ulcer of unspecified site, stage 2 (7) Seizure Priority: Secondary Status: Suspected (8) DMII (diabetes mellitus, type 2) Priority: Secondary Status: Chronic Qualifiers: Diabetes mellitus shelter insulin use: with shelter use Diabetes mellitus complication status: with hyperglycemia Qualified Code(s): E11.65 - Type 2 diabetes mellitus with hyperglycemia; 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 (9) Encephalopathy acute Priority: Secondary Status: Resolved (10) UTI (urinary tract infection) Priority: Secondary Status: Suspected Qualifiers: Urinary tract infection type: site unspecified Hematuria presence: without hematuria Qualified Code(s): N39.0 - Urinary tract infection, site not specified (11) DVT (deep venous thrombosis) Priority: Secondary Status: Acute Qualifiers: DVT location: lower extremity Affected thrombotic vein of extremity: unspecified vein of extremity Chronicity: unspecified Laterality: unspecified laterality Qualified Code(s): I82.409 - Acute embolism and thrombosis of unspecified deep veins of unspecified lower extremity Hospital course: Mr. Khan is a 83 year old male past medical history of COPD, heart failure, each of fibrillation, diabetes, hyperlipidemia, hypertension and a recent CVA recently treated at [facility] and released to detention facility yesterday who presents with one-day history of altered mental status and fever. Patient was admitted due to AMS, possible sepsis. Patient managed with with fluid and empiric IV antibiotics. extensive work to find possible infection negative. due to AMS a MRI was done: 1. Evolving subacute hemorrhagic left frontal and left occipital lobe infarcts with areas of acute/early subacute infarction along the margins. There are also 2 punctate acute infarcts in the deep white matter of the left frontoparietal region. 2. Chronic infarcts in the left parietal lobe. 3. Moderate chronic microvascular white matter ischemic disease noted both supra and infratentorially. EEG: Impression: Mild to moderate generalized slowing. No epileptiform discharges noted during this study though this is a nonspecific finding usually seen in patient with generalized cerebral dysfunction, could also be seen in the postictal state clinical correlation is recommended. Patient not longer altered, but with secuela of the multiple strokes, Awake, but not alert or oriented, engages into conversations but what he says is incoherent. WBC at the time of DC of 17K, no source of infection was found, patient afebrile for >5 days and hemodynamically stable. After a discussion with ID they agreed on discharging the patient on oral antibiotics for 7 more days. Patient prognosis is poor and there is a high probability of readmission. The family is in denial about the patient's condition and prognosis. - Time Spent with Patient Total time spent providing and/or coordinating discharge services: Time spent: Greater than 30 minutes (35) - Discharge Medications Prescriptions: New Bisacodyl [Dulcolax] 10 mg RC DAILY PRN 30 Days #30 supp.rect PRN Reason: Constipation Tamsulosin [Flomax] 0.4 mg PO DAILY 30 Days #30 capsule Amoxicillin/Clavulanate [Augmentin] 875 mg PO BIDWM 7 Days #14 tablet Continued Ferrous Sulfate 325 mg PO BID Bumetanide [Bumex] 1 mg PO DAILY Ascorbate Calcium [Vitamin C] 500 mg PO DAILY Metoprolol Tartrate [Lopressor] 75 mg PO BID Acetaminophen [Tylenol] 650 mg PO Q4H PRN PRN Reason: Fever/Mild Pain Atorvastatin [Lipitor] 40 mg PO HS Docusate [Colace] 100 mg PO BID PRN PRN Reason: Constipation Insulin LISPRO [HumaLOG] 5 units SQ TIDAC Ipratropium Neb [Atrovent Neb] 0.5 mg IH Q4H PRN PRN Reason: Shortness Of Breath Levalbuterol HCl [Xopenex Neb] 1.25 mg IH Q4H PRN PRN Reason: Shortness Of Breath Multivitamin [Daily Multiple Vitamin] 1 each PO DAILY Nitroglycerin [Nitrostat] 0.4 mg SL AD PRN PRN Reason: Chest Pain Polyethylene Glycol 3350 [MiraLAX] 17 gm PO DAILY PRN PRN Reason: Constipation traZODone [TraZODone] 50 mg PO HS PRN PRN Reason: Insomnia Discontinued Apixaban [Eliquis] 5 mg PO BID Home Medications: Ferrous Sulfate 325 mg PO BID 03/27/18 [History] Bumetanide [Bumex] 1 mg PO DAILY 09/07/18 [History] Ascorbate Calcium [Vitamin C] 500 mg PO DAILY 09/08/18 [History] Metoprolol Tartrate [Lopressor] 75 mg PO BID 09/08/18 [History] Acetaminophen [Tylenol] 650 mg PO Q4H PRN 10/04/18 [History] Atorvastatin [Lipitor] 40 mg PO HS 10/04/18 [History] Docusate [Colace] 100 mg PO BID PRN 10/04/18 [History] Insulin LISPRO [HumaLOG] 5 units SQ TIDAC 10/04/18 [History] Ipratropium Neb [Atrovent Neb] 0.5 mg IH Q4H PRN 10/04/18 [History] Levalbuterol HCl [Xopenex Neb] 1.25 mg IH Q4H PRN 10/04/18 [History] Multivitamin [Daily Multiple Vitamin] 1 each PO DAILY 10/04/18 [History] Nitroglycerin [Nitrostat] 0.4 mg SL AD PRN 10/04/18 [History] Polyethylene Glycol 3350 [MiraLAX] 17 gm PO DAILY PRN 10/04/18 [History] traZODone [TraZODone] 50 mg PO HS PRN 10/04/18 [History] Amoxicillin/Clavulanate [Augmentin] 875 mg PO BIDWM 7 Days #14 tablet 10/16/18 [Rx] Bisacodyl [Dulcolax] 10 mg RC DAILY PRN 30 Days #30 supp.rect 10/16/18 [Rx] Tamsulosin [Flomax] 0.4 mg PO DAILY 30 Days #30 capsule 10/16/18 [Rx] Allergies/Adverse Reactions: Allergy/AdvReac Type Severity Reaction Status Date / Time No Known Allergies Allergy Verified 08/31/18 14:26 Date of admission: 10/05/18 02:58 Primary care physician: Camron Allen MD Consults: 10/05/18 01:55 Consult to Sn[facility]ber [CONS] Routine Reason for SW Consult: Pt comes from [facility] 10/06/18 12:56 Consult to Physical Therapy [CONS] Routine Comment: Evaluate, develop and implement POC Reason for Consult: From Rehab facility Does patient have active BEDREST order?: No Is patient medically & hemodynamically stable?: Yes 10/06/18 12:57 Consult to Occupational Therapy [CONS] Routine Comment: Evaluate, develop and implement POC Reason for Consult: From Rehab facility Does patient have active BEDREST order?: No Is patient medically & hemodynamically stable?: Yes 10/09/18 14:41 Consult to Infectious Diseases [CONS] Routine Consulting Provider: [facility] Reason for Consult: AMS LIKELY DUE TO UTI. LEUKOCYTOSIS. Time Notified: 14:40 Call Completed: Yes 10/09/18 16:41 Consult to Neurology [CONS] Routine Consulting Provider: [facility] Reason for Consult: Possible seizure Time Notified: 16:30 Call Completed: Yes 10/09/18 17:23 Consult to Interpret Exam [CONS] Routine Consulting Provider: Myra Jimenez I Consult to Interpret Exam: Interpret EEG 10/11/18 05:56 Consult to Palliative Care [CONS] Routine Comment: Consulting Provider: [facility] Reason for Consult: Acute respiratory failure, declining respiratory status. Recent treatment at [place] for CVA. New hemorrhagic CVA confirmed on MRI yesterday. Call Completed: No Consult to Pulmonology [CONS] Routine Consulting Provider: [facility] [place] Reason for Consult: acute respiratory failure Call Completed: No 10/11/18 14:20 Consult to Speech Therapy [CONS] Routine Comment: Evaluate, develop and implement POC Reason for Consult: Swallowing evaluation Time Notified: 14:22 Call Completed: Yes - Constitutional Vitals: Temp Pulse Resp BP Pulse Ox 98.4 F 94 18 105/73 97 10/16/18 10:51 10/16/18 10:51 10/16/18 11:14 10/16/18 10:51 10/16/18 11:14 Exam: Vitals: Reviewed. General: Awake. not following commands. In no apparent distress Cardiovascular: irregularly irregular, normal S1 & S2, no rubs, murmurs or gallops. Lungs: CTA b/l, no wheezes or crackles. Abdomen: Obese, soft, non-tender, no rigidity. NABS in all 4 quadrants Extremities: trace edema in the lower ext b/l. Neurological: Patient not following commands. Rest of the physical exam is non contributory - Patient Status Disposition: Transfer LTC Condition: Fair Functional capacity at discharge: bed bound Overall status at discharge: patient is not back to baseline - Discharge Instructions Follow Up With: Camron Allen MD [Primary Care Provider] - - Diet and Activity Activity: wear oxygen at all times (2 litter) Diet: diabetic diet
--- NOTE | 2018-10-16 13:02 | Physician Discharge Referral ---
ExtendedCare Referral Info Transfer To: F - Diagnosis (1) Afib Priority: Primary Status: Chronic (2) Anemia Priority: Primary Status: Chronic (3) Leukocytosis Priority: Secondary Status: Acute (4) CVA (cerebral vascular accident) Priority: Secondary Status: Acute (5) Acute respiratory failure with hypoxia Priority: Primary Status: Resolved (6) Decubitus ulcer, stage 2 Priority: Secondary Status: Chronic (7) Seizure Priority: Secondary Status: Suspected (8) DMII (diabetes mellitus, type 2) Priority: Secondary Status: Chronic (9) Encephalopathy acute Priority: Secondary Status: Resolved (10) UTI (urinary tract infection) Priority: Secondary Status: Suspected (11) DVT (deep venous thrombosis) Priority: Secondary Status: Acute Prognosis: Poor Aware of Diagnosis: Family Aware of Prognosis: Family - Transfer Medications Prescriptions: Amoxicillin/Clavulanate [Augmentin] 875 mg PO BIDWM 7 Days #14 tablet Bisacodyl [Dulcolax] 10 mg RC DAILY PRN 30 Days #30 supp.rect PRN Reason: Constipation Tamsulosin [Flomax] 0.4 mg PO DAILY 30 Days #30 capsule Home Medications: Ferrous Sulfate 325 mg PO BID 03/27/18 [History] Bumetanide [Bumex] 1 mg PO DAILY 09/07/18 [History] Ascorbate Calcium [Vitamin C] 500 mg PO DAILY 09/08/18 [History] Metoprolol Tartrate [Lopressor] 75 mg PO BID 09/08/18 [History] Acetaminophen [Tylenol] 650 mg PO Q4H PRN 10/04/18 [History] Atorvastatin [Lipitor] 40 mg PO HS 10/04/18 [History] Docusate [Colace] 100 mg PO BID PRN 10/04/18 [History] Insulin LISPRO [HumaLOG] 5 units SQ TIDAC 10/04/18 [History] Ipratropium Neb [Atrovent Neb] 0.5 mg IH Q4H PRN 10/04/18 [History] Levalbuterol HCl [Xopenex Neb] 1.25 mg IH Q4H PRN 10/04/18 [History] Multivitamin [Daily Multiple Vitamin] 1 each PO DAILY 10/04/18 [History] Nitroglycerin [Nitrostat] 0.4 mg SL AD PRN 10/04/18 [History] Polyethylene Glycol 3350 [MiraLAX] 17 gm PO DAILY PRN 10/04/18 [History] traZODone [TraZODone] 50 mg PO HS PRN 10/04/18 [History] Amoxicillin/Clavulanate [Augmentin] 875 mg PO BIDWM 7 Days #14 tablet 10/16/18 [Rx] Bisacodyl [Dulcolax] 10 mg RC DAILY PRN 30 Days #30 supp.rect 10/16/18 [Rx] Tamsulosin [Flomax] 0.4 mg PO DAILY 30 Days #30 capsule 10/16/18 [Rx] Allergies/Adverse Reactions: Allergy/AdvReac Type Severity Reaction Status Date / Time No Known Allergies Allergy Verified 08/31/18 14:26 - Respiratory Orders Oxygen / L per min (2 litters) Smoking Cessation: Smoking cessation has been advised. For more information, call the [employer] Quit Line at 5-475-NLAQ-NOW. - Advance Directives Code Status: DNR-Arrest - Mobility Orders Bedrest - Rehabiliation Orders Rehab Potential: Poor Rehab Orders: Evaluation for Physical Therapy, Evaluation for Occupational Therapy, Evaluation for Speech Therapy - Diet Orders Mechanical Soft, Pureed CERTIFICATION: I certify that the transfer of the above named patient to an Extended Care Facility is necessary for the continuing treatment of the diagnosis listed. The above information is true and accurate reflection of patient's current condition. Confidential - Redisclosure prohibited without a patient's written consent.
[2018-10-16] MEDS: traMADol 50 MG TABLET PO PRN (18:13)
[2018-10-16] MEDS: traZODone 50 MG TABLET PO PRN (22:01)
[2018-10-17] MEDS: Levalbuterol Neb 1.25 MG/3 ML IH SCH ×7 (00:24→22:59)
[2018-10-17] MEDS: Piperacillin/Tazobactam 3.375 GM in 0.9 % Sodium Chloride Mini Bag 100 ML IVPB SCH ×3 (01:31→16:30)
[2018-10-17 08:58] LABS: Basophils % 0.2 %; Eosinophils # 0.2 K/mcL (0.0-0.6); Eosinophils % 1.3 %; Hematocrit 28.2 % (37.5-50.1); Hemoglobin 8.5 g/dL (12.9-16.9); Lymphocytes # 1.6 K/mcL (0.6-4.6); Lymphocytes % 8.7 %; Mean Corpuscular HGB Conc 30.1 g/dL (31.6-35.5); Mean Corpuscular Hemoglobin 29.5 pg (28.0-33.3); Mean Corpuscular Volume 97.9 fL (83.0-100.0); Mean Platelet Volume 10.3 fL (9.4-12.4); Monocytes % 10.7 %; Neutrophils # 14.3 K/mcL (1.6-8.9); Platelet Count 273 K/mcL (140-400); Red Blood Count 2.88 M/mcL (4.19-5.50); Red Cell Distribution Width 16.5 % (11.5-14.5); Segmented Neutrophils % 78.1 %
[2018-10-17 09:12] LABS: BUN/Creatinine Ratio 31 (6-26); Blood Urea Nitrogen 32 mg/dL (8-23); Calcium 8.6 mg/dL (8.6-10.3); Carbon Dioxide 33 mEq/L (23-29); Chloride 103 mEq/L (98-107); Glucose 142 mg/dL (70-105); Magnesium 1.6 mg/dL (1.6-2.6); Osmolality,Calculated 303 (280-300); Potassium 3.8 mEq/L (3.5-5.1); Sodium 142 mEq/L (136-145); eGFR For Non-African Americans > 60 (> 60)
[2018-10-17] MEDS: Bumetanide 1 MG TABLET PO SCH (09:31)
--- NOTE | 2018-10-17 10:19 | Infectious Disease Progress No ---
ID Progress Note Date of Encounter: 10/17/18 Time of Encounter: 10:17 - Subjective Subjective: Patient seen and examined. No acute events noted overnight. Patient is awake and complains of head pain, but unable to localize/characterize/rate. Follows some commands. Very hard of hearing, so review of systems Limited. Denies pain or shortness of breath. Tachycardia and leukocytosis persists. Spiked a temp 101.5. - Objective CBC & Chem 7: 10/17/18 08:28 10/17/18 08:28 - Exam Vitals: Temp Pulse Resp BP Pulse Ox 99.9 F H 116 22 114/69 98 10/17/18 08:37 10/17/18 08:37 10/17/18 08:37 10/17/18 08:37 10/17/18 08:37 Exam: Head: Atraumatic, normal inspection, normocephalic. Eye: PERRLA, no scleral icterus noted. ENT: Mucous membranes moist. No odontogenic infection noted. Neck: Normal inspection. Soft, supple. No meningismus. Respiratory: Clear to auscultation. No rales, respiratory distress, rhonchi, or wheezes noted. Cardiovascular: Regular rate, tachycardic, S1 and S2 audible. No murmurs, rubs, or gallops. GI: Soft, nondistended, normal bowel sounds. Extremities: No joint swelling, pedal edema, or tenderness noted. Patient gr immaces with palpation of the hands. Neurological: Awake, oriented to self. Follows some commands, but does not speak other than to say his name. Skin: Dry, intact, warm. Normal color. No rashes. - Assessment and Plan (1) Sepsis Current Visit: Yes Status: Acute The patient developed sepsis-like picture with fever, tachycardia, and tachypnea. Etiology: Unclear. Pneumonia versus reactive to CVA versus other. WBC remains elevated. Afebrile. Tachycardic. Blood cultures drawn 10/04/18 are negative 2 sets. Repeat blood cultures drawn 10/09/18 are negative 2 sets. Pro-calcitonin mildly elevated at 0.41 initially, but repeat negative. Respiratory infectious panel is negative. Urine culture negative. CT of the chest, abdomen, and pelvis nonrevealing for infectious etiology. Peripheral smear pending. Consider non-infectious etiologies. Qualifiers: Sepsis type: sepsis due to unspecified organism Qualified Code(s): A41.9 - Sepsis, unspecified organism SNOMED Code(s): 65390096 (2) Altered mental status Current Visit: Yes Status: Acute etiology: Unclear. Sepsis versus CVA vs. other. Waxing and waning per family report. Review of systems Limited due to patient's mental status. Neurology consulted. Appreciate recommendations. CT of the head was negative initially, but MRI 10/10/18 showed hemorrhage stroke. Aspiration is on the differential given the patient's altered mental status, but CT chest was negative. Improved. This may be the patient's baseline given his recent CVA and history of dementia. Qualifiers: Altered mental status type: unspecified Qualified Code(s): R41.82 - Altered mental status, unspecified SNOMED Code(s): 887714389 (3) UTI (urinary tract infection) Current Visit: Yes Status: Ruled-out Ruled out. Urine culture negative. Qualifiers: Urinary tract infection type: site unspecified Hematuria presence: without hematuria Qualified Code(s): N39.0 - Urinary tract infection, site not specified SNOMED Code(s): 95195674 (4) CVA (cerebral vascular accident) Current Visit: No Status: Acute Known history of CVA a couple of months ago. Initial CT of the head was negative. MRI of the brain 10/10/18 showed evolving subacute hemorrhagic left frontal and left occipital lobe infarcts with areas of acute/early subacute infarction along the margins. There are also 2 punctate acute infarcts in the deep white matter of the left frontoparietal region. Chronic infarcts in the left parietal lobe were noted. Moderate chronic microvascular white matter ischemic disease noted the supra and infratentorially. Neurology consulted and following. Repeat CT of the head 10/11/18 showed continued evolution of the recent left frontal lobe infarct without acute hemorrhagic products. The patient's family declined transfer to tertiary care center for evaluation by neurosurgery. Repeat CT of the head 10/15/18 showed evolving subacute left frontal and occipital infarcts. As per the neurology team. Qualifiers: CVA mechanism: other Qualified Code(s): I63.89 - Other cerebral infarction SNOMED Code(s): 883911917 (5) Decubitus ulcer, stage 2 Current Visit: Yes Status: Chronic Clinically does not appear infected. Dressing changes and offloading per nursing protocol. Qualifiers: Pressure injury location: unspecified location Qualified Code(s): L89.92 - Pressure ulcer of unspecified site, stage 2 SNOMED Code(s): 878315158 (6) DMII (diabetes mellitus, type 2) Current Visit: No Status: Chronic Recommend aggressive glucose monitoring and control to promote wound healing and prevent reinfection. 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 CT chest negative for PNA or pneumonitis. Improved. Currently on room air. Management per the pulmonary team. SNOMED Code(s): 71825659, 981157715 (8) Abnormal chest x-ray Current Visit: Yes Status: Acute CXR showed atelectasis vs. aspiration vs. PNA. Could be the source of the patient's sepsis. Given the patient's waxing and waning AMS, concern for aspiration. SHIP CAPTAIN evaluation noted. Currently on Zosyn. SNOMED Code(s): 366468367, 325731895 - Recommendations Recommendations: Check ESR, CRP, Uric acid. Check peripheral smear.-- pending. Consider Hem/Onc to re-evaluate for non-infectious causes of the patient's thi kocytosis and fevers. Get XR of the right shoulder, elbow, and hand. Get WBC scan. Recommend ortho to evaluate right arm pain. Start Vancomycin IV. Pharmacy to dose. Goal trough ~15. Continue Zosyn 3.375 grams IV Q8H. Duration of treatment depends on the clinical picture. Monitor renal function and for drug toxicity and dose-adjust antibiotics. CVA management per the neurology team. Consult Discharge Plan - Plan Referrals: Camron Allen MD [Primary Care Provider] - ([facility]) Prescriptions: Amoxicillin/Clavulanate [Augmentin] 875 mg PO BIDWM 7 Days #14 tablet Bisacodyl [Dulcolax] 10 mg RC DAILY PRN 30 Days #30 supp.rect PRN Reason: Constipation Tamsulosin [Flomax] 0.4 mg PO DAILY 30 Days #30 capsule - Attending Attestation I have personally performed a face to face evaluation on this patient. I have reviewed and agree with the care plan. History and Exam by me shows: Assessment and plan: 1.Sepsis - etiology not clear. All work up was really not revealing; is fever due to infectious etiology or non infectious? malignancy? autoimmune? etc?; family never allowed us to do an LP. Gallbladder was mildly enlarged on the CT could this be the culprit? 2.Altered mental status - waxing and waning; etiology does not appear infectious 3.CVA -MRI of the brain 10/10/18 showed evolving subacute hemorrhagic left frontal and left occipital lobe infarcts with areas of acute/early subacute infarction along the margins. There are also 2 punctate acute infarcts in the deep white matter of the left frontoparietal region. Chronic infarcts in the left parietal lobe were noted. Moderate chronic microvascular white matter ischemic disease noted the supra and infratentorially. 4.Intracranial bleed Recommendations: Repeat LFTS. Repeat procalcitonin. Check peripheral smear. Consider Hem/Onc to re-evaluate. Consider GI to evaluate given the patient's CT findings that showed some gallbladder distention and lack of other source of sepsis. Continue Zosyn 3.375 grams IV Q8H. Duration of treatment depends on the clinical picture. Monitor renal function and for drug toxicity and dose-adjust antibiotics. CVA management per the neurology team. Discussed at length with the family was at bedside including her daughter. We will get x-rays of his shoulder elbow and wrist as he has severe pain with that. We will also check uric acid level. Might consider doing a WBC scan. I still do not have an INFECTIOUS etiology.
--- NOTE | 2018-10-17 12:09 | Internal Med Progress Note ---
Hospitalist Progress Note - Encounter Date of Encounter: 10/17/18 Time of Encounter: 12:07 - Subjective Interval History: I have seen and evaluated at the patient at bedside. Today the patient is more somnolent than yesterday, but arousable to commands. In no visual distress. - Exam Vitals: Temp Pulse Resp BP Pulse Ox 99.9 F H 116 18 114/69 94 10/17/18 08:37 10/17/18 08:37 10/17/18 11:36 10/17/18 08:37 10/17/18 12:06 Exam: Vitals: Reviewed. General: Somnolent, but arousable to sternal rub. In no apparent distress Cardiovascular: irregularly irregular, normal S1 & S2, no rubs, murmurs or gallops. Lungs: CTA b/l, no wheezes or crackles. Abdomen: Obese, soft, non-tender, no rigidity. NABS in all 4 quadrants Extremities: trace edema in the lower ext b/l. Neurological: Patient not following commands. Rest of the physical exam is non contributory - Assessment and Plan (1) Afib Current Visit: No Status: Chronic Assessment and Plan: Heart rate ranging between the 90s and low 100s. Increase metoprolol to 75 mg by mouth twice a day. Off anticoagulations due to recent hemorrhagic stroke. Continue telemetry monitoring. (2) Anemia Current Visit: No Status: Chronic Assessment and Plan: H&H stable. We will continue to monitor and transfuse per protocol. (3) Leukocytosis Current Visit: No Status: Acute Assessment and Plan: discuss with infectious disease about the possible etiology of this patient leukocytosis. Denies recommended outpatient hematology evaluation. And to continue Augmentin for 7 more days. Patient has received 12 days of broad- spectrum IV antibiotics. Patient is afebrile for more than 5 days. Pro- calcitonin not elevated. (4) CVA (cerebral vascular accident) Current Visit: Yes Status: Acute Assessment and Plan: Patient with a slight worsening in his mental status today, more somnolent. Repeat head CT. ABG ordered. If there is no change on the head CT, and ABG. We will proceed with transferring the patient to ECF (5) Acute respiratory failure with hypoxia Current Visit: Yes Status: Resolved Assessment and Plan: Patient in no respiratory distress. No wheezing on auscultation. Continue oxygen by nasal cannula, titrate for O2 sat duration more than 92%. On nocturnal BiPAP. (6) Decubitus ulcer, stage 2 Current Visit: Yes Status: Chronic Assessment and Plan: Plan of care per wound care. (7) Seizure Current Visit: Yes Status: Suspected Assessment and Plan: On Keppra 500 mg by mouth twice a day. (8) DMII (diabetes mellitus, type 2) Current Visit: No Status: Chronic Assessment and Plan: Blood sugar has been well controlled. Carb controlled diet. Patient not on sliding scale insulin as per her request by the family. (9) Encephalopathy acute Current Visit: Yes Status: Resolved (10) UTI (urinary tract infection) Current Visit: Yes Status: Ruled-out Assessment and Plan: Patient has been on broad-spectrum antibiotics for 12 days. (11) DVT (deep venous thrombosis) Current Visit: Yes Status: Chronic Assessment and Plan: As per patient daughter he was diagnosed with a DVT during his hospitalization at [facility]. No on anticoagulation due to recent hemorrhagic stroke. 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 No mechanical DVT prophylaxis due to recent DVT. - Summary of Assessment and Plan Summary of Assessment and Plan: Patient pending placement to ECF. - Time Spent with Patient Total time spent is greater than 50% in coordination of care (as documented) at patient's floor/unit and/or counseling patient: Greater than 35 minutes (40) Plan of Care Discussed with: nurse (and the patient's son at bedside) Internal Medicine: Result - Labs CBC & Chem 7: 10/17/18 08:28 10/17/18 08:28 Labs: Short CBC 10/17/18 Range/Units 08:28 WBC 18.3 H (4.3-11.1) K/mcL Hgb 8.5 L (12.9-16.9) g/dL Hct 28.2 L (37.5-50.1) % Plt Count 273 (140-400) K/mcL Neutrophils # 14.3 H (1.6-8.9) K/mcL BMP 10/17/18 08:28 Sodium 142 Potassium 3.8 Chloride 103 Carbon Dioxide 33 H BUN 32 H Creatinine 1.02 Glucose 142 H Calcium 8.6 - ABG Interpretation ABG results: ABG ABG pH 7.47 pH Units (7.32-7.45) H 10/13/18 14:40 ABG pCO2 45 mmHg (35-45) 10/13/18 14:40 ABG pO2 57 mmHg (85-104) L 10/13/18 14:40 ABG O2 Saturation 91 % (95-98) L 10/13/18 14:40 PT/INR, D-dimer PT 26.3 Seconds (9.4-12.1) H 10/05/18 07:03 Consult Discharge Plan - Plan Referrals: Camron Allen MD [Primary Care Provider] - (ECF) Prescriptions: Amoxicillin/Clavulanate [Augmentin] 875 mg PO BIDWM 7 Days #14 tablet Bisacodyl [Dulcolax] 10 mg RC DAILY PRN 30 Days #30 supp.rect PRN Reason: Constipation Tamsulosin [Flomax] 0.4 mg PO DAILY 30 Days #30 capsule (1) Afib Qualifiers: Atrial fibrillation type: chronic Qualified Code(s): I48.2 - Chronic atrial fibrillation (2) Anemia Qualifiers: Anemia type: iron deficiency Qualified Code(s): D50.9 - Iron deficiency anemia, unspecified (3) Leukocytosis Qualifiers: Leukocytosis type: unspecified Qualified Code(s): D72.829 - Elevated white blood cell count, unspecified (4) CVA (cerebral vascular accident) Qualifiers: CVA mechanism: unspecified Qualified Code(s): I63.9 - Cerebral infarction, unspecified (6) Decubitus ulcer, stage 2 Qualifiers: Pressure injury location: unspecified location Qualified Code(s): L89.92 - Pressure ulcer of unspecified site, stage 2 (8) DMII (diabetes mellitus, type 2) Qualifiers: Diabetes mellitus meterman insulin use: with meterman use Diabetes mellitus complication status: with hyperglycemia Qualified Code(s): E11.65 - Type 2 diabetes mellitus with hyperglycemia; Z79.4 - ocean transportation intermediary (current) use of insulin (10) UTI (urinary tract infection) Qualifiers: Urinary tract infection type: site unspecified Hematuria presence: without hematuria Qualified Code(s): N39.0 - Urinary tract infection, site not specified (11) DVT (deep venous thrombosis) Qualifiers: DVT location: lower extremity Affected thrombotic vein of extremity: uns pecified vein of extremity Chronicity: unspecified Laterality: unspecified laterality Qualified Code(s): I82.409 - Acute embolism and thrombosis of unspecified deep veins of unspecified lower extremity
[2018-10-17 12:28] LABS: ABG Base Excess 6 mEq/L (-2 to 3); ABG HCO3 31 mEq/L (21-27); ABG Oxygen Saturation 96 % (95-98); ABG PCO2 44 mmHg (35-45); ABG PH 7.45 pH Units (7.32-7.45); ABG PO2 79 mmHg (85-104); ABG TCO2 32 mEq/L (20-26)
[2018-10-17] MEDS: Acetaminophen 325 MG TABLET PO PRN (13:08)
[2018-10-17] MEDS: traMADol 50 MG TABLET PO PRN (14:47)
[2018-10-17 15:09] LABS: Uric Acid 4.2 mg/dL (2.3-7.6)
[2018-10-17] MEDS: levETIRAcetam 500 MG/5 ML UDC PO SCH (21:42)
[2018-10-18] MEDS: Levalbuterol Neb 1.25 MG/3 ML IH SCH ×6 (03:34→23:45)
[2018-10-18] MEDS: Bumetanide 1 MG TABLET PO SCH (08:15)
[2018-10-18] MEDS: levETIRAcetam 500 MG/5 ML UDC PO SCH ×2 (08:16→20:27)
[2018-10-18] MEDS: Piperacillin/Tazobactam 3.375 GM in 0.9 % Sodium Chloride Mini Bag 100 ML IVPB SCH ×3 (08:16→16:32)
[2018-10-18] MEDS ORDERED: Aminoglycoside Consult 1 EACH MC ONE (08:46)
[2018-10-18] MEDS: Acetaminophen 325 MG TABLET PO PRN (09:45)
--- NOTE | 2018-10-18 11:00 | Infectious Disease Progress No ---
ID Progress Note Date of Encounter: 10/18/18 Time of Encounter: 09:30 - Subjective Subjective: Patient seen and examined. No acute events noted overnight. Patient sleeping, difficult to arouse. Was eating breakfast with the family's assistance prior to my entry in the room. Review of systems unobtainable. Denies pain or shortness of breath. Tachycardia and leukocytosis persists. FEbril yesterday Tmax 101.1 - Objective CBC & Chem 7: 10/17/18 08:28 10/17/18 08:28 - Exam Vitals: Temp Pulse Resp BP Pulse Ox 98.3 F 117 18 126/81 97 10/18/18 07:23 10/18/18 07:23 10/18/18 07:29 10/18/18 07:23 10/18/18 07:29 Exam: Head: Atraumatic, normal inspection, normocephalic. Eye: PERRLA, no scleral icterus noted. ENT: Mucous membranes moist. No odontogenic infection noted. Neck: Normal inspection. Soft, supple. Non-tender. No meningismus. Respiratory: Clear to auscultation. No rales, respiratory distress, rhonchi, or wheezes noted. Cardiovascular: Regular rate, tachycardic, S1 and S2 audible. No murmurs, rubs, or gallops. GI: Soft, nondistended, normal bowel sounds. Extremities: No joint swelling, pedal edema noted. Patient grimaces with palpation of the bilateral hands, elbows, and shoulders. Neurological: Sleeping, does not open eyes or verbalize. Follows some commands. Skin: Dry, intact, warm. Normal color. No rashes. - Assessment and Plan (1) Sepsis Current Visit: Yes Status: Acute The patient developed sepsis-like picture with fever, tachycardia, and tachypnea. Etiology: Unclear. Pneumonia versus reactive to CVA versus other. Improved initially but leukocytosis persisted and fever recurred yesterday. WBC remains elevated. Tmax 101.1 yesterday. Blood cultures drawn 10/04/18 are negative 2 sets. Repeat blood cultures drawn 10/09/18 are negative 2 sets. Pro-calcitonin mildly elevated at 0.41 initially, but repeat negative. Respiratory infectious panel is negative. Urine culture negative. CT of the chest, abdomen, and pelvis nonrevealing for infectious etiology. Peripheral smear negative for toxic granules or Dohle bodies. Consider non-infectious etiologies. Uric acid negative. X-ray shows right elbow joint effusion. WBC scan pending completion. Qualifiers: Sepsis type: sepsis due to unspecified organism Qualified Code(s): A41.9 - Sepsis, unspecified organism SNOMED Code(s): 29303086 (2) Altered mental status Current Visit: Yes Status: Acute etiology: Unclear. Sepsis versus CVA vs. other. Waxing and waning per family report. Review of systems Limited due to patient's mental status. Neurology consulted. Appreciate recommendations. CT of the head was negative initially, but MRI 10/10/18 showed hemorrhage stroke. Aspiration is on the differential given the patient's altered mental status, but CT chest was negative. Repeat CT head 10/17/18 negative for acute findings. Improved. This may be the patient's baseline given his recent CVA and history of dementia. Continue to monitor. Qualifiers: Altered mental status type: unspecified Qualified Code(s): R41.82 - Altered mental status, unspecified SNOMED Code(s): 647821482 (3) UTI (urinary tract infection) Current Visit: Yes Status: Ruled-out Ruled out. Urine culture negative. Qualifiers: Urinary tract infection type: site unspecified Hematuria presence: without hematuria Qualified Code(s): N39.0 - Urinary tract infection, site not specified SNOMED Code(s): 51090004 (4) CVA (cerebral vascular accident) Current Visit: No Status: Acute Known history of CVA a couple of months ago. Initial CT of the head was negative. MRI of the brain 10/10/18 showed evolving subacute hemorrhagic left frontal and left occipital lobe infarcts with areas of acute/early subacute infarction along the margins. There are also 2 punctate acute infarcts in the deep white matter of the left frontoparietal region. Chronic infarcts in the left parietal lobe were noted. Moderate chronic microvascular white matter ischemic disease noted the supra and infratentorially. Neurology consulted and following. Repeat CT of the head 10/11/18 showed continued evolution of the recent left f rontal lobe infarct without acute hemorrhagic products. The patient's family declined transfer to tertiary care center for evaluation by neurosurgery. Repeat CT of the head 10/15/18 showed evolving subacute left frontal and occipital infarcts. Repeat CT head 10/17/18 negative for acute findings and showed unchanged subacute infarcts. As per the neurology team. Qualifiers: CVA mechanism: other Qualified Code(s): I63.89 - Other cerebral infarction SNOMED Code(s): 681033702 (5) Decubitus ulcer, stage 2 Current Visit: Yes Status: Chronic Clinically does not appear infected. Dressing changes and offloading per nursing protocol. Qualifiers: Pressure injury location: unspecified location Qualified Code(s): L89.92 - Pressure ulcer of unspecified site, stage 2 SNOMED Code(s): 962640585 (6) DMII (diabetes mellitus, type 2) Current Visit: No Status: Chronic Recommend aggressive glucose monitoring and control to promote wound healing and prevent reinfection. Qualifiers: Diabetes mellitus weight loss sales consultant insulin use: with long-term use Diabetes kirill itus complication status: with hyperglycemia Qualified Code(s): E11.65 - Type 2 diabetes mellitus with hyperglycemia; Z79.4 - USP (current) use of insulin SNOMED Code(s): 11579242 (7) Acute respiratory failure with hypoxia Current Visit: Yes Status: Resolved Likely secondary to acute encephalopathy and possible aspiration. CT chest negative for PNA or pneumonitis. Improved. Currently on room air. Management per the pulmonary team. SNOMED Code(s): 81899601, 549835209 (8) Abnormal chest x-ray Current Visit: Yes Status: Acute CXR showed atelectasis vs. aspiration vs. PNA. Could be the source of the patient's sepsis. Given the patient's waxing and waning AMS, concern for aspiration. DATASTAGE DEVELOPER evaluation noted. Currently on Zosyn. SNOMED Code(s): 819551618, 687772662 (9) Effusion, right elbow Current Visit: Yes Status: Acute Right elbow x-ray showed joint effusion with no acute osseous abnormality. If there has been trauma, occult radial head fracture suggested. In the absence of trauma, septic arthritis should be considered. Consult orthopedics. SNOMED Code(s): 467826655003818 (10) Diarrhea Current Visit: Yes Status: Acute 5 loose watery stools documented in the past 24 hours. Infectious vs. antibiotics-related. Empiric C. diff precautions. Check C. diff. Qualifiers: Diarrhea type: unspecified type Qualified Code(s): R19.7 - Diarrhea, unspecified SNOMED Code(s): 04872861 - Recommendations Recommendations: Await repeat blood cultures. Get WBC scan. Recommend ortho to evaluate right elbow effusion. Start Vancomycin IV. Pharmacy to dose. Goal trough ~15. Continue Zosyn 3.375 grams IV Q8H. Duration of treatment depends on the clinical picture. Monitor renal function and for drug toxicity and dose-adjust antibiotics. CVA management per the neurology team. Check C. diff. C. diff precautions for now. Can discontinue if C. diff negative. Consult Discharge Plan - Plan Referrals: Camron Allen MD [Primary Care Provider] - (ECF) Prescriptions: Amoxicillin/Clavulanate [Augmentin] 875 mg PO BIDWM 7 Days #14 tablet Bisacodyl [Dulcolax] 10 mg RC DAILY PRN 30 Days #30 supp.rect PRN Reason: Constipation Tamsulosin [Flomax] 0.4 mg PO DAILY 30 Days #30 capsule - Attending Attestation I have personally performed a face to face evaluation on this patient. I have reviewed and agree with the care plan. History and Exam by me shows: Assessment and plan: 1.Sepsis - etiology not clear. All work up was really not revealing; is fever due to infectious etiology or non infectious? malignancy? autoimmune? etc?; family never allowed us to do an LP. Gallbladder was mildly enlarged on the CT could this be the culprit? 2.Altered mental status - waxing and waning; etiology does not appear infectious 3.CVA -MRI of the brain 10/10/18 showed evolving subacute hemorrhagic left f rontal and left occipital lobe infarcts with areas of acute/early subacute infarction along the margins. There are also 2 punctate acute infarcts in the deep white matter of the left frontoparietal region. Chronic infarcts in the left parietal lobe were noted. Moderate chronic microvascular white matter ischemic disease noted the supra and infratentorially. 4.Intracranial bleed 5. Right elbow effusion Recommendations As of now we have no infectious etiology. Acetone negative, peripheral smear shows no toxic granules, all cultures have been negative. Discussed with rheumatology who evaluated the patient We will probably drain the fluid collection in the elbow and sent for analysis including pseudogout Awaiting WBC scan
--- NOTE | 2018-10-18 14:38 | Internal Med Progress Note ---
Hospitalist Progress Note - Encounter Date of Encounter: 10/18/18 Time of Encounter: 14:36 - Subjective Interval History: I have seen and evaluated the patient at bedside. patient awake, following simple commands. in no acute distress. - Exam Vitals: Temp Pulse Resp BP Pulse Ox 99.4 F 103 25 99/64 97 10/18/18 11:50 10/18/18 11:50 10/18/18 11:50 10/18/18 11:50 10/18/18 11:50 Exam: Vitals: Reviewed. General: Awake. no in distress Cardiovascular: irregularly irregular, normal S1 & S2, no rubs, murmurs or gallops. Lungs: CTA b/l, no wheezes or crackles. Abdomen: Obese, soft, non-tender, no rigidity. NABS in all 4 quadrants Extremities: trace edema in the lower ext b/l. Neurological: Patient not following commands. Rest of the physical exam is non contributory - Assessment and Plan (1) Afib Current Visit: No Status: Chronic Assessment and Plan: Rate controlled on metoprolol. continue telemetry monitoring. (2) Anemia Current Visit: No Status: Chronic Assessment and Plan: H&H stable. no signs of bleeding. will monitor and transfuse per protocol (3) Leukocytosis Current Visit: No Status: Acute Assessment and Plan: peripheral smear unremarkable. unclear etiology. patient has been on broad spectrum IV antibiotics for >10 days, spike a fever yesterday, fever possible due to hemorrhagic cva. skeletal survey done as per patient's daughter he had multiple hardware in his body. right elbow x-ray: right elbow effusion. Rheumatology consulted for possible arthrocentesis. Patient started on vancomycin per pharmacy protocol. tag red blood cells scan done, pending report. C.diff positive will discuss with ID about discontinuing vanco and piperacillin/tazobactam and starting the patient on oral vanco (4) CVA (cerebral vascular accident) Current Visit: Yes Status: Acute Assessment and Plan: patient mental status continues to waxe and wane. repeat head ct 10/18/18:No acute intracranial abnormality. Remote left frontal, parietal, and occipital lobe infarcts are not significantly changed will continue monitoring clinically off antiplatelets due to hemorrhagic stroke. (5) Acute respiratory failure with hypoxia Current Visit: Yes Status: Resolved Assessment and Plan: patient in no distress. continue O2 supplement by nasal cannula, titrate for O2sat >92%. on bronchodilators Q4RH PRN. nocturnal BiPap. (6) Decubitus ulcer, stage 2 Current Visit: Yes Status: Chronic Assessment and Plan: continue wound care. (7) Seizure Current Visit: Yes Status: Suspected Assessment and Plan: on keppra 500mg/PO BID (8) DMII (diabetes mellitus, type 2) Current Visit: No Status: Chronic Assessment and Plan: blood sugar well controlled. off insulin coverage or accu-checks per family request. (9) Encephalopathy acute Current Visit: Yes Status: Resolved (10) UTI (urinary tract infection) Current Visit: Yes Status: Ruled-out (11) DVT (deep venous thrombosis) Current Visit: Yes Status: Chronic Assessment and Plan: As per patient daughter he was diagnosed with a DVT during his hospitalization at [facility]. No on anticoagulation due to recent hemorrhagic stroke. DVT Prophylaxis: no chemical dvt prophylaxis due to hemorrhagic cva. no mechanical dvt prophyalxis due to DVT - Summary of Assessment and Plan Summary of Assessment and Plan: patient to remain in the hospital as patient spike a fever yesterday, being work up for possible infection. potential discharge tomorrow. - Time Spent with Patient Total time spent is greater than 50% in coordination of care (as documented) at patient's floor/unit and/or counseling patient: Greater than 35 minutes (40) Plan of Care Discussed with: nurse Internal Medicine: Result - Labs CBC & Chem 7: 10/17/18 08:28 10/17/18 08:28 - ABG Interpretation ABG results: ABG ABG pH 7.45 pH Units (7.32-7.45) 10/17/18 12:24 ABG pCO2 44 mmHg (35-45) 10/17/18 12:24 ABG pO2 79 mmHg (85-104) L 10/17/18 12:24 ABG O2 Saturation 96 % (95-98) 10/17/18 12:24 PT/INR, D-dimer PT 26.3 Seconds (9.4-12.1) H 10/05/18 07:03 - Impressions Impressions Head CT 10/17/18 12:06 IMPRESSION: No acute intracranial abnormality. Remote left frontal, parietal, and occipital lobe infarcts are not significantly changed. D/ / 10/17/2018 13:26:07 Vivi Solis MD / earnold Interpreting Provider: Vivi Solis MD Elbow X-Ray 10/17/18 14:43 IMPRESSION: Joint effusion with no acute osseous abnormality. If there has been trauma an occult radial head fracture is suggested. In the absence of trauma septic arthritis should be considered. D/ / Jacques Johnson MD / Jacques Johnson MD Interpreting Provider: Jacques Johnson MD Hand X-Ray 10/17/18 14:43 IMPRESSION: No acute bony abnormality. D/ / Malorie Mendez Cha, MD / Malorie Mendez Cha, MD Interpreting Provider: Malorie Mendez Cha, MD Shoulder X-Ray 10/17/18 14:43 IMPRESSION: Degenerative changes of the right shoulder. No acute bony abnormality. D/ / Malorie Mendez Cha, MD / Malorie Mendez Cha, MD Interpreting Provider: Malorie Mendez Cha, MD Consult Discharge Plan - Plan Referrals: Camron Allen MD [Primary Care Provider] - (ECF) Prescriptions: Amoxicillin/Clavulanate [Augmentin] 875 mg PO BIDWM 7 Days #14 tablet Bisacodyl [Dulcolax] 10 mg RC DAILY PRN 30 Days #30 supp.rect PRN Reason: Constipation Tamsulosin [Flomax] 0.4 mg PO DAILY 30 Days #30 capsule (1) Afib Qualifiers: Qualified Code(s): I48.2 - Chronic atrial fibrillation (2) Anemia Qualifiers: Qualified Code(s): D50.9 - Iron deficiency anemia, unspecified (3) Leukocytosis Qualifiers: Qualified Code(s): D72.829 - Elevated white blood cell count, unspecified (4) CVA (cerebral vascular accident) Qualifiers: Qualified Code(s): I63.9 - Cerebral infarction, unspecified (6) Decubitus ulcer, stage 2 Qualifiers: Qualified Code(s): L89.92 - Pressure ulcer of unspecified site, stage 2 (8) DMII (diabetes mellitus, type 2) Qualifiers: Qualified Code(s): E11.65 - Type 2 diabetes mellitus with hyperglycemia; Z79.4 - FPC (current) use of insulin (10) UTI (urinary tract infection) Qualifiers: Qualified Code(s): N39.0 - Urinary tract infection, site not specified (11) DVT (deep venous thrombosis) Qualifiers: Qualified Code(s): I82.409 - Acute embolism and thrombosis of unspecified deep veins of unspecified lower extremity
--- NOTE | 2018-10-18 17:50 | Rheumatology Consult Note ---
Date of Encounter: 10/18/18 Time of Encounter: 12:00 Rheumatology Assess and Plan (1) Polyarthralgia Current Visit: Yes Status: Acute - Raj has a complex case as he is currently admitted for altered mental status, now with hemorrhagic stroke, found to have C-diff, fevers and inflammatory arthritis. - I did do a review of the outpatient chart and discussed the case with his daughters (both nurse practitioners). He had somewhat of a conditional di agnosis of polymyalgia rheumatica in 04/[address] Allen in which he had a good response to prednisone and on notes, he was on this regimen until 08/29 but the daughter report that he stopped prednisone at some point in time. No repeat ESR was checked to see if serologies reflected a response. - On radiographic imaging, he has a right elbow effusion and he has diffuse swelling and tenderness diffusely. This may be due to polymyalgia rheumatica; given the C-Diff, this could certainly be an inflammatory reactive arthritis or perhaps another autoimmune inflammatory arthritis. - I did discuss with Dr. Cooper, that given concern for infection, possible crystal arthritis that either ortho or IR could aspirate and test for crystal, cell count with diff and cultures. - I will add RF, CCP, SOHEILA though unclear if these will be too significant. - One additional concern given fevers if he could have a more systemic arteritis/giant cell arteritis, however it is difficult to get a history of this from the daughters and the patient is unable to give me this history. - I think given the infections, unclear picture is to get the joint fluid, serologic workup that is added and to start prednisone. I would recommend prednisone 20 mg po daily and monitor for a clinical response. I discussed parts of this case with Dr. Miranda and Dr. Cooper. I discussed with the family. (2) Effusion, right elbow Current Visit: Yes Status: Acute (3) C. difficile diarrhea Current Visit: Yes Status: Acute (4) Elevated WBC count Current Visit: Yes Status: Acute Qualifiers: Leukocytosis type: bandemia Qualified Code(s): D72.825 - Bandemia Rheumatology HPI Consult date: 10/18/18 Requesting physician: Jareth Haq Consult reason: joint swelling Chief complaint: pain History of present illness: Mr. Khan is a 83 year old male with PMH of COPD, atrial fibrillation, DM, HLD, HTN, stroke who presents to [place] with fever, altered mental status. Mr. Khan is unable to provide me any history and there is no one currently present in the room, so history obtain through the chart and also talking to other providers. Spoke with daughter. He had recently had a stroke, treated at [facility] and was at a alf center where he had altered mental status and fever. He has had imaging workup showing infarcts on CT head 10/09/18. MRI on 10/10 with evolving subacute hemorrhagic stroke in left front, left occipital and areas of subacute infarction. Chronic infarcts in the left parietal lobe. Abdomen imaging with gallbladder distension. Elbow Xray with joint effusion. Hand and shoulder Xray unremarkable. Chronic leukocytosis (comparing back to 2014) - Hematology eval 03/30, ID eval 02/28 ESR 116 on 10/10, 76 on 10/17. CRP 186 on 10/10, 150 on .. Back in 04/2018, this was elevated as well. Reviewed outpatient note in which he was treated for polymyalgia rheumatica a fter having elevated inflammatory markers and also with musculoskeltal pain. I have spoken to the daughter, and they report he has chronic complaints of joint pain. Reports in shoulders, difficulty moving around. When he was started on prednisone, they report a good response, but that they took him off of the prednisone when they did not think this was helping further. Past Med Surg Social Fam HX - Past Medical History Medical history: arthritis, atrial fibrillation, CHF, diabetes, hyperlipidemia, hypertension Additional medical history: irregular heartbeat, [place] Psychiatric history: no psych history - Past Surgical History Surgical History: cataract, hip replacement, knee replacement, other Additional surgical history: ablation. left and right knee replacement. hip replacement - Social History Smoking Status: Never smoker Smokeless Tobacco Status: No Alcohol use: none Drug use: none - Family History Mother Living Status: Age at : 72 Cause of : Cardiac Arrest Hx Family Cancer: Yes (Brain CA) Father Living Status: Age at : 82 Cause of : Natural Causes Hx Family Neuromuscular Disorders: Yes (Parkinson's) Medications and Allergies Ferrous Sulfate 325 mg PO BID 03/27/18 [History] Bumetanide [Bumex] 1 mg PO DAILY 09/07/18 [History] Ascorbate Calcium [Vitamin C] 500 mg PO DAILY 09/08/18 [History] Metoprolol Tartrate [Lopressor] 75 mg PO BID 09/08/18 [History] Acetaminophen [Tylenol] 650 mg PO Q4H PRN 10/04/18 [History] Atorvastatin [Lipitor] 40 mg PO HS 10/04/18 [History] Docusate [Colace] 100 mg PO BID PRN 10/04/18 [History] Insulin LISPRO [HumaLOG] 5 units SQ TIDAC 10/04/18 [History] Ipratropium Neb [Atrovent Neb] 0.5 mg IH Q4H PRN 10/04/18 [History] Levalbuterol HCl [Xopenex Neb] 1.25 mg IH Q4H PRN 10/04/18 [History] Multivitamin [Daily Multiple Vitamin] 1 each PO DAILY 10/04/18 [History] Nitroglycerin [Nitrostat] 0.4 mg SL AD PRN 10/04/18 [History] Polyethylene Glycol 3350 [MiraLAX] 17 gm PO DAILY PRN 10/04/18 [History] traZODone [TraZODone] 50 mg PO HS PRN 10/04/18 [History] Amoxicillin/Clavulanate [Augmentin] 875 mg PO BIDWM 7 Days #14 tablet 10/16/18 [Rx] Bisacodyl [Dulcolax] 10 mg RC DAILY PRN 30 Days #30 supp.rect 10/16/18 [Rx] Tamsulosin [Flomax] 0.4 mg PO DAILY 30 Days #30 capsule 10/16/18 [Rx] Allergy/AdvReac Type Severity Reaction Status Date / Time No Known Allergies Allergy Verified 08/31/18 14:26 All Systems Review: The remainder of the systems were reviewed and are negative Review of Systems: Unable to get a focal review of systems due to patient not answering questions Rheumatology Exam Vital Signs, Last 4 Hours Temp Pulse Resp BP Pulse Ox 10/18/18 16:10 99.2 F 105 15 143/88 98 Exam: General - Lethargic, appears uncomfortable during exam HEENT - Conjunctiva not assessed as eyes closed, + hair thinning, no facial rash. Mucous membranes dry. Heme/Lymph - No cervical or supraclavicular lymph node enlargement or tenderness. No pallor. Heart - S1S2 regular in rate and rhythm without murmurs, clicks or rubs. + right upper extremity peripheral edema. Lungs - Unlabored breathing, anterior exam clear to auscultation bilaterally without wheezes or crackles Gastrointestinal - Soft, nontender, nondistended. Unable to palpate any hepatosplenomegaly Skin - Scab on right upper extremity, ecchymosis noted, no ulcerations noted, poor turgot. Neurological - Gait not assessed as in bed, unable to assess muscle strength and proprioception. Musculoskeletal - Unable to assess ROM due to pain, + swelling to the right hand, right elbow, + diffuse joint tenderness. Rheumatology Results 10/17/18 08:28 10/17/18 08:28 All other labs normal. Consult Discharge Plan - Plan Referrals: Camron Allen MD [Primary Care Provider] - ([facility]) Prescriptions: Amoxicillin/Clavulanate [Augmentin] 875 mg PO BIDWM 7 Days #14 tablet Bisacodyl [Dulcolax] 10 mg RC DAILY PRN 30 Days #30 supp.rect PRN Reason: Constipation Tamsulosin [Flomax] 0.4 mg PO DAILY 30 Days #30 capsule
[2018-10-18] MEDS: Vancomycin Oral Soln 125 MG/2.5 ML UDC PO SCH ×2 (17:58→21:27)
[2018-10-19] MEDS: Levalbuterol Neb 1.25 MG/3 ML IH SCH ×5 (03:34→20:03)
[2018-10-19] MEDS: levETIRAcetam 500 MG/5 ML UDC PO SCH ×2 (07:30→22:06)
[2018-10-19] MEDS: Bumetanide 1 MG TABLET PO SCH (07:31)
[2018-10-19] MEDS: Vancomycin Oral Soln 125 MG/2.5 ML UDC PO SCH ×4 (07:31→22:06)
--- NOTE | 2018-10-19 10:27 | Infectious Disease Progress No ---
ID Progress Note Date of Encounter: 10/19/18 Time of Encounter: 09:30 - Subjective Subjective: Patient seen and examined. No acute events noted overnight. Patient sleeping, difficult to arouse. Family at the bedside states he was awake this morning and seemed to be doing better than he had in the past several days. Review of systems unobtainable from the patient. I asked him to open his eyes and he told me "no." - Objective CBC & Chem 7: 10/19/18 10:13 10/19/18 10:13 - Exam Vitals: Temp Pulse Resp BP Pulse Ox 99 F 79 16 121/70 98 10/19/18 08:04 10/19/18 08:04 10/19/18 08:04 10/19/18 08:04 10/19/18 08:04 Exam: Head: Atraumatic, normal inspection, normocephalic. Eye: PERRLA, no scleral icterus noted. ENT: Mucous membranes moist. No odontogenic infection noted. Neck: Normal inspection. Soft, supple. Non-tender. No meningismus. Respiratory: Clear to auscultation. No rales, respiratory distress, rhonchi, or wheezes noted. Cardiovascular: Regular rate, tachycardic, S1 and S2 audible. No murmurs, rubs, or gallops. GI: Soft, nondistended, normal bowel sounds. Extremities: No joint swelling, pedal edema noted. Patient grimaces with palpation of the bilateral hands, elbows, and shoulders. Neurological: Sleeping, does not open eyes or verbalize. Follows some commands. Skin: Dry, intact, warm. Normal color. No rashes. - Assessment and Plan (1) Sepsis Current Visit: Yes Status: Acute The patient developed sepsis-like picture with fever, tachycardia, and tachypnea. Etiology: Unclear. Pneumonia versus reactive to CVA versus other. Improved initially but leukocytosis persisted and had recurrence of fever. Likely due to C. difficile diarrhea. WBC remains elevated. MAXIMUM TEMPERATURE 100.2 overnight. Blood cultures drawn 10/04/18 are negative 2 sets. Repeat blood cultures drawn 10/09/18 are negative 2 sets. Repeat blood cultures drawn 10/17/18 are no growth to date 2 sets. Qualifiers: Sepsis type: sepsis due to unspecified organism Qualified Code(s): A41.9 - Sepsis, unspecified organism SNOMED Code(s): 81214652 (2) Altered mental status Current Visit: Yes Status: Acute etiology: Unclear. Sepsis versus CVA vs. other. Waxing and waning per family report. Review of systems Limited due to patient's mental status. Neurology consulted. Appreciate recommendations. CT of the head was negative initially, but MRI 10/10/18 showed hemorrhage stroke. Aspiration is on the differential given the patient's altered mental status, but CT chest was negative. Repeat CT head 10/17/18 negative for acute findings. Improved. This may be the patient's baseline given his recent CVA and history of dementia. Continue to monitor. Qualifiers: Altered mental status type: unspecified Qualified Code(s): R41.82 - Altered mental status, unspecified SNOMED Code(s): 963852415 (3) UTI (urinary tract infection) Current Visit: Yes Status: Ruled-out Ruled out. Urine culture negative. Qualifiers: Urinary tract infection type: site unspecified Hematuria presence: without hematuria Qualified Code(s): N39.0 - Urinary tract infection, site not specif ied SNOMED Code(s): 44141802 (4) CVA (cerebral vascular accident) Current Visit: No Status: Acute Known history of CVA a couple of months ago. Initial CT of the head was negative. MRI of the brain 10/10/18 showed evolving subacute hemorrhagic left frontal and left occipital lobe infarcts with areas of acute/early subacute infarction along the margins. There are also 2 punctate acute infarcts in the deep white matter of the left frontoparietal region. Chronic infarcts in the left parietal lobe were noted. Moderate chronic microvascular white matter ischemic disease noted the supra and infratentorially. Neurology consulted and following. Repeat CT of the head 10/11/18 showed continued evolution of the recent left frontal lobe infarct without acute hemorrhagic products. The patient's family declined transfer to tertiary care center for evaluation by neurosurgery. Repeat CT of the head 10/15/18 showed evolving subacute left frontal and occipital infarcts. Repeat CT head 10/17/18 negative for acute findings and showed unchanged subacute infarcts. As per the neurology team. Qualifiers: CVA mechanism: other Qualified Code(s): I63.89 - Other cerebral infarction SNOMED Code(s): 182392094 (5) Decubitus ulcer, stage 2 Current Visit: Yes Status: Chronic Clinically does not appear infected. Dressing changes and offloading per nursing protocol. Qualifiers: Pressure injury location: unspecified location Qualified Code(s): L89.92 - Pressure ulcer of unspecified site, stage 2 SNOMED Code(s): 531667717 (6) DMII (diabetes mellitus, type 2) Current Visit: No Status: Chronic Recommend aggressive glucose monitoring and control to promote wound healing and prevent reinfection. Qualifiers: Diabetes mellitus intermediate insulin use: with intermediate use Diabetes mellitus complication status: with hyperglycemia Qualified Code(s): E11.65 - Type 2 diabetes mellitus with hyperglycemia; Z79.4 - skilled nursing (current) use of insulin SNOMED Code(s): 36398045 (7) Acute respiratory failure with hypoxia Current Visit: Yes Status: Resolved Likely secondary to acute encephalopathy and possible aspiration. CT chest negative for PNA or pneumonitis. Improved. Currently on room air. Management per the pulmonary team. SNOMED Code(s): 87905069, 904132711 (8) Abnormal chest x-ray Current Visit: Yes Status: Acute CXR showed atelectasis vs. aspiration vs. PNA. Could be the source of the patient's sepsis. Given the patient's waxing and waning AMS, concern for aspiration. TEMPLER HEAD evaluation noted. SNOMED Code(s): 435177740, 904462010 (9) Effusion, right elbow Current Visit: Yes Status: Acute Right elbow x-ray showed joint effusion with no acute osseous abnormality. If there has been trauma, occult radial head fracture suggested. In the absence of trauma, septic arthritis should be considered. Infectious versus noninfectious etiologies. The patient also has a superficial venous thrombosis in the right arm which cou ld be contributing to the joint effusion. He may also have some sort of underlying inflammatory process that has been undiagnosed contributing to his bilateral arm pain. Rheumatology consulted. Orthopedics consulted. SNOMED Code(s): 957978217123436 (10) Diarrhea Current Visit: Yes Status: Acute 5 loose watery stools documented in the past 24 hours. C. difficile PCR and EIA positive. Continue C. difficile precautions. Currently on oral vancomycin. Qualifiers: Diarrhea type: unspecified type Qualified Code(s): R19.7 - Diarrhea, unspecified SNOMED Code(s): 21164551 (11) Superficial venous thrombosis of arm Current Visit: Yes Status: Acute Right cephalic and right basilic acute thrombosis noted on venous duplex study. Management per the primary team. Qualifiers: Laterality: right Qualified Code(s): I82.611 - Acute embolism and thrombosis of superficial veins of right upper extremity SNOMED Code(s): 357379274 - Recommendations Recommendations: At this point, the patient does have an acute infectious process that needs treated with oral vancomycin. I do believe that he also has some sort of underlying inflammatory/autoimmune issue that has caused his persistent leukocytosis and elevated inflammatory markers dating all the way back to 2016. Await repeat blood cultures. Get WBC scan. Appreciate recommendations from the rheumatology team. Await recommendations from the orthopedics team. Continue vancomycin 125 mg by mouth 4 times a day. Duration of treatment depends on the clinical picture, likely 14 days. Monitor renal function and dose-adjust antibiotics. CVA management per the neurology team. C. diff precautions. Recommend close outpatient follow up with rheumatology once C. diff adequate t reated. Consult Discharge Plan - Plan Referrals: Camron Allen MD [Primary Care Provider] - ([facility]) Prescriptions: Amoxicillin/Clavulanate [Augmentin] 875 mg PO BIDWM 7 Days #14 tablet Bisacodyl [Dulcolax] 10 mg RC DAILY PRN 30 Days #30 supp.rect PRN Reason: Constipation Tamsulosin [Flomax] 0.4 mg PO DAILY 30 Days #30 capsule - Attending Attestation I have personally performed a face to face evaluation on this patient. I have reviewed and agree with the care plan. History and Exam by me shows: Assessment and plan: 1.Sepsis - etiology not clear. All work up was really not revealing; is fever due to infectious etiology or non infectious? malignancy? autoimmune? etc?; family never allowed us to do an LP. Gallbladder was mildly enlarged on the CT could this be the culprit? 2.Altered mental status - waxing and waning; etiology does not appear infectious 3.CVA -MRI of the brain 10/10/18 showed evolving subacute hemorrhagic left frontal and left occipital lobe infarcts with areas of acute/early subacute infarction along the margins. There are also 2 punctate acute infarcts in the deep white matter of the left frontoparietal region. Chronic infarcts in the left parietal lobe were noted. Moderate chronic microvascular white matter ischemic disease noted the supra and infratentorially. 4.Intracranial bleed 5. Right elbow effusion Recommendations White blood cell nuclear scan negative procalcitonin negative Now patient has C. difficile from antibiotic use I will stop all the antibiotics and treat the C. difficile Status post arthrocentesis of the right elbow will await results Patient has polymyalgia rheumatica apparently and wheezing that is the cause of his fevers and leukocytosis Appreciate rheumatology evaluation We will sign off
[2018-10-19 10:46] LABS: Basophils % 0.2 %; Eosinophils # 0.2 K/mcL (0.0-0.6); Eosinophils % 1.3 %; Hematocrit 26.9 % (37.5-50.1); Hemoglobin 8.1 g/dL (12.9-16.9); Immature Granulocytes % 1.2 % (0-4); Lymphocytes # 1.1 K/mcL (0.6-4.6); Lymphocytes % 7.2 %; Mean Corpuscular HGB Conc 30.1 g/dL (31.6-35.5); Mean Corpuscular Hemoglobin 29.2 pg (28.0-33.3); Mean Corpuscular Volume 97.1 fL (83.0-100.0); Monocytes # 1.3 K/mcL (0.0-1.3); Monocytes % 8.5 %; Neutrophils # 12.3 K/mcL (1.6-8.9); Platelet Count 249 K/mcL (140-400); Red Blood Count 2.77 M/mcL (4.19-5.50); Red Cell Distribution Width 16.1 % (11.5-14.5); Segmented Neutrophils % 81.6 %
[2018-10-19 11:09] LABS: BUN/Creatinine Ratio 38 (6-26); Blood Urea Nitrogen 41 mg/dL (8-23); Calcium 8.6 mg/dL (8.6-10.3); Carbon Dioxide 29 mEq/L (23-29); Chloride 102 mEq/L (98-107); Glucose 228 mg/dL (70-105); Magnesium 1.6 mg/dL (1.6-2.6); Osmolality,Calculated 309 (280-300); Phosphorous 2.1 mg/dL (2.7-4.5); Potassium 3.4 mEq/L (3.5-5.1); Sodium 141 mEq/L (136-145); eGFR For Non-African Americans > 60 (> 60)
--- NOTE | 2018-10-19 11:32 | Rheumatology Progress Note ---
Date of Encounter: 10/19/18 Time of Encounter: 08:30 Rheumatology Assess and Plan (1) Polyarthralgia Current Visit: Yes Status: Acute -Today, Raj is more alert and he appears to be more comfortable. He has diffuse swelling and not necessarily an obvious effusion or inflammatory arthritis. I have spoken to his son and two daughters and his historical symptoms and evaluations is somewhat unclear. - He has had leukocytosis and elevations in inflammation markers since February. - Given the review of documentation, polymyalgia rheumatica does seem likely and would recommend prednisone 20 mg po daily. RF, CCP previously negative and other than elbow effusion on Xray, no clear inflammatory arthritis otherwise. Can consider aspiration of that elbow though not sure how feasible this is; may be able to start prednisone and clinically monitor. - His leukocytosis is also longstanding; he has seen hematology once as an outpatient and it would likely be a good idea to have outpatient heme/onc follow-up as well. (2) Effusion, right elbow Current Visit: Yes Status: Acute (3) C. difficile diarrhea Current Visit: Yes Status: Acute On treatment. (4) Elevated WBC count Current Visit: Yes Status: Acute Qualifiers: Leukocytosis type: bandemia Qualified Code(s): D72.825 - Bandemia - Subjective Interval history: Patient seen and examined. He is only oriented to self. Unable to perform review of systems. Son at bedside who reports his mentation is at baseline. Exam Vital Signs, Last 4 Hours Temp Pulse Resp BP Pulse Ox 10/19/18 08:04 99 F 79 16 121/70 98 10/19/18 07:18 20 100 Exam: General - Alert, appears comfortable. Psych - Oriented to self ENT - Mucous membranes dry Cardiology - Edema to bilateral upper extremities MSK - Pain with ROM of bilateral extremities though less than previous exam. Objective Data 10/19/18 10:13 10/19/18 10:13 Immunology 10/18/18 17:33 Rheumatoid Factor 11 All other labs normal. Consult Discharge Plan - Plan Referrals: Camron Allen MD [Primary Care Provider] - ([facility]) Prescriptions: Amoxicillin/Clavulanate [Augmentin] 875 mg PO BIDWM 7 Days #14 tablet Bisacodyl [Dulcolax] 10 mg RC DAILY PRN 30 Days #30 supp.rect PRN Reason: Constipation Tamsulosin [Flomax] 0.4 mg PO DAILY 30 Days #30 capsule
[2018-10-19] MEDS: Insulin LISPRO 300 UNITS/3 ML VIAL SQ SCH ×3 (12:34→22:17)
[2018-10-19] MEDS: predniSONE 20 MG TABLET PO SCH (12:35)
--- NOTE | 2018-10-19 13:14 | Orthopedic Consult Note ---
Date of Encounter: 10/19/18 Time of Encounter: 13:11 Assessment and Plan (1) Effusion, right elbow Current Visit: Yes Status: Acute We will perform an arthrocentesis of the right elbow. Informed consent was obtained for the patient's daughter. Fluid will be sent off for cultures and analysis. History of Present Illness Chief complaint: Right elbow swelling HPI: Mr. Khan is a 83 year old male with a past medical history of COPD, heart failure, each of fibrillation, diabetes, hyperlipidemia, hypertension and a recent CVA recently treated at [facility] and [facility] yesterday who presents with one-day history of altered mental status and fever. The patient was admitted for a fever workup and persistent leukocytosis. The patient does have history of polymyalgia rheumatica. He was seen by Dr. Santiago. He has swelling of the right upper extremity and an effusion was seen in the right elbow. I was consulted by Dr. Lyon for an aspiration of the right elbow. Past Med Surg Social Fam HX - Past Medical History Medical history: arthritis, atrial fibrillation, CHF, diabetes, hyperlipidemia, hypertension Additional medical history: irregular heartbeat, [place] Psychiatric history: no psych history - Past Surgical History Surgical History: cataract, hip replacement, knee replacement, other Additional surgical history: ablation. left and right knee replacement. hip replacement - Social History Smoking Status: Never smoker Smokeless Tobacco Status: No Alcohol use: none Drug use: none - Family History Mother Living Status: Age at : 72 Cause of : Cardiac Arrest Hx Family Cancer: Yes (Brain CA) Father Living Status: Age at : 82 Cause of : Natural Causes Hx Family Neuromuscular Disorders: Yes (Parkinson's) Medications and Allergies Ferrous Sulfate 325 mg PO BID 03/27/18 [History] Bumetanide [Bumex] 1 mg PO DAILY 09/07/18 [History] Ascorbate Calcium [Vitamin C] 500 mg PO DAILY 09/08/18 [History] Metoprolol Tartrate [Lopressor] 75 mg PO BID 09/08/18 [History] Acetaminophen [Tylenol] 650 mg PO Q4H PRN 10/04/18 [History] Atorvastatin [Lipitor] 40 mg PO HS 10/04/18 [History] Docusate [Colace] 100 mg PO BID PRN 10/04/18 [History] Insulin LISPRO [HumaLOG] 5 units SQ TIDAC 10/04/18 [History] Ipratropium Neb [Atrovent Neb] 0.5 mg IH Q4H PRN 10/04/18 [History] Levalbuterol HCl [Xopenex Neb] 1.25 mg IH Q4H PRN 10/04/18 [History] Multivitamin [Daily Multiple Vitamin] 1 each PO DAILY 10/04/18 [History] Nitroglycerin [Nitrostat] 0.4 mg SL AD PRN 10/04/18 [History] Polyethylene Glycol 3350 [MiraLAX] 17 gm PO DAILY PRN 10/04/18 [History] traZODone [TraZODone] 50 mg PO HS PRN 10/04/18 [History] Amoxicillin/Clavulanate [Augmentin] 875 mg PO BIDWM 7 Days #14 tablet 10/16/18 [Rx] Bisacodyl [Dulcolax] 10 mg RC DAILY PRN 30 Days #30 supp.rect 10/16/18 [Rx] Tamsulosin [Flomax] 0.4 mg PO DAILY 30 Days #30 capsule 10/16/18 [Rx] Allergy/AdvReac Type Severity Reaction Status Date / Time No Known Allergies Allergy Verified 08/31/18 14:26 All Systems Reviewed: The remainder of the systems were reviewed and are negative Physical Exam - Constitutional Vitals: Temp Pulse Resp BP Pulse Ox 98.1 F 69 18 112/72 97 10/19/18 11:28 10/19/18 11:28 10/19/18 11:28 10/19/18 11:28 10/19/18 11:28 General appearance IM: A&O X 0 Exam: Right upper extremity swelling from the elbow down the forearm with mild swelling of the wrist. He is able to move the fingers. Good passive motion of the wrist with some discomfort. No crepitus, no warmth. He has limited range of motion of the elbow secondary to pain. There is no warmth, no fluctuance or crepitus of the skin. The patient has good capillary refill at fingertips. Results - Labs Result Diagrams: 10/19/18 10:13 10/19/18 10:13 Labs: Abnormal lab results WBC 15.1 K/mcL (4.3-11.1) H 10/19/18 10:13 RBC 2.77 M/mcL (4.19-5.50) L 10/19/18 10:13 Hgb 8.1 g/dL (12.9-16.9) L 10/19/18 10:13 Hct 26.9 % (37.5-50.1) L 10/19/18 10:13 MCV 100.3 fL (83.0-100.0) H 10/15/18 04:00 MCHC 30.1 g/dL (31.6-35.5) L 10/19/18 10:13 RDW 16.1 % (11.5-14.5) H 10/19/18 10:13 Plt Count 423 K/mcL (140-400) H 10/05/18 07:03 12.3 K/mcL (1.6-8.9) H 10/19/18 10:13 2.0 K/mcL (0.0-1.3) H 10/17/18 08:28 ESR 76 mm/hr (0-10) H 10/17/18 12:47 PT 26.3 Seconds (9.4-12.1) H 10/05/18 07:03 APTT 39.6 Seconds (26.0-36.0) H 10/05/18 07:03 ABG pH 7.47 pH Units (7.32-7.45) H 10/13/18 14:40 ABG pCO2 57 mmHg (35-45) H 10/10/18 22:34 ABG pO2 79 mmHg (85-104) L 10/17/18 12:24 ABG HCO3 31 mEq/L (21-27) H 10/17/18 12:24 ABG Total CO2 32 mEq/L (20-26) H 10/17/18 12:24 ABG O2 Saturation 91 % (95-98) L 10/13/18 14:40 ABG Base Excess 6 mEq/L (-2 to 3) H 10/17/18 12:24 Sodium 135 mEq/L (136-145) L 10/09/18 20:36 Potassium 3.4 mEq/L (3.5-5.1) L 10/19/18 10:13 Chloride 97 mEq/L (98-107) L 10/09/18 20:36 Carbon Dioxide 33 mEq/L (23-29) H 10/17/18 08:28 BUN 41 mg/dL (8-23) H 10/19/18 10:13 38 (6-26) H 10/19/18 10:13 Glucose 228 mg/dL (70-105) H 10/19/18 10:13 POC Glucose 152 mg/dL (70-99) H 10/19/18 07:53 309 (280-300) H 10/19/18 10:13 Calcium 8.4 mg/dL (8.6-10.3) L 10/15/18 10:39 Phosphorus 2.1 mg/dL (2.7-4.5) L 10/19/18 10:13 0.3 mg/dL (0.0-0.2) H 10/04/18 21:19 AST 42 Units/L (13-39) H 10/05/18 07:03 149 Units/L (34-104) H 10/16/18 08:06 242 Units/L (30-223) H 10/10/18 06:05 0.04 ng/mL (< 0.04) H* 10/04/18 21:19 150 mg/L (Less than 10) H 10/17/18 12:48 6.1 g/dL (6.4-8.9) L 10/16/18 08:06 2.8 g/dL (3.5-5.7) L 10/16/18 08:06 3.7 g/dL (2.4-3.5) H 10/10/18 06:05 0.8 (1.1-2.2) L 10/16/18 08:06 Amylase 16 Units/L (29-103) L 10/10/18 06:05 4 Units/L (11-82) L 10/10/18 06:05 0.41 ng/mL (0.00-0.15) H 10/11/18 03:54 Turbid (Clear) A 10/04/18 22:53 Ur Specific [place] 1.026 (1.010-1.025) H 10/04/18 22:53 30 mg/dL (Neg-Trace) H 10/07/18 21:35 Trace mg/dL (Negative) H 10/07/18 21:35 Trace (Negative) H 10/07/18 21:35 Ur Leukocyte Esterase Moderate (Negative) H 10/07/18 21:35 3-5 per hpf (0-3) H 10/07/18 21:35 15-30 per hpf (0-3) H 10/07/18 21:35 Ur Squamous Epith Cells Many per lpf (None-Few) H 10/07/18 21:35 Hyaline Casts Moderate per lpf (None-Few) H 10/04/18 22:53 Ur Culture Indicated? NO. (NO) A 10/07/18 21:35 Positive (Negative) A 10/15/18 09:00 Stl C. diff Tox B Gene Positive (Negative) A 10/18/18 14:56 Vancomycin Trough 20 mcg/mL (5-10) H 10/11/18 22:10 Crossmatch See Detail 10/08/18 13:52 H & H 10/19/18 Range/Units 10:13 Hgb 8.1 L (12.9-16.9) g/dL Hct 26.9 L (37.5-50.1) % All other labs normal. Right upper extremity Doppler examination shows no DVT but superficial cephalic vein thrombus - Diagnostic results Elbow x-ray: report reviewed (Right elbow: Joint effusion, no fractures, no significant degenerative changes) Consult Discharge Plan - Plan Referrals: Camron Allen MD [Primary Care Provider] - (ECF) Prescriptions: Amoxicillin/Clavulanate [Augmentin] 875 mg PO BIDWM 7 Days #14 tablet Bisacodyl [Dulcolax] 10 mg RC DAILY PRN 30 Days #30 supp.rect PRN Reason: Constipation Tamsulosin [Flomax] 0.4 mg PO DAILY 30 Days #30 capsule
--- NOTE | 2018-10-19 13:20 | Event Note ---
Date of Encounter: 10/19/18 Time of Encounter: 13:18 The posterior lateral aspect of the right elbow was prepped with Hibiclens. The posterolateral soft spot was palpated, and 18-gauge spinal needle was inserted into the elbow joint. 5 mL of cloudy yellow fluid was aspirated. This was cultured and sent for cell count and crystal analysis. The patient tolerated procedure well.
--- NOTE | 2018-10-19 13:52 | Internal Med Progress Note ---
Hospitalist Progress Note - Encounter Date of Encounter: 10/19/18 Time of Encounter: 13:49 - Subjective Interval History: Patient complains of a lot of pain from bilateral upper extremity and shoulders, he has significant right elbow and wrist swelling. We will consult orthopedic surgery for possible aspiration from joints. Patient agrees. Patient is afebrile, denies productive cough chest pain shortness of breath - Exam Vitals: Temp Pulse Resp BP Pulse Ox 98.1 F 69 18 112/72 97 10/19/18 11:28 10/19/18 11:28 10/19/18 11:28 10/19/18 11:28 10/19/18 11:28 Exam: Vitals: Reviewed. General: Awake. no in distress Cardiovascular: irregularly irregular, normal S1 & S2, no rubs, murmurs or gallops. Lungs: CTA b/l, no wheezes or crackles. Abdomen: Obese, soft, non-tender, no rigidity. NABS in all 4 quadrants Extremities: trace edema in the lower ext b/l. Neurological: Patient not following commands. Rest of the physical exam is non contributory DVT Prophylaxis: no chemical dvt prophylaxis due to hemorrhagic cva. no mechanical dvt prophyalxis due to DVT - Summary of Assessment and Plan Summary of Assessment and Plan: (1) possible PMR, rheumatology consult appreciated, started on prednisone 20 mg daily Current Visit: No Status: Chronic Assessment and Plan: Patient has right arm edema from SVT, and right elbow swelling, ortho was consulted had aspiration, pending result, conitnue ATB (2) C diff diarrhea, on oral vancomycin Current Visit: No Status: Chronic Assessment and Plan: (3) Leukocytosis had fever on 10/17, now resolved, WBC trending down Current Visit: No Status: Acute Assessment and Plan: peripheral smear unremarkable. unclear etiology. patient has been on broad spectrum IV antibiotics for >10 days. ATB stopped on 10/18 skeletal survey done as per patient's daughter he had multiple hardware in his body. NUC WBC scan was negative on 10/17 right elbow x-ray: right elbow effusion. Rheumatology consulted for possible arthrocentesis. Patient started on vancomycin and zosyn per pharmacy protocol. (4) CVA (cerebral vascular accident) Current Visit: Yes Status: Acute Assessment and Plan: patient mental status continues to wax and wane. repeat head ct 10/18/18:No acute intracranial abnormality. Remote left frontal, parietal, and occipital lobe infarcts are not significantly changed will continue monitoring clinically off antiplatelets due to hemorrhagic stroke. (5) Acute respiratory failure with hypoxia Current Visit: Yes Status: Resolved Assessment and Plan: patient in no distress. continue O2 supplement by nasal cannula, titrate for O2sat >92%. on bronchodilators Q4RH PRN. nocturnal BiPap. (6) Decubitus ulcer, stage 2 Current Visit: Yes Status: Chronic Assessment and Plan: continue wound care. (7) Seizure Current Visit: Yes Status: Suspected Assessment and Plan: on keppra 500mg/PO BID (8) DMII (diabetes mellitus, type 2) Current Visit: No Status: Chronic Assessment and Plan: blood sugar well controlled. off insulin coverage or accu-checks per family request. (9) Encephalopathy acute Current Visit: Yes Status: Resolved (10) UTI (urinary tract infection) Current Visit: Yes Status: Ruled-out (11) Afib Current Visit: No Status: Chronic Assessment and Plan: Rate controlled on metoprolol. continue telemetry monitoring. (12) Anemia Current Visit: No Status: Chronic Assessment and Plan: H&H stable. no signs of bleeding. will monitor and transfuse per protocol (13) DVT (deep venous thrombosis) Current Visit: Yes Status: Chronic Assessment and Plan: As per patient daughter he was diagnosed with a DVT during his hospitalization at [place]. No on anticoagulation due to recent hemorrhagic stroke. DVT Prophylaxis: no chemical dvt prophylaxis due to hemorrhagic cva. no mechanical dvt prophyalxis due to DVT - Summary of Assessment and Plan Pending clinic improvement from joint pain and wBC, conitnue IV ATB, will check uric acid - Time Spent with Patient Total time spent is greater than 50% in coordination of care (as documented) at patient's floor/unit and/or counseling patient: Greater than 35 minutes Plan of Care Discussed with: patient Internal Medicine: Result - Labs CBC & Chem 7: 10/19/18 10:13 10/19/18 10:13 Labs: Short CBC 10/19/18 Range/Units 10:13 WBC 15.1 H (4.3-11.1) K/mcL Hgb 8.1 L (12.9-16.9) g/dL Hct 26.9 L (37.5-50.1) % Plt Count 249 (140-400) K/mcL Neutrophils # 12.3 H (1.6-8.9) K/mcL BMP 10/19/18 10:13 Sodium 141 Potassium 3.4 L Chloride 102 Carbon Dioxide 29 BUN 41 H Creatinine 1.07 Glucose 228 H Calcium 8.6 - ABG Interpretation ABG results: ABG ABG pH 7.45 pH Units (7.32-7.45) 10/17/18 12:24 ABG pCO2 44 mmHg (35-45) 10/17/18 12:24 ABG pO2 79 mmHg (85-104) L 10/17/18 12:24 ABG O2 Saturation 96 % (95-98) 10/17/18 12:24 PT/INR, D-dimer PT 26.3 Seconds (9.4-12.1) H 10/05/18 07:03 - Impressions Impressions WBC Scan Nuclear Medicine 10/17/18 14:42 IMPRESSION: No abnormal white blood cell accumulation to localize a source of active infection. D/ / Wil Patricia MD / Wil Patricia MD Interpreting Provider: Wil Patricia MD Consult Discharge Plan - Plan Referrals: Camron Allen MD [Primary Care Provider] - (ECF) Prescriptions: Amoxicillin/Clavulanate [Augmentin] 875 mg PO BIDWM 7 Days #14 tablet Bisacodyl [Dulcolax] 10 mg RC DAILY PRN 30 Days #30 supp.rect PRN Reason: Constipation Tamsulosin [Flomax] 0.4 mg PO DAILY 30 Days #30 capsule
[2018-10-19 16:43] LABS: Source,Synovial Fluid Right Elbow
[2018-10-19] MEDS ORDERED: MetroNIDAZOLE 500 MG/100 ML 500 MG/100 ML BAG IVPB SCH (17:09)
[2018-10-19] MEDS: Acetaminophen 325 MG TABLET PO PRN (18:32)
[2018-10-19 18:58] LABS: Appearance,Synovial Fluid Hazy (Clear-Hazy); Color,Synovial Fluid Straw (Straw)
[2018-10-19] MEDS: traZODone 50 MG TABLET PO PRN (22:16)
[2018-10-19] MEDS: traMADol 50 MG TABLET PO PRN (22:17)
[2018-10-20] MEDS: Levalbuterol Neb 1.25 MG/3 ML IH SCH ×6 (00:04→20:29)
[2018-10-20 08:31] LABS: Basophils % 0.1 %; Eosinophils # 0.1 K/mcL (0.0-0.6); Eosinophils % 0.4 %; Hematocrit 26.4 % (37.5-50.1); Hemoglobin 8.1 g/dL (12.9-16.9); Lymphocytes # 1.4 K/mcL (0.6-4.6); Lymphocytes % 9.6 %; Mean Corpuscular HGB Conc 30.7 g/dL (31.6-35.5); Mean Corpuscular Hemoglobin 28.8 pg (28.0-33.3); Mean Platelet Volume 11.8 fL (9.4-12.4); Monocytes # 1.1 K/mcL (0.0-1.3); Monocytes % 7.8 %; Platelet Count 221 K/mcL (140-400); Red Blood Count 2.81 M/mcL (4.19-5.50); Red Cell Distribution Width 15.9 % (11.5-14.5); Segmented Neutrophils % 81.1 %
[2018-10-20 08:32] LABS: Neutrophils # 11.8 K/mcL (1.6-8.9)
[2018-10-20 08:39] LABS: BUN/Creatinine Ratio 44 (6-26); Blood Urea Nitrogen 44 mg/dL (8-23); Calcium 8.7 mg/dL (8.6-10.3); Carbon Dioxide 33 mEq/L (23-29); Chloride 102 mEq/L (98-107); Glucose 143 mg/dL (70-105); Magnesium 1.7 mg/dL (1.6-2.6); Osmolality,Calculated 308 (280-300); Potassium 3.9 mEq/L (3.5-5.1); Sodium 142 mEq/L (136-145); eGFR For Non-African Americans > 60 (> 60)
--- NOTE | 2018-10-20 08:58 | Internal Med Progress Note ---
Hospitalist Progress Note - Encounter Date of Encounter: 10/20/18 Time of Encounter: 08:56 - Subjective Interval History: Patient is doing okay, he is afebrile temperature 97.8, on BiPAP sitting 100% FiO2 40%. His generalized joint pain improved after steroids. But he has bilateral upper extremity swelling from IV infiltrates. In the lower extremity weakness. Discussed with his son, we will ask PT and OT to get him up today - Exam Vitals: Temp Pulse Resp BP Pulse Ox 97.8 F 97 18 136/90 100 10/20/18 07:40 10/20/18 07:40 10/20/18 07:40 10/20/18 07:40 10/20/18 07:40 Exam: Vitals: Reviewed. CONSTITUTIONAL: patient appears as an age appropriate male in no acute distress. EYES Clear sclerae, bilateral pupils are equal, reactive to light. EMOI. RESPIRATORY: No accessory muscle use, bilateral clear to auscultation, no wheezing, no crackles/rales. CARDIOVASCULAR: irregularly irRegular heart rate, normal S1 and S2, no murmurs GASTROINTESTINAL: bowel sounds present, soft, no tenderness. MUSCULOSKELETAL: diffuse Joints tenderness no clubbing, b/l Upper ext edema, no cyanosis. Bilateral peripheral pulses 2+. NEUROLOGIC: CN II to XII are grossly intact, no focal neurological deficit. DVT Prophylaxis: no chemical dvt prophylaxis due to hemorrhagic cva. no mechanical dvt prophyalxis due to DVT - Summary of Assessment and Plan Summary of Assessment and Plan: (1) possible PMR, appreciate rheumatology consult started on prednisone 20 mg daily on 10/19, ortho was consulted, had right elbow aspiration, fluids is negative for crystal, pending culture Current Visit: No Status: Chronic Assessment and Plan: Patient has right arm edema from SVT, and right elbow swelling, ortho was consulted had aspiration, pending result, conitnue ATB (2) C diff diarrhea, on oral vancomycin Current Visit: No Status: Chronic Assessment and Plan: (3) Leukocytosis had fever on 10/17, now resolved, WBC trending down Current Visit: No Status: Acute Assessment and Plan: peripheral smear unremarkable. unclear etiology. patient has been on broad spectrum IV antibiotics for >10 days. ATB stopped on 10/18 skeletal survey done as per patient's daughter he had multiple hardware in his body. NUC WBC scan was negative on 10/17 right elbow x-ray: right elbow effusion. Rheumatology consulted for possible arthrocentesis. Patient started on vancomycin and zosyn per pharmacy protocol. (4) CVA (cerebral vascular accident) Current Visit: Yes Status: Acute Assessment and Plan: patient mental status continues to wax and wane. repeat head ct 10/18/18:No acute intracranial abnormality. Remote left frontal, parietal, and occipital lobe infarcts are not significantly changed will continue monitoring clinically off antiplatelets due to hemorrhagic stroke. (5) Acute respiratory failure with hypoxia, weaning BIPAP Current Visit: Yes Status: Resolved Assessment and Plan: patient in no distress. continue O2 supplement by nasal cannula, titrate for O2sat >92%. on bronchodilators Q4RH PRN. nocturnal BiPap. will check CXR, start IV lasix, Weight 100.9 kg on admission, now 108kg today (6) Decubitus ulcer, stage 2 Current Visit: Yes Status: Chronic Assessment and Plan: continue wound care. (7) Seizure Current Visit: Yes Status: Suspected Assessment and Plan: on keppra 500mg/PO BID (8) DMII (diabetes mellitus, type 2) Current Visit: No Status: Chronic Assessment and Plan: blood sugar well controlled. off insulin coverage or accu-checks per family request. (9) Encephalopathy acute Current Visit: Yes Status: Resolved (10) UTI (urinary tract infection) Current Visit: Yes Status: Ruled-out (11) Afib Current Visit: No Status: Chronic Assessment and Plan: Rate controlled on metoprolol. continue telemetry monitoring. (12) Anemia Current Visit: No Status: Chronic Assessment and Plan: H&H stable. no signs of bleeding. will monitor and transfuse per protocol (12) Morbid obesity (13) DVT (deep venous thrombosis) Current Visit: Yes Status: Chronic Assessment and Plan: As per patient daughter he was diagnosed with a DVT during his hospitalization at [place]. No on anticoagulation due to recent hemorrhagic stroke. DVT Prophylaxis: no chemical dvt prophylaxis due to hemorrhagic cva. no mechanical dvt prophyalxis due to DVT - Summary of Assessment and Plan Pending clinic improvement from joint pain and wBC, conitnue IV ATB, will check uric acid - Time Spent with Patient Total time spent is greater than 50% in coordination of care (as documented) at patient's floor/unit and/or counseling patient: 25 - 35 minutes Plan of Care Discussed with: family Internal Medicine: Result - Labs CBC & Chem 7: 10/20/18 08:05 10/20/18 08:05 Labs: Short CBC 10/19/18 10/20/18 Range/Units 10:13 08:05 WBC 15.1 H 14.5 H (4.3-11.1) K/mcL Hgb 8.1 L 8.1 L (12.9-16.9) g/dL Hct 26.9 L 26.4 L (37.5-50.1) % Plt Count 249 221 (140-400) K/mcL Neutrophils # 12.3 H 11.8 H (1.6-8.9) K/mcL BMP 10/19/18 10/20/18 10:13 08:05 Sodium 141 142 Potassium 3.4 L 3.9 Chloride 102 102 Carbon Dioxide 29 33 H BUN 41 H 44 H Creatinine 1.07 1.01 Glucose 228 H 143 H Calcium 8.6 8.7 - ABG Interpretation ABG results: ABG ABG pH 7.45 pH Units (7.32-7.45) 10/17/18 12:24 ABG pCO2 44 mmHg (35-45) 10/17/18 12:24 ABG pO2 79 mmHg (85-104) L 10/17/18 12:24 ABG O2 Saturation 96 % (95-98) 10/17/18 12:24 PT/INR, D-dimer PT 26.3 Seconds (9.4-12.1) H 10/05/18 07:03 Consult Discharge Plan - Plan Referrals: Camron Allen MD [Primary Care Provider] - ([facility]F) Prescriptions: Amoxicillin/Clavulanate [Augmentin] 875 mg PO BIDWM 7 Days #14 tablet Bisacodyl [Dulcolax] 10 mg RC DAILY PRN 30 Days #30 supp.rect PRN Reason: Constipation Tamsulosin [Flomax] 0.4 mg PO DAILY 30 Days #30 capsule
[2018-10-20] MEDS ORDERED: Furosemide 40 MG/4 ML VIAL IVP SCH (09:15)
[2018-10-20] MEDS: levETIRAcetam 500 MG/5 ML UDC PO SCH ×2 (10:24→21:43)
[2018-10-20] MEDS: predniSONE 20 MG TABLET PO SCH (10:24)
[2018-10-20] MEDS: Vancomycin Oral Soln 125 MG/2.5 ML UDC PO SCH ×4 (10:26→21:43)
[2018-10-20] MEDS: Insulin LISPRO 300 UNITS/3 ML VIAL SQ SCH ×4 (10:27→21:44)
[2018-10-20] MEDS: Bumetanide 1 MG TABLET PO SCH (10:42)
[2018-10-20] MEDS: Furosemide 40 MG/4 ML VIAL IVP SCH ×2 (13:09→16:23)
[2018-10-20] MEDS: Acetaminophen 325 MG TABLET PO PRN (13:31)
--- NOTE | 2018-10-20 17:51 | Orthopedics Progress Note ---
Date of Encounter: 10/20/18 Time of Encounter: 12:40 - Assessment and Plan (1) Effusion, right elbow Current Visit: Yes Status: Acute Right elbow arthrocentesis by Dr. Goodman 10/19 produced hazy straw colored fluid Gram stain showed no bacteria cultures incubating but no growth to date No crystals seen Labs: WBC 14.5 improving. ESR 76 and CRP 150 both from 10/17. RF 11 from 10/[address] Goodman. No surgical intervention for the elbow pain at this time. Rheumatology on board and believe likely polymyalgia rheumatica and have started prednisone. PT/OT eval for joint motion as tolerated. Recommend follow up with rheumatology on outpatient basis. Orthopedics will sign off at this time but please call with any further questions. Subjective Principal diagnosis: right elbow pain Interval history: Patient sleeping on exam. He did open eyes with motion of elbow but then quickly returned to sleep. unable to answer any questions or follow any commands. Objective Vital signs: Vital Signs Temp Pulse Resp BP Pulse Ox 10/20/18 16:12 20 96 10/20/18 15:50 99.1 F 88 20 119/87 96 10/20/18 11:44 98.9 F 89 18 111/74 97 10/20/18 11:22 18 100 10/20/18 07:40 97.8 F 97 18 136/90 100 10/20/18 07:34 18 94 10/20/18 04:35 97.4 F L 97 18 125/79 94 10/20/18 03:27 22 100 10/20/18 00:33 25 100 10/20/18 00:14 16 99 10/20/18 00:12 98.8 F 74 17 131/78 98 10/19/18 20:03 98.6 F 74 17 118/83 99 Intake and Output 10/20/18 10/20/18 10/20/18 07:59 15:59 23:59 Other: Stool Size Large Stool Consistency loose liquid Stool Characteristics Mucoid Stool Color Black # Urine Diapers 1 # Bowel Movement Diapers 1 Blood Glucose* 148 198 Incision: swollen (Continued right upper extremity swelling from elbow to wrist. Good passive motion of the wrist and elbow with some discomfort. No erythema, fluctuance or warmth. Needle insertion site visible but healing appropriately. good capillary refill at fingertips.) - Labs CBC & BMP: 10/20/18 08:05 10/20/18 08:05 Labs: Abnormal lab results WBC 14.5 K/mcL (4.3-11.1) H 10/20/18 08:05 RBC 2.81 M/mcL (4.19-5.50) L 10/20/18 08:05 Hgb 8.1 g/dL (12.9-16.9) L 10/20/18 08:05 Hct 26.4 % (37.5-50.1) L 10/20/18 08:05 MCV 100.3 fL (83.0-100.0) H 10/15/18 04:00 MCHC 30.7 g/dL (31.6-35.5) L 10/20/18 08:05 RDW 15.9 % (11.5-14.5) H 10/20/18 08:05 Plt Count 423 K/mcL (140-400) H 10/05/18 07:03 11.8 K/mcL (1.6-8.9) H 10/20/18 08:05 2.0 K/mcL (0.0-1.3) H 10/17/18 08:28 ESR 76 mm/hr (0-10) H 10/17/18 12:47 PT 26.3 Seconds (9.4-12.1) H 10/05/18 07:03 APTT 39.6 Seconds (26.0-36.0) H 10/05/18 07:03 ABG pH 7.47 pH Units (7.32-7.45) H 10/13/18 14:40 ABG pCO2 57 mmHg (35-45) H 10/10/18 22:34 ABG pO2 79 mmHg (85-104) L 10/17/18 12:24 ABG HCO3 31 mEq/L (21-27) H 10/17/18 12:24 ABG Total CO2 32 mEq/L (20-26) H 10/17/18 12:24 ABG O2 Saturation 91 % (95-98) L 10/13/18 14:40 ABG Base Excess 6 mEq/L (-2 to 3) H 10/17/18 12:24 Sodium 135 mEq/L (136-145) L 10/09/18 20:36 Potassium 3.4 mEq/L (3.5-5.1) L 10/19/18 10:13 Chloride 97 mEq/L (98-107) L 10/09/18 20:36 Carbon Dioxide 33 mEq/L (23-29) H 10/20/18 08:05 BUN 44 mg/dL (8-23) H 10/20/18 08:05 44 (6-26) H 10/20/18 08:05 Glucose 143 mg/dL (70-105) H 10/20/18 08:05 POC Glucose 148 mg/dL (70-99) H 10/20/18 07:45 308 (280-300) H 10/20/18 08:05 Calcium 8.4 mg/dL (8.6-10.3) L 10/15/18 10:39 Phosphorus 2.1 mg/dL (2.7-4.5) L 10/19/18 10:13 0.3 mg/dL (0.0-0.2) H 10/04/18 21:19 AST 42 Units/L (13-39) H 10/05/18 07:03 149 Units/L (34-104) H 10/16/18 08:06 242 Units/L (30-223) H 10/10/18 06:05 0.04 ng/mL (< 0.04) H* 10/04/18 21:19 150 mg/L (Less than 10) H 10/17/18 12:48 6.1 g/dL (6.4-8.9) L 10/16/18 08:06 2.8 g/dL (3.5-5.7) L 10/16/18 08:06 3.7 g/dL (2.4-3.5) H 10/10/18 06:05 0.8 (1.1-2.2) L 10/16/18 08:06 Amylase 16 Units/L (29-103) L 10/10/18 06:05 4 Units/L (11-82) L 10/10/18 06:05 0.41 ng/mL (0.00-0.15) H 10/11/18 03:54 Turbid (Clear) A 10/04/18 22:53 Ur Specific [place] 1.026 (1.010-1.025) H 10/04/18 22:53 30 mg/dL (Neg-Trace) H 10/07/18 21:35 Trace mg/dL (Negative) H 10/07/18 21:35 Trace (Negative) H 10/07/18 21:35 Ur Leukocyte Esterase Moderate (Negative) H 10/07/18 21:35 3-5 per hpf (0-3) H 10/07/18 21:35 15-30 per hpf (0-3) H 10/07/18 21:35 Ur Squamous Epith Cells Many per lpf (None-Few) H 10/07/18 21:35 Hyaline Casts Moderate per lpf (None-Few) H 10/04/18 22:53 Ur Culture Indicated? NO. (NO) A 10/07/18 21:35 Positive (Negative) A 10/15/18 09:00 Stl C. diff Tox B Gene Positive (Negative) A 10/18/18 14:56 Vancomycin Trough 20 mcg/mL (5-10) H 10/11/18 22:10 Crossmatch See Detail 10/08/18 13:52 Consult Discharge Plan - Plan Referrals: Camron Allen MD [Primary Care Provider] - ([facility]F) Prescriptions: Amoxicillin/Clavulanate [Augmentin] 875 mg PO BIDWM 7 Days #14 tablet Bisacodyl [Dulcolax] 10 mg RC DAILY PRN 30 Days #30 supp.rect PRN Reason: Constipation Tamsulosin [Flomax] 0.4 mg PO DAILY 30 Days #30 capsule
--- NOTE | 2018-10-20 18:01 | Rheumatology Progress Note ---
Date of Encounter: 10/20/18 Time of Encounter: 12:00 Rheumatology Assess and Plan (1) Polyarthralgia Current Visit: Yes Status: Acute Clinically stable, no new symptoms and overall objectively has less discomfort. - Right elbow effusion tapped; unable to complete cell count but is neutrophilic elevated so likely inflammatory arthritis. Could be an inflammatory reactive arthritis from C-Diff infection. - History convincing for PMR per outpatient notes, but no way to clinically confirm as this is a clinical diagnosis that is made by subjective information from the patient, which I am unable to obtain. - I would continue prednisone 20 mg and as an outpatient, will taper and clinically monitor. I am out of the hospital until next Tuesday so if he is still an inpatient, will follow up with him. (2) Effusion, right elbow Current Visit: Yes Status: Acute (3) C. difficile diarrhea Current Visit: Yes Status: Acute - Subjective Interval history: Patient seen and examined. He is only oriented to self. Unable to perform review of systems. Denies pain when asked. Exam Vital Signs, Last 4 Hours Temp Pulse Resp BP Pulse Ox 10/20/18 16:12 20 96 10/20/18 15:50 99.1 F 88 20 119/87 96 Exam: General - Alert and oriented to self Pulmonary - Unlabored breathing MSK - Able to straight bilateral arms, extend shoulders and open and close fist. Objective Data 10/20/18 08:05 10/20/18 08:05 All other labs normal. Consult Discharge Plan - Plan Referrals: Camron Allen MD [Primary Care Provider] - ([facility]) Prescriptions: Amoxicillin/Clavulanate [Augmentin] 875 mg PO BIDWM 7 Days #14 tablet Bisacodyl [Dulcolax] 10 mg RC DAILY PRN 30 Days #30 supp.rect PRN Reason: Constipation Tamsulosin [Flomax] 0.4 mg PO DAILY 30 Days #30 capsule
[2018-10-21] MEDS: Levalbuterol Neb 1.25 MG/3 ML IH SCH ×6 (00:26→20:08)
[2018-10-21] MEDS: Furosemide 40 MG/4 ML VIAL IVP SCH ×2 (07:53→17:03)
[2018-10-21] MEDS: levETIRAcetam 500 MG/5 ML UDC PO SCH ×2 (07:53→21:36)
[2018-10-21] MEDS: predniSONE 20 MG TABLET PO SCH (07:53)
[2018-10-21] MEDS: Vancomycin Oral Soln 125 MG/2.5 ML UDC PO SCH ×4 (07:53→21:36)
[2018-10-21] MEDS: Insulin LISPRO 300 UNITS/3 ML VIAL SQ SCH ×4 (07:54→21:38)
--- NOTE | 2018-10-21 08:50 | Internal Med Progress Note ---
Hospitalist Progress Note - Encounter Date of Encounter: 10/21/18 Time of Encounter: 08:38 - Subjective Interval History: Patient is doing better, on room air. His son is in the room alert oriented 2. He is tolerating pureed diet. His bilateral upper extremity pain and swelling significantly improved. Diarrhea resolved. - Exam Vitals: Temp Pulse Resp BP Pulse Ox 98.7 F 109 18 144/89 100 10/21/18 07:25 10/21/18 07:25 10/21/18 07:25 10/21/18 07:25 10/21/18 07:25 Exam: Vitals: Reviewed. CONSTITUTIONAL: patient appears as an age appropriate male in no acute distress. EYES Clear sclerae, bilateral pupils are equal, reactive to light. EMOI. RESPIRATORY: No accessory muscle use, bilateral clear to auscultation, no wheezing, no crackles/rales. CARDIOVASCULAR: irregularly irRegular heart rate, normal S1 and S2, no murmurs GASTROINTESTINAL: bowel sounds present, soft, no tenderness. MUSCULOSKELETAL: diffuse Joints tenderness no clubbing, b/l Upper ext edema, no cyanosis. Bilateral peripheral pulses 2+. NEUROLOGIC: CN II to XII are grossly intact, no focal neurological deficit. DVT Prophylaxis: no chemical dvt prophylaxis due to hemorrhagic cva. no mechanical dvt prophyalxis due to DVT - Summary of Assessment and Plan Summary of Assessment and Plan: (1) possible PMR, appreciate rheumatology consult started on prednisone 20 mg daily on 10/19, ortho was consulted, had right elbow aspiration, fluids is negative for crystal, pending culture ( [facility]) Current Visit: No Status: Chronic Assessment and Plan: Patient has right arm edema from SVT, and right elbow swelling, ortho was consulted had aspiration, pending culture. likely inflammatory process, .contineu prednisone 20 mg daily, pain and swelling are improving (2) C diff diarrhea, on oral vancomycin for 14 days Per ID, diarrhea resolved Current Visit: No Status: Chronic Assessment and Plan: (3) Leukocytosis had fever on 10/17, now resolved, WBC trending down Current Visit: No Status: Acute Assessment and Plan: peripheral smear unremarkable. unclear etiology. patient has been on broad spectrum IV antibiotics for >10 days. ATB stopped on 10/18 skeletal survey done as per patient's daughter he had multiple hardware in his body. NUC WBC scan was negative on 10/17 right elbow x-ray: right elbow effusion. Rheumatology consulted for possible arthrocentesis. Patient started on vancomycin and zosyn per pharmacy protocol. (4) CVA (cerebral vascular accident) Current Visit: Yes Status: Acute Assessment and Plan: patient mental status continues to wax and wane. repeat head ct 10/18/18:No acute intracranial abnormality. Remote left frontal, parietal, and occipital lobe infarcts are not significantly changed will continue monitoring clinically off antiplatelets due to hemorrhagic stroke. (5) Acute respiratory failure with hypoxia, resolved, weaned off BIPAP and O2 on 10/21 Current Visit: Yes Status: Resolved Assessment and Plan: CXR showed There is improved aeration of the lung bases compared to the prior exam. No new airspace consolidation. Costophrenic angles are clear. Cardiac and mediastinal structures are unremarkable. 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 Weight 100.9 kg on admission, now 108kg on 10/20, started IV Lasix on 10/20, diuresis well, off O2 (6) Decubitus ulcer, stage 2 Current Visit: Yes Status: Chronic Assessment and Plan: continue wound care. (7) Seizure Current Visit: Yes Status: Suspected Assessment and Plan: on keppra 500mg/PO BID (8) DMII (diabetes mellitus, type 2) Current Visit: No Status: Chronic Assessment and Plan: blood sugar well controlled. off insulin coverage or accu-checks per family request. (9) Encephalopathy acute Current Visit: Yes Status: Resolved (10) UTI (urinary tract infection) Current Visit: Yes Status: Ruled-out (11) Afib Current Visit: No Status: Chronic Assessment and Plan: Rate controlled on metoprolol. continue telemetry monitoring. (12) Anemia Current Visit: No Status: Chronic Assessment and Plan: H&H stable. no signs of bleeding. 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 No on anticoagulation due to recent hemorrhagic stroke. DVT Prophylaxis: no chemical dvt prophylaxis due to hemorrhagic cva. no mechanical dvt prop hyalxis due to DVT - Summary of Assessment and Plan will continue IV lalsix for another day, then discharge to SNF Tuesday PT and OT reconsulted, patient has not been out of bed yet, awaiting for PT and OT - Time Spent with Patient Total time spent is greater than 50% in coordination of care (as documented) at patient's floor/unit and/or counseling patient: 25 - 35 minutes Plan of Care Discussed with: family Internal Medicine: Result - Labs CBC & Chem 7: 10/20/18 08:05 10/20/18 08:05 Labs: BMP 10/20/18 08:05 Sodium 142 Potassium 3.9 Chloride 102 Carbon Dioxide 33 H BUN 44 H Creatinine 1.01 Glucose 143 H Calcium 8.7 - ABG Interpretation ABG results: ABG ABG pH 7.45 pH Units (7.32-7.45) 10/17/18 12:24 ABG pCO2 44 mmHg (35-45) 10/17/18 12:24 ABG pO2 79 mmHg (85-104) L 10/17/18 12:24 ABG O2 Saturation 96 % (95-98) 10/17/18 12:24 PT/INR, D-dimer PT 26.3 Seconds (9.4-12.1) H 10/05/18 07:03 - Impressions Impressions Chest X-Ray 10/20/18 09:03 IMPRESSION: Improved aeration of the lung bases compared to the prior exam. No acute abnormality. D/ / Wil Patricia MD / Wil Patricia MD Interpreting Provider: Wil Patricia MD Consult Discharge Plan - Plan Referrals: Carmon Allen MD [Primary Care Provider] - (ECF) Prescriptions: Amoxicillin/Clavulanate [Augmentin] 875 mg PO BIDWM 7 Days #14 tablet Bisacodyl [Dulcolax] 10 mg RC DAILY PRN 30 Days #30 supp.rect PRN Reason: Constipation Tamsulosin [Flomax] 0.4 mg PO DAILY 30 Days #30 capsule
[2018-10-21 09:30] LABS: ANA IgG by ELISA NONE DETECTED (None Detected)
[2018-10-21 09:38] LABS: Basophils % 0.2 %; Eosinophils # 0.1 K/mcL (0.0-0.6); Eosinophils % 0.3 %; Hematocrit 28.1 % (37.5-50.1); Hemoglobin 8.8 g/dL (12.9-16.9); Immature Granulocytes % 0.7 % (0-4); Lymphocytes # 1.4 K/mcL (0.6-4.6); Lymphocytes % 7.7 %; Mean Corpuscular HGB Conc 31.3 g/dL (31.6-35.5); Mean Corpuscular Hemoglobin 29.2 pg (28.0-33.3); Mean Corpuscular Volume 93.4 fL (83.0-100.0); Mean Platelet Volume 11.2 fL (9.4-12.4); Monocytes # 1.3 K/mcL (0.0-1.3); Monocytes % 7.2 %; Neutrophils # 15.2 K/mcL (1.6-8.9); Platelet Count 306 K/mcL (140-400); Red Blood Count 3.01 M/mcL (4.19-5.50); Segmented Neutrophils % 83.9 %
[2018-10-21 09:46] LABS: BUN/Creatinine Ratio 45 (6-26); Blood Urea Nitrogen 45 mg/dL (8-23); Calcium 8.7 mg/dL (8.6-10.3); Carbon Dioxide 33 mEq/L (23-29); Chloride 98 mEq/L (98-107); Glucose 172 mg/dL (70-105); Osmolality,Calculated 308 (280-300); Potassium 3.4 mEq/L (3.5-5.1); Sodium 141 mEq/L (136-145); eGFR For Non-African Americans > 60 (> 60)
[2018-10-21] MEDS: traMADol 50 MG TABLET PO PRN (21:37)
[2018-10-21] MEDS ORDERED: Levalbuterol Neb 1.25 MG/3 ML IH PRN (22:50)
[2018-10-22] MEDS: Insulin LISPRO 300 UNITS/3 ML VIAL SQ SCH ×4 (09:08→21:15)
[2018-10-22] MEDS: Furosemide 40 MG/4 ML VIAL IVP SCH ×2 (09:09→17:02)
[2018-10-22] MEDS: Vancomycin Oral Soln 125 MG/2.5 ML UDC PO SCH ×4 (09:09→21:16)
[2018-10-22] MEDS: levETIRAcetam 500 MG/5 ML UDC PO SCH ×2 (09:10→21:15)
[2018-10-22] MEDS: predniSONE 20 MG TABLET PO SCH (09:10)
[2018-10-22 09:43] LABS: Basophils % 0.2 %; Eosinophils # 0.1 K/mcL (0.0-0.6); Eosinophils % 0.4 %; Hematocrit 28.7 % (37.5-50.1); Hemoglobin 8.8 g/dL (12.9-16.9); Immature Granulocytes % 1.3 % (0-4); Lymphocytes # 1.6 K/mcL (0.6-4.6); Lymphocytes % 8.3 %; Mean Corpuscular HGB Conc 30.7 g/dL (31.6-35.5); Mean Corpuscular Hemoglobin 28.5 pg (28.0-33.3); Mean Corpuscular Volume 92.9 fL (83.0-100.0); Mean Platelet Volume 10.8 fL (9.4-12.4); Monocytes # 1.3 K/mcL (0.0-1.3); Monocytes % 6.7 %; Neutrophils # 15.8 K/mcL (1.6-8.9); Platelet Count 316 K/mcL (140-400); Red Blood Count 3.09 M/mcL (4.19-5.50); Segmented Neutrophils % 83.1 %
[2018-10-22 10:03] LABS: BUN/Creatinine Ratio 55 (6-26); Blood Urea Nitrogen 52 mg/dL (8-23); Calcium 8.7 mg/dL (8.6-10.3); Carbon Dioxide 32 mEq/L (23-29); Chloride 99 mEq/L (98-107); Glucose 257 mg/dL (70-105); Magnesium 1.4 mg/dL (1.6-2.6); Osmolality,Calculated 311 (280-300); Potassium 3.2 mEq/L (3.5-5.1); Sodium 139 mEq/L (136-145); eGFR For Non-African Americans > 60 (> 60)
--- NOTE | 2018-10-22 14:15 | Internal Med Progress Note ---
Hospitalist Progress Note - Encounter Date of Encounter: 10/22/18 Time of Encounter: 14:13 - Subjective Interval History: I have seen and evaluated the patient at bedside. patient Awake, oriented to person. following simple commands. in no visual distress. - Exam Vitals: Temp Pulse Resp BP Pulse Ox 99.1 F 88 20 113/76 93 10/22/18 12:33 10/22/18 12:33 10/22/18 12:33 10/22/18 12:33 10/22/18 12:33 Exam: Vitals: Reviewed. General: AOx1. no in distress Cardiovascular: irregularly irregular, normal S1 & S2, no rubs, murmurs or gallops. Lungs: CTA b/l, no wheezes or crackles. Abdomen: Obese, soft, non-tender, no rigidity. NABS in all 4 quadrants Extremities: trace edema in the lower ext b/l. Neurological: unable to perform as patient does not follow complex commands. Rest of the physical exam is non contributory - Assessment and Plan (1) Afib Current Visit: No Status: Chronic Assessment and Plan: Rate controlled on beta yolis. Continue phototypesetting equipment monitor. Off anticoagulation due to recent hemorrhagic stroke. (2) Anemia Current Visit: No Status: Chronic Assessment and Plan: H&H is stable. Continue to monitor and transfuse per protocol. On ferrous sulfate. (3) Leukocytosis Current Visit: No Status: Acute Assessment and Plan: Unclear etiology. Possible secondary to steroids to C. difficile colitis. (4) CVA (cerebral vascular accident) Current Visit: Yes Status: Acute Assessment and Plan: will continue monitoring clinically off antiplatelets due to hemorrhagic stroke. (5) Acute respiratory failure with hypoxia Current Visit: Yes Status: Resolved (6) Decubitus ulcer, stage 2 Current Visit: Yes Status: Chronic Assessment and Plan: continue wound care. (7) Seizure Current Visit: Yes Status: Suspected Assessment and Plan: Patient is on Keppra 500 mg by mouth twice a day. (8) DMII (diabetes mellitus, type 2) Current Visit: No Status: Chronic Assessment and Plan: Blood sugar suboptimally controlled. Family has refused Accu-Cheks. Continue insulin lispro, sliding scale. (9) Encephalopathy acute Current Visit: Yes Status: Resolved (10) UTI (urinary tract infection) Current Visit: Yes Status: Ruled-out (11) DVT (deep venous thrombosis) Current Visit: Yes Status: Chronic Assessment and Plan: As per patient daughter he was diagnosed with a DVT during his hospitalization at [facility]. No on anticoagulation due to recent hemorrhagic stroke. (12) C. difficile diarrhea Current Visit: Yes Status: Acute Assessment and Plan: Continue vancomycin 125 mg by mouth 4 times a day. (13) Polyarthralgia Current Visit: Yes Status: Acute Assessment and Plan: Patient evaluated by rheumatology, recommended prednisone 20 mg. (14) Hypomagnesemia Current Visit: Yes Status: Acute Assessment and Plan: Electrolytes being replaced. (15) Hypokalemia Current Visit: Yes Status: Acute Assessment and Plan: electrolyte being replaced DVT Prophylaxis: Off chemical DVT prophylaxis due to recent hemorrhagic stroke. Off mechanical DVT prophylaxis due to recent diagnosis of DVT. - Summary of Assessment and Plan Summary of Assessment and Plan: Patient to remain in the hospital pending placement. Potential discharge tomorrow morning. - Time Spent with Patient Total time spent is greater than 50% in coordination of care (as documented) at patient's floor/unit and/or counseling patient: Greater than 35 minutes (40) Plan of Care Discussed with: nurse (and patient's daughter at bedside) Internal Medicine: Result - Labs CBC & Chem 7: 10/22/18 09:19 10/22/18 09:19 Labs: Short CBC 10/22/18 Range/Units 09:19 WBC 19.0 H (4.3-11.1) K/mcL Hgb 8.8 L (12.9-16.9) g/dL Hct 28.7 L (37.5-50.1) % Plt Count 316 (140-400) K/mcL Neutrophils # 15.8 H (1.6-8.9) K/mcL BMP 10/22/18 09:19 Sodium 139 Potassium 3.2 L Chloride 99 Carbon Dioxide 32 H BUN 52 H Creatinine 0.95 Glucose 257 H Calcium 8.7 - ABG Interpretation ABG results: ABG ABG pH 7.45 pH Units (7.32-7.45) 10/17/18 12:24 ABG pCO2 44 mmHg (35-45) 10/17/18 12:24 ABG pO2 79 mmHg (85-104) L 10/17/18 12:24 ABG O2 Saturation 96 % (95-98) 10/17/18 12:24 PT/INR, D-dimer PT 26.3 Seconds (9.4-12.1) H 10/05/18 07:03 Consult Discharge Plan - Plan Referrals: Camron Allen MD [Primary Care Provider] - (ECF) Prescriptions: Amoxicillin/Clavulanate [Augmentin] 875 mg PO BIDWM 7 Days #14 tablet Bisacodyl [Dulcolax] 10 mg RC DAILY PRN 30 Days #30 supp.rect PRN Reason: Constipation Tamsulosin [Flomax] 0.4 mg PO DAILY 30 Days #30 capsule (1) Afib Qualifiers: Atrial fibrillation type: chronic Qualified Code(s): I48.2 - Chronic atrial fibrillation (2) Anemia Qualifiers: Anemia type: iron deficiency Qualified Code(s): D50.9 - Iron deficiency anemia, unspecified (3) Leukocytosis Qualifiers: Leukocytosis type: unspecified Qualified Code(s): D72.829 - Elevated white blood cell count, unspecified (4) CVA (cerebral vascular accident) Qualifiers: CVA mechanism: unspecified Qualified Code(s): I63.9 - Cerebral infarction, unspecified (6) Decubitus ulcer, stage 2 Qualifiers: Pressure injury location: unspecified location Qualified Code(s): L89.92 - Pressure ulcer of unspecified site, stage 2 (8) DMII (diabetes mellitus, type 2) Qualifiers: Diabetes mellitus termite control servicer insulin use: with [facility] use Diabetes mellitus complication status: with hyperglycemia Qualified Code(s): E11.65 - Type 2 diab etes mellitus with hyperglycemia; Z79.4 - senior care (current) use of insulin (10) UTI (urinary tract infection) Qualifiers: Urinary tract infection type: site unspecified Hematuria presence: without hematuria Qualified Code(s): N39.0 - Urinary tract infection, site not specified (11) DVT (deep venous thrombosis) Qualifiers: DVT location: lower extremity Affected thrombotic vein of extremity: unspecified vein of extremity Chronicity: unspecified Laterality: unspecified laterality Qualified Code(s): I82.409 - Acute embolism and thrombosis of unspecified deep veins of unspecified lower extremity
[2018-10-22] MEDS: Acetaminophen 325 MG TABLET PO PRN (18:21)
[2018-10-22] MEDS: traMADol 50 MG TABLET PO PRN (21:15)
[2018-10-23 05:04] LABS: Basophils % 0.1 %; Eosinophils # 0.1 K/mcL (0.0-0.6); Eosinophils % 0.4 %; Hematocrit 27.6 % (37.5-50.1); Hemoglobin 8.7 g/dL (12.9-16.9); Immature Granulocytes % 1.3 % (0-4); Lymphocytes # 1.6 K/mcL (0.6-4.6); Lymphocytes % 8.9 %; Mean Corpuscular HGB Conc 31.5 g/dL (31.6-35.5); Mean Corpuscular Hemoglobin 28.9 pg (28.0-33.3); Mean Corpuscular Volume 91.7 fL (83.0-100.0); Mean Platelet Volume 10.5 fL (9.4-12.4); Monocytes # 1.2 K/mcL (0.0-1.3); Monocytes % 6.5 %; Neutrophils # 15.2 K/mcL (1.6-8.9); Platelet Count 316 K/mcL (140-400); Red Blood Count 3.01 M/mcL (4.19-5.50); Red Cell Distribution Width 16.1 % (11.5-14.5); Segmented Neutrophils % 82.8 %
[2018-10-23 05:25] LABS: BUN/Creatinine Ratio 60 (6-26); Blood Urea Nitrogen 54 mg/dL (8-23); Calcium 8.4 mg/dL (8.6-10.3); Carbon Dioxide 34 mEq/L (23-29); Chloride 100 mEq/L (98-107); Glucose 108 mg/dL (70-105); Magnesium 1.8 mg/dL (1.6-2.6); Osmolality,Calculated 301 (280-300); Phosphorous 2.8 mg/dL (2.7-4.5); Potassium 3.6 mEq/L (3.5-5.1); Sodium 138 mEq/L (136-145); eGFR For Non-African Americans > 60 (> 60)
[2018-10-23 07:58] VITALS: BP 105/66
[2018-10-23] MEDS: Insulin LISPRO 300 UNITS/3 ML VIAL SQ SCH ×2 (08:38→12:22)
[2018-10-23] MEDS: levETIRAcetam 500 MG/5 ML UDC PO SCH (09:39)
[2018-10-23] MEDS: predniSONE 20 MG TABLET PO SCH (09:39)
[2018-10-23] MEDS: Furosemide 40 MG/4 ML VIAL IVP SCH (09:40)
[2018-10-23] MEDS: Vancomycin Oral Soln 125 MG/2.5 ML UDC PO SCH (09:40)
--- NOTE | 2018-10-23 10:51 | Physician Discharge Referral ---
ExtendedCare Referral Info Institutional Level of Care: Skilled - Diagnosis (1) C. difficile diarrhea Priority: Secondary Status: Acute (2) CVA (cerebral vascular accident) Priority: Primary Status: Acute (3) Effusion, right elbow Priority: Secondary Status: Acute (4) Polyarthralgia Priority: Secondary Status: Acute (5) Sepsis Priority: Secondary Status: Acute (6) Superficial venous thrombosis of arm Priority: Secondary Status: Acute (7) DVT (deep venous thrombosis) Priority: Secondary Status: Chronic (8) Acute respiratory failure with hypoxia Priority: Secondary Status: Resolved (9) Encephalopathy acute Priority: Secondary Status: Resolved (10) CVA (cerebral vascular accident) Priority: Secondary Status: Acute (11) COPD (chronic obstructive pulmonary disease) Priority: Secondary Status: Chronic (12) DMII (diabetes mellitus, type 2) Priority: Secondary Status: Chronic - Transfer Medications Prescriptions: Bisacodyl [Dulcolax] 10 mg RC DAILY PRN 30 Days #30 supp.rect PRN Reason: Constipation Vancomycin Oral Soln [Firvanq] 125 mg PO QID 9 Days #36 udc Tamsulosin [Flomax] 0.4 mg PO DAILY 30 Days #30 capsule predniSONE [PredniSONE] 20 mg PO DAILY #10 tablet Home Medications: Ferrous Sulfate 325 mg PO BID 03/27/18 [History] Bumetanide [Bumex] 1 mg PO DAILY 09/07/18 [History] Ascorbate Calcium [Vitamin C] 500 mg PO DAILY 09/08/18 [History] Metoprolol Tartrate [Lopressor] 75 mg PO BID 09/08/18 [History] Acetaminophen [Tylenol] 650 mg PO Q4H PRN 10/04/18 [History] Atorvastatin [Lipitor] 40 mg PO HS 10/04/18 [History] Docusate [Colace] 100 mg PO BID PRN 10/04/18 [History] Insulin LISPRO [HumaLOG] 5 units SQ TIDAC 10/04/18 [History] Ipratropium Neb [Atrovent Neb] 0.5 mg IH Q4H PRN 10/04/18 [History] Levalbuterol HCl [Xopenex Neb] 1.25 mg IH Q4H PRN 10/04/18 [History] Multivitamin [Daily Multiple Vitamin] 1 each PO DAILY 10/04/18 [History] Nitroglycerin [Nitrostat] 0.4 mg SL AD PRN 10/04/18 [History] Polyethylene Glycol 3350 [MiraLAX] 17 gm PO DAILY PRN 10/04/18 [History] traZODone [TraZODone] 50 mg PO HS PRN 10/04/18 [History] Bisacodyl [Dulcolax] 10 mg RC DAILY PRN 30 Days #30 supp.rect 10/16/18 [Rx] Tamsulosin [Flomax] 0.4 mg PO DAILY 30 Days #30 capsule 10/16/18 [Rx] Vancomycin Oral Soln [Firvanq] 125 mg PO QID 9 Days #36 udc 10/23/18 [Rx] predniSONE [PredniSONE] 20 mg PO DAILY #10 tablet 10/23/18 [Rx] Allergies/Adverse Reactions: Allergy/AdvReac Type Severity Reaction Status Date / Time No Known Allergies Allergy Verified 08/31/18 14:26 - Respiratory Orders Smoking Cessation: Smoking cessation has been advised. For more information, call the [place] Tobacco Quit Line at 2-540-LNVM-NOW. - Rehabiliation Orders Rehab Orders: Evaluation for Physical Therapy, Evaluation for Occupational Therapy - Treatments List/Other: COmplete 9 additional days of PO Vanc Continue PO Prednisone 20mg QD till Rheumatology follow up CERTIFICATION: I certify that the transfer of the above named patient to an Extended Care Facility is necessary for the continuing treatment of the diagnosis listed. The above information is true and accurate reflection of patient's current condition. Confidential - Redisclosure prohibited without a patient's written consent.
--- NOTE | 2018-10-23 10:58 | Internal Med Progress Note ---
Hospitalist Progress Note - Encounter Date of Encounter: 10/23/18 Time of Encounter: 07:15 - Subjective Interval History: No acute events overnight. No episodes of fever. Had one bowel movement overnight. - Exam Vitals: Temp Pulse Resp BP Pulse Ox 97.7 F 99 16 105/66 95 10/23/18 07:57 10/23/18 07:57 10/23/18 07:57 10/23/18 07:57 10/23/18 07:57 Exam: Vitals: Reviewed. General: AOx1. no in distress Cardiovascular: irregularly irregular, normal S1 & S2, no rubs, murmurs or gallops. Lungs: CTA b/l, no wheezes or crackles. Abdomen: Obese, soft, non-tender Extremities: trace edema in the lower ext b/l. Neurological: grossly moving all 4 limbs - Assessment and Plan (1) C. difficile diarrhea Current Visit: Yes Status: Acute (2) CVA (cerebral vascular accident) Current Visit: Yes Status: Acute (3) Effusion, right elbow Current Visit: Yes Status: Acute (4) Polyarthralgia Current Visit: Yes Status: Acute (5) Sepsis Current Visit: Yes Status: Acute (6) Superficial venous thrombosis of arm Current Visit: Yes Status: Acute (7) DVT (deep venous thrombosis) Current Visit: Yes Status: Chronic (8) Acute respiratory failure with hypoxia Current Visit: Yes Status: Resolved (9) Encephalopathy acute Current Visit: Yes Status: Resolved (10) CVA (cerebral vascular accident) Current Visit: No Status: Acute (11) COPD (chronic obstructive pulmonary disease) Current Visit: No Status: Chronic (12) DMII (diabetes mellitus, type 2) Current Visit: No Status: Chronic - Summary of Assessment and Plan Summary of Assessment and Plan: 83-year-old male with history of COPD, atrial fibrillation, diabetes, hyperlipidemia, recent hemorrhagic stroke, was admitted for encephalopathy. See d/c summary dated on 10/17 for the events leading up to date. His discharge was delayed due to an episode of fever when he was found to have C. diff infection as well as PMR flare up. Clinically improved with PO Vanc and PO Prednisone and will be discharged to ECF today as previously outlined in d/c summary. Script for Keppra for ?seizure was also provided. Follow up with Neurology and Rheumatology as outpatient. - Time Spent with Patient Total time spent is greater than 50% in coordination of care (as documented) at patient's floor/unit and/or counseling patient: 25 - 35 minutes Plan of Care Discussed with: social work Internal Medicine: Result - Labs CBC & Chem 7: 10/23/18 04:00 10/23/18 04:00 Labs: Short CBC 10/23/18 Range/Units 04:00 WBC 18.3 H (4.3-11.1) K/mcL Hgb 8.7 L (12.9-16.9) g/dL Hct 27.6 L (37.5-50.1) % Plt Count 316 (140-400) K/mcL Neutrophils # 15.2 H (1.6-8.9) K/mcL BMP 10/23/18 04:00 Sodium 138 Potassium 3.6 Chloride 100 Carbon Dioxide 34 H BUN 54 H Creatinine 0.90 Glucose 108 H Calcium 8.4 L - ABG Interpretation ABG results: ABG ABG pH 7.45 pH Units (7.32-7.45) 10/17/18 12:24 ABG pCO2 44 mmHg (35-45) 10/17/18 12:24 ABG pO2 79 mmHg (85-104) L 10/17/18 12:24 ABG O2 Saturation 96 % (95-98) 10/17/18 12:24 PT/INR, D-dimer PT 26.3 Seconds (9.4-12.1) H 10/05/18 07:03 Consult Discharge Plan - Plan Referrals: Camron Allen MD [Primary Care Provider] - (ECF) Prescriptions: Bisacodyl [Dulcolax] 10 mg RC DAILY PRN 30 Days #30 supp.rect PRN Reason: Constipation Vancomycin Oral Soln [Firvanq] 125 mg PO QID 9 Days #36 udc Tamsulosin [Flomax] 0.4 mg PO DAILY 30 Days #30 capsule levETIRAcetam [Keppra Oral Soln] 500 mg PO BID #60 udc predniSONE [PredniSONE] 20 mg PO DAILY #10 tablet (2) CVA (cerebral vascular accident) Qualifiers: CVA mechanism: unspecified Qualified Code(s): I63.9 - Cerebral infarction, unspecified (5) Sepsis Qualifiers: Sepsis type: sepsis due to unspecified organism Qualified Code(s): A41.9 - Sepsis, unspecified organism (6) Superficial venous thrombosis of arm Qualifiers: Laterality: right Qualified Code(s): I82.611 - Acute embolism and thrombosis of superficial veins of right upper extremity (7) DVT (deep venous thrombosis) Qualifiers: DVT location: lower extremity Affected thrombotic vein of extremity: unspecified vein of extremity Chronicity: unspecified Laterality: unspecified laterality Qualified Code(s): I82.409 - Acute embolism and thrombosis of unspecified deep veins of unspecified lower extremity (10) CVA (cerebral vascular accident) Qualifiers: CVA mechanism: other Qualified Code(s): I63.89 - Other cerebral infarction (11) COPD (chronic obstructive pulmonary disease) Qualifiers: COPD type: unspecified COPD Qualified Code(s): J44.9 - Chronic obstructive pulmonary disease, unspecified (12) DMII (diabetes mellitus, type 2) Qualifiers: Diabetes mellitus watermaster insulin use: with [facility] use Diabetes mellitus complication status: with hyperglycemia Qualified Code(s): E11.65 - Type 2 diabetes mellitus with hyperglycemia; Z79.4 - [facility] (current) use of insulin
--- NOTE | 2018-10-23 12:08 | Rheumatology Progress Note ---
Date of Encounter: 10/23/18 Time of Encounter: 12:00 Rheumatology Assess and Plan (1) Polyarthralgia Current Visit: Yes Status: Acute Clinically stable, no new symptoms. Based on outpatient records, possibly dealing with polymyalgia rheumatica. Recommend prednisone 20 mg x 2 weeks then 15 mg x 2 weeks. - I will set him up an outpatient follow-up in 2-4 weeks to see how he is doing at that time (will be out of clinic till 11/07) - Subjective Interval history: Patient seen and examined. He is only oriented to self. Unable to perform review of systems. Denies pain when asked. Exam Exam: General - Alert to self only, appears comfortable Skin - No rashes visible MSK - Passive ROM of shoulders, elbows and fingers without significant discomfort. Diffuse swelling of right extremity. Objective Data 10/23/18 04:00 10/23/18 04:00 All other labs normal. Consult Discharge Plan - Plan Referrals: Camron Allen MD [Primary Care Provider] - (ECF) Prescriptions: Bisacodyl [Dulcolax] 10 mg RC DAILY PRN 30 Days #30 supp.rect PRN Reason: Constipation Vancomycin Oral Soln [Firvanq] 125 mg PO QID 9 Days #36 udc Tamsulosin [Flomax] 0.4 mg PO DAILY 30 Days #30 capsule levETIRAcetam [Keppra Oral Soln] 500 mg PO BID #60 udc predniSONE [PredniSONE] 20 mg PO DAILY #10 tablet
== END 2018-10-23 13:08 | DRG 871 ==
LOC: 2NENU 21:04 → EMEROOARM 21:04 → 2NENU 10-05 00:56 → SUATTDRO 10-05 02:58 → ICNU 10-09 21:45 → 2ANU 10-12 08:03
PROVIDERS: ADMIT Internal Medicine; ATTEND Internal Medicine

== ENCOUNTER 2018-11-21 17:38 | Observation (INO) ==
--- NOTE | 2018-11-21 18:01 | Emergency Department Note ---
Disposition Clinical Impression: Decubital ulcer Qualifiers: Pressure injury location: buttock Pressure injury stage: stage 4 Laterality: right Qualified Code(s): L89.314 - Pressure ulcer of right buttock, stage 4 Disposition: Admitted As Inpatient Time of Disposition: 18:02 General Adult HPI - General Chief complaint: ED General Medical Stated complaint: General Time Seen by Provider: 11/21/18 17:43 Source: other Limitations: age Nursing Notes Reviewed: Yes Vital Signs Reviewed: Yes - History of Present Illness HPI Narrative: Attestation note: Patient was seen with the emergency medicine resident/nurse practitioner/physician inventory assistant/transitional resident/medical student: Dr. Franco Tubbs. I was present for the significant portions of the performance and interpretation of procedures and EKGs. I have personally performed a face to face evaluation on this patient. I have reviewed and agree with history and physical examination patient management and disposition. Briefly the salient points of the case are as follows: 83-year-old male sent over from the wound clinic by Dr. Cornell patient has a buttock decubitus ulcer. 6 inches deep. This patient to the ER for evaluation preop clearance scheduled for operation tomorrow. Patient is awake alert afebrile neurologically nonfocal we called Dr. Hollingsworth surgeon application project leader would get in touch with Dr. Cornell surgeon , he called back and recommended and requested admission to the hospitalist service with surgical consultation.. Admission disposition pending Pain Scale: 0 - Related Data Home Medications Medication Instructions Recorded Confirmed Ferrous Sulfate 325 mg PO BID 03/27/18 10/04/18 Bumetanide [Bumex] 1 mg PO DAILY 09/07/18 10/04/18 Ascorbate Calcium [Vitamin C] 500 mg PO DAILY 09/08/18 10/04/18 Metoprolol Tartrate [Lopressor] 75 mg PO BID 09/08/18 10/04/18 Acetaminophen [Tylenol] 650 mg PO Q4H PRN 10/04/18 10/04/18 Atorvastatin [Lipitor] 40 mg PO HS 10/04/18 10/04/18 Docusate [Colace] 100 mg PO BID PRN 10/04/18 10/04/18 Insulin LISPRO [HumaLOG] 5 units SQ TIDAC 10/04/18 10/04/18 Ipratropium Neb [Atrovent Neb] 0.5 mg IH Q4H PRN 10/04/18 10/04/18 Levalbuterol HCl [Xopenex Neb] 1.25 mg IH Q4H PRN 10/04/18 10/04/18 Multivitamin [Daily Multiple 1 each PO DAILY 10/04/18 10/04/18 Vitamin] Nitroglycerin [Nitrostat] 0.4 mg SL AD PRN 10/04/18 10/04/18 Polyethylene Glycol 3350 [MiraLAX] 17 gm PO DAILY PRN 10/04/18 10/04/18 traZODone [TraZODone] 50 mg PO HS PRN 10/04/18 10/04/18 Previous Rx's Medication Instructions Recorded levETIRAcetam [Keppra Oral Soln] 500 mg PO BID #60 udc 10/23/18 predniSONE [PredniSONE] 20 mg PO DAILY #10 tablet 10/23/18 Allergies Allergy/AdvReac Type Severity Reaction Status Date / Time No Known Allergies Allergy Verified 08/31/18 14:26 Past Medical History - Past Medical History Medical history: Reports: arthritis, atrial fibrillation, CHF, CVA, diabetes, hyperlipidemia, hypertension Surgical history: Reports: cataract, hip replacement, knee replacement, other Psychiatric history: Reports: no psych history - Social History Smoking Status: Never smoker Smokeless Tobacco Status: No Alcohol use: Reports: none Drug use: Reports: none Physical Exam - General Limitations: age General appearance: alert Course Vital Signs Temperature 98.9 F 11/21/18 17:40 Pulse Rate 94 11/21/18 17:40 Respiratory Rate 11/21/18 17:40 Blood Pressure 138/95 11/21/18 17:40 O2 Sat by Pulse Oximetry 99 11/21/18 17:40 Temperature 98.9 F 11/21/18 17:40 Pulse Rate 94 11/21/18 17:40 Respiratory Rate 11/21/18 17:40 Blood Pressure 138/95 11/21/18 17:40 O2 Sat by Pulse Oximetry 99 11/21/18 17:40 Oxygen Delivery Oxygen Delivery Room Air
--- NOTE | 2018-11-21 18:05 | Emergency Department Note ---
Disposition Clinical Impression: Decubital ulcer Qualifiers: Pressure injury location: buttock Pressure injury stage: stage 4 Laterality: right Qualified Code(s): L89.314 - Pressure ulcer of right buttock, stage 4 Disposition: Admitted As Inpatient Condition: Fair Forms: ED Satisfaction Letter, Work/School Release Time of Disposition: 19:09 General Adult HPI - General Chief complaint: ED General Medical Stated complaint: General Time Seen by Provider: 11/21/18 17:43 Source: patient, other Mode of arrival: ambulatory Limitations: age Nursing Notes Reviewed: Yes Vital Signs Reviewed: Yes - History of Present Illness HPI Narrative: 83 old male presented here from the wound care by Dr. Cornell. She was seen here today has a right-sided decubitus ulcer that is currently dressed. They are planning on doing a wound debridement and wash out tomorrow so they wanted him to be admitted under the hospitalist service and they will consult. They just needed basic labs chest x-ray and EKG be done in for anesthesia to see the patient. Plan is to be scheduled here until . Patient has no other complaints at this time. Otherwise there is nothing else that needs to be done. Patient has no complete family has no complaints. Pain Scale: 0 - Related Data Home Medications Medication Instructions Recorded Confirmed Ferrous Sulfate 325 mg PO BID 03/27/18 10/04/18 Bumetanide [Bumex] 1 mg PO DAILY 09/07/18 10/04/18 Ascorbate Calcium [Vitamin C] 500 mg PO DAILY 09/08/18 10/04/18 Metoprolol Tartrate [Lopressor] 75 mg PO BID 09/08/18 10/04/18 Acetaminophen [Tylenol] 650 mg PO Q4H PRN 10/04/18 10/04/18 Atorvastatin [Lipitor] 40 mg PO HS 10/04/18 10/04/18 Docusate [Colace] 100 mg PO BID PRN 10/04/18 10/04/18 Insulin LISPRO [HumaLOG] 5 units SQ TIDAC 10/04/18 10/04/18 Ipratropium Neb [Atrovent Neb] 0.5 mg IH Q4H PRN 10/04/18 10/04/18 Levalbuterol HCl [Xopenex Neb] 1.25 mg IH Q4H PRN 10/04/18 10/04/18 Multivitamin [Daily Multiple 1 each PO DAILY 10/04/18 10/04/18 Vitamin] Nitroglycerin [Nitrostat] 0.4 mg SL AD PRN 10/04/18 10/04/18 Polyethylene Glycol 3350 [MiraLAX] 17 gm PO DAILY PRN 10/04/18 10/04/18 traZODone [TraZODone] 50 mg PO HS PRN 10/04/18 10/04/18 Previous Rx's Medication Instructions Recorded levETIRAcetam [Keppra Oral Soln] 500 mg PO BID #60 udc 10/23/18 predniSONE [PredniSONE] 20 mg PO DAILY #10 tablet 10/23/18 Allergies Allergy/AdvReac Type Severity Reaction Status Date / Time No Known Allergies Allergy Verified 08/31/18 14:26 All systems ED: reviewed and negative except as stated. Review of Systems: As Per HPI Past Medical History - Past Medical History Attestation: Yes The following information was validated with the patient. Source: patient Medical history: Reports: arthritis, atrial fibrillation, CHF, CVA, diabetes, hyperlipidemia, hypertension Surgical history: Reports: cataract, hip replacement, knee replacement, other Psychiatric history: Reports: no psych history - Social History Smoking Status: Never smoker Smokeless Tobacco Status: No Alcohol use: Reports: none Drug use: Reports: none Physical Exam - General Limitations: age General appearance: alert - Head Head exam: atraumatic, normocephalic, normal inspection - Eye Eye exam: Present: normal appearance, PERRL, EOMI - ENT ENT exam: normal exam, normal oropharynx, mucous membranes moist - Neck Neck exam: Present: normal inspection, full ROM, trachea midline - Chest Chest inspection: Present: normal inspection, symmetric chest wall rise - Respiratory Respiratory exam: Present: normal lung sounds bilaterally - Cardiovascular Cardiovascular exam: Present: regular rate, normal rhythm, normal heart sounds - Abdominal Exam Abdominal exam: Present: soft, Non-Tender, normal bowel sounds. Absent: tenderness, distention, guarding, rebound, rigidity - Extremities Exam Extremities exam: Present: normal inspection, full ROM. Absent: tenderness, pedal edema - Back Exam Back exam: Present: normal inspection, full ROM. Absent: tenderness, CVA tenderness (R), CVA tenderness (L) - Neurological Exam Neurological exam: Present: alert, oriented X3 - Skin Skin exam: Present: warm, dry, intact, normal color, other (Decubitus ulcer in the right butt cheek that is currently dressed and dated. Noticeable erythema or drainage around the area) Course Vital Signs Temperature 98.9 F 11/21/18 17:40 Pulse Rate 94 11/21/18 17:40 Respiratory Rate 20 11/21/18 17:40 Blood Pressure 138/95 11/21/18 17:40 O2 Sat by Pulse Oximetry 99 11/21/18 17:40 Temperature 98.9 F 11/21/18 17:40 Pulse Rate 105 11/21/18 18:32 Respiratory Rate 22 11/21/18 18:32 Blood Pressure 132/86 11/21/18 18:32 O2 Sat by Pulse Oximetry 96 11/21/18 18:32 Oxygen Delivery Oxygen Delivery Room Air Medical Decision Making - MDM Narrative Medical decision making narrative: She will be admitted to the hospitalist service. I spoke with Dr. Dailey and Dr. Cornell who agreed patient will be admitted to the hospitalist service and they will consult. The plantars do surgery tomorrow patient to be nothing by mouth at midnight and stay in the hospital till . Otherwise no other treatment needs to be done at this time. Patient is admitted to the hospitalist service. - Medical Records Medical records reviewed: Yes I reviewed the patient's medical records. - Lab Data Lab results reviewed: Yes I reviewed the patient's lab results. Result diagrams: 11/21/18 18:17 11/21/18 18:17 Lab Results 11/21/18 11/21/18 11/21/18 Range/Units 18:17 18:17 18:17 WBC 13.1 H (4.3-11.1) K/mcL RBC 3.57 L (4.19-5.50) M/mcL Hgb 10.2 L (12.9-16.9) g/dL Hct 32.8 L (37.5-50.1) % MCV 91.9 (83.0-100.0) fL MCH 28.6 (28.0-33.3) pg MCHC 31.1 L (31.6-35.5) g/dL RDW 17.0 H (11.5-14.5) % Plt Count 248 (140-400) K/mcL MPV 10.5 (9.4-12.4) fL Immature Gran % 1.3 (0-4) % Seg Neutrophils % 81.8 % Lymphocytes % 9.7 % Monocytes % 7.0 % Eosinophils % 0.1 % Basophils % 0.1 % Neutrophils # 10.7 H (1.6-8.9) K/mcL Lymphocytes # 1.3 (0.6-4.6) K/mcL Monocytes # 0.9 (0.0-1.3) K/mcL Eosinophils # 0.0 (0.0-0.6) K/mcL Basophils # 0.0 (0.0-0.2) K/mcL PT 12.9 H (9.4-12.1) Seconds INR 1.1 Sodium 134 L (136-145) mEq/L Potassium 4.7 (3.5-5.1) mEq/L Chloride 100 (98-107) mEq/L Carbon Dioxide 27 (23-29) mEq/L BUN 40 H (8-23) mg/dL Creatinine 0.87 (0.70-1.30) mg/dL Est GFR ( Amer) > 60 (> 60) Est GFR (Non-Af Amer) > 60 (> 60) BUN/Creatinine Ratio 46 H (6-26) Glucose 130 H (70-105) mg/dL Calculated Osmolality 290 (280-300) Calcium 8.6 (8.6-10.3) mg/dL - Radiology Data Radiology results reviewed: Yes I reviewed the patient's radiology results. - EKG Data EKG #1 EKG attestation: Yes I reviewed and interpreted this EKG. EKG results narrative: EKG done at 1818 review myself and the attending shows A. fib a rate of 93, QRS 2073, QTC 494. No acute ST changes no acute T-wave changes. 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 No other blocks. No [place] become harsher, other heart blocks. No WPW/Brugada/HOCM. No changes based on old EKG.
[2018-11-21 18:49] LABS: Basophils % 0.1 %; Eosinophils % 0.1 %; Hematocrit 32.8 % (37.5-50.1); Hemoglobin 10.2 g/dL (12.9-16.9); Immature Granulocytes % 1.3 % (0-4); Lymphocytes # 1.3 K/mcL (0.6-4.6); Lymphocytes % 9.7 %; Mean Corpuscular HGB Conc 31.1 g/dL (31.6-35.5); Mean Corpuscular Hemoglobin 28.6 pg (28.0-33.3); Mean Corpuscular Volume 91.9 fL (83.0-100.0); Mean Platelet Volume 10.5 fL (9.4-12.4); Monocytes # 0.9 K/mcL (0.0-1.3); Neutrophils # 10.7 K/mcL (1.6-8.9); Platelet Count 248 K/mcL (140-400); Red Blood Count 3.57 M/mcL (4.19-5.50); Segmented Neutrophils % 81.8 %; White Blood Count 13.1 K/mcL (4.3-11.1)
[2018-11-21 19:02] LABS: INR 1.1; Prothrombin Time 12.9 Seconds (9.4-12.1)
[2018-11-21 19:05] LABS: BUN/Creatinine Ratio 46 (6-26); Blood Urea Nitrogen 40 mg/dL (8-23); Calcium 8.6 mg/dL (8.6-10.3); Carbon Dioxide 27 mEq/L (23-29); Chloride 100 mEq/L (98-107); Glucose 130 mg/dL (70-105); Osmolality,Calculated 290 (280-300); Potassium 4.7 mEq/L (3.5-5.1); Sodium 134 mEq/L (136-145); eGFR For African Americans > 60 (> 60); eGFR For Non-African Americans > 60 (> 60)
--- NOTE | 2018-11-21 19:51 | General Surgery Consult Note ---
Date of Encounter: 11/21/18 Time of Encounter: 19:48 Assessment and Plan (1) Decubital ulcer Current Visit: Yes Status: Acute 83M with concern for purulence in pressure ulcer or infected pressure ulcer; HDS admit for evaluation NPO at midnight IV abx pressure off loading OR on 11/22 for excisional debridement; discharge to facility on 11/23 Qualifiers: Pressure injury location: buttock Pressure injury stage: stage 4 Laterality: right Qualified Code(s): L89.314 - Pressure ulcer of right buttock, stage 4 History of Present Illness Consult date: 11/21/18 Reason for consult: wound care History of present illness: 83M PMH significant for, CAD, CHF, CVA with the most recent being within 2 months, Dm, HLD, HTN who was evaluated in my wound clinic. He has a pressure ulcer that is unstageable which was being treated with santyl, pressure off loading, controlling comorbidities, and optimizing nutrition. The patient now presents with significant purulent drainage from the wound. No reports of fevers, chills, or other systemic symptoms. Although there was reported compliance with dressing regimen, my concern is that it may not be enough to e nsure adequate wound healing as it is either infected, or simply not allowing for drainage; For that reason he was sent to the ER for evaluation, admission, with plans for excisional debridement on 11/22. Past Med Surg Social Fam HX - Past Medical History Medical history: arthritis, atrial fibrillation, CHF, CVA, diabetes, hyperlipi demia, hypertension Additional medical history: irregular heartbeat, [place] Psychiatric history: no psych history - Past Surgical History Surgical History: cataract, hip replacement, knee replacement, other Additional surgical history: ablation. left and right knee replacement. hip replacement - Social History Smoking Status: Never smoker Smokeless Tobacco Status: No Alcohol use: none Drug use: none - Family History Mother Living Status: Hx Family Cancer: Yes (Brain CA) Father Living Status: Hx Family Neuromuscular Disorders: Yes (Parkinson's) Medications and Allergies Ferrous Sulfate 325 mg PO BID 03/27/18 [History] Bumetanide [Bumex] 1 mg PO DAILY 09/07/18 [History] Ascorbate Calcium [Vitamin C] 500 mg PO DAILY 09/08/18 [History] Metoprolol Tartrate [Lopressor] 75 mg PO BID 09/08/18 [History] Acetaminophen [Tylenol] 650 mg PO Q4H PRN 10/04/18 [History] Atorvastatin [Lipitor] 40 mg PO HS 10/04/18 [History] Docusate [Colace] 100 mg PO BID PRN 10/04/18 [History] Ipratropium Neb [Atrovent Neb] 0.5 mg IH Q4H PRN 10/04/18 [History] Levalbuterol HCl [Xopenex Neb] 1.25 mg IH Q4H PRN 10/04/18 [History] Multivitamin [Daily Multiple Vitamin] 1 each PO DAILY 10/04/18 [History] Nitroglycerin [Nitrostat] 0.4 mg SL AD PRN 10/04/18 [History] Polyethylene Glycol 3350 [MiraLAX] 17 gm PO DAILY PRN 10/04/18 [History] traZODone [TraZODone] 50 mg PO HS PRN 10/04/18 [History] levETIRAcetam [Keppra Oral Soln] 500 mg PO BID #60 udc 10/23/18 [Rx] metFORMIN [Glucophage] 500 mg PO BIDWM 11/21/18 [History] predniSONE [PredniSONE] 15 mg PO DAILY 11/21/18 [History] Allergy/AdvReac Type Severity Reaction Status Date / Time No Known Allergies Allergy Verified 08/31/18 14:26 Review of Systems All systems PM: 12 point ROS negative besides HPI findings General Surgery Exam Initial Vital Signs Temp Pulse Resp BP Pulse Ox 98.9 F 94 20 138/95 99 11/21/18 17:40 11/21/18 17:40 11/21/18 17:40 11/21/18 17:40 11/21/18 17:40 - General physical appearance no distress - Eyes PERRL, normal ocular movement - ENT normocephalic - Neck trachea midline, no lymphadectomy - Respiratory normal expansion, normal respiratory effort - Cardiovascular Cardiovascular exam: Present: RRR - Abdomen Abdomen general surgery: Present: soft, non tender - Integumentary Integumentary general surgery: Present: other (purulent drainge from sacral ulcer, non stageable) - Neurologic Present: CN 2-12 grossly intact - Psychiatric Psychiatric general surgery: Present: A&Ox3 Exam Initial Vital Signs Temp Pulse Resp BP Pulse Ox 98.9 F 94 20 138/95 99 11/21/18 17:40 11/21/18 17:40 11/21/18 17:40 11/21/18 17:40 11/21/18 17:40 Results - Labs 11/21/18 18:17 11/21/18 18:17 Abnormal lab results WBC 13.1 K/mcL (4.3-11.1) H 11/21/18 18:17 RBC 3.57 M/mcL (4.19-5.50) L 11/21/18 18:17 Hgb 10.2 g/dL (12.9-16.9) L 11/21/18 18:17 Hct 32.8 % (37.5-50.1) L 11/21/18 18:17 MCHC 31.1 g/dL (31.6-35.5) L 11/21/18 18:17 RDW 17.0 % (11.5-14.5) H 11/21/18 18:17 10.7 K/mcL (1.6-8.9) H 11/21/18 18:17 PT 12.9 Seconds (9.4-12.1) H 11/21/18 18:17 Sodium 134 mEq/L (136-145) L 11/21/18 18:17 BUN 40 mg/dL (8-23) H 11/21/18 18:17 46 (6-26) H 11/21/18 18:17 Glucose 130 mg/dL (70-105) H 11/21/18 18:17 Diabetes panel 11/21/18 Range/Units 18:17 Sodium 134 L (136-145) mEq/L Potassium 4.7 (3.5-5.1) mEq/L Chloride 100 (98-107) mEq/L Carbon Dioxide 27 (23-29) mEq/L BUN 40 H (8-23) mg/dL Creatinine 0.87 (0.70-1.30) mg/dL Glucose 130 H (70-105) mg/dL Calcium 8.6 (8.6-10.3) mg/dL Calcium panel 11/21/18 Range/Units 18:17 Calcium 8.6 (8.6-10.3) mg/dL Pituitary panel 11/21/18 Range/Units 18:17 Sodium 134 L (136-145) mEq/L Potassium 4.7 (3.5-5.1) mEq/L Chloride 100 (98-107) mEq/L Carbon Dioxide 27 (23-29) mEq/L BUN 40 H (8-23) mg/dL Creatinine 0.87 (0.70-1.30) mg/dL Glucose 130 H (70-105) mg/dL Calcium 8.6 (8.6-10.3) mg/dL Adrenal panel 11/21/18 Range/Units 18:17 Sodium 134 L (136-145) mEq/L Potassium 4.7 (3.5-5.1) mEq/L Chloride 100 (98-107) mEq/L Carbon Dioxide 27 (23-29) mEq/L BUN 40 H (8-23) mg/dL Creatinine 0.87 (0.70-1.30) mg/dL Glucose 130 H (70-105) mg/dL Calcium 8.6 (8.6-10.3) mg/dL All other labs normal. Consult Discharge Plan - Plan
[2018-11-21] MEDS ORDERED: Ketorolac 15 MG/ML VIAL IVP PRN (20:52)
[2018-11-21] MEDS ORDERED: Naloxone 0.4 MG/ML INJ IVP PRN (20:52)
[2018-11-21] MEDS ORDERED: *HR* Dextrose 50 % in Water (Syg) 50 ML SYRINGE IVP PRN (21:19)
[2018-11-21] MEDS ORDERED: Dextrose Gel 15 GM/37.5 ML TUBE PO PRN ×2 (21:19)
[2018-11-21] MEDS ORDERED: D5% in Water 1,000 ML IVC PRN (21:19)
--- NOTE | 2018-11-21 23:53 | Internal Med History&Physical ---
Date of Encounter: 11/21/18 Time of Encounter: 20:30 Internal Medicine - H&P: HPI Chief complaint: Decubital ulcer Admitted From: Emergency Dept Plans for Post Hospital Care: Home History of present illness: Mr. Khan is a 83 year old male Patient presented to the emergency room from wound care. Patient has a chronic right-sided decubital ulcer that has been worsening despite wound care management. Dr. Cornell who is familiar with the patient requested admission to the hospital for wound debridement and washout in the morning. Patient has a history of CVA a few months ago and is no longer able to care for himself. His daughter is at bedside and provides most of the history. Since his stroke he has been bedridden and unable to ambulate. In the emergency room patient's initial vital signs: Temperature 98.9, pulse 94, respiratory 20, blood pressure 138/95, O2 saturation 99% on room air CBC: White count 13.1, hemoglobin 10.2, platelets 248 BMP within normal limits INR 1.1 Chest x-ray showed no acute abnormality EKG showed atrial fibrillation but no ischemic changes. Dr. Cornell saw the patient in the emergency room and plans to take the patient to the OR in the morning. Recommended IV antibiotics, nothing by mouth after been night. Patient was admitted to the hospital for further monitoring. Upon my evaluation, patient is resting comfortably in the hospital bed. He does not answer questions, but his daughter is at bedside. He does follow some commands. Patient is a DNR CCA. Past Med Surg Social Fam HX - Past Medical History Medical history: arthritis, atrial fibrillation, CHF, CVA, diabetes, hyperlipidemia, hypertension Additional medical history: irregular heartbeat, [place] Psychiatric history: no psych history - Past Surgical History Surgical History: cataract, hip replacement, knee replacement, other Additional surgical history: ablation. left and right knee replacement. hip replacement - Social History Smoking Status: Never smoker Smokeless Tobacco Status: No Alcohol use: none Drug use: none - Family History Mother Living Status: Hx Family Cancer: Yes (Brain CA) Father Living Status: Hx Family Neuromuscular Disorders: Yes (Parkinson's) Internal Medicine - H&P: Meds Ferrous Sulfate 325 mg PO BID 03/27/18 [History] Bumetanide [Bumex] 1 mg PO DAILY 09/07/18 [History] Ascorbate Calcium [Vitamin C] 500 mg PO DAILY 09/08/18 [History] Metoprolol Tartrate [Lopressor] 75 mg PO BID 09/08/18 [History] Acetaminophen [Tylenol] 650 mg PO Q4H PRN 10/04/18 [History] Atorvastatin [Lipitor] 40 mg PO HS 10/04/18 [History] Docusate [Colace] 100 mg PO BID PRN 10/04/18 [History] Ipratropium Neb [Atrovent Neb] 0.5 mg IH Q4H PRN 10/04/18 [History] Levalbuterol HCl [Xopenex Neb] 1.25 mg IH Q4H PRN 10/04/18 [History] Multivitamin [Daily Multiple Vitamin] 1 each PO DAILY 10/04/18 [History] Nitroglycerin [Nitrostat] 0.4 mg SL AD PRN 10/04/18 [History] Polyethylene Glycol 3350 [MiraLAX] 17 gm PO DAILY PRN 10/04/18 [History] traZODone [TraZODone] 50 mg PO HS PRN 10/04/18 [History] levETIRAcetam [Keppra Oral Soln] 500 mg PO BID #60 udc 10/23/18 [Rx] metFORMIN [Glucophage] 500 mg PO BIDWM 11/21/18 [History] predniSONE [PredniSONE] 15 mg PO DAILY 11/21/18 [History] Allergy/AdvReac Type Severity Reaction Status Date / Time No Known Allergies Allergy Verified 08/31/18 14:26 ROS unobtainable: due to mental status All Systems PM: A 10-system review of systems was performed and is negative for pertinent findi ngs except as documented above in the HPI. - Constitutional Vitals: Temp Pulse Resp BP Pulse Ox 97.7 F 96 18 138/85 97 11/21/18 22:17 11/21/18 22:17 11/21/18 22:17 11/21/18 22:17 11/21/18 22:17 General appearance: Present: A&O X 0, pleasant, no acute distress. Absent: cooperative, answers questions appropriately Exam: - - Head Head exam: Present: normal inspection - Eye Eye exam: Present: EOMI, normal appearance - Respiratory Respiratory exam: Present: CTAB. Absent: rales, respiratory distress, rhonchi, wheezes - Cardiovascular Cardiovascular exam: Present: RRR. Absent: diastolic murmur, systolic murmur - GI/Abdominal GI/Abdominal exam: Present: normal bowel sounds, soft. Absent: tenderness - Extremities Exam Extremities exam: Present: warm, radial pulses palpable and symmetrical. Absent: pedal edema, tenderness - Neurological Exam Neurological exam: Present: no focal deficits. Absent: facial droop, speech deficit Additional comments: Patient had prior stroke, follows some commands. Will squeeze hands bilaterally and move lower extremities. - Skin Skin exam: Present: dry, normal color, warm Additional comments: Sacral decubital ulcer of right buttock Internal Med - H&P Results - Labs CBC & Chem 7: 11/21/18 18:17 11/21/18 18:17 Labs: Short CBC 11/21/18 Range/Units 18:17 WBC 13.1 H (4.3-11.1) K/mcL Hgb 10.2 L (12.9-16.9) g/dL Hct 32.8 L (37.5-50.1) % Plt Count 248 (140-400) K/mcL Neutrophils # 10.7 H (1.6-8.9) K/mcL BMP 11/21/18 18:17 Sodium 134 L Potassium 4.7 Chloride 100 Carbon Dioxide 27 BUN 40 H Creatinine 0.87 Glucose 130 H Calcium 8.6 - Impressions ITS Impressions Chest X-Ray 11/21/18 17:57 IMPRESSION: No acute abnormality. D/ / Dave Rolle MD / Dave Rolle MD Interpreting Provider: Dave Rolle MD - Assessment and Plan (1) Decubital ulcer Current Visit: Yes Status: Acute Assessment and plan: Patient has been following with wound care, has been admitted for further debridement in the morning. Dr. Cornell saw the patient in the emergency room as well as at the wound care clinic. Nothing by mouth after midnight IV antibiotics, start vancomycin Follow-up general surgery recommendations and procedure. Continue to monitor for worsening signs of infection Qualifiers: Pressure injury location: buttock Pressure injury stage: unstageable Laterality: right Qualified Code(s): L89.310 - Pressure ulcer of right buttock, unstageable (2) CVA (cerebral vascular accident) Current Visit: No Status: Acute Assessment and plan: Patient has had a stroke about 3 months ago, and is now no longer able to care for himself. Continue to monitor Qualifiers: CVA mechanism: unspecified Qualified Code(s): I63.9 - Cerebral infarction, unspecified (3) Afib Current Visit: No Status: Chronic Assessment and plan: Chronic atrial fibrillation, patient takes metoprolol. Patient not on anticoagulation due to instability. Cardiac monitoring. Continue home meds when no longer nothing by mouth Qualifiers: Atrial fibrillation type: chronic Qualified Code(s): I48.2 - Chronic atrial fibrillation (4) DMII (diabetes mellitus, type 2) Current Visit: No Status: Chronic Assessment and plan: Patient is not an insulin dependent diabetic Monitor sugars every 6 hours Nothing by mouth Low dose insulin sliding scale as needed Hold home meds. Qualifiers: Diabetes mellitus assisted insulin use: without product marketing executive use Diabetes mellitus complication status: with hyperglycemia Qualified Code(s): E11.65 - Type 2 diabetes mellitus with hyperglycemia (5) DVT prophylaxis Current Visit: No Status: Acute Assessment and plan: SCDs - Time Spent With Patient Total time spent is greater than 50% in coordination of care (as documented) at patient's floor/unit and/or counseling patient: Greater than 35 minutes
[2018-11-22] MEDS: Insulin LISPRO 300 UNITS/3 ML VIAL SQ SCH ×4 (05:10→20:40)
[2018-11-22 05:25] LABS: Hematocrit 30.2 % (37.5-50.1); Hemoglobin 9.5 g/dL (12.9-16.9); Mean Corpuscular HGB Conc 31.5 g/dL (31.6-35.5); Mean Corpuscular Hemoglobin 28.7 pg (28.0-33.3); Mean Corpuscular Volume 91.2 fL (83.0-100.0); Mean Platelet Volume 10.1 fL (9.4-12.4); Platelet Count 224 K/mcL (140-400); Red Blood Count 3.31 M/mcL (4.19-5.50); Red Cell Distribution Width 16.9 % (11.5-14.5); White Blood Count 9.6 K/mcL (4.3-11.1)
[2018-11-22 05:45] LABS: BUN/Creatinine Ratio 46 (6-26); Blood Urea Nitrogen 36 mg/dL (8-23); Calcium 8.6 mg/dL (8.6-10.3); Carbon Dioxide 28 mEq/L (23-29); Chloride 102 mEq/L (98-107); Glucose 108 mg/dL (70-105); Osmolality,Calculated 297 (280-300); Potassium 3.9 mEq/L (3.5-5.1); Sodium 139 mEq/L (136-145); Troponin I 0.03 ng/mL (< 0.04); eGFR For African Americans > 60 (> 60); eGFR For Non-African Americans > 60 (> 60)
--- NOTE | 2018-11-22 08:49 | Internal Med Progress Note ---
Hospitalist Progress Note - Encounter Date of Encounter: 11/22/18 Time of Encounter: 08:49 - Subjective Interval History: Patient seen and examined this morning at bedside. No acute overnight events. Denies fevers chills nausea vomiting. Patient alert and oriented 2. Occasionally not able to understand directions. Not able to tell me why he is in the hospital. Denies any back pain. - Exam Vitals: Temp Pulse Resp BP Pulse Ox 97.7 F 62 17 144/97 95 11/22/18 07:22 11/22/18 07:22 11/22/18 07:22 11/22/18 07:22 11/22/18 07:22 Exam: General: In no acute distress. Respiratory exam: CTAB. no accessory muscle use, rales, rhonchi, wheezes Cardiovascular exam: RRR, +S1, +S2. no murmur, gallop, rubs. GI/Abdominal exam: Non-tender, Non-distended, normal bowel sounds, soft, no peritoneal signs. Extremities exam: no pedal edema, pulses palpable in b/l lower extremities. no calf tenderness Neurological exam: AO X2, no focal deficits within limited exam. Skin exam: Patient not able to turn by himself. couldnt turn patient to examine. - Assessment and Plan (1) Afib Current Visit: No Status: Chronic (2) DMII (diabetes mellitus, type 2) Current Visit: No Status: Chronic (3) CVA (cerebral vascular accident) Current Visit: No Status: Acute (4) DVT prophylaxis Current Visit: No Status: Acute (5) Decubital ulcer Current Visit: Yes Status: Acute - Summary of Assessment and Plan Summary of Assessment and Plan: Assessment sacral decubitus ulcer- rt buttock h/o CVA dementia Afib DMII HTN HLD Plan - c/w empiric antibiotics. white count improved. Plan for debridement surgery today. Surgery following. - c/w SSI and accuchecks - hold home metformin. c/w metoprolol. Not on AC for instability. Will keep on aspirin - Time Spent with Patient Total time spent is greater than 50% in coordination of care (as documented) at patient's floor/unit and/or counseling patient: Internal Medicine: Result - Labs CBC & Chem 7: 11/22/18 04:48 11/22/18 04:48 Labs: Short CBC 11/21/18 11/22/18 Range/Units 18:17 04:48 WBC 13.1 H 9.6 (4.3-11.1) K/mcL Hgb 10.2 L 9.5 L (12.9-16.9) g/dL Hct 32.8 L 30.2 L (37.5-50.1) % Plt Count 248 224 (140-400) K/mcL Neutrophils # 10.7 H (1.6-8.9) K/mcL BMP 11/21/18 11/22/18 18:17 04:48 Sodium 134 L 139 Potassium 4.7 3.9 Chloride 100 102 Carbon Dioxide 27 28 BUN 40 H 36 H Creatinine 0.87 0.79 Glucose 130 H 108 H Calcium 8.6 8.6 Cardiac Enzymes 11/22/18 Range/Units 04:48 Troponin I 0.03 (< 0.04) ng/mL - ABG Interpretation ABG results: PT/INR, D-dimer PT 12.9 Seconds (9.4-12.1) H 11/21/18 18:17 - Impressions Impressions Chest X-Ray 11/21/18 17:57 IMPRESSION: No acute abnormality. D/ / Dave Rolle MD / Dave Rolle MD Interpreting Provider: Dave Rolle MD Consult Discharge Plan - Plan Referrals: Camron Allen MD [Primary Care Provider] - (1) Afib Qualifiers: Atrial fibrillation type: chronic Qualified Code(s): I48.2 - Chronic atrial fibrillation (2) DMII (diabetes mellitus, type 2) Qualifiers: Diabetes mellitus longterm insulin use: without longterm use Diabetes mellitus complication status: with hyperglycemia Qualified Code(s): E11.65 - Type 2 diabetes mellitus with hyperglycemia (3) CVA (cerebral vascular accident) Qualifiers: CVA mechanism: unspecified Qualified Code(s): I63.9 - Cerebral infarction, unspecified (5) Decubital ulcer Qualifiers: Pressure injury location: buttock Pressure injury stage: unstageable Laterality: right Qualified Code(s): L89.310 - Pressure ulcer of right buttock, unstageable
--- NOTE | 2018-11-22 16:47 | Electrocardiograph Report ---
[place] [id number] Test Date: 2018-11-21 Pat Name: Raj Khan Department: [id number] Room: 3A23 Gender: M Workers Compensation Coordinator: : 1935 Requested By: Franco Tubbs Order Number: [id number] Reading MD: Clint Ordoñez Measurements Intervals [place] Rate: 93 P: FL: QRS: -79 QRSD: 173 T: 19 QT: 397 QTc: 494 Interpretive Statements Atrial fibrillation RBBB and LAFB Electronically Signed On 11-22-2018 16:45:32 EDT by Clint Ordoñez
[2018-11-22] MEDS ORDERED: Acetaminophen IV 1,000 MG/100 ML INFUS..BTL ONE (20:43)
[2018-11-22] MEDS ORDERED: Famotidine 20 MG/2 ML VIAL ONE (20:43)
--- NOTE | 2018-11-22 20:56 | Anesthesia Evaluation PreOp ---
Date of Encounter: 11/22/18 Time of Encounter: 20:50 - Past History Planned Operation: Incision Drainage Sacral Ulcer Cardiac History: CHF, HTN, Hyperlipidemia, Arrhythmia (AFib), Other (Cardiomyopathy) Pulmonary History: Denies Any Significant HX DOCUMENTATION NURSE History: CVA Other Medical History: Diabetes Type II Anesthesia History: No Prior Anesthetic Complications Alcohol Use: none Drug use: none Medications and Allergies Ferrous Sulfate 325 mg PO BID 03/27/18 [History] Bumetanide [Bumex] 1 mg PO DAILY 09/07/18 [History] Ascorbate Calcium [Vitamin C] 500 mg PO DAILY 09/08/18 [History] Metoprolol Tartrate [Lopressor] 75 mg PO BID 09/08/18 [History] Acetaminophen [Tylenol] 650 mg PO Q4H PRN 10/04/18 [History] Atorvastatin [Lipitor] 40 mg PO HS 10/04/18 [History] Docusate [Colace] 100 mg PO BID PRN 10/04/18 [History] Ipratropium Neb [Atrovent Neb] 0.5 mg IH Q4H PRN 10/04/18 [History] Levalbuterol HCl [Xopenex Neb] 1.25 mg IH Q4H PRN 10/04/18 [History] Multivitamin [Daily Multiple Vitamin] 1 each PO DAILY 10/04/18 [History] Nitroglycerin [Nitrostat] 0.4 mg SL AD PRN 10/04/18 [History] Polyethylene Glycol 3350 [MiraLAX] 17 gm PO DAILY PRN 10/04/18 [History] traZODone [TraZODone] 50 mg PO HS PRN 10/04/18 [History] levETIRAcetam [Keppra Oral Soln] 500 mg PO BID #60 udc 10/23/18 [Rx] metFORMIN [Glucophage] 500 mg PO BIDWM 11/21/18 [History] predniSONE [PredniSONE] 15 mg PO DAILY 11/21/18 [History] Allergy/AdvReac Type Severity Reaction Status Date / Time No Known Allergies Allergy Verified 08/31/18 14:26 - Meds/Allergy Pre-op Review Medications Reviewed: Yes Allergies Reviewed: Yes Beta Blockers on Current Med List: Yes (on metoprolol) Anesthesia Results - Labs 11/22/18 04:48 11/22/18 04:48 - Imaging EKG: report reviewed (AFib Rt BBB) Additional studies: ECHO EF 45%, moderate pulm htn Anesthesia Exam O2 Sat Weight 97.9 kg O2 Sat by Pulse Oximetry 96 O2 Sat by Pulse Oximetry 95 O2 Sat by Pulse Oximetry 97 O2 Sat by Pulse Oximetry 95 O2 Sat by Pulse Oximetry 98 O2 Sat by Pulse Oximetry 99 O2 Sat by Pulse Oximetry 97 O2 Sat by Pulse Oximetry 98 Vital Signs Temp Pulse Resp BP Pulse Ox 98.9 F 94 20 138/95 99 11/21/18 17:40 11/21/18 17:40 11/21/18 17:40 11/21/18 17:40 11/21/18 17:40 Height: 5'8 Weight: 215 lbs NPO (# of Hours): MN Pain Scale: 0 - HEENT Pupil (Motor): Pupils equal, EOMI Mallampati: III Teeth: Edentulous Oral Opening: Less than or equal to 3 - DOCUMENTATION NURSE LOC: Oriented DOCUMENTATION NURSE Motor: Normal RUE, Normal LUE, Normal RLE, Normal LLE, Normal Face DOCUMENTATION NURSE Sensory: Normal: RUE, LUE, RLE, LLE, Face - Cardiac Rhythm: Regular Murmur: None JVD: No Carotid Bruit: No - Pulmonary Breath Sounds: bilateral Clear Respiratory Effort: Symmetrical Anesthesia Assess/Plan ASA Score: 4 (CHF HTN AfIB CVA) Level of consciousness: Cooperative, Oriented Anesthetic Plan: MAC Autologous Blood: No Monitoring Plan: Standard Monitors Recovery Plan: PACU (Discussed MAC, possible GA, agrees to proceed)
[2018-11-22] MEDS ORDERED: levETIRAcetam 500 MG/5 ML UDC PO SCH (21:00)
[2018-11-22] MEDS ORDERED: *HR* FentaNYL (PF) 100 MCG/2 ML VIAL ONE (21:05)
[2018-11-22] MEDS ORDERED: *HR* Propofol 200 MG/20 ML VIAL IVP ONE ×2 (21:05→21:23)
[2018-11-22] MEDS ORDERED: Lidocaine -MPF 4% 5 ML AMPUL ONE (21:06)
[2018-11-22] MEDS ORDERED: *HR* Succinylcholine 200 MG/10 ML VIAL IVP ONE (21:06)
[2018-11-22] MEDS ORDERED: *HR* Vasopressin 20 UNIT/ML VIAL ONE (21:11)
[2018-11-22] MEDS ORDERED: EPHEDrine 50 MG/ML VIAL ONE (21:13)
[2018-11-22] MEDS ORDERED: Esmolol 100 MG/10 ML VIAL IVP ONE (21:14)
[2018-11-22] MEDS ORDERED: Vancomycin 1,000 MG VIAL ONE (21:26)
--- NOTE | 2018-11-22 22:30 | Anesthesia Evaluation Post Op ---
Date of Encounter: 11/22/18 Time of Encounter: 22:30 - Vital Signs Vital Signs: Vital Signs/O2 Sat/Glucose, Most Current Temp Pulse Resp BP Pulse Ox 11/22/18 22:10 98.1 F 109 24 110/72 97 11/22/18 22:00 122 24 106/60 92 11/22/18 21:50 98.3 F 112 24 103/55 94 11/22/18 20:23 98.3 F 125 15 110/81 96 - Lungs Lungs: Clear Ascult./Percussion - Airway Airway: Non-obstructed - Cardiovascular Regular Rate - Mental Status Mental Status: Alert & Oriented, Answers Appropriately - Pain Pain Scale: 0 - Nausea Vomiting Nausea Vomiting: Not Present - Hydration Hydration: Ice chips - Discharge PostOp Status: Transfer Patient to floor
--- NOTE | 2018-11-22 22:55 | Operative Note ---
Date of procedure: 11/22/18 Pre-op diagnosis: infected sacral ulcer, unstageable Post-op diagnosis: other (infected sacral ulcer, stage III) Procedure: washout and excisional debridement of sacral ulcer Implants: none Complications: none Anesthesia: MAC Local Anesthetics: 0.5% Sensorcaine HCL SubQ (cc) Surgeon: [place] Was there an placement assistant present: No Estimated blood loss (cc): 1 Specimen: sacral tissue Condition: stable Disposition: PACU Procedure in Detail: patient is an 83M with an unstageable pressure ulcer along the sacral region. he resides at a nursing facility where his wound was treated with santyl, pressure off loading, optimization of comorbidities and nutrition. he has sense developed significant purulent drainage with concern for large amount of retained purulent drainage; Due to the amount of purulent material I was concerned that the wound was not sufficiently controlled to allow for adequate wound healing. Subsequently the decision was made to bring him to the operating room. patient was brought into the operating room suite. The decision was made to keep him in his bed and perform the procedure. he underwent smooth induction of anesthesia. He was placed in the left lateral decubitus position. Prepped and draped in the usual fashion. A timeout was held identifying correct patient, pathology, procedure, and physician. I started by excising a large mass of fribinous, congealed tissue. In doing so there was allowed the passage of significant drainage of seropurulent material. I then irrigated the wound with 3L of vancomycin impregnated saline. I was able to appreciate the depth of the wound. It measured about 8cm x 4cm x 3xm and is catergorized as a stage III sacral wound. I then concluded the procedure. The patient tolerated the procedure and was escorted to PACU in stable condition.
[2018-11-22] MEDS ORDERED: *HR* Dextrose 50 % in Water (Syg) 50 ML SYRINGE IVP PRN (22:59)
[2018-11-22] MEDS ORDERED: Ketorolac 15 MG/ML VIAL IVP PRN (22:59)
[2018-11-22] MEDS ORDERED: Dextrose Gel 15 GM/37.5 ML TUBE PO PRN ×2 (22:59)
[2018-11-22] MEDS ORDERED: Naloxone 0.4 MG/ML INJ IVP PRN (22:59)
[2018-11-22] MEDS ORDERED: D5% in Water 1,000 ML IVC PRN (22:59)
[2018-11-23] MEDS ORDERED: D5% in Water 1,000 ML IVC PRN (00:45)
[2018-11-23] MEDS ORDERED: Dextrose Gel 15 GM/37.5 ML TUBE PO PRN (00:45)
[2018-11-23] MEDS ORDERED: *HR* Dextrose 50 % in Water (Syg) 50 ML SYRINGE IVP PRN (00:45)
[2018-11-23 07:54] VITALS: BP 125/90
[2018-11-23] MEDS: Insulin LISPRO 300 UNITS/3 ML VIAL SQ SCH ×2 (07:59→13:37)
[2018-11-23] MEDS ORDERED: levETIRAcetam 500 MG/5 ML UDC PO SCH (09:00)
[2018-11-23] MEDS ORDERED: Aspirin Enteric Coated 81 MG Tablet PO SCH ×2 (09:00)
--- NOTE | 2018-11-23 10:24 | Discharge Summary ---
- NOTES TO OUTPATIENT PROVIDER Notes to Outpatient Provider: Will need follow up with surgery for wound care. Orders not resulted at time of discharge: Pending orders 11/22/18 06:00 ECG 12 lead ECG [ECG] AM 0600 11/22/18 21:58 Surgical Pathology [PTH] Routine Date of Encounter: 11/23/18 Time of Encounter: 10:20 - Discharge Diagnosis (1) Afib Priority: Secondary Status: Chronic Qualifiers: Atrial fibrillation type: chronic Qualified Code(s): I48.2 - Chronic atrial fibrillation (2) DMII (diabetes mellitus, type 2) Priority: Secondary Status: Chronic Qualifiers: Diabetes mellitus watermelon inspector insulin use: without longterm use Diabetes mellitus complication status: with hyperglycemia Qualified Code(s): E11.65 - Type 2 diabetes mellitus with hyperglycemia (3) CVA (cerebral vascular accident) Priority: Secondary Status: Acute Qualifiers: CVA mechanism: unspecified Qualified Code(s): I63.9 - Cerebral infarction, unspecified (4) DVT prophylaxis Priority: Secondary Status: Acute (5) Decubital ulcer Priority: Primary Status: Acute Qualifiers: Pressure injury location: buttock Pressure injury stage: unstageable Laterality: right Qualified Code(s): L89.310 - Pressure ulcer of right buttock, unstageable Hospital course: Mr. Khan is a 83 year old male with past medical history of atrial fibrillation, CVA, diabetes, hypertension, hyperlipidemia who was admitted due to decubitus ulcer for wound management for debridement and washout. Patient was started on empiric vancomycin. Patient underwent the washout and excisional debridement with significant drainage of seropurulent material. Wound after excision was 8 x 4 x 3 cm a stage III. Patient otherwise medically stable to be discharged to SNF. Patient will need to continue follow-up for wound care with surgery. Discharge discussed with: patient, nurse, workforce management consultant - Time Spent with Patient Total time spent providing and/or coordinating discharge services: Time spent: Greater than 30 minutes (40) - Discharge Medications Prescriptions: Continued Ferrous Sulfate 325 mg PO BID Bumetanide [Bumex] 1 mg PO DAILY Ascorbate Calcium [Vitamin C] 500 mg PO DAILY Metoprolol Tartrate [Lopressor] 75 mg PO BID Acetaminophen [Tylenol] 650 mg PO Q4H PRN PRN Reason: Fever/Mild Pain Atorvastatin [Lipitor] 40 mg PO HS Docusate [Colace] 100 mg PO BID PRN PRN Reason: Constipation Ipratropium Neb [Atrovent Neb] 0.5 mg IH Q4H PRN PRN Reason: Shortness Of Breath Levalbuterol HCl [Xopenex Neb] 1.25 mg IH Q4H PRN PRN Reason: Shortness Of Breath Multivitamin [Daily Multiple Vitamin] 1 each PO DAILY Nitroglycerin [Nitrostat] 0.4 mg SL AD PRN PRN Reason: Chest Pain Polyethylene Glycol 3350 [MiraLAX] 17 gm PO DAILY PRN PRN Reason: Constipation traZODone [TraZODone] 50 mg PO HS PRN PRN Reason: Insomnia levETIRAcetam [Keppra Oral Soln] 500 mg PO BID #60 udc metFORMIN [Glucophage] 500 mg PO BIDWM predniSONE [PredniSONE] 15 mg PO DAILY Home Medications: Ferrous Sulfate 325 mg PO BID 03/27/18 [History] Bumetanide [Bumex] 1 mg PO DAILY 09/07/18 [History] Ascorbate Calcium [Vitamin C] 500 mg PO DAILY 09/08/18 [History] Metoprolol Tartrate [Lopressor] 75 mg PO BID 09/08/18 [History] Acetaminophen [Tylenol] 650 mg PO Q4H PRN 10/04/18 [History] Atorvastatin [Lipitor] 40 mg PO HS 10/04/18 [History] Docusate [Colace] 100 mg PO BID PRN 10/04/18 [History] Ipratropium Neb [Atrovent Neb] 0.5 mg IH Q4H PRN 10/04/18 [History] Levalbuterol HCl [Xopenex Neb] 1.25 mg IH Q4H PRN 10/04/18 [History] Multivitamin [Daily Multiple Vitamin] 1 each PO DAILY 10/04/18 [History] Nitroglycerin [Nitrostat] 0.4 mg SL AD PRN 10/04/18 [History] Polyethylene Glycol 3350 [MiraLAX] 17 gm PO DAILY PRN 10/04/18 [History] traZODone [TraZODone] 50 mg PO HS PRN 10/04/18 [History] levETIRAcetam [Keppra Oral Soln] 500 mg PO BID #60 udc 05/13/19 [Rx] metFORMIN [Glucophage] 500 mg PO BIDWM 11/21/18 [History] predniSONE [PredniSONE] 15 mg PO DAILY 11/21/18 [History] Allergies/Adverse Reactions: Allergy/AdvReac Type Severity Reaction Status Date / Time No Known Allergies Allergy Verified 08/31/18 14:26 Date of admission: 11/21/18 21:14 Primary care physician: Camron Allen MD Consults: 11/21/18 18:01 Consult to Surgery [CONS] Stat Consulting Provider: Acute Care Surgery Reason for Consult: wound debridement Time Notified: 18:02 Call Completed: Yes 11/22/18 09:08 Consult to Physical Therapy [CONS] Routine Comment: Evaluate, develop and implement POC Reason for Consult: weakness, needs new PT eval to qualify for return to rehab @ [facility] Does patient have active BEDREST order?: No Is patient medically & hemodynamically stable?: Yes Patient assessed for mobility or mobilized this visit?: No Discharging clinician: Mey Solis - Constitutional Vitals: Temp Pulse Resp BP Pulse Ox 97.9 F 113 14 125/90 97 11/23/18 07:44 11/23/18 07:44 11/23/18 07:44 11/23/18 07:44 11/23/18 07:44 General appearance: Absent: answers questions appropriately Exam: General: In no acute distress. Respiratory exam: CTAB. no accessory muscle use, rales, rhonchi, wheezes Cardiovascular exam: RRR, +S1, +S2. no murmur, gallop, rubs. GI/Abdominal exam: Non-tender, Non-distended, normal bowel sounds, soft, no peritoneal signs. Extremities exam: no pedal edema, pulses palpable in b/l lower extremities. no calf tenderness Neurological exam: AO X2, no focal deficits within limited exam. Skin exam: dressing in place on Rt buttock. - Patient Status Disposition: Transfer SNF Condition: Fair - Discharge Instructions Follow Up With: Camron Allen MD [Primary Care Provider] - - Diet and Activity Activity: increase activity as tolerated
--- NOTE | 2018-11-23 10:36 | Physician Discharge Referral ---
ExtendedCare Referral Info Institutional Level of Care: Skilled - Diagnosis (1) Afib Status: Chronic (2) DMII (diabetes mellitus, type 2) Status: Chronic (3) CVA (cerebral vascular accident) Status: Acute (4) DVT prophylaxis Status: Acute (5) Decubital ulcer Status: Acute - Transfer Medications Home Medications: Ferrous Sulfate 325 mg PO BID 03/27/18 [History] Bumetanide [Bumex] 1 mg PO DAILY 09/07/18 [History] Ascorbate Calcium [Vitamin C] 500 mg PO DAILY 09/08/18 [History] Metoprolol Tartrate [Lopressor] 75 mg PO BID 09/08/18 [History] Acetaminophen [Tylenol] 650 mg PO Q4H PRN 10/04/18 [History] Atorvastatin [Lipitor] 40 mg PO HS 10/04/18 [History] Docusate [Colace] 100 mg PO BID PRN 10/04/18 [History] Ipratropium Neb [Atrovent Neb] 0.5 mg IH Q4H PRN 10/04/18 [History] Levalbuterol HCl [Xopenex Neb] 1.25 mg IH Q4H PRN 10/04/18 [History] Multivitamin [Daily Multiple Vitamin] 1 each PO DAILY 10/04/18 [History] Nitroglycerin [Nitrostat] 0.4 mg SL AD PRN 10/04/18 [History] Polyethylene Glycol 3350 [MiraLAX] 17 gm PO DAILY PRN 10/04/18 [History] traZODone [TraZODone] 50 mg PO HS PRN 10/04/18 [History] levETIRAcetam [Keppra Oral Soln] 500 mg PO BID #60 c 10/23/18 [Rx] metFORMIN [Glucophage] 500 mg PO BIDWM 11/21/18 [History] predniSONE [PredniSONE] 15 mg PO DAILY 11/21/18 [History] Allergies/Adverse Reactions: Allergy/AdvReac Type Severity Reaction Status Date / Time No Known Allergies Allergy Verified 08/31/18 14:26 - Respiratory Orders Smoking Cessation: Smoking cessation has been advised. For more information, call the [place] Tobacco Quit Line at 2-684-NQJU-NOW. CERTIFICATION: I certify that the transfer of the above named patient to an Extended Care Facility is necessary for the continuing treatment of the diagnosis listed. The above information is true and accurate reflection of patient's current condition. Confidential - Redisclosure prohibited without a patient's written consent.
--- NOTE | 2018-11-23 13:55 | General Surgery Progress Note ---
Date of Encounter: 11/23/18 Time of Encounter: 13:52 - Assessment and Plan (1) Decubital ulcer Current Visit: Yes Status: Acute 83M POD #1 sp washout and excisional debridement of sacral pressure ulcer; diet as tolerated okay for transfer back to facility change dressing daily - wet to dry dressings today - dry guaze - tape - resume santyl (nickel thick) to wound at nursing facility with daily dressing changes q2hr turns optimize nutrition follow up in my wound clinic in 1-2 weeks Qualifiers: Pressure injury location: buttock Pressure injury stage: unstageable Laterality: right Qualified Code(s): L89.310 - Pressure ulcer of right but tock, unstageable Subjective Patient reports: no new complaints, feels better Objective Vital Signs - Last 8 Hours Temp Pulse Resp BP Pulse Ox 11/23/18 13:11 98.0 F 79 11/23/18 07:44 97.9 F 113 14 125/90 97 Intake and Output 11/22/18 11/23/18 11/23/18 23:59 07:59 15:59 Intake Total 0 / 0 250 / 610 360 / 610 Output Total 5 / 55 Balance -5 / -55 250 / 610 360 / 610 Intake: IV Fluids 250 / 250 Vancocin 1,250 MG In 0.9 % 250 / 250 Sodium Chloride 250 ML @ 166.67 mls/hr IVPB Q24H MEHRDAD Rx#: [id number] Oral 0 / 0 0 / 360 360 / 360 Output: Urine 0 / 50 Estimated Blood Loss 5 / 5 Other: Meal Lunch Breakfast Percent of Meal Consumed 0% 100% # Urine Diapers 0 2 # Bowel Movement Diapers 2 Weight 97.9 kg Blood Glucose* 165 113 165 Patient Weight 11/23/18 23:59 Weight 97.9 kg - General physical appearance no distress - Respiratory normal expansion, normal respiratory effort - Abdomen Abdomen: Present: soft, non tender - Integumentary other (wound is clean; viable, clean base; ) - Neurologic CN 2-12 grossly intact - Labs 11/22/18 04:48 11/22/18 04:48 Consult Discharge Plan - Plan Referrals: [facility] [Other] - 11/28/18 2:00 pm (Office will call with appointment date and time. Thank you)
[2018-11-23] MEDS ORDERED: Aminoglycoside Consult 1 EACH MC ONE (16:31)
[2018-11-23] MEDS ORDERED: Insulin LISPRO 300 UNITS/3 ML VIAL SQ SCH ×2 (21:00)
== END 2018-11-23 16:32 ==
LOC: 3ANU 17:38 → EMEROOARM 17:38 → SUATTDRO 21:14 → 3ANU 22:03
PROVIDERS: ADMIT Internal Medicine Nephrology; ATTEND Internal Medicine

== ENCOUNTER 2018-12-13 15:13 | Inpatient (IN) ==
--- NOTE | 2018-12-13 15:52 | Emergency Department Note ---
Disposition Clinical Impression: UTI (urinary tract infection) Qualifiers: Urinary tract infection type: site unspecified Hematuria presence: without hematuria Qualified Code(s): N39.0 - Urinary tract infection, site not specified Disposition: Admitted As Inpatient Condition: Fair Time of Disposition: 19:12 General Adult HPI - General Chief complaint: ED Altered Mental Status Time Seen by Provider: 12/13/18 15:25 - History of Present Illness Pain Scale: 0 - Related Data Home Medications Medication Instructions Recorded Confirmed Ferrous Sulfate 325 mg PO BID 03/27/18 12/13/18 Bumetanide [Bumex] 1 mg PO DAILY 09/07/18 12/13/18 Ascorbate Calcium [Vitamin C] 500 mg PO DAILY 09/08/18 12/13/18 Metoprolol Tartrate [Lopressor] 75 mg PO BID 09/08/18 12/13/18 Acetaminophen [Tylenol] 650 mg PO Q4H PRN 10/04/18 12/13/18 Atorvastatin [Lipitor] 40 mg PO HS 10/04/18 12/13/18 Docusate [Colace] 100 mg PO BID PRN 10/04/18 12/13/18 Ipratropium Neb [Atrovent Neb] 0.5 mg IH Q4H PRN 10/04/18 12/13/18 Multivitamin [Daily Multiple 1 tab PO DAILY 10/04/18 12/13/18 Vitamin] Nitroglycerin [Nitrostat] 0.4 mg SL AD PRN 10/04/18 12/13/18 Polyethylene Glycol 3350 [MiraLAX] 17 gm PO DAILY PRN 10/04/18 12/13/18 metFORMIN [Glucophage] 500 mg PO BIDWM 11/21/18 12/13/18 predniSONE [PredniSONE] 15 mg PO DAILY 11/21/18 12/13/18 Albuterol Neb [Proventil Neb] 2.5 mg IH Q4HR PRN 11/23/18 12/13/18 Bisacodyl [Woman's Laxative] 10 mg PO DAILY 11/23/18 12/13/18 Tamsulosin HCl [Flomax] 0.4 mg PO 2030 11/23/18 12/13/18 Gentamicin OPTH Soln [Gentak OPTH 3 drop BOTH EYES BID 12/13/18 12/13/18 Soln] LevETIRAcetam [Keppra] 500 mg PO BID 12/13/18 12/13/18 Previous Rx's Medication Instructions Recorded Amoxicillin/Clavulanate [Augmentin] 875 mg PO BIDWM #10 tablet 12/17/18 Clopidogrel [Plavix] 75 mg PO DAILY tablet 12/17/18 Quetiapine Fumarate [SEROquel] 12.5 mg PO HS #30 tablet 12/17/18 Allergies Allergy/AdvReac Type Severity Reaction Status Date / Time No Known Allergies Allergy Verified 11/23/18 13:19 Past Medical History - Past Medical History Medical history: Reports: arthritis, atrial fibrillation, CHF, CVA, dementia, diabetes, hyperlipidemia, hypertension Surgical history: Reports: cataract, hip replacement, knee replacement, other Psychiatric history: Reports: no psych history - Social History Smoking Status: Never smoker Smokeless Tobacco Status: No Alcohol use: Reports: none Drug use: Reports: none Course Vital Signs Temperature 98.3 F 12/13/18 15:20 Pulse Rate 98 12/13/18 15:20 Respiratory Rate 19 12/13/18 15:20 Blood Pressure 104/64 12/13/18 15:20 O2 Sat by Pulse Oximetry 96 12/13/18 15:20 Temperature 97.7 F 12/17/18 12:20 Pulse Rate 101 12/17/18 12:20 Respiratory Rate 18 12/17/18 12:20 Blood Pressure 137/93 12/17/18 12:20 O2 Sat by Pulse Oximetry 98 12/17/18 12:20 Oxygen Delivery Oxygen Delivery Room Air Medical Decision Making - Lab Data Result diagrams: 12/17/18 12:49 12/17/18 12:49 Lab Results 12/13/18 12/13/18 12/13/18 Range/Units 15:45 15:52 19:06 WBC 14.2 H (4.3-11.1) K/mcL RBC 3.32 L (4.19-5.50) M/mcL Hgb 9.5 L (12.9-16.9) g/dL Hct 30.3 L (37.5-50.1) % MCV 91.3 (83.0-100.0) fL MCH 28.6 (28.0-33.3) pg MCHC 31.4 L (31.6-35.5) g/dL RDW 17.8 H (11.5-14.5) % Plt Count 202 (140-400) K/mcL MPV 10.1 (9.4-12.4) fL Immature Gran % 0.6 (0-4) % Seg Neutrophils % 82.8 % Lymphocytes % 8.5 % Monocytes % 8.0 % Eosinophils % 0.0 % Basophils % 0.1 % Neutrophils # 11.7 H (1.6-8.9) K/mcL Lymphocytes # 1.2 (0.6-4.6) K/mcL Monocytes # 1.1 (0.0-1.3) K/mcL Eosinophils # 0.0 (0.0-0.6) K/mcL Basophils # 0.0 (0.0-0.2) K/mcL PT (9.4-12.1) Seconds INR APTT (26.0-36.0) Seconds Sodium 138 (136-145) mEq/L Potassium 4.6 (3.5-5.1) mEq/L Chloride 100 (98-107) mEq/L Carbon Dioxide 30 H (23-29) mEq/L BUN 34 H (8-23) mg/dL Creatinine 1.02 (0.70-1.30) mg/dL Est GFR ( Amer) > 60 (> 60) Est GFR (Non-Af Amer) > 60 (> 60) BUN/Creatinine Ratio 33 H (6-26) Glucose 283 H (70-105) mg/dL POC Glucose (70-99) mg/dL Est Mean Plasma Glucose mg/dl Hemoglobin A1c ( - 5.6) % Calculated Osmolality 304 H (280-300) Calcium 8.3 L (8.6-10.3) mg/dL Phosphorus (2.7-4.5) mg/dL Magnesium (1.6-2.6) mg/dL Total Bilirubin (0.3-1.0) mg/dL AST (13-39) Units/L ALT (7-52) Units/L Alkaline Phosphatase (34-104) Units/L Serum Total Protein (6.4-8.9) g/dL Albumin (3.5-5.7) g/dL Globulin (2.4-3.5) g/dL Albumin/Globulin Ratio (1.1-2.2) Triglycerides (< 150) mg/dL Cholesterol (< 200) mg/dL LDL Cholesterol, Calc (0-99) mg/dL VLDL Cholesterol, Calc (< 31) mg/dL HDL Cholesterol (40-59) mg/dL Cholesterol/HDL Ratio (0-4.9) TSH 3.963 (0.340-5.600) mcIU/mL Urine Color Yellow (Yellow) Urine Clarity Cloudy A (Clear) Urine pH 8.0 (5.0-8.0) pH Units Ur Specific Dresher 1.013 (1.010-1.025) Urine Protein Negative (Neg-Trace) mg/dL Urine Glucose (UA) Normal (Normal) mg/dL Urine Ketones Negative (Negative) mg/dL Urine Blood Negative (Negative) Urine Nitrite Negative (Negative) Urine Bilirubin Negative (Negative) Urine Urobilinogen Normal (Normal) mg/dL Ur Leukocyte Esterase Large H (Negative) Urine Microscopic RBC 0-3 (0-3) per hpf Urine Microscopic WBC 50-100 H (0-3) per hpf Ur Squamous Epith Cells Moderate H (None-Few) per lpf Urine Bacteria Many H (None-Few) per hpf Hyaline Casts None Seen (None-Few) per lpf Ur Culture Indicated? YES A (NO) 12/13/18 12/14/18 12/14/18 Range/Units 20:53 07:14 08:48 WBC 12.2 H (4.3-11.1) K/mcL RBC 3.29 L (4.19-5.50) M/mcL Hgb 9.4 L (12.9-16.9) g/dL Hct 30.8 L (37.5-50.1) % MCV 93.6 (83.0-100.0) fL MCH 28.6 (28.0-33.3) pg MCHC 30.5 L (31.6-35.5) g/dL RDW 17.8 H (11.5-14.5) % Plt Count 207 (140-400) K/mcL MPV 10.7 (9.4-12.4) fL Immature Gran % 0.7 (0-4) % Seg Neutrophils % 72.4 % Lymphocytes % 13.5 % Monocytes % 12.4 % Eosinophils % 0.8 % Basophils % 0.2 % Neutrophils # 8.8 (1.6-8.9) K/mcL Lymphocytes # 1.6 (0.6-4.6) K/mcL Monocytes # 1.5 H (0.0-1.3) K/mcL Eosinophils # 0.1 (0.0-0.6) K/mcL Basophils # 0.0 (0.0-0.2) K/mcL PT (9.4-12.1) Seconds INR APTT (26.0-36.0) Seconds Sodium (136-145) mEq/L Potassium (3.5-5.1) mEq/L Chloride (98-107) mEq/L Carbon Dioxide (23-29) mEq/L BUN (8-23) mg/dL Creatinine (0.70-1.30) mg/dL Est GFR ( Amer) (> 60) Est GFR (Non-Af Amer) (> 60) BUN/Creatinine Ratio (6-26) Glucose (70-105) mg/dL POC Glucose 151 H 104 H (70-99) mg/dL Est Mean Plasma Glucose mg/dl Hemoglobin A1c ( - 5.6) % Calculated Osmolality (280-300) Calcium (8.6-10.3) mg/dL Phosphorus (2.7-4.5) mg/dL Magnesium (1.6-2.6) mg/dL Total Bilirubin (0.3-1.0) mg/dL AST (13-39) Units/L ALT (7-52) Units/L Alkaline Phosphatase (34-104) Units/L Serum Total Protein (6.4-8.9) g/dL Albumin (3.5-5.7) g/dL Globulin (2.4-3.5) g/dL Albumin/Globulin Ratio (1.1-2.2) Triglycerides (< 150) mg/dL Cholesterol (< 200) mg/dL LDL Cholesterol, Calc (0-99) mg/dL VLDL Cholesterol, Calc (< 31) mg/dL HDL Cholesterol (40-59) mg/dL Cholesterol/HDL Ratio (0-4.9) TSH (0.340-5.600) mcIU/mL Urine Color (Yellow) Urine Clarity (Clear) Urine pH (5.0-8.0) pH Units Ur Specific Dresher (1.010-1.025) Urine Protein (Neg-Trace) mg/dL Urine Glucose (UA) (Normal) mg/dL Urine Ketones (Negative) mg/dL Urine Blood (Negative) Urine Nitrite (Negative) Urine Bilirubin (Negative) Urine Urobilinogen (Normal) mg/dL Ur Leukocyte Esterase (Negative) Urine Microscopic RBC (0-3) per hpf Urine Microscopic WBC (0-3) per hpf Ur Squamous Epith Cells (None-Few) per lpf Urine Bacteria (None-Few) per hpf Hyaline Casts (None-Few) per lpf Ur Culture Indicated? (NO) 12/14/18 12/14/18 12/14/18 Range/Units 08:48 08:48 08:48 WBC (4.3-11.1) K/mcL RBC (4.19-5.50) M/mcL Hgb (12.9-16.9) g/dL Hct (37.5-50.1) % MCV (83.0-100.0) fL MCH (28.0-33.3) pg MCHC (31.6-35.5) g/dL RDW (11.5-14.5) % Plt Count (140-400) K/mcL MPV (9.4-12.4) fL Immature Gran % (0-4) % Seg Neutrophils % % Lymphocytes % % Monocytes % % Eosinophils % % Basophils % % Neutrophils # (1.6-8.9) K/mcL Lymphocytes # (0.6-4.6) K/mcL Monocytes # (0.0-1.3) K/mcL Eosinophils # (0.0-0.6) K/mcL Basophils # (0.0-0.2) K/mcL PT 12.8 H (9.4-12.1) Seconds INR 1.1 APTT 24.9 L (26.0-36.0) Seconds Sodium 143 (136-145) mEq/L Potassium 4.1 (3.5-5.1) mEq/L Chloride 102 (98-107) mEq/L Carbon Dioxide 31 H (23-29) mEq/L BUN 27 H (8-23) mg/dL Creatinine 0.78 (0.70-1.30) mg/dL Est GFR ( Amer) > 60 (> 60) Est GFR (Non-Af Amer) > 60 (> 60) BUN/Creatinine Ratio 35 H (6-26) Glucose 136 H (70-105) mg/dL POC Glucose (70-99) mg/dL Est Mean Plasma Glucose 166 mg/dl Hemoglobin A1c 7.4 H ( - 5.6) % Calculated Osmolality 303 H (280-300) Calcium 8.3 L (8.6-10.3) mg/dL Phosphorus 2.7 (2.7-4.5) mg/dL Magnesium 1.2 L (1.6-2.6) mg/dL Total Bilirubin 0.5 (0.3-1.0) mg/dL AST 11 L (13-39) Units/L ALT 8 (7-52) Units/L Alkaline Phosphatase 80 (34-104) Units/L Serum Total Protein 5.8 L (6.4-8.9) g/dL Albumin 3.0 L (3.5-5.7) g/dL Globulin 2.8 (2.4-3.5) g/dL Albumin/Globulin Ratio 1.1 (1.1-2.2) Triglycerides 64 (< 150) mg/dL Cholesterol 97 (< 200) mg/dL LDL Cholesterol, Calc 45 (0-99) mg/dL VLDL Cholesterol, Calc 13 (< 31) mg/dL HDL Cholesterol 39 L (40-59) mg/dL Cholesterol/HDL Ratio 2.5 (0-4.9) TSH (0.340-5.600) mcIU/mL Urine Color (Yellow) Urine Clarity (Clear) Urine pH (5.0-8.0) pH Units Ur Specific Dresher (1.010-1.025) Urine Protein (Neg-Trace) mg/dL Urine Glucose (UA) (Normal) mg/dL Urine Ketones (Negative) mg/dL Urine Blood (Negative) Urine Nitrite (Negative) Urine Bilirubin (Negative) Urine Urobilinogen (Normal) mg/dL Ur Leukocyte Esterase (Negative) Urine Microscopic RBC (0-3) per hpf Urine Microscopic WBC (0-3) per hpf Ur Squamous Epith Cells (None-Few) per lpf Urine Bacteria (None-Few) per hpf Hyaline Casts (None-Few) per lpf Ur Culture Indicated? (NO) 12/14/18 12/14/18 12/14/18 Range/Units 12:13 16:23 20:31 WBC (4.3-11.1) K/mcL RBC (4.19-5.50) M/mcL Hgb (12.9-16.9) g/dL Hct (37.5-50.1) % MCV (83.0-100.0) fL MCH (28.0-33.3) pg MCHC (31.6-35.5) g/dL RDW (11.5-14.5) % Plt Count (140-400) K/mcL MPV (9.4-12.4) fL Immature Gran % (0-4) % Seg Neutrophils % % Lymphocytes % % Monocytes % % Eosinophils % % Basophils % % Neutrophils # (1.6-8.9) K/mcL Lymphocytes # (0.6-4.6) K/mcL Monocytes # (0.0-1.3) K/mcL Eosinophils # (0.0-0.6) K/mcL Basophils # (0.0-0.2) K/mcL PT (9.4-12.1) Seconds INR APTT (26.0-36.0) Seconds Sodium (136-145) mEq/L Potassium (3.5-5.1) mEq/L Chloride (98-107) mEq/L Carbon Dioxide (23-29) mEq/L BUN (8-23) mg/dL Creatinine (0.70-1.30) mg/dL Est GFR ( Amer) (> 60) Est GFR (Non-Af Amer) (> 60) BUN/Creatinine Ratio (6-26) Glucose (70-105) mg/dL POC Glucose 165 H 262 H 176 H (70-99) mg/dL Est Mean Plasma Glucose mg/dl Hemoglobin A1c ( - 5.6) % Calculated Osmolality (280-300) Calcium (8.6-10.3) mg/dL Phosphorus (2.7-4.5) mg/dL Magnesium (1.6-2.6) mg/dL Total Bilirubin (0.3-1.0) mg/dL AST (13-39) Units/L ALT (7-52) Units/L Alkaline Phosphatase (34-104) Units/L Serum Total Protein (6.4-8.9) g/dL Albumin (3.5-5.7) g/dL Globulin (2.4-3.5) g/dL Albumin/Globulin Ratio (1.1-2.2) Triglycerides (< 150) mg/dL Cholesterol (< 200) mg/dL LDL Cholesterol, Calc (0-99) mg/dL VLDL Cholesterol, Calc (< 31) mg/dL HDL Cholesterol (40-59) mg/dL Cholesterol/HDL Ratio (0-4.9) TSH (0.340-5.600) mcIU/mL Urine Color (Yellow) Urine Clarity (Clear) Urine pH (5.0-8.0) pH Units Ur Specific Dresher (1.010-1.025) Urine Protein (Neg-Trace) mg/dL Urine Glucose (UA) (Normal) mg/dL Urine Ketones (Negative) mg/dL Urine Blood (Negative) Urine Nitrite (Negative) Urine Bilirubin (Negative) Urine Urobilinogen (Normal) mg/dL Ur Leukocyte Esterase (Negative) Urine Microscopic RBC (0-3) per hpf Urine Microscopic WBC (0-3) per hpf Ur Squamous Epith Cells (None-Few) per lpf Urine Bacteria (None-Few) per hpf Hyaline Casts (None-Few) per lpf Ur Culture Indicated? (NO) 12/15/18 12/15/18 12/15/18 Range/Units 07:26 11:51 16:06 WBC (4.3-11.1) K/mcL RBC (4.19-5.50) M/mcL Hgb (12.9-16.9) g/dL Hct (37.5-50.1) % MCV (83.0-100.0) fL MCH (28.0-33.3) pg MCHC (31.6-35.5) g/dL RDW (11.5-14.5) % Plt Count (140-400) K/mcL MPV (9.4-12.4) fL Immature Gran % (0-4) % Seg Neutrophils % % Lymphocytes % % Monocytes % % Eosinophils % % Basophils % % Neutrophils # (1.6-8.9) K/mcL Lymphocytes # (0.6-4.6) K/mcL Monocytes # (0.0-1.3) K/mcL Eosinophils # (0.0-0.6) K/mcL Basophils # (0.0-0.2) K/mcL PT (9.4-12.1) Seconds INR APTT (26.0-36.0) Seconds Sodium (136-145) mEq/L Potassium (3.5-5.1) mEq/L Chloride (98-107) mEq/L Carbon Dioxide (23-29) mEq/L BUN (8-23) mg/dL Creatinine (0.70-1.30) mg/dL Est GFR ( Amer) (> 60) Est GFR (Non-Af Amer) (> 60) BUN/Creatinine Ratio (6-26) Glucose (70-105) mg/dL POC Glucose 105 H 184 H 186 H (70-99) mg/dL Est Mean Plasma Glucose mg/dl Hemoglobin A1c ( - 5.6) % Calculated Osmolality (280-300) Calcium (8.6-10.3) mg/dL Phosphorus (2.7-4.5) mg/dL Magnesium (1.6-2.6) mg/dL Total Bilirubin (0.3-1.0) mg/dL AST (13-39) Units/L ALT (7-52) Units/L Alkaline Phosphatase (34-104) Units/L Serum Total Protein (6.4-8.9) g/dL Albumin (3.5-5.7) g/dL Globulin (2.4-3.5) g/dL Albumin/Globulin Ratio (1.1-2.2) Triglycerides (< 150) mg/dL Cholesterol (< 200) mg/dL LDL Cholesterol, Calc (0-99) mg/dL VLDL Cholesterol, Calc (< 31) mg/dL HDL Cholesterol (40-59) mg/dL Cholesterol/HDL Ratio (0-4.9) TSH (0.340-5.600) mcIU/mL Urine Color (Yellow) Urine Clarity (Clear) Urine pH (5.0-8.0) pH Units Ur Specific Dresher (1.010-1.025) Urine Protein (Neg-Trace) mg/dL Urine Glucose (UA) (Normal) mg/dL Urine Ketones (Negative) mg/dL Urine Blood (Negative) Urine Nitrite (Negative) Urine Bilirubin (Negative) Urine Urobilinogen (Normal) mg/dL Ur Leukocyte Esterase (Negative) Urine Microscopic RBC (0-3) per hpf Urine Microscopic WBC (0-3) per hpf Ur Squamous Epith Cells (None-Few) per lpf Urine Bacteria (None-Few) per hpf Hyaline Casts (None-Few) per lpf Ur Culture Indicated? (NO) 12/15/18 Range/Units 20:18 WBC (4.3-11.1) K/mcL RBC (4.19-5.50) M/mcL Hgb (12.9-16.9) g/dL Hct (37.5-50.1) % MCV (83.0-100.0) fL MCH (28.0-33.3) pg MCHC (31.6-35.5) g/dL RDW (11.5-14.5) % Plt Count (140-400) K/mcL MPV (9.4-12.4) fL Immature Gran % (0-4) % Seg Neutrophils % % Lymphocytes % % Monocytes % % Eosinophils % % Basophils % % Neutrophils # (1.6-8.9) K/mcL Lymphocytes # (0.6-4.6) K/mcL Monocytes # (0.0-1.3) K/mcL Eosinophils # (0.0-0.6) K/mcL Basophils # (0.0-0.2) K/mcL PT (9.4-12.1) Seconds INR APTT (26.0-36.0) Seconds Sodium (136-145) mEq/L Potassium (3.5-5.1) mEq/L Chloride (98-107) mEq/L Carbon Dioxide (23-29) mEq/L BUN (8-23) mg/dL Creatinine (0.70-1.30) mg/dL Est GFR ( Amer) (> 60) Est GFR (Non-Af Amer) (> 60) BUN/Creatinine Ratio (6-26) Glucose (70-105) mg/dL POC Glucose 241 H (70-99) mg/dL Est Mean Plasma Glucose mg/dl Hemoglobin A1c ( - 5.6) % Calculated Osmolality (280-300) Calcium (8.6-10.3) mg/dL Phosphorus (2.7-4.5) mg/dL Magnesium (1.6-2.6) mg/dL Total Bilirubin (0.3-1.0) mg/dL AST (13-39) Units/L ALT (7-52) Units/L Alkaline Phosphatase (34-104) Units/L Serum Total Protein (6.4-8.9) g/dL Albumin (3.5-5.7) g/dL Globulin (2.4-3.5) g/dL Albumin/Globulin Ratio (1.1-2.2) Triglycerides (< 150) mg/dL Cholesterol (< 200) mg/dL LDL Cholesterol, Calc (0-99) mg/dL VLDL Cholesterol, Calc (< 31) mg/dL HDL Cholesterol (40-59) mg/dL Cholesterol/HDL Ratio (0-4.9) TSH (0.340-5.600) mcIU/mL Urine Color (Yellow) Urine Clarity (Clear) Urine pH (5.0-8.0) pH Units Ur Specific Dresher (1.010-1.025) Urine Protein (Neg-Trace) mg/dL Urine Glucose (UA) (Normal) mg/dL Urine Ketones (Negative) mg/dL Urine Blood (Negative) Urine Nitrite (Negative) Urine Bilirubin (Negative) Urine Urobilinogen (Normal) mg/dL Ur Leukocyte Esterase (Negative) Urine Microscopic RBC (0-3) per hpf Urine Microscopic WBC (0-3) per hpf Ur Squamous Epith Cells (None-Few) per lpf Urine Bacteria (None-Few) per hpf Hyaline Casts (None-Few) per lpf Ur Culture Indicated? (NO) Attestation Statement - Attestation Attestation: I examined this patient and my medical decision-making was reviewed with the Resident Physician. I agree with the documented findings, disposition and treatment plan as described except to the extent set forth below. Patient is confused, which is a change from his baseline per the daughter's report. Afebrile. No abdominal tenderness. Appears well-hydrated. Initial w orkup discussed with Dr. Tubbs.
[2018-12-13 16:06] LABS: Bilirubin,Urine Negative (Negative); Blood,Urine Negative (Negative); Clarity,Urine Cloudy (Clear); Color,Urine Yellow (Yellow); Glucose,Urine (UA) Normal (Normal); Ketones,Urine Negative (Negative); Leukocyte Esterase,Urine Large (Negative); Nitrite,Urine Negative (Negative); Protein,Urine Negative (Neg-Trace); Specific Gravity,Urine 1.013 (1.010-1.025); Urobilinogen,Urine Normal (Normal)
[2018-12-13 16:08] LABS: Bacteria,Urine Many per hpf (None-Few); Hyaline Casts,Urine None Seen per lpf (None-Few); RBC,Urine 0-3 per hpf (0-3); Squamous Epithelial Cell,Urine Moderate per lpf (None-Few); WBC,Urine 50-100 per hpf (0-3)
[2018-12-13 16:25] LABS: BUN/Creatinine Ratio 33 (6-26); Blood Urea Nitrogen 34 mg/dL (8-23); Calcium 8.3 mg/dL (8.6-10.3); Carbon Dioxide 30 mEq/L (23-29); Chloride 100 mEq/L (98-107); Glucose 283 mg/dL (70-105); Osmolality,Calculated 304 (280-300); Potassium 4.6 mEq/L (3.5-5.1); Sodium 138 mEq/L (136-145); eGFR For African Americans > 60 (> 60); eGFR For Non-African Americans > 60 (> 60)
[2018-12-13 16:58] LABS: Thyroid Stimulating Hormone 3.963 mcIU/mL (0.340-5.600)
--- NOTE | 2018-12-13 16:58 | Emergency Department Note ---
Disposition Clinical Impression: UTI (urinary tract infection) Qualifiers: Urinary tract infection type: acute cystitis Hematuria presence: without hematuria Qualified Code(s): N30.00 - Acute cystitis without hematuria Disposition: Admitted As Inpatient Condition: Fair Forms: ED Satisfaction Letter Time of Disposition: 19:12 Altered Mental Status HPI - General Chief Complaint: ED Altered Mental Status Stated Complaint: Altered mental status Time Seen by Provider: 12/13/18 15:25 Source: patient Mode of arrival: EMS Limitations: no limitations Nursing Notes Reviewed: Yes Vital Signs Reviewed: Yes - History of Present Illness HPI Narrative: 83-year-old male presents to the emergency department complaining of altered mental status. 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 He said last night he did not sleep at all for some reason. They said when he does not sleep he does seem to be altered but they are worried that there may be something underlying going. This is all coming from a history from daughter. Daughter said that yes he does seem a little more confused but is able to talk there is been no recent falls or trauma. They said he can have UTIs never this occurs also was one to be sure that he did not have a new stroke. They said he has not fell with the last 3 or 4 days. He is not any blood thinners far as they know. Patient is currently getting wound care treatment for a decubitus ulcer in his bottom that is packed. Considering doing wound VAC. Said that looked well today according to the surgeon. - Related Data Home Medications Medication Instructions Recorded Confirmed Ferrous Sulfate 325 mg PO BID 03/27/18 11/23/18 Bumetanide [Bumex] 1 mg PO DAILY 09/07/18 11/23/18 Ascorbate Calcium [Vitamin C] 500 mg PO DAILY 09/08/18 11/23/18 Metoprolol Tartrate [Lopressor] 75 mg PO BID 09/08/18 11/23/18 Acetaminophen [Tylenol] 650 mg PO Q4H PRN 10/04/18 11/23/18 Atorvastatin [Lipitor] 40 mg PO HS 10/04/18 11/23/18 Docusate [Colace] 100 mg PO BID PRN 10/04/18 11/23/18 Ipratropium Neb [Atrovent Neb] 0.5 mg IH Q4H PRN 10/04/18 11/23/18 Multivitamin [Daily Multiple 1 tab PO DAILY 10/04/18 11/23/18 Vitamin] Nitroglycerin [Nitrostat] 0.4 mg SL AD PRN 10/04/18 11/23/18 Polyethylene Glycol 3350 [MiraLAX] 17 gm PO DAILY PRN 10/04/18 11/23/18 metFORMIN [Glucophage] 500 mg PO BIDWM 11/21/18 11/23/18 predniSONE [PredniSONE] 15 mg PO DAILY 11/21/18 11/23/18 Albuterol Neb [Proventil Neb] 2.5 mg IH Q4HR PRN 11/23/18 11/23/18 Bisacodyl [Woman's Laxative] 10 mg PO DAILY 11/23/18 11/23/18 Tamsulosin HCl [Flomax] 0.4 mg PO 2030 11/23/18 11/23/18 Previous Rx's Medication Instructions Recorded levETIRAcetam [Keppra Oral Soln] 500 mg PO BID #60 [facility] [place]23[place]18 Allergies Allergy/AdvReac Type Severity Reaction Status Date / Time No Known Allergies Allergy Verified 11/23/18 13:19 All systems ED: reviewed and negative except as stated. Review of Systems: As Per HPI Past Medical History - Past Medical History Attestation: Yes The following information was validated with the patient. Source: patient Medical history: Reports: arthritis, atrial fibrillation, CHF, CVA, dementia, diabetes, hyperlipidemia, hypertension Surgical history: Reports: cataract, hip replacement, knee replacement, other Psychiatric history: Reports: no psych history - Social History Smoking Status: Never smoker Smokeless Tobacco Status: No Alcohol use: Reports: none Drug use: Reports: none Physical Exam - General Limitations: no limitations General appearance: alert, in no apparent distress - Head Head exam: atraumatic, normocephalic, normal inspection - Eye Eye exam: Present: normal appearance, PERRL, EOMI - ENT ENT exam: normal exam, normal oropharynx, mucous membranes moist - Neck Neck exam: Present: normal inspection, full ROM, trachea midline - Chest Chest inspection: Present: normal inspection, symmetric chest wall rise - Respiratory Respiratory exam: Present: normal lung sounds bilaterally - Cardiovascular Cardiovascular exam: Present: regular rate, normal rhythm, normal heart sounds - Abdominal Exam Abdominal exam: Present: soft, Non-Tender, normal bowel sounds. Absent: tenderness, distention, guarding, rebound, rigidity - Extremities Exam Extremities exam: Present: normal inspection, full ROM. Absent: tenderness, pedal edema - Back Exam Back exam: Present: normal inspection, full ROM, other (88-year-old male presents to the emergency department complaining of chest pain. It is all reproducible when you push on it. Says it is worse when he takes a big deep breath. He has no risk factors for pulmonary embolism patient can be PERC negative. Patient's labs BACK negative. EKG had no acute findings chest x-ray also was normal. I do feel comfortable with patient going home. We will give him diclofenac gel for the left-sided chest for there is no risk factors for him starting on an topical and said. Patient okay with this plan. We will give him follow-up with primary care physician set up with the residency clinic. Patient is short, stable condition given discharge instructions as well as return precautions. Of a dressed acute is ulcer in the center of his upper gluteal fold. It is packed. There is no signs of erythema or drainage around the area.). Absent: tenderness - Neurological Exam Neurological exam: Present: alert, oriented X3 - Skin Skin exam: Present: warm, dry, intact, normal color Course Course Narrative: We will get a head CT, urinalysis, BMP as well as TSH. Patient family okay with this plan. Disposition pending results Vital Signs Temperature 98.3 F 12/13/18 15:20 Pulse Rate 98 12/13/18 15:20 Respiratory Rate 12/13/18 15:20 Blood Pressure 104/64 12/13/18 15:20 O2 Sat by Pulse Oximetry 96 12/13/18 15:20 Temperature 98.3 F 12/13/18 15:20 Pulse Rate 98 12/13/18 15:20 Respiratory Rate 12/13/18 15:20 Blood Pressure 104/64 12/13/18 15:20 O2 Sat by Pulse Oximetry 96 12/13/18 15:20 Oxygen Delivery Oxygen Delivery Room Air Altered Mental Status - MDM Narrative Medical decision making narrative: Urinalysis came back positive for urinary tract infection. Did give him a dose Rocephin. Patient when I reevaluated him he has no no longer altered he does know where he is his name and who is in the room. Patient most likely has a ur inary tract infection causing his symptoms. I talked with family on whether or not going home or staying in the hospital would be the best course of action for and they are to market with him staying here in getting IV antibiotics here. I also agree with this the patient was altered with this symptoms. He did not was never in septic shock or severe sepsis. Never did actually meet Sirs criteria. Did have elevated heart rate but he has been having that chronically and currently is on metoprolol family said he is normally between the 90s and 100 with his heart rate. Patient is admitted to the hospitalist services spoke with Dr. Lezama who agreed to admit the patient to their service. Patient admitted in stable condition Head CT 12/13/18 15:32 IMPRESSION: No acute intracranial abnormality. Old infarction in the left middle cerebral artery territory. [id number] degree of small vessel disease in the periventricular white matter. Chronic sinusitis of paranasal sinuses. D/ / Robbie Huber MD / Robbie Huber MD Interpreting Provider: Robbie Huber MD Chest X-Ray 12/13/18 15:33 IMPRESSION: No acute cardiopulmonary disease. D/ / Robbie Huber MD / Robbie Huber MD Interpreting Provider: Robbie Huber MD - Lab Data Result diagrams: 12/13/18 15:52 Lab Results 12/13/18 12/13/18 Range/Units 15:45 15:52 Sodium 138 (136-145) mEq/L Potassium 4.6 (3.5-5.1) mEq/L Chloride 100 (98-107) mEq/L Carbon Dioxide 30 H (23-29) mEq/L BUN 34 H (8-23) mg/dL Creatinine 1.02 (0.70-1.30) mg/dL Est GFR ( Amer) > 60 (> 60) Est GFR (Non-Af Amer) > 60 (> 60) BUN/Creatinine Ratio 33 H (6-26) Glucose 283 H (70-105) mg/dL Calculated Osmolality 304 H (280-300) Calcium 8.3 L (8.6-10.3) mg/dL TSH 3.963 (0.340-5.600) mcIU/mL Urine Color Yellow (Yellow) Urine Clarity Cloudy A (Clear) Urine pH 8.0 (5.0-8.0) pH Units Ur Specific [place] 1.013 (1.010-1.025) Urine Protein Negative (Neg-Trace) mg/dL Urine Glucose (UA) Normal (Normal) mg/dL Urine Ketones Negative (Negative) mg/dL Urine Blood Negative (Negative) Urine Nitrite Negative (Negative) Urine Bilirubin Negative (Negative) Urine Urobilinogen Normal (Normal) mg/dL Ur Leukocyte Esterase Large H (Negative) Urine Microscopic RBC 0-3 (0-3) per hpf Urine Microscopic WBC 50-100 H (0-3) per hpf Ur Squamous Epith Cells Moderate H (None-Few) per lpf Urine Bacteria Many H (None-Few) per hpf Hyaline Casts None Seen (None-Few) per lpf Ur Culture Indicated? YES A (NO) TPA Checklist - LKW: 3-4.5 hrs Add. Warnings/Precautions Patient/family understanding: The patient/family members have been counseled and understood the risk, benefit, and alternatives of treatment.
[2018-12-13] MEDS ORDERED: cefTRIAXone 1,000 MG in Water for inj. (sterile) 10 ML IVP STA (18:44)
[2018-12-13 19:16] LABS: Basophils % 0.1 %; Hematocrit 30.3 % (37.5-50.1); Hemoglobin 9.5 g/dL (12.9-16.9); Immature Granulocytes % 0.6 % (0-4); Lymphocytes # 1.2 K/mcL (0.6-4.6); Lymphocytes % 8.5 %; Mean Corpuscular HGB Conc 31.4 g/dL (31.6-35.5); Mean Corpuscular Hemoglobin 28.6 pg (28.0-33.3); Mean Corpuscular Volume 91.3 fL (83.0-100.0); Mean Platelet Volume 10.1 fL (9.4-12.4); Monocytes # 1.1 K/mcL (0.0-1.3); Neutrophils # 11.7 K/mcL (1.6-8.9); Platelet Count 202 K/mcL (140-400); Red Blood Count 3.32 M/mcL (4.19-5.50); Red Cell Distribution Width 17.8 % (11.5-14.5); Segmented Neutrophils % 82.8 %; White Blood Count 14.2 K/mcL (4.3-11.1)
--- NOTE | 2018-12-13 21:18 | Internal Med History&Physical ---
Date of Encounter: 12/13/18 Time of Encounter: 21:17 Internal Medicine - H&P: HPI History of present illness: 83-year-old male with past medical history of several CVA, hemorrhagic and embolic who presented from a nursing facility change of mental status, as per the ER documentation the daughter at bedside felt that her father is more confused than usual, there were concerns that he might have a new stroke. Patient is currently getting wound care treatment for a decubitus ulcer. The patient was evaluated by the ER staff and CAT scan of the head was obtained and revealed no significant abnormalities, urinalysis was suggestive of urinary tract infections the patient was started in empiric antibiotics and was admitted for further evaluation and management. Past Med Surg Social Fam HX - Past Medical History Medical history: arthritis, atrial fibrillation, CHF, CVA, dementia, diabetes, hyperlipidemia, hypertension Additional medical history: irregular heartbeat, [place] Psychiatric history: no psych history - Past Surgical History Surgical History: cataract, hip replacement, knee replacement, other Additional surgical history: ablation. left and right knee replacement. hip replacement - Social History Smoking Status: Never smoker Smokeless Tobacco Status: No Alcohol use: none Drug use: none - Family History Mother Living Status: Hx Family Cancer: Yes (Brain CA) Father Living Status: Hx Family Neuromuscular Disorders: Yes (Parkinson's) Internal Medicine - H&P: Meds Ferrous Sulfate 325 mg PO BID 03/27/18 [History] Bumetanide [Bumex] 1 mg PO DAILY 09/07/18 [History] Ascorbate Calcium [Vitamin C] 500 mg PO DAILY 09/08/18 [History] Metoprolol Tartrate [Lopressor] 75 mg PO BID 09/08/18 [History] Acetaminophen [Tylenol] 650 mg PO Q4H PRN 10/04/18 [History] Atorvastatin [Lipitor] 40 mg PO HS 10/04/18 [History] Docusate [Colace] 100 mg PO BID PRN 10/04/18 [History] Ipratropium Neb [Atrovent Neb] 0.5 mg IH Q4H PRN 10/04/18 [History] Multivitamin [Daily Multiple Vitamin] 1 tab PO DAILY 10/04/18 [History] Nitroglycerin [Nitrostat] 0.4 mg SL AD PRN 10/04/18 [History] Polyethylene Glycol 3350 [MiraLAX] 17 gm PO DAILY PRN 10/04/18 [History] metFORMIN [Glucophage] 500 mg PO BIDWM 11/21/18 [History] predniSONE [PredniSONE] 15 mg PO DAILY 11/21/18 [History] Albuterol Neb [Proventil Neb] 2.5 mg IH Q4HR PRN 11/23/18 [History] Bisacodyl [Woman's Laxative] 10 mg PO DAILY 11/23/18 [History] Tamsulosin HCl [Flomax] 0.4 mg PO 2030 11/23/18 [History] Gentamicin OPTH Soln [Gentak OPTH Soln] 3 drop BOTH EYES BID 12/13/18 [History] LevETIRAcetam [Keppra] 500 mg PO BID 12/13/18 [History] Amoxicillin/Clavulanate [Augmentin] 875 mg PO BIDWM #10 tablet 12/17/18 [Rx] Clopidogrel [Plavix] 75 mg PO DAILY tablet 12/17/18 [Rx] Quetiapine Fumarate [SEROquel] 12.5 mg PO HS #30 tablet 12/17/18 [Rx] Allergy/AdvReac Type Severity Reaction Status Date / Time No Known Allergies Allergy Verified 11/23/18 13:19 All Systems PM: A 10-system review of systems was performed and is negative for pertinent findings except as documented above in the HPI. - Constitutional Vitals: Temp Pulse Resp BP Pulse Ox 97.6 F 92 15 141/89 96 12/13/18 20:42 12/13/18 20:42 12/13/18 20:42 12/13/18 20:42 12/13/18 20:42 General appearance: Present: A&O X 0 Exam: ` - Head Head exam: Present: atraumatic, normocephalic - Neck Neck exam general surgery: Present: supple, trachea midline. Absent: lymphadenopathy - Respiratory Respiratory exam: Present: CTAB. Absent: accessory muscle use, rales, rhonchi, wheezes - Cardiovascular Cardiovascular exam: Present: RRR, +S1, +S2. Absent: diastolic murmur, gallop, rubs, systolic murmur - GI/Abdominal GI/Abdominal exam: Present: normal bowel sounds, soft, no peritoneal signs. Absent: distended, tenderness - Extremities Exam Extremities exam: Present: warm, radial pulses palpable and symmetrical. Absent: calf tenderness, cyanotic, pedal edema Internal Med - H&P Results - Labs CBC & Chem 7: 12/17/18 12:49 12/17/18 12:49 Labs: Short CBC 12/13/18 Range/Units 19:06 WBC 14.2 H (4.3-11.1) K/mcL Hgb 9.5 L (12.9-16.9) g/dL Hct 30.3 L (37.5-50.1) % Plt Count 202 (140-400) K/mcL Neutrophils # 11.7 H (1.6-8.9) K/mcL BMP 12/13/18 15:52 Sodium 138 Potassium 4.6 Chloride 100 Carbon Dioxide 30 H BUN 34 H Creatinine 1.02 Glucose 283 H Calcium 8.3 L Urine 12/13/18 Range/Units 15:45 Urine Color Yellow (Yellow) Urine Clarity Cloudy A (Clear) Urine pH 8.0 (5.0-8.0) pH Units Ur Specific [place] 1.013 (1.010-1.025) Urine Protein Negative (Neg-Trace) mg/dL Urine Glucose (UA) Normal (Normal) mg/dL - Impressions ITS Impressions Head CT 12/13/18 15:32 IMPRESSION: No acute intracranial abnormality. Old infarction in the left middle cerebral artery territory. [id number] degree of small vessel disease in the periventricular white matter. Chronic sinusitis of paranasal sinuses. D/ / Robbie Huber MD / Robbie Huber MD Interpreting Provider: Robbie Huber MD Chest X-Ray 12/13/18 15:33 IMPRESSION: No acute cardiopulmonary disease. D/ / Robbie Huber MD / Robbie Huber MD Interpreting Provider: Robbie Huber MD - Assessment and Plan (1) Urinary tract infection Status: Acute Assessment and plan: the patient urinalysis s suggestive of urinary tract infection. We will start the patient on empiric antibiotic with ceftriaxoneand f/u urine culture and adjust antibiotic accordingly. we will start IV hydration with isotonic fluid Qualifiers: Urinary tract infection type: site unspecified Hematuria presence: without hematuria Qualified Code(s): N39.0 - Urinary tract infection, site not specified (2) Delirium due to general medical condition Status: Acute Assessment and plan: The patient have history of CVA, worsening f cognitive function most likely secondary to underlying infectious process. cT scan of the head as was no signi ficant movements. (3) Anemia Status: Chronic Assessment and plan: we will continue to monitor hemoglobin and transfuse for Hgb less than 7. Qualifiers: Anemia type: iron deficiency Qualified Code(s): D50.9 - Iron deficiency anemia, unspecified (4) Afib Status: Chronic Qualifiers: Atrial fibrillation type: chronic Qualified Code(s): I48.2 - Chronic atrial fibrillation (5) HTN (hypertension), benign Status: Chronic Assessment and plan: we will continue home meds except for diuretics due to underlying infectious process. (6) DMII (diabetes mellitus, type 2) Status: Chronic Assessment and plan: e will start the patien on insulin sliding scale with moderate coverage Qualifiers: Diabetes mellitus termite inspector insulin use: without termite inspector use Diabetes mellitus complication status: with hyperglycemia Qualified Code(s): E11.65 - Type 2 diabetes mellitus with hyperglycemia (7) History of CVA (cerebrovascular accident) Status: Acute - Time Spent With Patient Total time spent is greater than 50% in coordination of care (as documented) at patient's floor/unit and/or counseling patient:
[2018-12-13] MEDS ORDERED: Acetaminophen 325 MG TABLET PO PRN (22:24)
[2018-12-13] MEDS ORDERED: *HR* HYDROcodone/Acet 5/325 mg TABLET PO PRN (22:24)
[2018-12-13] MEDS ORDERED: Ondansetron 4 MG/2 ML VIAL IVP PRN (22:24)
[2018-12-13] MEDS ORDERED: Naloxone 0.4 MG/ML INJ IVP PRN (22:24)
[2018-12-14] MEDS ORDERED: Ipratropium Neb 0.5 MG NEBULIZER IH PRN (06:21)
[2018-12-14] MEDS ORDERED: Albuterol 2.5 MG/3 ML NEBULIZER IH PRN (06:21)
[2018-12-14] MEDS ORDERED: Acetaminophen 325 MG TABLET PO PRN (06:21)
[2018-12-14] MEDS ORDERED: Nitroglycerin 0.4 MG TAB.SUBL SL PRN (06:21)
[2018-12-14] MEDS ORDERED: Dextrose Gel 15 GM/37.5 ML TUBE PO PRN ×2 (06:22)
[2018-12-14] MEDS ORDERED: *HR* Dextrose 50 % in Water (Syg) 50 ML SYRINGE IVP PRN (06:22)
[2018-12-14] MEDS ORDERED: D5% in Water 1,000 ML IVC PRN (06:22)
[2018-12-14] MEDS: 0.9 % Sodium Chloride 1,000 ML IVC SCH ×2 (06:32→15:14)
[2018-12-14] MEDS: Insulin LISPRO 300 UNITS/3 ML VIAL SQ SCH ×4 (07:58→20:58)
[2018-12-14 09:25] LABS: Basophils % 0.2 %; Eosinophils # 0.1 K/mcL (0.0-0.6); Eosinophils % 0.8 %; Hematocrit 30.8 % (37.5-50.1); Hemoglobin 9.4 g/dL (12.9-16.9); Immature Granulocytes % 0.7 % (0-4); Lymphocytes # 1.6 K/mcL (0.6-4.6); Lymphocytes % 13.5 %; Mean Corpuscular HGB Conc 30.5 g/dL (31.6-35.5); Mean Corpuscular Hemoglobin 28.6 pg (28.0-33.3); Mean Corpuscular Volume 93.6 fL (83.0-100.0); Mean Platelet Volume 10.7 fL (9.4-12.4); Monocytes # 1.5 K/mcL (0.0-1.3); Monocytes % 12.4 %; Neutrophils # 8.8 K/mcL (1.6-8.9); Platelet Count 207 K/mcL (140-400); Red Blood Count 3.29 M/mcL (4.19-5.50); Red Cell Distribution Width 17.8 % (11.5-14.5); Segmented Neutrophils % 72.4 %; White Blood Count 12.2 K/mcL (4.3-11.1)
[2018-12-14 09:32] LABS: INR 1.1; Prothrombin Time 12.8 Seconds (9.4-12.1)
[2018-12-14 09:35] LABS: Activated Partial Thrombo Time 24.9 Seconds (26.0-36.0)
[2018-12-14 09:45] LABS: Alanine Aminotransferase 8 Units/L (7-52); Albumin/Globulin Ratio 1.1 (1.1-2.2); Alkaline Phosphatase 80 Units/L (34-104); Aspartate Amino Transferase 11 Units/L (13-39); BUN/Creatinine Ratio 35 (6-26); Bilirubin,Total 0.5 mg/dL (0.3-1.0); Blood Urea Nitrogen 27 mg/dL (8-23); Calcium 8.3 mg/dL (8.6-10.3); Carbon Dioxide 31 mEq/L (23-29); Chloride 102 mEq/L (98-107); Chol/HDL Ratio 2.5 (0-4.9); Cholesterol 97 mg/dL (< 200); Globulin 2.8 g/dL (2.4-3.5); Glucose 136 mg/dL (70-105); HDL Cholesterol 39 mg/dL (40-59); LDL Cholesterol,Calculated 45 mg/dL (0-99); Magnesium 1.2 mg/dL (1.6-2.6); Osmolality,Calculated 303 (280-300); Phosphorous 2.7 mg/dL (2.7-4.5); Potassium 4.1 mEq/L (3.5-5.1); Sodium 143 mEq/L (136-145); Total Protein 5.8 g/dL (6.4-8.9); Triglycerides 64 mg/dL (< 150); eGFR For African Americans > 60 (> 60); eGFR For Non-African Americans > 60 (> 60)
[2018-12-14] MEDS: Ascorbic Acid 500 MG TABLET PO SCH (10:23)
[2018-12-14] MEDS: Multivit/Ca/Min/Fe/FA 1 TAB TABLET PO SCH (10:24)
[2018-12-14] MEDS: levETIRAcetam 250 MG TABLET PO SCH ×2 (10:24→20:58)
[2018-12-14] MEDS: predniSONE 10 MG TABLET PO SCH (10:24)
[2018-12-14] MEDS: Gentamicin OPTH Soln 5 ML BOTTLE BOTH EYES SCH ×2 (10:25→21:01)
--- NOTE | 2018-12-14 11:56 | Internal Med Progress Note ---
Hospitalist Progress Note - Encounter Date of Encounter: 12/14/18 Time of Encounter: 09:20 - Subjective Interval History: Patient was seen and examined bedside. He is more alert, awake and oriented to self only he still seems to be confused and demented. - Exam Vitals: Temp Pulse Resp BP Pulse Ox 97.7 F 112 18 154/70 97 12/14/18 07:06 12/14/18 07:06 12/14/18 07:06 12/14/18 07:06 12/14/18 07:06 Exam: Gen: Alert, awake, Oriented to self only Chest: Diminished breath sounds B/L, No wheezing, No crackles, No rales Heart: S1S2+ RRR No murmurs Abd: Soft, NT, BS +, No organomegaly Ext: No edema, pulses are palpable, No calf tenderness Neuro : No acute focal neuro deficits noticed Skin: No rash. - Assessment and Plan (1) Urinary tract infection Current Visit: Yes Status: Acute Assessment and Plan: UA is abnormal concerning for UTI cont IV Rocephin for now (2) Acute delirium Current Visit: Yes Status: Acute Assessment and Plan: Could be due to toxic encephalopathy with UTI however his previous stroke history and current falls, definitely need to rule out CVA will obtain brain MRI started him on aspirin continue Lipitor (3) Afib Current Visit: No Status: Chronic Assessment and Plan: Rate well controlled with metoprolol not on anticoagulation due to fall risk and bleed (4) HTN (hypertension), benign Current Visit: No Status: Chronic Assessment and Plan: Stable and well-controlled continue current home medication (5) DMII (diabetes mellitus, type 2) Current Visit: No Status: Chronic Assessment and Plan: on ADA diet on ISS (6) Anemia Current Visit: No Status: Chronic Assessment and Plan: chronic no signs of bleeding (7) History of CVA (cerebrovascular accident) Current Visit: Yes Status: Acute - Time Spent with Patient Total time spent is greater than 50% in coordination of care (as documented) at patient's floor/unit and/or counseling patient: Internal Medicine: Result - Labs CBC & Chem 7: 12/14/18 08:48 12/14/18 08:48 Labs: Short CBC 12/13/18 12/14/18 Range/Units 19:06 08:48 WBC 14.2 H 12.2 H (4.3-11.1) K/mcL Hgb 9.5 L 9.4 L (12.9-16.9) g/dL Hct 30.3 L 30.8 L (37.5-50.1) % Plt Count 202 207 (140-400) K/mcL Neutrophils # 11.7 H 8.8 (1.6-8.9) K/mcL BMP 12/13/18 12/14/18 15:52 08:48 Sodium 138 143 Potassium 4.6 4.1 Chloride 100 102 Carbon Dioxide 30 H 31 H BUN 34 H 27 H Creatinine 1.02 0.78 Glucose 283 H 136 H Calcium 8.3 L 8.3 L Liver Function 12/14/18 Range/Units 08:48 Total Bilirubin 0.5 (0.3-1.0) mg/dL AST 11 L (13-39) Units/L ALT 8 (7-52) Units/L Alkaline Phosphatase 80 (34-104) Units/L Albumin 3.0 L (3.5-5.7) g/dL Urine 12/13/18 Range/Units 15:45 Urine Color Yellow (Yellow) Urine Clarity Cloudy A (Clear) Urine pH 8.0 (5.0-8.0) pH Units Ur Specific [place] 1.013 (1.010-1.025) Urine Protein Negative (Neg-Trace) mg/dL Urine Glucose (UA) Normal (Normal) mg/dL - ABG Interpretation ABG results: PT/INR, D-dimer PT 12.8 Seconds (9.4-12.1) H 12/14/18 08:48 - Impressions Impressions Head CT 12/13/18 15:32 IMPRESSION: No acute intracranial abnormality. Old infarction in the left middle cerebral artery territory. [id number] degree of small vessel disease in the periventricular white matter. Chronic sinusitis of paranasal sinuses. D/ / Robbie Huber MD / Robbie Huber MD Interpreting Provider: Robbie Huber MD Chest X-Ray 12/13/18 15:33 IMPRESSION: No acute cardiopulmonary disease. D/ / Robbie Huber MD / Robbie Huber MD Interpreting Provider: Robbie Huber MD Consult Discharge Plan - Plan Referrals: Camron Allen MD [Primary Care Provider] - (3) Afib Qualifiers: Atrial fibrillation type: chronic Qualified Code(s): I48.2 - Chronic atrial fibrillation (5) DMII (diabetes mellitus, type 2) Qualifiers: Diabetes mellitus jail insulin use: without jail use Diabetes mellitus complication status: with hyperglycemia Qualified Code(s): E11.65 - Type 2 diabetes mellitus with hyperglycemia (6) Anemia Qualifiers: Anemia type: iron deficiency Qualified Code(s): D50.9 - Iron deficiency anemia, unspecified
[2018-12-14] MEDS ORDERED: cefTRIAXone 2,000 MG in Water for inj. (sterile) 20 ML IVP SCH (19:00)
[2018-12-15] MEDS: Insulin LISPRO 300 UNITS/3 ML VIAL SQ SCH ×4 (07:34→22:49)
[2018-12-15] MEDS: levETIRAcetam 250 MG TABLET PO SCH ×2 (08:30→20:35)
[2018-12-15] MEDS: predniSONE 10 MG TABLET PO SCH (08:30)
[2018-12-15] MEDS: Ascorbic Acid 500 MG TABLET PO SCH (08:30)
[2018-12-15] MEDS: Gentamicin OPTH Soln 5 ML BOTTLE BOTH EYES SCH ×2 (08:31→20:36)
[2018-12-15] MEDS: Multivit/Ca/Min/Fe/FA 1 TAB TABLET PO SCH (08:31)
[2018-12-15] MEDS ORDERED: Aspirin Enteric Coated 81 MG Tablet PO SCH (09:00)
[2018-12-15 11:09] LABS: Estimated Average Glucose 166 mg/dl
--- NOTE | 2018-12-15 15:02 | Discharge Summary ---
- NOTES TO OUTPATIENT PROVIDER Notes to Outpatient Provider: f/u with PCP in one week. Orders not resulted at time of discharge: Pending orders 12/15/18 12:01 MR head/brain wo con [MR] Routine Date of Encounter: 12/15/18 Time of Encounter: 14:58 - Discharge Diagnosis (1) Urinary tract infection Priority: Primary Status: Acute Qualifiers: Urinary tract infection type: site unspecified Hematuria presence: without hematuria Qualified Code(s): N39.0 - Urinary tract infection, site not spe cified (2) Acute delirium Priority: Primary Status: Acute (3) Afib Priority: Secondary Status: Chronic Qualifiers: Atrial fibrillation type: chronic Qualified Code(s): I48.2 - Chronic atrial fibrillation (4) HTN (hypertension), benign Priority: Secondary Status: Chronic (5) DMII (diabetes mellitus, type 2) Priority: Secondary Status: Chronic Qualifiers: Diabetes mellitus shelter insulin use: without watermelon inspector use Diabetes mellitus complication status: with hyperglycemia Qualified Code(s): E11.65 - Type 2 diabetes mellitus with hyperglycemia (6) Anemia Priority: Secondary Status: Chronic Qualifiers: Anemia type: iron deficiency Qualified Code(s): D50.9 - Iron deficiency anemia, unspecified (7) History of CVA (cerebrovascular accident) Priority: Secondary Status: Acute Hospital course: Mr. Khan is a 83 year old male with past medical history of Afib, Diastolic CHF, HTN, HLD, DM2 and several CVA, hemorrhagic and embolic who presented from a nursing facility with change of mental status. His initia CT of head did not show any acute intracranial abnormality. He does have abnormal UA concerning for UTI. So pt was admitted in the hospital and placed him empirical abx IV Rocephin and IV hydration. His symptoms are better now. He is more alert, awake and O to self. His Urine cx grew Proteus which is cephalosporin resistant. So switched to PO Abx Augmentin. He had Brain MRI down which showed acute lacunar infarct. So pt was not d/c d back to [facility] on 12/15/18, his d/c ordered was canceled. I consulted Neurology for further work up. Pt was placed on Tele. - Time Spent with Patient Total time spent providing and/or coordinating discharge services: - Discharge Medications Prescriptions: New Amoxicillin/Clavulanate [Augmentin] 875 mg PO BIDWM #10 tablet Clopidogrel [Plavix] 75 mg PO DAILY tablet Quetiapine Fumarate [SEROquel] 12.5 mg PO HS #30 tablet Continued Ferrous Sulfate 325 mg PO BID Bumetanide [Bumex] 1 mg PO DAILY Ascorbate Calcium [Vitamin C] 500 mg PO DAILY Metoprolol Tartrate [Lopressor] 75 mg PO BID Acetaminophen [Tylenol] 650 mg PO Q4H PRN PRN Reason: Fever/Mild Pain Atorvastatin [Lipitor] 40 mg PO HS Docusate [Colace] 100 mg PO BID PRN PRN Reason: Constipation Ipratropium Neb [Atrovent Neb] 0.5 mg IH Q4H PRN PRN Reason: Shortness Of Breath Multivitamin [Daily Multiple Vitamin] 1 tab PO DAILY Nitroglycerin [Nitrostat] 0.4 mg SL AD PRN PRN Reason: Chest Pain Polyethylene Glycol 3350 [MiraLAX] 17 gm PO DAILY PRN PRN Reason: Constipation metFORMIN [Glucophage] 500 mg PO BIDWM predniSONE [PredniSONE] 15 mg PO DAILY Tamsulosin HCl [Flomax] 0.4 mg PO 2030 Albuterol Neb [Proventil Neb] 2.5 mg IH Q4HR PRN PRN Reason: Shortness Of Breath Bisacodyl [Woman's Laxative] 10 mg PO DAILY Gentamicin OPTH Soln [Gentak OPTH Soln] 3 drop BOTH EYES BID LevETIRAcetam [Keppra] 500 mg PO BID Home Medications: Ferrous Sulfate 325 mg PO BID 03/27/18 [History] Bumetanide [Bumex] 1 mg PO DAILY 09/07/18 [History] Ascorbate Calcium [Vitamin C] 500 mg PO DAILY 09/08/18 [History] Metoprolol Tartrate [Lopressor] 75 mg PO BID 09/08/18 [History] Acetaminophen [Tylenol] 650 mg PO Q4H PRN 10/04/18 [History] Atorvastatin [Lipitor] 40 mg PO HS 10/04/18 [History] Docusate [Colace] 100 mg PO BID PRN 10/04/18 [History] Ipratropium Neb [Atrovent Neb] 0.5 mg IH Q4H PRN 10/04/18 [History] Multivitamin [Daily Multiple Vitamin] 1 tab PO DAILY 10/04/18 [History] Nitroglycerin [Nitrostat] 0.4 mg SL AD PRN 10/04/18 [History] Polyethylene Glycol 3350 [MiraLAX] 17 gm PO DAILY PRN 10/04/18 [History] metFORMIN [Glucophage] 500 mg PO BIDWM 11/21/18 [History] predniSONE [PredniSONE] 15 mg PO DAILY 11/21/18 [History] Albuterol Neb [Proventil Neb] 2.5 mg IH Q4HR PRN 11/23/18 [History] Bisacodyl [Woman's Laxative] 10 mg PO DAILY 11/23/18 [History] Tamsulosin HCl [Flomax] 0.4 mg PO 2030 11/23/18 [History] Gentamicin OPTH Soln [Gentak OPTH Soln] 3 drop BOTH EYES BID 12/13/18 [History] LevETIRAcetam [Keppra] 500 mg PO BID 12/13/18 [History] Amoxicillin/Clavulanate [Augmentin] 875 mg PO BIDWM #10 tablet 12/17/18 [Rx] Clopidogrel [Plavix] 75 mg PO DAILY tablet 12/17/18 [Rx] Quetiapine Fumarate [SEROquel] 12.5 mg PO HS #30 tablet 12/17/18 [Rx] Allergies/Adverse Reactions: Allergy/AdvReac Type Severity Reaction Status Date / Time No Known Allergies Allergy Verified 11/23/18 13:19 Date of admission: 12/13/18 19:47 Primary care physician: Camron Allen MD Consults: 12/15/18 01:16 Consult to Wound Care [CONS] Routine Reason for Consult: Patient has three pressure ulcers on coccyx. Assess for wound vac need and make recommendations for daily wound care. Call Completed: No 12/15/18 08:09 Consult to Manager Of Employee Relations [CONS] Routine Reason for SW Consult: FROM [facility] - Constitutional Vitals: Temp Pulse Resp BP Pulse Ox 98.1 F 110 19 124/69 95 12/15/18 11:54 12/15/18 11:54 12/15/18 11:54 12/15/18 11:54 12/15/18 11:54 General appearance: Present: A&O X 0, A&O X 3, no acute distress, answers questions appropriately Exam: Gen: Alert, awake, Oriented to self only Chest: Diminished breath sounds B/L, No wheezing, No crackles, No rales Heart: S1S2+ RRR No murmurs Abd: Soft, NT, BS +, No organomegaly Ext: No edema, pulses are palpable, No calf tenderness Neuro : No acute focal neuro deficits noticed Skin: No rash. - Patient Status Disposition: Transfer SNF Condition: Fair Overall status at discharge: patient is back to baseline - Discharge Instructions Follow Up With: Camron Allen MD [Primary Care Provider] - (Appointment has been requested.) Myra Jimenez MD [Partnered Physician] - (Appointment has been requested. ) - Diet and Activity Activity: as per physical therapy, increase activity as tolerated Diet: low salt diet
[2018-12-15] MEDS ORDERED: Isovue-370 500 ML BOTTLE IVP ONE (21:44)
--- NOTE | 2018-12-15 22:07 | Internal Med Progress Note ---
Hospitalist Progress Note - Encounter Date of Encounter: 12/15/18 Time of Encounter: 18:30 - Subjective Interval History: Mr. Khan is a 83 year old male with past medical history of Afib, Diastolic CHF, HTN, HLD, DM2 and several CVA, hemorrhagic and embolic who presented from a nursing facility with change of mental status. His initia CT of head did not show any acute intracranial abnormality. He does have abnormal UA concerning for UTI. So pt was admitted in the hospital and placed him empirical abx IV Rocephin and IV hydration. Pt was seen and examined at bed side. His symptoms are better now. He is more alert, awake and O to self. His Urine cx grew Proteus which is cephalosporin resistant. So switched to PO Abx Augmentin. For his acute delirium I did brain MRI which came back as positive for lacunar infarct left frontal region. - Exam Vitals: Temp Pulse Resp BP Pulse Ox 98.2 F 107 16 120/88 92 12/15/18 18:47 12/15/18 18:47 12/15/18 18:47 12/15/18 18:47 12/15/18 18:47 Exam: Gen: Alert, awake, Oriented to self only Chest: Diminished breath sounds B/L, No wheezing, No crackles, No rales Heart: S1S2+ RRR No murmurs Abd: Soft, NT, BS +, No organomegaly Ext: No edema, pulses are palpable, No calf tenderness Neuro : Still confused.. Unable to perform through neurological exam Skin: No rash. - Assessment and Plan (1) Acute CVA (cerebrovascular accident) Current Visit: Yes Status: Acute Assessment and Plan: His Brain MRI showed acute lacunar infarct Left posterior frontal region Cont him on aspirin continue Lipitor not a candidate for tPA since due unknown time period Neuro consulted ..Will call Neuro in AM Will do speech eval in AM Placed him on tele PT / OT eval in AM (2) Urinary tract infection Current Visit: Yes Status: Acute Assessment and Plan: UA is abnormal Urine cx growing Proteus changed abx to Augmentin (3) Acute delirium Current Visit: Yes Status: Acute Assessment and Plan: Could be due to toxic encephalopathy with UTI as well as due to acute CVA Due to his previous stroke history and current falls, did MRI of Brain which came back as positive for acute lacunar infarct Left posterior frontal region Cont him on aspirin continue Lipitor (4) Afib Current Visit: No Status: Chronic Assessment and Plan: Rate well controlled with metoprolol not on anticoagulation due to fall risk and bleed However with this recurrent CVA , will talk to the family about his anti coag options. (5) HTN (hypertension), benign Current Visit: No Status: Chronic Assessment and Plan: Stable and well-controlled continue current home medication (6) DMII (diabetes mellitus, type 2) Current Visit: No Status: Chronic Assessment and Plan: on ADA diet on ISS (7) Anemia Current Visit: No Status: Chronic Assessment and Plan: chronic no signs of bleeding (8) History of CVA (cerebrovascular accident) Current Visit: Yes Status: Acute - Time Spent with Patient Total time spent is greater than 50% in coordination of care (as documented) at patient's floor/unit and/or counseling patient: Internal Medicine: Result - Labs CBC & Chem 7: 12/14/18 08:48 12/14/18 08:48 - ABG Interpretation ABG results: PT/INR, D-dimer PT 12.8 Seconds (9.4-12.1) H 12/14/18 08:48 - Impressions Impressions Brain MRI 12/15/18 12:01 IMPRESSION: 1. Motion limited evaluation. 2. Acute ischemic lacunar infarct in the posterior left frontal periventricular white matter. 3. No acute hemorrhage or mass effect. 4. Left frontal and left parietal encephalomalacia in keeping with sequela of prior infarct. D/ / Edwin Cooper / Edwin Cooper Interpreting Provider: Edwin Cooper Consult Discharge Plan - Plan Referrals: Camron Allen MD [Primary Care Provider] - (Appointment has been requested.) Prescriptions: Aspirin Enteric Coated [Aspirin EC] 81 mg PO DAILY #30 tablet. Sulfamethoxazole/Trimeth DS [Bactrim DS] 1 each PO BID #14 tablet (4) Afib Qualifiers: Atrial fibrillation type: chronic Qualified Code(s): I48.2 - Chronic atrial fibrillation (6) DMII (diabetes mellitus, type 2) Qualifiers: Diabetes mellitus exterminator insulin use: without jail use Diabetes mellitus complication status: with hyperglycemia Qualified Code(s): E11.65 - Type 2 diabetes mellitus with hyperglycemia (7) Anemia Qualifiers: Anemia type: iron deficiency Qualified Code(s): D50.9 - Iron deficiency anemia, unspecified
[2018-12-15] MEDS ORDERED: *HR* LORazepam 2 MG/ML VIAL IVP ONE (23:45)
[2018-12-16] MEDS ORDERED: Famotidine 20 MG/2 ML VIAL IVP ONE (00:18)
[2018-12-16] MEDS ORDERED: methylPREDNISolone 125 MG/2 ML VIAL IVP ONE (00:19)
[2018-12-16] MEDS ORDERED: *HR* Acetylcysteine 20% 30 ML VIAL PO ONE (00:21)
[2018-12-16 02:26] LABS: Chol/HDL Ratio 3.1 (0-4.9)
--- NOTE | 2018-12-16 03:01 | Event Note ---
Date of Encounter: 12/15/18 Time of Encounter: 20:56 Alerted by pts. nurse Anh RN that the pt. was admitted for UTI. MRI had been ordered by Dr. Lynne d/t pts. delirium on admission and hx of CVA previously. MRI showed motion limited evaluation. Acute ischemic lacunar infarct in the posterior left frontal periventricular white matter. No acute hemorrhage or mass effect. Left frontal and left parietal encephalomalacia in keeping with sequela of prior infarct. Neurology consult ordered and discussed with Dr. Jimenez w/recommendation to continue ASA 81 mg daily or possibly add 75 mg Plavix daily, but not both. Other recommendations include CTA of the neck and Echocardiogram. I appreciate the Neurology recommendations and consult as always. Went to see the pt. and family. Pts. son called his sister Glenna who is an PRACTICE COORDINATOR to go over the MRI results and plan. We discussed the MRI results and they wish to continue daily ASA. I informed them of the CTA of the neck and Echocardiogram orders. While in CT, the pt. became agitated and required a one- time dose of Ativan to help calm him down. Pts. daughter wished to be informed of the CTA results which showed no cervical ICA stenosis per NASCET criteria. Mild bilateral carotid bulb atherosclerotic plaque. Pain bilateral vertebral arteries without hemodynamically significant stenosis or evidence of dissection. I discussed these results with her at 02:40. Both family members stated that they wished for the pt. to receive any treatments which would help improve his status. Neurology to see the pt. in the a.m. and will review the Echocardiogram results. Pts. BP has been 120s to 140s systolically. Will allow for permissive HTN. Modified NIHSS. Nurse instructed to continue monitoring this pt. very closely and alert me immediately of any adverse or behavioral changes.
[2018-12-16] MEDS: *HR* Heparin 5,000 UNIT/ML VIAL SQ SCH ×2 (06:00→17:41)
[2018-12-16] MEDS ORDERED: Perflutren Lipid Microsphere 1.3 ML in 0.9 % Sodium Chloride 8.7 ML IVP ONE (07:25)
[2018-12-16] MEDS: Multivit/Ca/Min/Fe/FA 1 TAB TABLET PO SCH (08:39)
[2018-12-16] MEDS: predniSONE 10 MG TABLET PO SCH (08:39)
[2018-12-16] MEDS: levETIRAcetam 250 MG TABLET PO SCH ×2 (08:39→20:20)
[2018-12-16] MEDS: Ascorbic Acid 500 MG TABLET PO SCH (08:40)
[2018-12-16] MEDS: Insulin LISPRO 300 UNITS/3 ML VIAL SQ SCH ×4 (08:43→23:07)
[2018-12-16] MEDS: Gentamicin OPTH Soln 5 ML BOTTLE BOTH EYES SCH ×2 (08:43→20:20)
--- NOTE | 2018-12-16 10:20 | Internal Med Progress Note ---
Hospitalist Progress Note - Encounter Date of Encounter: 12/16/18 Time of Encounter: 10:08 - Subjective Interval History: Patient was seen and examined at bedside. He was having cardiac echo completed, I did discuss treatment plan with the patient He did verbalize understanding - Exam Vitals: Temp Pulse Resp BP Pulse Ox 98.3 F 124 16 123/82 90 12/16/18 07:21 12/16/18 07:21 12/16/18 07:21 12/16/18 07:21 12/16/18 07:21 Exam: Gen: Alert, awake, Oriented to self only Chest: Diminished breath sounds B/L, No wheezing, No crackles, No rales Heart: S1S2+ RRR No murmurs Abd: Soft, NT, BS +, No organomegaly Ext: No edema, pulses are palpable, No calf tenderness Neuro : Still confused.. Unable to perform through neurological exam Skin: No rash. - Assessment and Plan (1) Afib Current Visit: No Status: Chronic Assessment and Plan: Rate well controlled with metoprolol not on anticoagulation due to fall risk and bleed However with this recurrent CVA , will talk to the family about his anti coag options. 12/16 patient did have an episode of tachycardia this am- approx 120 which did resolve - we will obtain EKG cardiac echo is pending He is not on any anticoagulation dt falls cardiac echo Recurrent CVA-we will need to discuss with family concerning anticoagulation (2) HTN (hypertension), benign Current Visit: No Status: Chronic Assessment and Plan: Stable and well-controlled continue current home medication (3) DMII (diabetes mellitus, type 2) Current Visit: No Status: Chronic Assessment and Plan: on ADA diet on ISS (4) Anemia Current Visit: No Status: Chronic Assessment and Plan: chronic no signs of bleeding (5) Urinary tract infection Current Visit: Yes Status: Acute Assessment and Plan: UA is abnormal Urine cx growing Proteus changed abx to Augmentin (6) History of CVA (cerebrovascular accident) Current Visit: Yes Status: Acute Assessment and Plan: See CVA tx plan above (7) Acute delirium Current Visit: Yes Status: Acute Assessment and Plan: Could be due to toxic encephalopathy with UTI as well as due to acute CVA Due to his previous stroke history and current falls, did MRI of Brain which came back as positive for acute lacunar infarct Left posterior frontal region Cont him on aspirin continue Lipitor Neurology consulted and appreciate recommendations (8) Acute CVA (cerebrovascular accident) Current Visit: Yes Status: Acute Assessment and Plan: His Brain MRI showed acute lacunar infarct Left posterior frontal region Cont him on aspirin continue Lipitor not a candidate for tPA since due unknown time period Neuro consulted Will do speech eval Placed him on tele PT / OT eval - Time Spent with Patient Total time spent is greater than 50% in coordination of care (as documented) at patient's floor/unit and/or counseling patient: Internal Medicine: Result - Labs CBC & Chem 7: 12/14/18 08:48 12/14/18 08:48 - ABG Interpretation ABG results: PT/INR, D-dimer PT 12.8 Seconds (9.4-12.1) H 12/14/18 08:48 - Impressions Impressions Brain MRI 12/15/18 12:01 IMPRESSION: 1. Motion limited evaluation. 2. Acute ischemic lacunar infarct in the posterior left frontal periventricular white matter. 3. No acute hemorrhage or mass effect. 4. Left frontal and left parietal encephalomalacia in keeping with sequela of prior infarct. D/ / Edwin Cooper / Edwin Cooper Interpreting Provider: Edwin Cooper Neck CTA 12/16/18 00:01 IMPRESSION: No cervical ICA stenosis per NASCET criteria. Mild bilateral carotid bulb atherosclerotic plaque. Patent bilateral vertebral arteries without hemodynamically significant stenosis or evidence of dissection. D/ / Alex Whipple / Alex Whipple Interpreting Provider: Alex Whipple Consult Discharge Plan - Plan Referrals: Camron Allen MD [Primary Care Provider] - (Appointment has been requested.) (1) Afib Qualifiers: Atrial fibrillation type: chronic Qualified Code(s): I48.2 - Chronic atrial fibrillation (3) DMII (diabetes mellitus, type 2) Qualifiers: Diabetes mellitus penitentiary insulin use: without intermodal customer service use Diabetes mellitus complication status: with hyperglycemia Qualified Code(s): E11.65 - Type 2 diabetes mellitus with hyperglycemia (4) Anemia Qualifiers: Anemia type: iron deficiency Qualified Code(s): D50.9 - Iron deficiency anemia, unspecified
--- NOTE | 2018-12-16 12:48 | Neurology - Consult Note ---
Date of Encounter: 12/16/18 Time of Encounter: 12:46 Assessment and Plan (1) CVA (cerebral vascular accident) Current Visit: No Status: Acute This patient was admitted with UTI and acute delirium has improved mental status is still confused but slowly coming back to normal no more agitation or any significant confusion at this time he is able to follow simple commands able to answer some question but did have some confusion During the workup he was found to have a left frontal lacunar infarct likely related to small vessel disease CT of the head did not show any significant critical stenosis At this time recommend continue on aspirin Adding dual antiplatelet therapy may cause increased side effect especially bleeding Suggest low-dose statin as well as aspirin Continue treatment underlying infection and continue to treat underlying metabolic abnormalities The patient well hydrated High risk for sundowning, treated accordingly Neurology standpoint is a stable once antibiotics complete okay to discharge back to the nursing facility Qualifiers: CVA mechanism: unspecified Qualified Code(s): I63.9 - Cerebral infarction, unspecified (2) Delirium due to general medical condition Current Visit: No Status: Acute History of Present Illness HPI: Mr. Khan is a 83 year old male with past medical history of several CVA, hemorrhagic and embolic who presented from a nursing facility change of mental status, Patient is currently getting wound care treatment for a decubitus ulcer. The patient was evaluated by the ER staff and CAT scan of the head was obtained and revealed no significant abnormalities, urinalysis was suggestive of urinary tract infections the patient was started in empiric antibiotics and was admitted for further evaluation and management. During the workup he had an MRI of the brain that showed the small left frontal lacunar infarct No focal motor events deficit reported Past Med Surg Social Fam HX - Past Medical History Medical history: arthritis, atrial fibrillation, CHF, CVA, dementia, diabetes, hyperlipidemia, hypertension Additional medical history: irregular heartbeat, [place] Psychiatric history: no psych history - Past Surgical History Surgical History: cataract, hip replacement, knee replacement, other Additional surgical history: ablation. left and right knee replacement. hip replacement - Social History Smoking Status: Never smoker Smokeless Tobacco Status: No Alcohol use: none Drug use: none - Family History Mother Living Status: Hx Family Cancer: Yes (Brain CA) Father Living Status: Hx Family Neuromuscular Disorders: Yes (Parkinson's) Medications and Allergies Ferrous Sulfate 325 mg PO BID 03/27/18 [History] Bumetanide [Bumex] 1 mg PO DAILY 09/07/18 [History] Ascorbate Calcium [Vitamin C] 500 mg PO DAILY 09/08/18 [History] Metoprolol Tartrate [Lopressor] 75 mg PO BID 09/08/18 [History] Acetaminophen [Tylenol] 650 mg PO Q4H PRN 10/04/18 [History] Atorvastatin [Lipitor] 40 mg PO HS 10/04/18 [History] Docusate [Colace] 100 mg PO BID PRN 10/04/18 [History] Ipratropium Neb [Atrovent Neb] 0.5 mg IH Q4H PRN 10/04/18 [History] Multivitamin [Daily Multiple Vitamin] 1 tab PO DAILY 10/04/18 [History] Nitroglycerin [Nitrostat] 0.4 mg SL AD PRN 10/04/18 [History] Polyethylene Glycol 3350 [MiraLAX] 17 gm PO DAILY PRN 10/04/18 [History] metFORMIN [Glucophage] 500 mg PO BIDWM 11/21/18 [History] predniSONE [PredniSONE] 15 mg PO DAILY 11/21/18 [History] Albuterol Neb [Proventil Neb] 2.5 mg IH Q4HR PRN 11/23/18 [History] Bisacodyl [Woman's Laxative] 10 mg PO DAILY 11/23/18 [History] Tamsulosin HCl [Flomax] 0.4 mg PO 2030 11/23/18 [History] Gentamicin OPTH Soln [Gentak OPTH Soln] 3 drop BOTH EYES BID 12/13/18 [History] LevETIRAcetam [Keppra] 500 mg PO BID 12/13/18 [History] Aspirin Enteric Coated [Aspirin EC] 81 mg PO DAILY #30 tablet. 12/15/18 [Rx] Sulfamethoxazole/Trimeth DS [Bactrim DS] 1 each PO BID #14 tablet 12/15/18 [Rx] Allergy/AdvReac Type Severity Reaction Status Date / Time No Known Allergies Allergy Verified 11/23/18 13:19 All Systems: The remainder of the systems were reviewed and are negative Physical Examination - Vital Signs Vital Signs: Initial Vital Signs Temp Pulse Resp BP Pulse Ox 98.3 F 98 19 104/64 96 12/13/18 15:20 12/13/18 15:20 12/13/18 15:20 12/13/18 15:20 12/13/18 15:20 - Exam Exam: GENERAL: Comfortable in no acute distress HEENT: Normal LUNGS: CTA HEART: RRR, S1 S2 Audible, no murmur EXTREMITIES: No Pedal edema. DETAILED NEUROLOGICAL EXAMINATION: MENTAL STATUS: Oriented to person, only follow one-step commands Memory: Unable to give the name of Pres. Recent Memory Intact, Attention span is n decreased Cranial Nerve Examination: CN - II: Visual Acuity, Field of Vision Normal, Fundus examination: No disk edema, Pupils- size shape reaction to light and accommodation: All normal. CN III, IV, : External ocular movements were intact, Pupils were reactive, Nodrooping of the eyelids CN V: Sensation over the face to light touch and pinprick all normal. Corneal reflexes not tested, jaw jerk normal. CN VII: No facial asymmetry, no flattening of nasolabial folds, no difficulty in closing the eyes, no loss of forehead wrinkles, no difficulty in eye-closure, frowning raising eyebrows. CNVIII: No significant hearing loss CN IX, X: Uvula centralized not deviated, Gag reflex: Not tested CN X1: Sternocleidomastoid, trapezius, normal or evidence of any weakness. CN X11: No Dysarthria, no wasting or fibrilation f tongue muscles, no deviation, tongue muscle strength normal. Motor examination: No hypertrophy, tone was normal, power grade 0-5 Upper limbs Proximal- No difficulty in lifting the arms above the head. Distal- No weakness in distal muscles On formal testing 4/4 all over Lower limbs On formal testing 4/4 all over Coordination: [id number] normal. Target pursuit normal finger tapping normal, Rapid alternating moment of wrist normal Sensory system: Superficial sensations- Touch normal. Pain- Pinprick, Temperature all normal, Deep sensation normal, Joint position sense normal. Cortical sensation, Tactile discrimination, localization and extinction all normal. Deep tendon reflexes. Symmetrical bilateral, No evidence of Babinski. No sign of meningeal irritation Gait Examination: Deferred - Constitutional General appearance: comfortable Results - Laboratory Findings CBC and BMP: 12/14/18 08:48 12/14/18 08:48 Abnormal lab findings: Abnormal lab results WBC 12.2 K/mcL (4.3-11.1) H 12/14/18 08:48 RBC 3.29 M/mcL (4.19-5.50) L 12/14/18 08:48 Hgb 9.4 g/dL (12.9-16.9) L 12/14/18 08:48 Hct 30.8 % (37.5-50.1) L 12/14/18 08:48 MCHC 30.5 g/dL (31.6-35.5) L 12/14/18 08:48 RDW 17.8 % (11.5-14.5) H 12/14/18 08:48 11.7 K/mcL (1.6-8.9) H 12/13/18 19:06 1.5 K/mcL (0.0-1.3) H 12/14/18 08:48 PT 12.8 Seconds (9.4-12.1) H 12/14/18 08:48 APTT 24.9 Seconds (26.0-36.0) L 12/14/18 08:48 Carbon Dioxide 31 mEq/L (23-29) H 12/14/18 08:48 BUN 27 mg/dL (8-23) H 12/14/18 08:48 35 (6-26) H 12/14/18 08:48 Glucose 136 mg/dL (70-105) H 12/14/18 08:48 POC Glucose 178 mg/dL (70-99) H 12/15/18 22:48 7.4 % (-5.6) H 12/14/18 08:48 303 (280-300) H 12/14/18 08:48 Calcium 8.3 mg/dL (8.6-10.3) L 12/14/18 08:48 Magnesium 1.2 mg/dL (1.6-2.6) L 12/14/18 08:48 AST 11 Units/L (13-39) L 12/14/18 08:48 5.8 g/dL (6.4-8.9) L 12/14/18 08:48 3.0 g/dL (3.5-5.7) L 12/14/18 08:48 33 mg/dL (40-59) L 12/16/18 01:28 Cloudy (Clear) A 12/13/18 15:45 Ur Leukocyte Esterase Large (Negative) H 12/13/18 15:45 50-100 per hpf (0-3) H 12/13/18 15:45 Ur Squamous Epith Cells Moderate per lpf (None-Few) H 12/13/18 15:45 Many per hpf (None-Few) H 12/13/18 15:45 Ur Culture Indicated? YES (NO) A 12/13/18 15:45 Consult Discharge Plan - Plan Referrals: Camron Allen MD [Primary Care Provider] - (Appointment has been requested.)
[2018-12-17] MEDS: *HR* Heparin 5,000 UNIT/ML VIAL SQ SCH (06:27)
[2018-12-17] MEDS: Insulin LISPRO 300 UNITS/3 ML VIAL SQ SCH ×2 (08:18→12:51)
[2018-12-17] MEDS: levETIRAcetam 250 MG TABLET PO SCH (08:25)
[2018-12-17] MEDS: Multivit/Ca/Min/Fe/FA 1 TAB TABLET PO SCH (08:25)
[2018-12-17] MEDS: Ascorbic Acid 500 MG TABLET PO SCH (08:25)
[2018-12-17] MEDS: predniSONE 10 MG TABLET PO SCH (08:26)
[2018-12-17] MEDS: Gentamicin OPTH Soln 5 ML BOTTLE BOTH EYES SCH (08:29)
--- NOTE | 2018-12-17 10:45 | Neurology Progress Note ---
Date of Encounter: 12/17/18 Time of Encounter: 09:43 Assessment and Plan (1) Delirium due to general medical condition Current Visit: No Status: Acute Patient continued to have mood and behavioral issues off and on No evidence of any new focal findings on examination He did have a lacunar infarct for that one perhaps it could be changed to a Plavix 75 mg daily discontinue aspirin May use Seroquel 25 mg or 12.5 mg at bedtime when necessary if he get too agitated (2) CVA (cerebral vascular accident) Current Visit: No Status: Acute Stable from neurology standpoint suggest take started 5 mg of Plavix but discontinue aspirin Qualifiers: CVA mechanism: unspecified Qualified Code(s): I63.9 - Cerebral infarction, unspecified Subjective Interval history: Patient is alert and awake but upset this morning just threw away his breakfast tray beside that no focal motor weakness Objective - Constitutional Vitals: Temp Pulse Resp BP Pulse Ox 97.6 F 112 14 130/79 93 12/17/18 07:29 12/17/18 07:29 12/17/18 07:29 12/17/18 07:29 12/17/18 08:30 - Neurological Exam Sensorimotor examination: Present: intact Motor Examination: Present: grossly full strength in all extremities Sensation intact: Present: intact Reflexes: Biceps: 1+, Triceps: 1+, Brachioradialis: 1+ Mental Status Examination: Present: awake, alert, oriented to person, follows simple commands Cranial nerve examination: Present: PERRL, EOMI, visual quiroga intact, no facial asymmetry is present Results - Laboratory Findings CBC and BMP: 12/14/18 08:48 12/14/18 08:48 Abnormal lab findings: Abnormal lab results WBC 12.2 K/mcL (4.3-11.1) H 12/14/18 08:48 RBC 3.29 M/mcL (4.19-5.50) L 12/14/18 08:48 Hgb 9.4 g/dL (12.9-16.9) L 12/14/18 08:48 Hct 30.8 % (37.5-50.1) L 12/14/18 08:48 MCHC 30.5 g/dL (31.6-35.5) L 12/14/18 08:48 RDW 17.8 % (11.5-14.5) H 12/14/18 08:48 11.7 K/mcL (1.6-8.9) H 12/13/18 19:06 1.5 K/mcL (0.0-1.3) H 12/14/18 08:48 PT 12.8 Seconds (9.4-12.1) H 12/14/18 08:48 APTT 24.9 Seconds (26.0-36.0) L 12/14/18 08:48 Carbon Dioxide 31 mEq/L (23-29) H 12/14/18 08:48 BUN 27 mg/dL (8-23) H 12/14/18 08:48 35 (6-26) H 12/14/18 08:48 Glucose 136 mg/dL (70-105) H 12/14/18 08:48 POC Glucose 162 mg/dL (70-99) H 12/16/18 20:47 7.4 % (-5.6) H 12/14/18 08:48 303 (280-300) H 12/14/18 08:48 Calcium 8.3 mg/dL (8.6-10.3) L 12/14/18 08:48 Magnesium 1.2 mg/dL (1.6-2.6) L 12/14/18 08:48 AST 11 Units/L (13-39) L 12/14/18 08:48 5.8 g/dL (6.4-8.9) L 12/14/18 08:48 3.0 g/dL (3.5-5.7) L 12/14/18 08:48 33 mg/dL (40-59) L 12/16/18 01:28 Cloudy (Clear) A 12/13/18 15:45 Ur Leukocyte Esterase Large (Negative) H 12/13/18 15:45 50-100 per hpf (0-3) H 12/13/18 15:45 Ur Squamous Epith Cells Moderate per lpf (None-Few) H 12/13/18 15:45 Many per hpf (None-Few) H 12/13/18 15:45 Ur Culture Indicated? YES (NO) A 12/13/18 15:45 Consult Discharge Plan - Plan Referrals: Camron Allen MD [Primary Care Provider] - (Appointment has been requested.)
[2018-12-17 13:03] LABS: Basophils % 0.1 %; Eosinophils # 0.1 K/mcL (0.0-0.6); Eosinophils % 0.4 %; Hematocrit 32.1 % (37.5-50.1); Hemoglobin 9.7 g/dL (12.9-16.9); Immature Granulocytes % 1.1 % (0-4); Lymphocytes # 0.8 K/mcL (0.6-4.6); Mean Corpuscular HGB Conc 30.2 g/dL (31.6-35.5); Mean Corpuscular Volume 95.8 fL (83.0-100.0); Mean Platelet Volume 10.6 fL (9.4-12.4); Monocytes # 0.6 K/mcL (0.0-1.3); Monocytes % 3.8 %; Neutrophils # 13.6 K/mcL (1.6-8.9); Platelet Count 201 K/mcL (140-400); Red Blood Count 3.35 M/mcL (4.19-5.50); Red Cell Distribution Width 17.5 % (11.5-14.5); Segmented Neutrophils % 89.6 %; White Blood Count 15.2 K/mcL (4.3-11.1)
--- NOTE | 2018-12-17 13:12 | Discharge Summary ---
- NOTES TO OUTPATIENT PROVIDER Notes to Outpatient Provider: Left frontal lacunar infarct seen by neurology recommending changing aspirin to Plavix continue with statin. UTI-continue the Augmentin. Placed on Seroquel 12.5 mg at bedtime for agitation Orders not resulted at time of discharge: Pending orders 12/16/18 10:12 EKG [ECG 12 lead ECG] [ECG] Routine 12/17/18 12:49 Chem 7 [Basic Metabolic Panel] Stat Date of Encounter: 12/17/18 Time of Encounter: 13:09 - Discharge Diagnosis (1) Afib Priority: Secondary Status: Chronic Qualifiers: Atrial fibrillation type: chronic Qualified Code(s): I48.2 - Chronic atrial fibrillation (2) HTN (hypertension), benign Priority: Secondary Status: Chronic (3) DMII (diabetes mellitus, type 2) Priority: Secondary Status: Chronic Qualifiers: Diabetes mellitus snf insulin use: without medicine worker use Diabetes mellitus complication status: with hyperglycemia Qualified Code(s): E11.65 - Type 2 diabetes mellitus with hyperglycemia (4) Anemia Priority: Secondary Status: Chronic Qualifiers: Anemia type: iron deficiency Qualified Code(s): D50.9 - Iron deficiency anemia, unspecified (5) Urinary tract infection Priority: Secondary Status: Acute Qualifiers: Urinary tract infection type: site unspecified Hematuria presence: without hematuria Qualified Code(s): N39.0 - Urinary tract infection, site not specified (6) History of CVA (cerebrovascular accident) Priority: Secondary Status: Acute (7) Acute delirium Priority: Primary Status: Acute (8) Acute CVA (cerebrovascular accident) Priority: Primary Status: Acute Hospital course: Mr. Khan is a 83 year old male with past medical history of Afib, Diastolic CHF, HTN, HLD, DM2 and several CVA, hemorrhagic and embolic who presented from a nursing facility with change of mental status. His initia CT of head did not show any acute intracranial abnormality. He does have abnormal UA concerning for UTI. So pt was admitted in the hospital and placed him empirical abx IV Rocephin and IV hydration. His symptoms are better now. He is more alert, awake and back to mental baseline His Urine cx grew Proteus which is cephalosporin resistant. So switched to PO Abx Augmentin. MRI of head did reveal a left frontal lacunar infarct was evaluated by neurology recommending statin-does not recommend dual antiplatelet therapy due to high risk of bleeding-patient does have sundowning effect will place on Seroquel. Cardiac echo is basically unchanged from previous-no PFO He appears to be back to his mental baseline with no focal deficits he will follow-up with his primary care provider as well as neurology. He will be discharged back to [facility] and will be placed on Plavix Augmentin to complete a seven-day course and Seroquel he is hemodynamically stable at this time and ready for discharge. - Time Spent with Patient Total time spent providing and/or coordinating discharge services: - Discharge Medications Prescriptions: New Amoxicillin/Clavulanate [Augmentin] 875 mg PO BIDWM #10 tablet Clopidogrel [Plavix] 75 mg PO DAILY tablet Quetiapine Fumarate [SEROquel] 12.5 mg PO HS #30 tablet Continued Ferrous Sulfate 325 mg PO BID Bumetanide [Bumex] 1 mg PO DAILY Ascorbate Calcium [Vitamin C] 500 mg PO DAILY Metoprolol Tartrate [Lopressor] 75 mg PO BID Acetaminophen [Tylenol] 650 mg PO Q4H PRN PRN Reason: Fever/Mild Pain Atorvastatin [Lipitor] 40 mg PO HS Docusate [Colace] 100 mg PO BID PRN PRN Reason: Constipation Ipratropium Neb [Atrovent Neb] 0.5 mg IH Q4H PRN PRN Reason: Shortness Of Breath Multivitamin [Daily Multiple Vitamin] 1 tab PO DAILY Nitroglycerin [Nitrostat] 0.4 mg SL AD PRN PRN Reason: Chest Pain Polyethylene Glycol 3350 [MiraLAX] 17 gm PO DAILY PRN PRN Reason: Constipation metFORMIN [Glucophage] 500 mg PO BIDWM predniSONE [PredniSONE] 15 mg PO DAILY Tamsulosin HCl [Flomax] 0.4 mg PO 2030 Albuterol Neb [Proventil Neb] 2.5 mg IH Q4HR PRN PRN Reason: Shortness Of Breath Bisacodyl [Woman's Laxative] 10 mg PO DAILY Gentamicin OPTH Soln [Gentak OPTH Soln] 3 drop BOTH EYES BID LevETIRAcetam [Keppra] 500 mg PO BID Home Medications: Ferrous Sulfate 325 mg PO BID 03/27/18 [History] Bumetanide [Bumex] 1 mg PO DAILY 09/07/18 [History] Ascorbate Calcium [Vitamin C] 500 mg PO DAILY 09/08/18 [History] Metoprolol Tartrate [Lopressor] 75 mg PO BID 09/08/18 [History] Acetaminophen [Tylenol] 650 mg PO Q4H PRN 10/04/18 [History] Atorvastatin [Lipitor] 40 mg PO HS 10/04/18 [History] Docusate [Colace] 100 mg PO BID PRN 10/04/18 [History] Ipratropium Neb [Atrovent Neb] 0.5 mg IH Q4H PRN 10/04/18 [History] Multivitamin [Daily Multiple Vitamin] 1 tab PO DAILY 10/04/18 [History] Nitroglycerin [Nitrostat] 0.4 mg SL AD PRN 10/04/18 [History] Polyethylene Glycol 3350 [MiraLAX] 17 gm PO DAILY PRN 10/04/18 [History] metFORMIN [Glucophage] 500 mg PO BIDWM 11/21/18 [History] predniSONE [PredniSONE] 15 mg PO DAILY 11/21/18 [History] Albuterol Neb [Proventil Neb] 2.5 mg IH Q4HR PRN 11/23/18 [History] Bisacodyl [Woman's Laxative] 10 mg PO DAILY 11/23/18 [History] Tamsulosin HCl [Flomax] 0.4 mg PO 2030 11/23/18 [History] Gentamicin OPTH Soln [Gentak OPTH Soln] 3 drop BOTH EYES BID 12/13/18 [History] LevETIRAcetam [Keppra] 500 mg PO BID 12/13/18 [History] Amoxicillin/Clavulanate [Augmentin] 875 mg PO BIDWM #10 tablet 12/17/18 [Rx] Clopidogrel [Plavix] 75 mg PO DAILY tablet 12/17/18 [Rx] Quetiapine Fumarate [SEROquel] 12.5 mg PO HS #30 tablet 12/17/18 [Rx] Allergies/Adverse Reactions: Allergy/AdvReac Type Severity Reaction Status Date / Time No Known Allergies Allergy Verified 11/23/18 13:19 Date of admission: 12/15/18 22:17 Primary care physician: Camron Allen MD Consults: 12/15/18 01:16 Consult to Wound Care [CONS] Routine Reason for Consult: Patient has three pressure ulcers on coccyx. Assess for wound vac need and make recommendations for daily wound care. Call Completed: No 12/15/18 08:09 Consult to Pelletizer [CONS] Routine Reason for SW Consult: FROM [facility] 12/15/18 18:27 Consult to Neurology [CONS] Routine Consulting Provider: Neurology [facility] Reason for Consult: Positive MRI Call Completed: No 12/15/18 22:14 Consult to Speech Therapy [CONS] Routine Comment: Evaluate, develop and implement POC Reason for Consult: acute CVA Call Completed: No Discharging clinician: Ashley Medina Anticipated date of discharge: 12/17/18 - Constitutional Vitals: Temp Pulse Resp BP Pulse Ox 97.7 F 101 18 137/93 98 12/17/18 12:20 12/17/18 12:20 12/17/18 12:20 12/17/18 12:20 12/17/18 12:20 General appearance: Present: A&O X 0, A&O X 3, no acute distress, answers questions appropriately Exam: Gen: Alert, awake, Oriented to self only Chest: Diminished breath sounds B/L, No wheezing, No crackles, No rales Heart: S1S2+ RRR No murmurs Abd: Soft, NT, BS +, No organomegaly Ext: No edema, pulses are palpable, No calf tenderness Neuro : Still confused.. Unable to perform through neurological exam Skin: No rash. - Patient Status Disposition: Transfer SNF Condition: Fair Functional capacity at discharge: independent ambulation Overall status at discharge: patient is back to baseline - Discharge Instructions Follow Up With: Camron Allen MD [Primary Care Provider] - (Appointment has been requested.) - Diet and Activity Activity: increase activity as tolerated Diet: advance to your usual diet
[2018-12-17 13:19] LABS: BUN/Creatinine Ratio 25 (6-26); Blood Urea Nitrogen 25 mg/dL (8-23); Calcium 8.7 mg/dL (8.6-10.3); Carbon Dioxide 27 mEq/L (23-29); Chloride 106 mEq/L (98-107); Glucose 187 mg/dL (70-105); Osmolality,Calculated 301 (280-300); Potassium 4.6 mEq/L (3.5-5.1); Sodium 141 mEq/L (136-145); eGFR For African Americans > 60 (> 60); eGFR For Non-African Americans > 60 (> 60)
--- NOTE | 2018-12-17 13:57 | Physician Discharge Referral ---
ExtendedCare Referral Info Transfer To: [facility] Provider in Charge: Adam Ramirez Provider in Charge after Transfer: PCP - Diagnosis (1) Afib Priority: Secondary Status: Chronic (2) HTN (hypertension), benign Priority: Secondary Status: Chronic (3) DMII (diabetes mellitus, type 2) Priority: Secondary Status: Chronic (4) Anemia Priority: Secondary Status: Chronic (5) Urinary tract infection Priority: Secondary Status: Acute (6) History of CVA (cerebrovascular accident) Priority: Secondary Status: Acute (7) Acute delirium Priority: Primary Status: Acute (8) Acute CVA (cerebrovascular accident) Priority: Primary Status: Acute Prognosis: Fair Aware of Diagnosis: Family Aware of Prognosis: Family - Transfer Medications Prescriptions: Amoxicillin/Clavulanate [Augmentin] 875 mg PO BIDWM #10 tablet Quetiapine Fumarate [SEROquel] 12.5 mg PO HS #30 tablet Home Medications: Ferrous Sulfate 325 mg PO BID 03/27/18 [History] Bumetanide [Bumex] 1 mg PO DAILY 09/07/18 [History] Ascorbate Calcium [Vitamin C] 500 mg PO DAILY 09/08/18 [History] Metoprolol Tartrate [Lopressor] 75 mg PO BID 09/08/18 [History] Acetaminophen [Tylenol] 650 mg PO Q4H PRN 10/04/18 [History] Atorvastatin [Lipitor] 40 mg PO HS 10/04/18 [History] Docusate [Colace] 100 mg PO BID PRN 10/04/18 [History] Ipratropium Neb [Atrovent Neb] 0.5 mg IH Q4H PRN 10/04/18 [History] Multivitamin [Daily Multiple Vitamin] 1 tab PO DAILY 10/04/18 [History] Nitroglycerin [Nitrostat] 0.4 mg SL AD PRN 10/04/18 [History] Polyethylene Glycol 3350 [MiraLAX] 17 gm PO DAILY PRN 10/04/18 [History] metFORMIN [Glucophage] 500 mg PO BIDWM 11/21/18 [History] predniSONE [PredniSONE] 15 mg PO DAILY 11/21/18 [History] Albuterol Neb [Proventil Neb] 2.5 mg IH Q4HR PRN 11/23/18 [History] Bisacodyl [Woman's Laxative] 10 mg PO DAILY 11/23/18 [History] Tamsulosin HCl [Flomax] 0.4 mg PO 2030 11/23/18 [History] Gentamicin OPTH Soln [Gentak OPTH Soln] 3 drop BOTH EYES BID 12/13/18 [History] LevETIRAcetam [Keppra] 500 mg PO BID 12/13/18 [History] Amoxicillin/Clavulanate [Augmentin] 875 mg PO BIDWM #10 tablet 12/17/18 [Rx] Clopidogrel [Plavix] 75 mg PO DAILY tablet 12/17/18 [Rx] Quetiapine Fumarate [SEROquel] 12.5 mg PO HS #30 tablet 12/17/18 [Rx] Allergies/Adverse Reactions: Allergy/AdvReac Type Severity Reaction Status Date / Time No Known Allergies Allergy Verified 11/23/18 13:19 - Respiratory Orders Smoking Cessation: Smoking cessation has been advised. For more information, call the [employer] Quit Line at 0-589-NUZU-NOW. - Advance Directives Code Status: Full Code - Mobility Orders Ambulate - Rehabiliation Orders Rehab Potential: Fair - Diet Orders Cardiac (follow up with PCP and neurology) CERTIFICATION: I certify that the transfer of the above named patient to an Extended Care Facility is necessary for the continuing treatment of the diagnosis listed. The above information is true and accurate reflection of patient's current condition. Confidential - Redisclosure prohibited without a patient's written consent.
[2018-12-17 14:54] VITALS: BP 120/88
== END 2018-12-17 15:48 | DRG 689 ==
LOC: 3BNU 15:13 → EMEROOARM 15:13 → SUATTDRO 19:47 → 3BNU 20:06
PROVIDERS: ADMIT Internal Medicine; ATTEND Family Medicine

== ENCOUNTER 2020-02-07 21:42 | Inpatient (IN) ==
[2020-02-07 22:56] LABS: Basophils % 0.2 %; Eosinophils # 0.1 K/mcL (0.0-0.6); Eosinophils % 0.4 %; Hematocrit 34.2 % (37.5-50.1); Hemoglobin 10.8 g/dL (12.9-16.9); Immature Granulocytes % 0.6 % (0-4); Lymphocytes # 1.6 K/mcL (0.6-4.6); Lymphocytes % 11.9 %; Mean Corpuscular HGB Conc 31.6 g/dL (31.6-35.5); Mean Corpuscular Hemoglobin 30.3 pg (28.0-33.3); Mean Corpuscular Volume 96.1 fL (83.0-100.0); Mean Platelet Volume 10.2 fL (9.4-12.4); Monocytes # 1.4 K/mcL (0.0-1.3); Monocytes % 10.5 %; Neutrophils # 10.3 K/mcL (1.6-8.9); Platelet Count 193 K/mcL (140-400); Red Blood Count 3.56 M/mcL (4.19-5.50); Red Cell Distribution Width 14.6 % (11.5-14.5); Segmented Neutrophils % 76.4 %; White Blood Count 13.5 K/mcL (4.3-11.1)
[2020-02-07 23:03] LABS: INR 1.2; Prothrombin Time 13.3 Seconds (9.4-12.1)
[2020-02-07 23:20] LABS: Bilirubin,Urine Negative (Negative); Blood,Urine Negative (Negative); Clarity,Urine Clear (Clear); Color,Urine Light-Yellow (Yellow); Glucose,Urine (UA) Normal (Normal); Ketones,Urine Negative (Negative); Leukocyte Esterase,Urine Negative (Negative); Nitrite,Urine Negative (Negative); PH,Urine 6.5 pH Units (5.0-8.0); Protein,Urine Negative (Neg-Trace); Specific Gravity,Urine 1.013 (1.010-1.025); Urobilinogen,Urine Normal (Normal)
[2020-02-07 23:22] LABS: Potassium 4.8 mEq/L (3.5-5.1)
[2020-02-08 00:38] LABS: Magnesium 1.7 mg/dL (1.6-2.6)
[2020-02-08] MEDS: 0.9 % Sodium Chloride 1,000 ML IVC SCH ×3 (04:50→23:37)
[2020-02-08] MEDS ORDERED: Naloxone 0.4 MG/ML INJ IVP PRN ×2 (05:03→05:44)
[2020-02-08] MEDS ORDERED: Acetaminophen 325 MG TABLET PO PRN (05:44)
[2020-02-08] MEDS ORDERED: *HR* HYDROcodone/Acet 5/325 mg TABLET PO PRN (06:00)
[2020-02-08] MEDS ORDERED: *HR* OxyCODONE Immed Rel 5 MG TABLET PO PRN (06:00)
[2020-02-08 06:04] LABS: Basophils % 0.2 %; Eosinophils # 0.1 K/mcL (0.0-0.6); Eosinophils % 1.3 %; Hemoglobin 10.5 g/dL (12.9-16.9); Immature Granulocytes % 0.5 % (0-4); Lymphocytes # 1.8 K/mcL (0.6-4.6); Lymphocytes % 16.5 %; Mean Corpuscular HGB Conc 31.8 g/dL (31.6-35.5); Mean Corpuscular Hemoglobin 30.3 pg (28.0-33.3); Mean Corpuscular Volume 95.4 fL (83.0-100.0); Mean Platelet Volume 10.6 fL (9.4-12.4); Monocytes # 1.3 K/mcL (0.0-1.3); Monocytes % 12.1 %; Neutrophils # 7.5 K/mcL (1.6-8.9); Platelet Count 169 K/mcL (140-400); Red Blood Count 3.46 M/mcL (4.19-5.50); Red Cell Distribution Width 14.6 % (11.5-14.5); Segmented Neutrophils % 69.4 %; White Blood Count 10.8 K/mcL (4.3-11.1)
[2020-02-08 06:13] LABS: BUN/Creatinine Ratio 25 (6-26); Blood Urea Nitrogen 32 mg/dL (8-23); Calcium 9.3 mg/dL (8.6-10.3); Carbon Dioxide 27 mEq/L (23-29); Chloride 104 mEq/L (98-107); Glucose 101 mg/dL (70-105); Osmolality,Calculated 297 (280-300); Potassium 4.3 mEq/L (3.5-5.1); Sodium 140 mEq/L (136-145); eGFR For African Americans > 60 (> 60); eGFR For Non-African Americans 52 (> 60)
[2020-02-08] MEDS ORDERED: *HR* Heparin 5,000 UNIT/ML VIAL SQ SCH (06:15)
[2020-02-08] MEDS ORDERED: Dextrose Gel 15 GM/37.5 ML TUBE PO PRN ×2 (06:49)
[2020-02-08] MEDS ORDERED: *HR* Dextrose 50 % in Water (Vial) 50 ML VIAL IVP PRN (06:49)
[2020-02-08] MEDS ORDERED: D5% in Water 1,000 ML IVC PRN (06:49)
[2020-02-08] MEDS ORDERED: Azithromycin 500 MG in 0.9 % Sodium Chloride 250 ML IVPB SCH (07:00)
[2020-02-08 07:40] LABS: Adenovirus Not Detected (Not Detect); Bordetella Pertussis Not Detected (Not Detect); Chlamydophila pneumoniae Not Detected (Not Detect); Coronavirus 229E Not Detected (Not Detect); Coronavirus HKU1 Not Detected (Not Detect); Coronavirus NL63 Not Detected (Not Detect); Coronavirus OC43 Not Detected (Not Detect); Human Metapneumovirus Not Detected (Not Detect); Human Rhinovirus/Enterovirus Not Detected (Not Detect); Influenza A Subtype 2009 H1 Not Detected (Not Detect); Influenza B Not Detected (Not Detect); Mycoplasma pneumoniae Not Detected (Not Detect); Parainfluenza Virus 1 Not Detected (Not Detect); Parainfluenza Virus 2 Not Detected (Not Detect); Parainfluenza Virus 3 Not Detected (Not Detect); Parainfluenza Virus 4 Not Detected (Not Detect); Respiratory Syncytial Virus Not Detected (Not Detect)
[2020-02-08] MEDS: Insulin LISPRO 300 UNITS/3 ML VIAL SQ SCH ×4 (07:46→20:06)
[2020-02-08] MEDS: Nystatin POWDER 30 GM BOTTLE TP SCH ×2 (07:55→20:06)
[2020-02-08] MEDS: predniSONE 5 MG TABLET PO SCH (08:59)
[2020-02-08] MEDS: Bumetanide 1 MG TABLET PO SCH (08:59)
[2020-02-08] MEDS: levETIRAcetam 250 MG TABLET PO SCH ×2 (08:59→20:06)
[2020-02-08] MEDS: Isosorbide MONOnitrate (24 HR) 30 MG TAB.ER.24H PO SCH (08:59)
[2020-02-08] MEDS: lisinopriL 5 MG TABLET PO SCH (08:59)
[2020-02-08] MEDS ORDERED: cefTRIAXone 1,000 MG in Water for inj. (sterile) 10 ML IVP SCH (09:00)
[2020-02-09] MEDS: 0.9 % Sodium Chloride 1,000 ML IVC SCH ×2 (01:25→10:53)
[2020-02-09 02:43] LABS: Calcium 8.9 mg/dL (8.6-10.3); Magnesium 1.8 mg/dL (1.6-2.6); Phosphorous 2.9 mg/dL (2.7-4.5)
[2020-02-09] MEDS: Bumetanide 1 MG TABLET PO SCH (07:55)
[2020-02-09] MEDS: predniSONE 5 MG TABLET PO SCH (07:55)
[2020-02-09] MEDS: levETIRAcetam 250 MG TABLET PO SCH ×2 (07:55→20:18)
[2020-02-09] MEDS: lisinopriL 5 MG TABLET PO SCH (07:55)
[2020-02-09] MEDS: Isosorbide MONOnitrate (24 HR) 30 MG TAB.ER.24H PO SCH (07:55)
[2020-02-09] MEDS: Nystatin POWDER 30 GM BOTTLE TP SCH ×2 (07:56→20:18)
[2020-02-09] MEDS: Insulin LISPRO 300 UNITS/3 ML VIAL SQ SCH ×4 (08:27→20:13)
[2020-02-10 01:52] LABS: BUN/Creatinine Ratio 25 (6-26); Blood Urea Nitrogen 32 mg/dL (8-23); Calcium 9.1 mg/dL (8.6-10.3); Carbon Dioxide 26 mEq/L (23-29); Chloride 103 mEq/L (98-107); Glucose 136 mg/dL (70-105); Osmolality,Calculated 299 (280-300); Potassium 4.4 mEq/L (3.5-5.1); Sodium 140 mEq/L (136-145); eGFR For African Americans > 60 (> 60); eGFR For Non-African Americans 53 (> 60)
[2020-02-10] MEDS: levETIRAcetam 250 MG TABLET PO SCH ×2 (08:07→20:44)
[2020-02-10] MEDS: predniSONE 5 MG TABLET PO SCH (08:08)
[2020-02-10] MEDS: Isosorbide MONOnitrate (24 HR) 30 MG TAB.ER.24H PO SCH (08:08)
[2020-02-10] MEDS: lisinopriL 5 MG TABLET PO SCH (08:08)
[2020-02-10] MEDS: Nystatin POWDER 30 GM BOTTLE TP SCH ×2 (08:08→20:53)
[2020-02-10] MEDS: Insulin LISPRO 300 UNITS/3 ML VIAL SQ SCH ×4 (08:09→20:44)
[2020-02-10] MEDS ORDERED: *HR* Metoprolol 5 MG/5 ML VIAL IVP PRN (08:23)
[2020-02-11 05:43] LABS: BUN/Creatinine Ratio 25 (6-26); Blood Urea Nitrogen 33 mg/dL (8-23); Calcium 8.9 mg/dL (8.6-10.3); Carbon Dioxide 25 mEq/L (23-29); Chloride 106 mEq/L (98-107); Glucose 119 mg/dL (70-105); Osmolality,Calculated 298 (280-300); Potassium 4.1 mEq/L (3.5-5.1); Sodium 140 mEq/L (136-145); eGFR For African Americans > 60 (> 60); eGFR For Non-African Americans 52 (> 60)
[2020-02-11] MEDS: Insulin LISPRO 300 UNITS/3 ML VIAL SQ SCH ×4 (07:43→20:03)
[2020-02-11] MEDS: lisinopriL 5 MG TABLET PO SCH (07:49)
[2020-02-11] MEDS: Isosorbide MONOnitrate (24 HR) 30 MG TAB.ER.24H PO SCH (07:49)
[2020-02-11] MEDS: Bumetanide 1 MG TABLET PO SCH (07:49)
[2020-02-11] MEDS: levETIRAcetam 250 MG TABLET PO SCH ×2 (07:49→20:00)
[2020-02-11] MEDS: predniSONE 5 MG TABLET PO SCH (07:49)
[2020-02-11] MEDS: Nystatin POWDER 30 GM BOTTLE TP SCH ×2 (07:50→20:03)
[2020-02-12 02:25] LABS: Basophils % 0.2 %; Eosinophils # 0.2 K/mcL (0.0-0.6); Eosinophils % 1.9 %; Hematocrit 35.9 % (37.5-50.1); Hemoglobin 10.5 g/dL (12.9-16.9); Immature Granulocytes % 0.5 % (0-4); Lymphocytes # 1.5 K/mcL (0.6-4.6); Lymphocytes % 12.5 %; Mean Corpuscular HGB Conc 29.2 g/dL (31.6-35.5); Mean Corpuscular Hemoglobin 30.1 pg (28.0-33.3); Mean Platelet Volume 11.2 fL (9.4-12.4); Monocytes # 1.6 K/mcL (0.0-1.3); Monocytes % 13.2 %; Neutrophils # 8.5 K/mcL (1.6-8.9); Platelet Count 186 K/mcL (140-400); Red Blood Count 3.49 M/mcL (4.19-5.50); Red Cell Distribution Width 14.5 % (11.5-14.5); Segmented Neutrophils % 71.7 %; White Blood Count 11.9 K/mcL (4.3-11.1)
[2020-02-12 02:31] LABS: Mean Corpuscular Volume 102.9 fL (83.0-100.0)
[2020-02-12 02:44] LABS: BUN/Creatinine Ratio 31 (6-26); Blood Urea Nitrogen 38 mg/dL (8-23); Calcium 8.8 mg/dL (8.6-10.3); Carbon Dioxide 25 mEq/L (23-29); Chloride 105 mEq/L (98-107); Glucose 128 mg/dL (70-105); Osmolality,Calculated 303 (280-300); Sodium 141 mEq/L (136-145); eGFR For African Americans > 60 (> 60); eGFR For Non-African Americans 55 (> 60)
[2020-02-12] MEDS: Insulin LISPRO 300 UNITS/3 ML VIAL SQ SCH ×2 (07:47→12:12)
[2020-02-12] MEDS: predniSONE 5 MG TABLET PO SCH (07:53)
[2020-02-12] MEDS: Bumetanide 1 MG TABLET PO SCH (07:53)
[2020-02-12] MEDS: Nystatin POWDER 30 GM BOTTLE TP SCH (07:53)
[2020-02-12] MEDS: lisinopriL 5 MG TABLET PO SCH (07:53)
[2020-02-12] MEDS: Isosorbide MONOnitrate (24 HR) 30 MG TAB.ER.24H PO SCH (07:53)
[2020-02-12] MEDS: levETIRAcetam 250 MG TABLET PO SCH (07:53)
[2020-02-12 10:54] VITALS: BP 136/91
[2020-02-12] MEDS ORDERED: Azithromycin 250 MG TABLET PO SCH (11:15)
[2020-02-12] MEDS ORDERED: cefTRIAXone 1,000 MG in Water for inj. (sterile) 10 ML IVP SCH (12:00)
[2020-02-12 12:04] LABS: Bilirubin,Urine Negative (Negative); Blood,Urine Negative (Negative); Clarity,Urine Clear (Clear); Color,Urine Light-Yellow (Yellow); Glucose,Urine (UA) Normal (Normal); Ketones,Urine Negative (Negative); Leukocyte Esterase,Urine Negative (Negative); Nitrite,Urine Negative (Negative); Protein,Urine Negative (Neg-Trace); Specific Gravity,Urine 1.011 (1.010-1.025); Urobilinogen,Urine Normal (Normal)
== END 2020-02-12 16:06 | DRG 562 ==
LOC: EMEROOARM 21:42 → 3BNU 21:42 → SUATTDRO 02-08 01:17 → 3BNU 02-08 02:25
PROVIDERS: ADMIT Internal Medicine; ATTEND Student in an Organized Health Care Education/Training Program

== ENCOUNTER 2020-02-15 09:19 | Inpatient (IN) ==
[2020-02-15] MEDS ORDERED: Piperacillin/Tazobactam 3.375 GM in 0.9 % Sodium Chloride Mini Bag 100 ML IVPB ONE (09:34)
[2020-02-15] MEDS ORDERED: DilTIAZem 50 MG/50 ML IV.SOLN IVC SCH (09:45)
[2020-02-15 09:52] LABS: Basophils % 0.2 %; Eosinophils % 0.1 %; Monocytes % 7.1 %
[2020-02-15] MEDS ORDERED: 0.9 % Sodium Chloride 1,000 ML IVC ONE ×4 (09:52→11:34)
[2020-02-15] MEDS ORDERED: 0.9 % Sodium Chloride 2,000 ML ONE (09:53)
[2020-02-15 09:54] LABS: Hematocrit 41.1 % (37.5-50.1); Hemoglobin 12.4 g/dL (12.9-16.9); Immature Granulocytes % 0.8 % (0-4); Lymphocytes # 1.5 K/mcL (0.6-4.6); Lymphocytes % 7.9 %; Mean Corpuscular HGB Conc 30.2 g/dL (31.6-35.5); Mean Corpuscular Hemoglobin 30.2 pg (28.0-33.3); Mean Corpuscular Volume 100.2 fL (83.0-100.0); Mean Platelet Volume 12.4 fL (9.4-12.4); Monocytes # 1.3 K/mcL (0.0-1.3); Neutrophils # 15.6 K/mcL (1.6-8.9); Platelet Count 243 K/mcL (140-400); Red Cell Distribution Width 14.3 % (11.5-14.5); Segmented Neutrophils % 83.9 %; White Blood Count 18.6 K/mcL (4.3-11.1)
[2020-02-15] MEDS ORDERED: Vancomycin 1,750 MG/517.5 ML IV.SOLN IVPB ONE (10:00)
[2020-02-15 10:01] LABS: VBG HCO3 26 mEq/L (21-27); VBG PCO2 61 mmHg (41-51); VBG PH 7.25 pH Units (7.32-7.42); VBG PO2 53 mmHg (25-50)
[2020-02-15 10:14] LABS: Calcium 9.3 mg/dL (8.6-10.3)
[2020-02-15 10:16] LABS: Troponin I 0.18 ng/mL (< 0.04)
[2020-02-15 10:25] LABS: Anisocytosis 1+ (Not Present); Platelet Estimate Normal (Normal)
[2020-02-15 11:09] LABS: Amorphous Sediment,Urine Few per hpf (None-Few); Bacteria,Urine Few per hpf (None-Few); Bilirubin,Urine Negative (Negative); Blood,Urine Negative (Negative); Clarity,Urine Turbid (Clear); Color,Urine Yellow (Yellow); Glucose,Urine (UA) Normal (Normal); Granular Casts,Urine Many per lpf (None Seen); Hyaline Casts,Urine Many per lpf (None Seen); Ketones,Urine Negative (Negative); Leukocyte Esterase,Urine Trace (Negative); Mucus,Urine Few per lpf (None-Few); Nitrite,Urine Negative (Negative); Protein,Urine Trace mg/dL (Neg-Trace); RBC,Urine 0-3 per hpf (0-3); Specific Gravity,Urine 1.016 (1.010-1.025); Transitional Epi Cells,Urine Moderate per hpf (None-Few); Urobilinogen,Urine Normal (Normal)
[2020-02-15 11:32] LABS: Adenovirus Not Detected (Not Detect); Bordetella Pertussis Not Detected (Not Detect); Chlamydophila pneumoniae Not Detected (Not Detect); Coronavirus 229E Not Detected (Not Detect); Coronavirus HKU1 Not Detected (Not Detect); Coronavirus NL63 Not Detected (Not Detect); Coronavirus OC43 Not Detected (Not Detect); Human Metapneumovirus Not Detected (Not Detect); Human Rhinovirus/Enterovirus Not Detected (Not Detect); Influenza A Subtype 2009 H1 Not Detected (Not Detect); Influenza B Not Detected (Not Detect); Mycoplasma pneumoniae Not Detected (Not Detect); Parainfluenza Virus 1 Not Detected (Not Detect); Parainfluenza Virus 2 Not Detected (Not Detect); Parainfluenza Virus 3 Not Detected (Not Detect); Parainfluenza Virus 4 Not Detected (Not Detect); Respiratory Syncytial Virus Not Detected (Not Detect)
[2020-02-15 11:48] VITALS: BP 107/76
[2020-02-15 12:19] LABS: Albumin 3.6 g/dL (3.5-5.7); Albumin/Globulin Ratio 0.8 (1.1-2.2); Bilirubin,Direct 0.3 mg/dL (0.0-0.2); Bilirubin,Indirect 0.8 mg/dL (0.0-1.0); Bilirubin,Total 1.1 mg/dL (0.3-1.0); Globulin 4.5 g/dL (2.4-3.5); Total Protein 8.1 g/dL (6.4-8.9)
[2020-02-15] MEDS ORDERED: Hydrocortisone Sodium Succ 100 MG/2 ML VIAL ONE (13:48)
[2020-02-15 13:50] LABS: INR 1.4; Prothrombin Time 15.7 Seconds (9.4-12.1)
[2020-02-15] MEDS ORDERED: Hydrocortisone Sodium Succ 100 MG/2 ML VIAL IVP ONE (13:53)
[2020-02-15] MEDS ORDERED: Naloxone 0.4 MG/ML INJ IVP PRN (15:18)
[2020-02-15] MEDS ORDERED: Ondansetron 4 MG/2 ML VIAL IVP PRN (15:18)
[2020-02-15] MEDS ORDERED: *HR* FentaNYL (PF) 100 MCG/2 ML VIAL IVP PRN (16:03)
[2020-02-15] MEDS ORDERED: *HR* LORazepam 2 MG/ML VIAL IVP PRN (16:04)
[2020-02-15] MEDS ORDERED: Haloperidol Lactate 5 MG/ML VIAL IVP PRN (16:05)
[2020-02-15] MEDS ORDERED: Atropine Sulfate 1% 40 DROP/2 ML BOTTLE SL PRN (16:05)
== END 2020-02-15 18:55 | disposition expired | DRG 951 ==
LOC: 2ANU 09:19 → EMEROOARM 09:19 → 2ANU 18:27
PROVIDERS: ADMIT Internal Medicine; ATTEND Internal Medicine